=== PATIENT | male | born 1950 | race Caucasian/White ===

== ENCOUNTER 2020-10-15 10:24 | Outpatient (REF) | payer MEDICARE, SELFPAY | END 2020-10-15 10:25 | disposition home or self-care (01) | LOC: HO.LAB 10:24 | PROVIDERS: PCP Internal Medicine; Visit Provider Internal Medicine | DX: Z20.822 Contact with and (suspected) exposure to COVID-19 (principal) | CPT/HCPCS: 36415; C9803; U0003; U0005 ==

== ENCOUNTER 2020-10-20 10:54 | Outpatient (REF) | payer MEDICARE, SELFPAY | END 2020-10-20 10:55 | disposition home or self-care (01) | LOC: HO.LAB 10:54 | PROVIDERS: Visit Provider Internal Medicine | DX: Z20.822 Contact with and (suspected) exposure to COVID-19 (principal) | CPT/HCPCS: 36415; C9803; U0003; U0005 ==

== ENCOUNTER 2020-11-11 10:55 | Outpatient (REF) | payer MEDICARE, SELFPAY ==
[2020-11-11 14:06] LABS: Lymphocytes Percent Auto 16.6 % (20-40); MANUAL DIFF FLAG SCAN; SCAN SMEAR FLAG 1
[2020-11-11 14:08] LABS: Basophils Percent Auto 0.3 % (0-2); Eosinophils Absolute Auto 0.1 X10*3/uL (0.0-0.4); Eosinophils Percent Auto 1.5 % (0-4); Hemoglobin 14.7 g/dl (14.0-18.0); Imm Gran Abs Auto 0.02 X10*3/uL (0.00-0.03); Imm Gran Pct Auto 0.3 % (0.0-0.4); Lymphocytes Absolute Auto 1.1 X10*3/uL (1.2-4.9); Mean Corpuscular HGB Conc 32.7 g/dl (31.0-36.0); Mean Corpuscular Hemoglobin 31.3 pg (27.0-33.0); Mean Corpuscular Volume 95.9 fL (80-98); Monocytes Absolute Auto 0.5 X10*3/uL (0.1-1.2); Monocytes Percent Auto 7.6 % (2-11); Neutrophils Absolute Auto 5.1 X10*3/uL (2.0-8.3); Neutrophils Percent Auto 73.7 % (45-73); PLT CLUMP 1; Red Blood Count 4.69 X10*6/uL (4.60-5.80); Red Cell Distribution Width 13.2 % (11.0-16.0)
[2020-11-11 14:12] LABS: Estimated Average Glucose 131 mg/dL; Hemoglobin A1c % 6.2 %
[2020-11-11 14:15] LABS: Glucose Urine UA NEG (NEG); Leukocyte Esterase Urine NEG (NEG); Nitrite Urine NEG (NEG); Specific Gravity - Urine >= 1.030 (1.005-1.025); Urine Blood NEG (NEG); Urine Ketones NEG (NEG); Urine Protein NEG (NEG-TRACE)
[2020-11-11 14:21] LABS: Appearance Urine CLEAR; Color Urine YELLOW
[2020-11-11 14:26] LABS: PLT ABN DIST 1
[2020-11-11 14:47] LABS: Creatinine Urine 113.37 mg/dL
[2020-11-11 14:54] LABS: Platelet Count 154 X10*3/uL (160-400); White Blood Count 6.9 X10*3/uL (4.8-10.8)
[2020-11-11 14:55] LABS: Alanine Aminotransferase 17 U/L (0-40); Albumin Level 4.4 g/dL (3.5-5.0); Alkaline Phosphatase 81 U/L (39-117); Anion Gap 14 (12-20); Aspartate Amino Transferase 17 U/L (5-37); Bilirubin Total 0.6 mg/dL (0.0-1.0); Blood Urea Nitrogen 15 mg/dL (9-16); Calcium 9.2 mg/dL (8.4-10.2); Carbon Dioxide 28 mmol/L (22-29); Chloride 104 mmol/L (96-108); Cholesterol 144 mg/dL; Estimated Glomerular Filt Rate > 60; Glucose Fasting 114 mg/dL (60-99); HDL Cholesterol 31 mg/dL; LDL Cholesterol Calculated 90 mg/dl; Potassium 4.4 mmol/L (3.3-5.1); SLIDE REVIEW VERIFIED; Sodium 142 mmol/L (135-145); Total Protein 7.9 g/dL (6.5-8.0); Triglycerides 115 mg/dL
[2020-11-11 15:18] LABS: Prostate Specific Antigen Scr 0.83 ng/mL (<0.05-4.0)
== END 2020-11-11 10:56 | disposition home or self-care (01) ==
LOC: HO.10HDL 10:55
PROVIDERS: Visit Provider Internal Medicine
DX: E78.00 Pure hypercholesterolemia, unspecified (principal); M10.9 Gout, unspecified; N40.0 Benign prostatic hyperplasia without lower urinary tract symptoms; R73.03 Prediabetes; Z12.5 Encounter for screening for malignant neoplasm of prostate
CPT/HCPCS: 36415; 80053; 80061; 81003; 82043; 83036; 84153; 85025

== ENCOUNTER 2021-06-04 14:38 | Outpatient (REF) | payer MEDICARE, SELFPAY ==
[2021-06-04 15:12] LABS: Estimated Average Glucose 134 mg/dL; Hemoglobin A1c % 6.3 %
[2021-06-04 15:29] LABS: Anion Gap 9 (12-20); Blood Urea Nitrogen 15 mg/dL (9-16); Calcium 9.2 mg/dL (8.4-10.2); Carbon Dioxide 32 mmol/L (22-29); Chloride 106 mmol/L (96-108); Estimated Glomerular Filt Rate > 60; Glucose Random 112 mg/dL (60-115); Potassium 4.2 mmol/L (3.3-5.1); Sodium 143 mmol/L (135-145)
== END 2021-06-04 14:39 | disposition home or self-care (01) ==
LOC: HO.LAB 14:38
PROVIDERS: PCP Internal Medicine; Visit Provider Internal Medicine
DX: R73.03 Prediabetes (principal); N40.0 Benign prostatic hyperplasia without lower urinary tract symptoms; M10.9 Gout, unspecified
CPT/HCPCS: 36415; 80048; 83036; 84550

== ENCOUNTER 2021-07-01 15:16 | Outpatient (REF) | payer MEDICARE, SELFPAY | END 2021-07-01 15:17 | disposition home or self-care (01) | LOC: HO.LAB 15:16 | PROVIDERS: Visit Provider Internal Medicine | DX: Z20.822 Contact with and (suspected) exposure to COVID-19 (principal) | CPT/HCPCS: C9803; U0003; U0005 ==

== ENCOUNTER 2021-07-29 16:51 | Inpatient (IN) | payer MEDICARE, SELFPAY ==
--- NOTE | ~2021-07-29 | CT_ITS ---
EXAMINATION: CT ABDOMEN AND PELVIS WITH CONTRAST CLINICAL INFORMATION: Abdominal pain and distention. COMPARISON: Ultrasound of abdomen 10/04/2008 TECHNIQUE: Multidetector volumetric images were obtained from the superior aspect of the liver through the pubic symphysis following administration 85 mL of Omnipaque 350 intravenous contrast. Sagittal and coronal reformatted images were obtained on the technologist's workstation. Oral contrast: No This CT examination was performed using dose optimization techniques as appropriate, variously including the following: *Automated exposure control *Adjustment of mA and/or kV according to patient size (this includes techniques or standardized protocols for targeted exams where dose is matched to indication/reason for exam; i.e. extremities or head) *Use of iterative reconstruction technique DLP: 466 mGy-cm FINDINGS: LUNG BASES: Linear scarring/atelectasis at both lung bases. No focal consolidation. No pleural effusion. LIVER, GALLBLADDER, AND BILIARY TREE: The liver is normal in size, shape, and attenuation. No focal hepatic lesion or biliary ductal dilatation is present. : Bladder is distended. There are multiple small calcified gallstones in the gallbladder. There is edema around the gallbladder. Findings are concerning for an acute cholecystitis. The extra hepatic CBD is dilated to a diameter of 1 cm. No evidence of choledocholithiasis however. PANCREAS: Pancreas is atrophic. No pancreatic duct dilatation. No edema around the pancreas. SPLEEN: Unremarkable. ADRENAL GLANDS: Unremarkable. KIDNEYS AND URETERS: The kidneys are normal in size, shape, and attenuation. No hydronephrosis, hydroureter, or calculi seen. No perinephric stranding. BLADDER: Unremarkable. GASTROINTESTINAL TRACT: There are numerous diverticula of the sigmoid colon. There is no diverticulitis. There is no bowel wall thickening /edema. There is no bowel obstruction. There is a moderate volume of stool in the colon. The appendix is normal . The small bowel loops are unremarkable. The stomach is normal. There is no hiatal hernia. ABDOMINAL WALL: No significant hernia is appreciated. LYMPH NODES: Normal. VASCULAR: Scattered vascular calcifications throughout the abdomen and the pelvis. There is no aneurysm. PELVIC VISCERA: Prostate is prominent measuring 4 cm transverse. Impresses into the bladder base. OSSEOUS STRUCTURES: Unremarkable. CT/CT abdomen pelvis w con IMPRESSION: Cholelithiasis. Distended gallbladder. Edema around the gallbladder consistent with acute cholecystitis. There is dilatation of the extrahepatic CBD to a diameter of 1 cm. No evidence of choledocholithiasis however. Normal pancreas. Fleischner guidelines were followed.
--- NOTE | ~2021-07-29 | MR_ITS ---
EXAMINATION: MR ABDOMEN WITHOUT CONTRAST CLINICAL INFORMATION: Gallstones. Dilated CBD on CT. Rule out common bile duct stone. COMPARISON: CT 07/29/2021. TECHNIQUE: MR abdomen is performed without gadolinium contrast. Heavily T2-weighted sequence performed for MRCP acquisition. FINDINGS: LUNG BASES: The visualized lung bases are unremarkable. LIVER, GALLBLADDER, AND BILIARY TREE: The liver is normal in size, smooth in contour, and normal in signal. No focal hepatic lesion or biliary ductal dilatation is present. Sludge and stones fill the gallbladder lumen. No definite gallbladder wall thickening seen on this study. Small amount of fluid tracks along the inferior aspect of the liver. The common bile duct is dilated measuring 1.1 cm. Minimal intrahepatic biliary ductal dilatation is well. There is no ductal filling defect identified. There appears to be low insertion of the cystic duct. PANCREAS: No pancreatic ductal dilatation. Pancreatic parenchyma is unremarkable. SPLEEN: Unremarkable. ADRENAL GLANDS: Unremarkable. KIDNEYS AND URETERS: The kidneys are normal in size and shape. No hydronephrosis. No perinephric stranding. GASTROINTESTINAL TRACT: No bowel obstruction. No ascites or fluid collection. ABDOMINAL WALL: No significant hernia is appreciated. LYMPH NODES: No lymphadenopathy. VASCULAR: Unremarkable. OSSEOUS STRUCTURES: Marrow signal normal. MR/MR MRCP IMPRESSION: Dilated common bile duct with mild intrahepatic biliary ductal dilatation. No ductal filling defects seen. Cholelithiasis with gallbladder sludge. No gallbladder wall thickening seen on this study. There is small amount of fluid which tracks along the inferior aspect of the liver.
[2021-07-29 17:49] VITALS: BP 130/75; PULSE 99; RESP 18; TEMP 36.7; O2SAT 94; BMI 22.0
[2021-07-29 19:02] LABS: Alanine Aminotransferase 21 U/L (0-40); Albumin Level 4.1 g/dL (3.5-5.0); Alkaline Phosphatase 86 U/L (39-117); Anion Gap 15 (12-20); Aspartate Amino Transferase 18 U/L (5-37); Bilirubin Total 1.1 mg/dL (0.0-1.0); Blood Urea Nitrogen 17 mg/dL (9-16); Calcium 9.3 mg/dL (8.4-10.2); Carbon Dioxide 30 mmol/L (22-29); Chloride 98 mmol/L (96-108); Creatinine Clr Calc Pharmacy 60.3; Estimated Glomerular Filt Rate > 60; Glucose Random 117 mg/dL (60-115); Sodium 139 mmol/L (135-145); Total Protein 8.1 g/dL (6.5-8.0)
--- NOTE | 2021-07-29 19:48 | ED_ITS ---
HPI - Abdominal Pain General Chief Complaint: Abdominal Pain Stated Complaint: abd pain Time Seen by Provider: 07/29/21 21:19 Source: patient Mode of arrival: ambulatory Limitations: no limitations History of Present Illness HPI narrative: 71-year-old male presents with approximately 1 week of abdominal pain. Started off with pain and cramping, thought that he had food poisoning. Pain and bloating has worsened, patient has had several episodes of nausea and vomiting. Does not report any sick contacts. MD elicited complaint: abdominal pain Onset (ago): day(s) (5) Pain Consistency: constant Location: diffuse Severity: moderate Pain scale (0-10): 7 Quality: cramping, aching and fullness Exacerbating factors: vomiting and movement Relieving factors: nothing Context: possible food poisoning Associated symptoms: nausea, vomiting, chills and constipation Related Data Home Medications Medication Instructions Recorded Confirmed allopurinol 100 mg tablet 1 tab PO DAILY 07/29/21 07/29/21 atorvastatin 10 mg tablet 1 tab PO DAILY 07/29/21 07/29/21 tamsulosin 0.4 mg capsule 1 cap PO DAILY 07/29/21 07/29/21 Allergies Allergy/AdvReac Type Severity Reaction Status Date / Time No Known Allergies Allergy Verified 07/29/21 17:49 Review of Systems Review of Systems Constitutional: No Weight loss, No Fever, No Chills, No Night Sweats, No Fatigue, No Malaise ENT/Mouth: No Hearing loss, No Ear Pain, No Nasal Congestion, No Sinus Pain, No Hoarseness, No sore throat, No Rhinorrhea, No Swallowing Difficulty Eyes: No Eye Pain, No Swelling, No Redness, No Foreign Body, No Discharge, No Vision Changes Cardiovascular: No Chest Pain, No SOB, No Dyspnea on Exertion, No Orthopnea, No Edema, No Palpitations Respiratory: No Cough, No Sputum, No Wheezing, No Smoke Exposure, No Dyspnea Gastrointestinal: Positive Nausea, Positive Vomiting, no Diarrhea, positive abdominal Pain, No Hematochezia, No Melena Genitourinary: no irregular bleeding, No Dysuria, No Urinary Frequency, No Hematuria, No Urinary Incontinence, No Urgency, No Flank Pain, No Urinary Flow Changes, No Hesitancy Musculoskeletal: No joint pain, No Myalgias, No Joint Swelling Skin: No Skin Lesions, No rash Neuro: No Weakness, No Numbness, No Paresthesias, No Loss of Consciousness, No Dizziness, No Headache Psych: No Anxiety/Panic, No Depression, No SI/HI/AH/VH, No Social Issues Heme/Lymph: No Bruising, No Bleeding,No Lymphadenopathy Endocrine: No Polyuria, No Polydipsia, No Temperature Intolerance Yes all other systems are reviewed and are negative Physical Exam Vital Signs: Vital Signs: Last Vital Signs Temp 98.0 F 07/29/21 22:20 Pulse 96 07/29/21 22:20 Resp 16 07/29/21 22:20 BP 130/87 07/29/21 22:20 Pulse Ox 94 07/29/21 22:20 BMI result Body Mass Index 22.0 Appearance: Alert. Oriented X3. No acute distress. Eyes: Pupils equal, round and reactive to light. ENT: Pharynx normal. Neck: Normal inspection. Neck supple. CVS: Tachycardic heart rate and rhythm. Pulses normal. Respiratory: No respiratory distress. Breath sounds normal. Abdomen: Soft and diffusely tender and distended. No rigidity or rebound tenderness noted. Positive Paulino. Skin: Skin warm and dry. Normal skin color. Normal skin turgor. Extremities: No lower extremity edema. Moves all extremities against resistance. Neuro: No motor deficit. No sensory deficit. Cranial nerves 2-12 intact. Course Course Course Narrative: E.d. wait time 3:00 a.m. and 20 minutes. 2018 patient presents with abdominal pain. States that he has had felt this way for the past several days, on the 1st day he felt like it was food poisoning and vomited a few times. He has had poor p.o. intake over the past few days and states that he has not had any bowel movements. He is passing flatus. He states that his abdomen is so distended that it is difficult for him to put his pants on. He has had some chills and subjective fevers over the past few days. Labs drawn while patient in the waiting room. 9:21 p.m. white count 17.5, lactic 1.1, heart rate 100. Does meet SIRS criteria not sepsis. 10:[address] scan indicates cholelithiasis with cholecystitis. Discussion with Gastroenterology Dr. Welch via tiger text. 10:[address] Hussein, plans for admission to surgical service for cholecystitis. I did discuss Dr. Welch is plan for MRCP in the morning. Dr. Hussein agrees. Discussion with patient regarding plan care to admit. Patient agrees with plan. Consultations Consultation #1: Rebekah Time: 22:01 Consultation #2: Keenan Time: 22:12 MDM - Abdominal Pain Differential Diagnosis Differential diagnosis: Likely abdominal pain, acute appendicitis, bowel perforation, calculus of kidney, constipation, diverticulitis, gastroenteritis, pancreatitis, peptic ulcer disease and small bowel obstruction Differential diagnosis narrative:: Cholecystitis, cholelithiasis Medical Records Attestation: I reviewed the patient's medical records. Lab Data Attestation: I reviewed the patient's lab results. Result diagrams: 07/29/21 20:32 07/29/21 18:42 Labs: Lab Results 07/29/21 07/29/21 07/29/21 Range/Units 18:42 20:31 20:31 WBC (4.8-10.8) X10*3/uL RBC (4.60-5.80) X10*6/uL Hgb (14.0-18.0) g/dl Hct (42.0-52.0) % MCV (80.0-98.0) fL MCH (27.0-33.0) pg MCHC (31.0-36.0) g/dl RDW (11.0-16.0) % Plt Count (160-400) X10*3/uL MPV (9.4-12.4) fL Immature Gran % (Auto) (0.0-0.4) % Neut % (Auto) (45-73) % Lymph % (Auto) (20-40) % [place] % (Auto) (2-11) % Eos % (Auto) (0-4) % Baso % (Auto) (0-2) % Lymph # (Auto) (1.2-4.9) X10*3/uL [place] # (Auto) (0.1-1.2) X10*3/uL Eos # (Auto) (0.0-0.4) X10*3/uL Baso # (Auto) (0.0-0.2) X10*3/uL Abs Immat Gran (auto) (0.00-0.03) X10*3/uL Absolute Neuts (auto) (2.0-8.3) x10*3/uL Absolute Nucleated RBC (0.0-0.012) X10*3/uL Nucleated RBC % (auto) (0.0-0.2) /100WBC Smear Tech's Comments Sodium 139 (135-145) mmol/L Potassium 4.0 (3.3-5.1) mmol/L Chloride 98 (96-108) mmol/L Carbon Dioxide 30 H (22-29) mmol/L Anion Gap 15 (12-20) BUN 17 H (9-16) mg/dL Creatinine 1.03 (0.5-1.4) mg/dL Estim Creat Clear Calc 60.3 Estimated GFR > 60 Random Glucose 117 H (60-115) mg/dL Lactic Acid 1.1 (0.5-2.0) mmol/L Calcium 9.3 (8.4-10.2) mg/dL Magnesium 2.0 (1.6-2.6) mg/dL Total Bilirubin 1.1 H (0.0-1.0) mg/dL AST 18 (5-37) U/L ALT 21 (0-40) U/L Alkaline Phosphatase 86 (39-117) U/L Troponin I High Sens (<3.5-35.0) ng/L Total Protein 8.1 H (6.5-8.0) g/dL Albumin 4.1 (3.5-5.0) g/dL Lipase 7 L (8-78) U/L Urine Color Urine Appearance Urine pH (5.0-8.0) Ur Specific [place] (1.005-1.025) Urine Protein (NEG-TRACE) MG/DL Urine Glucose (UA) (NEG) MG/DL Urine Ketones (NEG) MG/DL Urine Blood (NEG) Urine Nitrite (NEG) Ur Leukocyte Esterase (NEG) Urine RBC (0) /HPF Urine WBC (0-4) /HPF Ur Squamous Epith Cells /LPF Amorphous Sediment /LPF Urine Bacteria /LPF Hyaline Casts /LPF Urine Mucus /LPF Ethyl Alcohol mg/dL COVID-19 (DESIRE) Negative (Negative) COVID-19 Clin Com See Note 07/29/21 07/29/21 07/29/21 Range/Units 20:32 20:40 20:40 WBC 17.5 H (4.8-10.8) X10*3/uL RBC 4.55 L (4.60-5.80) X10*6/uL Hgb 14.6 (14.0-18.0) g/dl Hct 44.3 (42.0-52.0) % MCV 97.4 (80.0-98.0) fL MCH 32.1 (27.0-33.0) pg MCHC 33.0 (31.0-36.0) g/dl RDW 13.2 (11.0-16.0) % Plt Count 193 (160-400) X10*3/uL MPV 11.1 (9.4-12.4) fL Immature Gran % (Auto) 0.3 (0.0-0.4) % Neut % (Auto) 81.8 H (45-73) % Lymph % (Auto) 7.8 L (20-40) % [place] % (Auto) 9.8 (2-11) % Eos % (Auto) 0.1 (0-4) % Baso % (Auto) 0.2 (0-2) % Lymph # (Auto) 1.4 (1.2-4.9) X10*3/uL [place] # (Auto) 1.7 H (0.1-1.2) X10*3/uL Eos # (Auto) 0.0 (0.0-0.4) X10*3/uL Baso # (Auto) 0.0 (0.0-0.2) X10*3/uL Abs Immat Gran (auto) 0.06 H (0.00-0.03) X10*3/uL Absolute Neuts (auto) 14.3 H (2.0-8.3) x10*3/uL Absolute Nucleated RBC 0.000 (0.0-0.012) X10*3/uL Nucleated RBC % (auto) 0.0 (0.0-0.2) /100WBC Smear Tech's Comments VERIFIED Sodium (135-145) mmol/L Potassium (3.3-5.1) mmol/L Chloride (96-108) mmol/L Carbon Dioxide (22-29) mmol/L Anion Gap (12-20) BUN (9-16) mg/dL Creatinine (0.5-1.4) mg/dL Estim Creat Clear Calc Estimated GFR Random Glucose (60-115) mg/dL Lactic Acid (0.5-2.0) mmol/L Calcium (8.4-10.2) mg/dL Magnesium (1.6-2.6) mg/dL Total Bilirubin (0.0-1.0) mg/dL AST (5-37) U/L ALT (0-40) U/L Alkaline Phosphatase (39-117) U/L Troponin I High Sens 4.4 (<3.5-35.0) ng/L Total Protein (6.5-8.0) g/dL Albumin (3.5-5.0) g/dL Lipase (8-78) U/L Urine Color Urine Appearance Urine pH (5.0-8.0) Ur Specific [place] (1.005-1.025) Urine Protein (NEG-TRACE) MG/DL Urine Glucose (UA) (NEG) MG/DL Urine Ketones (NEG) MG/DL Urine Blood (NEG) Urine Nitrite (NEG) Ur Leukocyte Esterase (NEG) Urine RBC (0) /HPF Urine WBC (0-4) /HPF Ur Squamous Epith Cells /LPF Amorphous Sediment /LPF Urine Bacteria /LPF Hyaline Casts /LPF Urine Mucus /LPF Ethyl Alcohol < 10 mg/dL COVID-19 (DESIRE) (Negative) COVID-19 Clin Com 07/29/21 Range/Units 21:11 WBC (4.8-10.8) X10*3/uL RBC (4.60-5.80) X10*6/uL Hgb (14.0-18.0) g/dl Hct (42.0-52.0) % MCV (80.0-98.0) fL MCH (27.0-33.0) pg MCHC (31.0-36.0) g/dl RDW (11.0-16.0) % Plt Count (160-400) X10*3/uL MPV (9.4-12.4) fL Immature Gran % (Auto) (0.0-0.4) % Neut % (Auto) (45-73) % Lymph % (Auto) (20-40) % [place] % (Auto) (2-11) % Eos % (Auto) (0-4) % Baso % (Auto) (0-2) % Lymph # (Auto) (1.2-4.9) X10*3/uL [place] # (Auto) (0.1-1.2) X10*3/uL Eos # (Auto) (0.0-0.4) X10*3/uL Baso # (Auto) (0.0-0.2) X10*3/uL Abs Immat Gran (auto) (0.00-0.03) X10*3/uL Absolute Neuts (auto) (2.0-8.3) x10*3/uL Absolute Nucleated RBC (0.0-0.012) X10*3/uL Nucleated RBC % (auto) (0.0-0.2) /100WBC Smear Tech's Comments Sodium (135-145) mmol/L Potassium (3.3-5.1) mmol/L Chloride (96-108) mmol/L Carbon Dioxide (22-29) mmol/L Anion Gap (12-20) BUN (9-16) mg/dL Creatinine (0.5-1.4) mg/dL Estim Creat Clear Calc Estimated GFR Random Glucose (60-115) mg/dL Lactic Acid (0.5-2.0) mmol/L Calcium (8.4-10.2) mg/dL Magnesium (1.6-2.6) mg/dL Total Bilirubin (0.0-1.0) mg/dL AST (5-37) U/L ALT (0-40) U/L Alkaline Phosphatase (39-117) U/L Troponin I High Sens (<3.5-35.0) ng/L Total Protein (6.5-8.0) g/dL Albumin (3.5-5.0) g/dL Lipase (8-78) U/L Urine Color DK YELLOW Urine Appearance CLEAR Urine pH 6.0 (5.0-8.0) Ur Specific [place] >= 1.030 H (1.005-1.025) Urine Protein 1+ H (NEG-TRACE) MG/DL Urine Glucose (UA) NEG (NEG) MG/DL Urine Ketones 15 (NEG) MG/DL Urine Blood TRACE (NEG) Urine Nitrite NEG (NEG) Ur Leukocyte Esterase NEG (NEG) Urine RBC 0-2 (0) /HPF Urine WBC 0-2 (0-4) /HPF Ur Squamous Epith Cells TRACE /LPF Amorphous Sediment TRACE /LPF Urine Bacteria TRACE /LPF Hyaline Casts 0-2 /LPF Urine Mucus 2+ /LPF Ethyl Alcohol mg/dL COVID-19 (DESIRE) (Negative) COVID-19 Clin Com Imaging Data CT abdomen pelvis: Attestation: I personally reviewed and interpreted this imaging study as follows: Radiologist's impression: FINDINGS: LUNG BASES: Linear scarring/atelectasis at both lung bases. No focal consolidation. No pleural effusion.? LIVER, GALLBLADDER, AND BILIARY TREE: The liver is normal in size, shape, and attenuation. No focal hepatic lesion or biliary ductal dilatation is present. : Bladder is distended. There are multiple small calcified gallstones in the gallbladder. There is edema around the gallbladder. Findings are concerning for an acute cholecystitis. The extra hepatic CBD is dilated to a diameter of 1 cm. No evidence of choledocholithiasis however.? PANCREAS: Pancreas is atrophic. No pancreatic duct dilatation. No edema around the pancreas.? SPLEEN: Unremarkable.? ADRENAL GLANDS: Unremarkable.? KIDNEYS AND URETERS: The kidneys are normal in size, shape, and attenuation. No hydronephrosis, hydroureter, or calculi seen. No perinephric stranding. ? BLADDER: Unremarkable.? GASTROINTESTINAL TRACT: There are numerous diverticula of the sigmoid colon. There is no diverticulitis. There is no bowel wall thickening /edema. There is no bowel obstruction. There is a moderate volume of stool in the colon. The appendix is normal . The small bowel loops are unremarkable. The stomach is normal. There is no hiatal hernia.? ABDOMINAL WALL: No significant hernia is appreciated.? LYMPH NODES: Normal. VASCULAR: Scattered vascular calcifications throughout the abdomen and the pelvis. There is no aneurysm. PELVIC VISCERA: Prostate is prominent measuring 4 cm transverse. Impresses into the bladder base.? OSSEOUS STRUCTURES: Unremarkable.? CT/CT abdomen pelvis w con IMPRESSION: Cholelithiasis. Distended gallbladder. Edema around the gallbladder consistent with acute cholecystitis. There is dilatation of the extrahepatic CBD to a diameter of 1 cm. No evidence of choledocholithiasis however. Normal pancreas.? ? Fleischner guidelines were followed. ECG Data Attestation: I personally reviewed and interpreted this ECG as follows: ECG interpretation date: 07/29/21 ECG interpretation time: 20:44 Prior ECG tracings: available for review Interpretation: Vent. rate 100 BPM UT interval 158 ms QRS duration 82 ms QT/QTc 342/441 ms P-R-T axes 29 2 9 Normal sinus rhythm Normal ECG When compared with ECG of 13-SEP-2006 10:20, No significant change was found Critical Care Time Critical Care Time Critical Care Time: Yes Total Critical Care Time: 45 Attestation: I have personally provided critical care time exclusive of time spent on separately billable procedures. Time includes review of laboratory data, radiology results, discussion with consultants, and monitoring for potential decompensation. Interventions were performed as documented. Discharge Plan Discharge Clinical Impression: Acute cholecystitis Cholelithiasis Qualifiers: Cholelithiasis location: gallbladder Cholecystitis presence: with cholecystitis Cholecystitis acuity: acute Biliary obstruction: without biliary obstruction Qualified Code(s): K80.00 - Calculus of gallbladder with acute cholecystitis without obstruction Patient Disposition: Admitted As Inpatient [facility] Past Medical History Attestation statement: The following information was validated with the patient. Source: old records reviewed Medical History Enlarged prostate Gout High cholesterol Social History Social History Alcohol intake: former Patient Tobacco Use Status: Never used Tobacco Use of substances other than those prescribed or required for medical reasons: No Advance Directives: No Advance Directives Information Provided: No
--- NOTE | 2021-07-29 20:14 | ECG_ITS ---
Test Reason : ABDOMINAL PAIN Blood Pressure : / mmHG Vent. Rate : 100 BPM Atrial Rate : 100 BPM P-R Int : 158 ms QRS Dur : 082 ms QT Int : 342 ms P-R-T Axes : 029 002 009 degrees QTc Int : 441 ms Normal sinus rhythm Normal ECG When compared with ECG of 13-SEP-2006 10:20, No significant change was found Referred By: Deloris Mota Electronically Signed By:Tawanda Allen
[2021-07-29] MEDS: ondansetron HCL 4 MG/2 ML VIAL IVPUSH (20:29)
[2021-07-29] MEDS: Morphine Sulfate 2 MG/ML CARTRIDGE IVPUSH (20:29)
[2021-07-29] MEDS: 0.9 % Sodium Chloride 1,000 ML 999 ML IVCONT (20:29)
--- NOTE | 2021-07-29 20:32 | PC.NURSE ---
IV established, all labs including BCX x 2 and Covid swab obtained. Pt medicated per OCT. senior technical architect at bedside for EKG.
[2021-07-29 20:35] LABS: Lipase 7 U/L (8-78)
[2021-07-29 20:38] LABS: Basophils Percent Auto 0.2 % (0-2); Eosinophils Percent Auto 0.1 % (0-4); Hematocrit 44.3 % (42.0-52.0); Hemoglobin 14.6 g/dl (14.0-18.0); Imm Gran Abs Auto 0.06 X10*3/uL (0.00-0.03); Imm Gran Pct Auto 0.3 % (0.0-0.4); Lymphocytes Absolute Auto 1.4 X10*3/uL (1.2-4.9); Lymphocytes Percent Auto 7.8 % (20-40); MANUAL DIFF FLAG SCAN; Mean Corpuscular Hemoglobin 32.1 pg (27.0-33.0); Mean Corpuscular Volume 97.4 fL (80.0-98.0); Mean Platelet Volume 11.1 fL (9.4-12.4); Monocytes Absolute Auto 1.7 X10*3/uL (0.1-1.2); Monocytes Percent Auto 9.8 % (2-11); Neutrophils Absolute Auto 14.3 x10*3/uL (2.0-8.3); Neutrophils Percent Auto 81.8 % (45-73); Platelet Count 193 X10*3/uL (160-400); Red Blood Count 4.55 X10*6/uL (4.60-5.80); Red Cell Distribution Width 13.2 % (11.0-16.0); SCAN SMEAR FLAG 1; White Blood Count 17.5 X10*3/uL (4.8-10.8)
[2021-07-29 20:46] LABS: Lactic Acid 1.1 mmol/L (0.5-2.0)
[2021-07-29 20:48] VITALS: BP 135/66; PULSE 100; RESP 16; TEMP 37; O2SAT 94
[2021-07-29 20:52] LABS: COVID-19 Test Negative (Negative)
[2021-07-29 21:06] LABS: SLIDE REVIEW VERIFIED
--- NOTE | 2021-07-29 21:06 | PC.NURSE ---
Omar denies abbdominal pain or nausea at this time, but states if he were to weat he would have diffuse abd. pain and likely vomiting
[2021-07-29 21:11] LABS: Troponin-I High Sensitivity 4.4 ng/L (<3.5-35.0)
[2021-07-29 21:18] LABS: Appearance Urine CLEAR; Color Urine DK YELLOW; Glucose Urine UA NEG (NEG); Leukocyte Esterase Urine NEG (NEG); Nitrite Urine NEG (NEG); Specific Gravity - Urine >= 1.030 (1.005-1.025); UACC Culture Trigger NO; Urine Blood TRACE (NEG); Urine Ketones 15 MG/DL (NEG); Urine Protein 1+ MG/DL (NEG-TRACE)
[2021-07-29 21:28] LABS: Amorphous Sediment Urine TRACE /LPF; Mucus Urine 2+ /LPF; Squamous Epithelial Cell Urine TRACE /LPF
[2021-07-29 21:29] LABS: Bacteria Urine TRACE /LPF; Hyaline Casts Urine 0-2 /LPF; RBC Urine 0-2 /HPF (0); WBC Urine 0-2 /HPF (0-4)
[2021-07-29] MEDS: iohexoL 350 MG/ML 100 ML INFUS..BTL 85 ML IV (21:32)
[2021-07-29] MEDS: Piperacillin Sodium/Tazobactam 3.375 GM in 0.9 % Sodium Chloride 50 ML IV (21:52)
[2021-07-29 21:53] VITALS: BP 141/73; PULSE 100; RESP 14; O2SAT 94
[2021-07-29 22:20] VITALS: BP 130/87; PULSE 96; RESP 16; TEMP 36.7; O2SAT 94
[2021-07-29 22:45] LABS: Ethanol < 10 mg/dL
[2021-07-29] MEDS: Lactated Ringers 1,000 ML 100 ML IVCONT (22:49)
[2021-07-29 22:55] LABS: INTERNATIONAL NORM RATIO 1.2 (0.9-1.1); Prothrombin Time 13.5 SEC (9.9-13.0)
[2021-07-29 22:57] LABS: Partial Thromboplastin Time 31.4 SEC (24.1-38.0)
[2021-07-30] VITALS (14 sets, daily range): BP systolic 118–151; BP diastolic 56–78; PULSE 62–96; RESP 14–20; TEMP 36.3–37.2; O2SAT 90–98
[2021-07-30] MEDS: 0.9 % Sodium Chloride Flush 3 ML SYRINGE IVFLUSH (00:07)
[2021-07-30 06:50] LABS: MANUAL DIFF FLAG NO
[2021-07-30] MEDS: Piperacillin Sodium/Tazobactam 3.375 GM in 0.9 % Sodium Chloride 50 ML IV (06:51)
[2021-07-30 06:55] LABS: Basophils Percent Auto 0.2 % (0-2); Eosinophils Percent Auto 0.1 % (0-4); Hematocrit 39.3 % (42.0-52.0); Imm Gran Abs Auto 0.08 X10*3/uL (0.00-0.03); Imm Gran Pct Auto 0.6 % (0.0-0.4); Lymphocytes Absolute Auto 0.9 X10*3/uL (1.2-4.9); Lymphocytes Percent Auto 6.9 % (20-40); Mean Corpuscular HGB Conc 33.1 g/dl (31.0-36.0); Mean Corpuscular Hemoglobin 31.9 pg (27.0-33.0); Mean Corpuscular Volume 96.3 fL (80.0-98.0); Monocytes Absolute Auto 1.4 X10*3/uL (0.1-1.2); Monocytes Percent Auto 10.3 % (2-11); Neutrophils Absolute Auto 10.9 x10*3/uL (2.0-8.3); Neutrophils Percent Auto 81.9 % (45-73); Platelet Count 178 X10*3/uL (160-400); Red Blood Count 4.08 X10*6/uL (4.60-5.80); Red Cell Distribution Width 13.2 % (11.0-16.0); White Blood Count 13.3 X10*3/uL (4.8-10.8)
--- NOTE | 2021-07-30 07:21 | PHA.MEDREC ---
Pharmacy Consult ? Medication Reconciliation Pharmacy has completed the medication reconciliation. Checked meds with claim history in the morning
--- NOTE | 2021-07-30 07:25 | PM.EVENT ---
Event Note Date of Service: 07/30/21 Event Note: GI-D/W CANDIE Emerson, Deloris Delgadillo, last PM-Full note to follow. Rec: MRCP this AM.Surgery consult. ERCP if MRCP shows CBD stone(s), otherwise probably proceed with CCY. Thanks
[2021-07-30 07:32] LABS: Anion Gap 13 (12-20); Blood Urea Nitrogen 14 mg/dL (9-16); Calcium 8.5 mg/dL (8.4-10.2); Carbon Dioxide 28 mmol/L (22-29); Chloride 102 mmol/L (96-108); Creatinine Clr Calc Pharmacy 69.7; Estimated Glomerular Filt Rate > 60; Glucose Random 113 mg/dL (60-115); Potassium 3.9 mmol/L (3.3-5.1); Sodium 139 mmol/L (135-145)
--- NOTE | 2021-07-30 07:33 | PC.NURSE ---
PT NPO. AWAITING MRCP. AWARE OF PLAN. ALERT AND ORIENTED.
[2021-07-30 07:40] LABS: Alanine Aminotransferase 24 U/L (0-40); Albumin Level 3.4 g/dL (3.5-5.0); Alkaline Phosphatase 92 U/L (39-117); Aspartate Amino Transferase 22 U/L (5-37); Bilirubin Direct 0.6 mg/dL (0.0-0.5); Bilirubin Total 1.2 mg/dL (0.0-1.0); Total Protein 6.6 g/dL (6.5-8.0)
--- NOTE | 2021-07-30 08:08 | P.HPGS_ITS ---
History of Present Illness History of Present Illness Date of Service: 07/31/21 Chief complaint: Gallstones Narrative: Omar Carbajal is a 71 year old male who came to the ER last night because of abdominal pain. He said that he started to experience this last Tuesday morning which was about 2 days prior to admission. He says that this started whenever he eats. He says he thought he had a little bit of food poisoning or blockage . He was very vague about details but he says that the pain had persisted so he decided to come to the ER last night. He denies any nausea or vomiting. He denies any other GI complaints. He currently says that he feels better this morning. He does not appear to be a very good historian although he does answer questions well. He has a remote history of alcohol abuse. He says that he has been sober for more than 5 years now. He denies any recent alcohol intake. Review of Systems Constitutional: Constitutional: Denies chills and Denies fever(s) Cardiovascular: Cardiovascular: Denies chest pain, Denies dyspnea and Denies dyspnea on exertion Respiratory: Respiratory: Denies cough, Denies dyspnea and Denies dyspnea on exertion Gastrointestinal: Gastrointestinal: Denies hematochezia and Denies change in bowel habits Genitourinary: Genitourinary: Denies hematuria and Denies difficulty urinating Musculoskeletal: Musculoskeletal: Denies back pain and Denies limited range of motion Neurologic: Denies focal weakness and Denies convulsions Psychiatric: Psychiatric: Denies depression and Denies mood swings PMFSH Past Medical History Medical History Enlarged prostate Gout High cholesterol Social History Social History Household Members: Significant Other Housing: House Do you presently have visiting nurse or other home services: No Alcohol intake: former Patient Tobacco Use Status: Never used Tobacco Second Hand Smoke Exposure: No service: No Current occupational status: retired Meds Allergies Allergy/AdvReac Type Severity Reaction Status Date / Time No Known Allergies Allergy Verified 07/29/21 17:49 Active Medications: Current Medications Lactated Ringer's (Lr) 1,000 mls @ 100 mls/hr IVCONT .Q10H [facility] Last Infusion: 07/30/21 06:55 Dose: Infused Documented by: Piperacillin Sod/Tazobactam (Sod 3.375 gm/ Sodium Chloride) 50 mls @ 100 mls/hr IV Q6H [facility] Last Admin: 07/30/21 06:51 Dose: 100 mls/hr Documented by: Morphine Sulfate (Morphine Sulfate 4 Mg/Ml Cartridge) 3 mg IVPUSH Q3H PRN; Protocol PRN Reason: Pain, Severe (Pain Scale 7-10) Ondansetron HCl (Ondansetron Hcl 4 Mg/2 Ml Vial) 4 mg IVPUSH Q8H PRN PRN Reason: nausea Pharmacy Consult (Consult Rx Perform Med Rec) 1 each MISCELLANE ONCE PRN PRN Reason: Consult order Sodium Chloride (0.9 % Sodium Chloride Flush 3 Ml Syringe) 3 ml IVFLUSH QSHIFT [facility] Last Admin: 07/30/21 00:07 Dose: 3 ml Documented by: Home Medications Medication Instructions Recorded Confirmed Last Taken Type allopurinol 100 mg tablet 1 tab PO DAILY 07/29/21 07/29/21 Unknown History atorvastatin 10 mg tablet 1 tab PO DAILY 07/29/21 07/29/21 Unknown History tamsulosin 0.4 mg capsule 1 cap PO DAILY 07/29/21 07/29/21 Unknown History Physical Exam Vital Signs: Vital Signs: Last Vital Signs Temp 98.0 F 07/29/21 22:20 Pulse 94 07/30/21 07:20 Resp 18 07/30/21 07:20 BP 128/69 07/30/21 07:20 Pulse Ox 92 07/30/21 07:20 BMI result Body Mass Index 22.0 Const: General: comfortable and no acute distress Orientation/consciousness: patient oriented x3 Neck: Neck: Yes no lymphadenopathy Resp: Auscultation: clear to auscultation bilaterally Cardio: Rhythm: regular rhythm GI: Other: Mild tenderness on the right upper quadrant, no Paulino sign Pal pation (GI): Soft to palpation, Tenderness to palpation present (GI) and no guarding Neuro: General: patient oriented x3 Results Results Labs: Short CBC 07/29/21 07/29/21 07/30/21 Range/Units 18:42 20:32 06:32 WBC 17.5 H 13.3 H (4.8-10.8) X10*3/uL Hgb 14.6 13.0 L (14.0-18.0) g/dl Hct 44.3 39.3 L (42.0-52.0) % Plt Count 193 178 (160-400) X10*3/uL Total Bilirubin 1.1 H (0.0-1.0) mg/dL 07/30/21 Range/Units 06:32 WBC (4.8-10.8) X10*3/uL Hgb (14.0-18.0) g/dl Hct (42.0-52.0) % Plt Count (160-400) X10*3/uL Total Bilirubin 1.2 H (0.0-1.0) mg/dL BMP 07/29/21 07/30/21 18:42 06:32 Sodium 139 139 Potassium 4.0 3.9 Chloride 98 102 Carbon Dioxide 30 H 28 BUN 17 H 14 Creatinine 1.03 0.89 Calcium 9.3 8.5 D Liver Function 07/29/21 07/30/21 Range/Units 18:42 06:32 Total Bilirubin 1.1 H 1.2 H (0.0-1.0) mg/dL Direct Bilirubin 0.6 H (0.0-0.5) mg/dL AST 18 22 (5-37) U/L ALT 21 24 (0-40) U/L Alkaline Phosphatase 86 92 (39-117) U/L Albumin 4.1 3.4 L (3.5-5.0) g/dL Urine 07/29/21 Range/Units 21:11 Urine Color DK YELLOW Urine Appearance CLEAR Urine pH 6.0 (5.0-8.0) Ur Specific [place] >= 1.030 H (1.005-1.025) Urine Protein 1+ H (NEG-TRACE) MG/DL Urine Glucose (UA) NEG (NEG) MG/DL Abdomen CT scan report/results: report reviewed and image reviewed CT scan - pelvis: report reviewed and image reviewed Assessment and Plan (1) Acute cholecystitis: Status: Acute He came in for abdominal pain for about 2-3 days duration. He had leukocytosis. His CAT scan is suggestive of acute cholecystitis with some thickening of the gallbladder wall and gallstones. His bilirubin is mildly elevated and his CT scan shows a dilatation the intrahepatic ducts. I have ordered for an MRCP to check for any CBD obstruction. His repeat CBC shows significant downward trend of his leukocytosis. His bilirubin is slightly elevated. His tenderness is minimal. I have explained to him the option of proceeding with laparoscopic cholecystectomy. I explained to the technique of this procedure. I reviewed the risks including but not limited to bleeding, infections, conversion to open, injury to the bowel, liver, bile ducts, bile leak, retained stones, inherent risks of anesthesia including perioperative NH, as well as benefits and alternatives. He says he is uncertain and will await for results of the MRCP prior to doing this. Quality Stroke Does the patient have a stroke diagnosis?: No VTE Prior VTE?: No VTE Risk Level:: Medical - moderate - high VTE Device Contraindication: N/A - Device Ordered VTE Drug Contraindication: N/A - Med Ordered Procedures Date of Service Date of Service: 07/30/21
--- NOTE | 2021-07-30 08:53 | MHC.CM.PN ---
pt lives alone in apt but he says he spends most of his time at his girlfriends apt who lives right down the [address]. she [place] provide [place]. he says he is independent in his care , in fact he helps his girlfriend c things as she is older than him. he does not use any AD c ambulation and is still driving a car. he has other family in the area but reports not having any children. pt denies the need for vna at [place]. dc plan is home no svcs. cm to cont. to follow.
[2021-07-30] MEDS: Lactated Ringers 1,000 ML 100 ML IVCONT ×3 (09:22→23:06)
--- NOTE | 2021-07-30 09:55 | PC.NURSE ---
REPORT TO JANET SCHNEIDER IN [facility]
--- NOTE | 2021-07-30 09:56 | CONS_ITS ---
DATE OF SERVICE: 07/30/2021 REFERRING PHYSICIAN: Damaris Eaton DO REASON FOR CONSULTATION: Abdominal pain, gallstones, and elevated liver function tests. HISTORY OF PRESENT ILLNESS: The patient is a 71-year-old man, who was admitted to the hospital after presenting to the emergency room with complaints of abdominal pain. He states he was well until early Tuesday morning when he awoke with abdominal pain, which was worsened with eating. He thought he had food poisoning or possible intestinal blockage and the symptoms included nausea as well as some vomiting and some diarrhea. He denies any fevers or chills. He was evaluated in the emergency department with laboratory studies, which showed elevation of his total serum bilirubin at 1.1 with otherwise normal liver function tests. Imaging studies were obtained including CT scanning, which is reviewed. This is interpreted as showing gallstones with gallbladder edema and dilation of the common bile duct to 1 cm. MRI was ordered, from which he has just returned, this is reviewed and does not show any obvious filling defects in the common bile duct. He has been seen in consultation by Dr. Hussein and cholecystectomy is planned. PAST MEDICAL HISTORY: 1. Gout. 2. Elevated cholesterol. 3. BPH. 4. Colonoscopy 04/07 showing diverticulosis, hemorrhoids, and hyperplastic polyp. CURRENT MEDICATIONS: Current medication list is reviewed in the chart. ALLERGIES: THERE ARE NONE REPORTED. FAMILY HISTORY: This is reviewed with the patient and is noncontributory. SOCIAL HISTORY: He formally drank alcohol heavily, but reports not doing this over the last 5 years. There is no substance abuse. REVIEW OF SYSTEMS: SKIN: No pruritus. HEENT: Negative. CARDIOPULMONARY: He denies shortness of breath or chest pain. GASTROINTESTINAL: As above. GENITOURINARY: Negative. NEUROPSYCHIATRIC: Negative. PHYSICAL EXAMINATION: GENERAL: Shows a pleasant male, lying comfortably in bed. VITAL SIGNS: Reviewed in the electronic medical record and are stable. SKIN: Anicteric. HEENT: Shows no scleral icterus. NECK: Without lymphadenopathy or thyromegaly. LUNGS: Clear. HEART: Shows a regular rate and rhythm. S1, S2. No murmur. ABDOMEN: Soft without focal masses or tenderness. Bowel sounds are present. No organomegaly is noted. EXTREMITIES: Without edema. LABORATORY DATA: Reviewed as is his CT and MRI. IMPRESSION: Dilated common bile duct with gallstones and elevated liver function tests. His MRI is negative for common bile duct stones. Therefore, I would not recommend ERCP at this time. He is discussing cholecystectomy with Dr. Hussein and I think this is a reasonable way to proceed is possibly could have passed a stone given his elevated bilirubin, although this may represent a mild form of Gilbert's syndrome. Thanks for asking me to see him. I will follow him in the hospital as needed. MD SARY Davenport/DIANA / [phone]
--- NOTE | 2021-07-30 10:15 | HO.ANESPROP2 ---
[facility], LATER [facility] Active Problems Active Problems: All Active Problems (Updated 07/29/21 @ 22:12 by Deloris Mota NP) Acute cholecystitis (Acute) Cholelithiasis (Acute) Past Medical History Medical History Enlarged prostate Gout High cholesterol Functional capacity: independent ambulation Family History Family history of problems with anesthesia: No Surgical History History of Problems with Anesthesia: No Social History Social History Alcohol intake: former Patient Tobacco Use Status: Never used Tobacco Second Hand Smoke Exposure: No Use of substances other than those prescribed or required for medical reasons: No Are you DNR?: No Advance Directives: No Advance Directives Information Provided: No Advance Directives on File: No service: No Current occupational status: retired [employer] Allergies Allergy/AdvReac Type Severity Reaction Status Date / Time No Known Allergies Allergy Verified 07/29/21 17:49 Active Medications: Current Medications Lactated Ringer's (Lr) 1,000 mls @ 100 mls/hr IVCONT .Q10H [facility] Last Admin: 07/30/21 09:22 Dose: 100 mls/hr Documented by: Piperacillin Sod/Tazobactam (Sod 3.375 gm/ Sodium Chloride) 50 mls @ 100 mls/hr IV Q6H [facility] Last Admin: 07/30/21 06:51 Dose: 100 mls/hr Documented by: Morphine Sulfate (Morphine Sulfate 4 Mg/Ml Cartridge) 3 mg IVPUSH Q3H PRN; Protocol PRN Reason: Pain, Severe (Pain Scale 7-10) Ondansetron HCl (Ondansetron Hcl 4 Mg/2 Ml Vial) 4 mg IVPUSH Q8H PRN PRN Reason: nausea Pharmacy Consult (Consult Rx Perform Med Rec) 1 each MISCELLANE ONCE PRN PRN Reason: Consult order Sodium Chloride (0.9 % Sodium Chloride Flush 3 Ml Syringe) 3 ml IVFLUSH QSHIFT [facility] Last Admin: 07/30/21 09:23 Dose: Not Given Documented by: Home Medications Medication Instructions Recorded Confirmed Last Taken Type allopurinol 100 mg tablet 1 tab PO DAILY 07/29/21 07/29/21 Unknown History atorvastatin 10 mg tablet 1 tab PO DAILY 07/29/21 07/29/21 Unknown History tamsulosin 0.4 mg capsule 1 cap PO DAILY 07/29/21 07/29/21 Unknown History Exam Exam Date and Time: July 30, 2021 1015 Height,Weight and Vital Signs: Height 5 ft 8 in Weight 65.771 kg Last Vital Signs Temp 98.0 F 07/29/21 22:20 Pulse 94 07/30/21 07:20 Resp 18 07/30/21 07:20 BP 128/69 07/30/21 07:20 Pulse Ox 92 07/30/21 07:20 Pertinent Lab Results Pertinent Lab Results: Laboratory Tests 07/29/21 07/29/21 07/29/21 18:42 20:31 20:31 WBC RBC Hgb Hct MCV MCH MCHC RDW Plt Count MPV Immature Gran % (Auto) Neut % (Auto) Lymph % (Auto) [place] % (Auto) Eos % (Auto) Baso % (Auto) Lymph # (Auto) [place] # (Auto) Eos # (Auto) Baso # (Auto) Abs Immat Gran (auto) Absolute Neuts (auto) Absolute Nucleated RBC Nucleated RBC % (auto) Smear Tech's Comments PT INR APTT Sodium 139 Potassium 4.0 Chloride 98 Carbon Dioxide 30 H Anion Gap 15 BUN 17 H Creatinine 1.03 Estim Creat Clear Calc 60.3 Estimated GFR > 60 Random Glucose 117 H Lactic Acid 1.1 Calcium 9.3 Magnesium 2.0 Total Bilirubin 1.1 H Direct Bilirubin AST 18 ALT 21 Alkaline Phosphatase 86 Troponin I High Sens Total Protein 8.1 H Albumin 4.1 Lipase 7 L Urine Color Urine Appearance Urine pH Ur Specific [place] Urine Protein Urine Glucose (UA) Urine Ketones Urine Blood Urine Nitrite Ur Leukocyte Esterase Urine RBC Urine WBC Ur Squamous Epith Cells Amorphous Sediment Urine Bacteria Hyaline Casts Urine Mucus Ethyl Alcohol COVID-19 (DESIRE) Negative COVID-19 Clin Com See Note 07/29/21 07/29/21 07/29/21 20:32 20:40 20:40 WBC 17.5 H RBC 4.55 L Hgb 14.6 Hct 44.3 MCV 97.4 MCH 32.1 MCHC 33.0 RDW 13.2 Plt Count 193 MPV 11.1 Immature Gran % (Auto) 0.3 Neut % (Auto) 81.8 H Lymph % (Auto) 7.8 L [place] % (Auto) 9.8 Eos % (Auto) 0.1 Baso % (Auto) 0.2 Lymph # (Auto) 1.4 [place] # (Auto) 1.7 H Eos # (Auto) 0.0 Baso # (Auto) 0.0 Abs Immat Gran (auto) 0.06 H Absolute Neuts (auto) 14.3 H Absolute Nucleated RBC 0.000 Nucleated RBC % (auto) 0.0 Smear Tech's Comments VERIFIED PT INR APTT Sodium Potassium Chloride Carbon Dioxide Anion Gap BUN Creatinine Estim Creat Clear Calc Estimated GFR Random Glucose Lactic Acid Calcium Magnesium Total Bilirubin Direct Bilirubin AST ALT Alkaline Phosphatase Troponin I High Sens 4.4 Total Protein Albumin Lipase Urine Color Urine Appearance Urine pH Ur Specific [place] Urine Protein Urine Glucose (UA) Urine Ketones Urine Blood Urine Nitrite Ur Leukocyte Esterase Urine RBC Urine WBC Ur Squamous Epith Cells Amorphous Sediment Urine Bacteria Hyaline Casts Urine Mucus Ethyl Alcohol < 10 COVID-19 ([facility]IRE) COVID-19 Clin Com 07/29/21 07/29/21 07/30/21 21:11 22:43 06:32 WBC 13.3 H RBC 4.08 L Hgb 13.0 L Hct 39.3 L MCV 96.3 MCH 31.9 MCHC 33.1 RDW 13.2 Plt Count 178 MPV 11.0 Immature Gran % (Auto) 0.6 H Neut % (Auto) 81.9 H Lymph % (Auto) 6.9 L [place] % (Auto) 10.3 Eos % (Auto) 0.1 Baso % (Auto) 0.2 Lymph # (Auto) 0.9 L [place] # (Auto) 1.4 H Eos # (Auto) 0.0 Baso # (Auto) 0.0 Abs Immat Gran (auto) 0.08 H Absolute Neuts (auto) 10.9 H Absolute Nucleated RBC 0.000 Nucleated RBC % (auto) 0.0 Smear Tech's Comments PT 13.5 H INR 1.2 H APTT 31.4 Sodium Potassium Chloride Carbon Dioxide Anion Gap BUN Creatinine Estim Creat Clear Calc Estimated GFR Random Glucose Lactic Acid Calcium Magnesium Total Bilirubin Direct Bilirubin AST ALT Alkaline Phosphatase Troponin I High Sens Total Protein Albumin Lipase Urine Color DK YELLOW Urine Appearance CLEAR Urine pH 6.0 Ur Specific [place] >= 1.030 H Urine Protein 1+ H Urine Glucose (UA) NEG Urine Ketones 15 Urine Blood TRACE Urine Nitrite NEG Ur Leukocyte Esterase NEG Urine RBC 0-2 Urine WBC 0-2 Ur Squamous Epith Cells TRACE Amorphous Sediment TRACE Urine Bacteria TRACE Hyaline Casts 0-2 Urine Mucus 2+ Ethyl Alcohol COVID-19 ([facility]IRE) COVID-19 Clin Com 07/30/21 07/30/21 06:32 06:32 WBC RBC Hgb Hct MCV MCH MCHC RDW Plt Count MPV Immature Gran % (Auto) Neut % (Auto) Lymph % (Auto) [place] % (Auto) Eos % (Auto) Baso % (Auto) Lymph # (Auto) [place] # (Auto) Eos # (Auto) Baso # (Auto) Abs Immat Gran (auto) Absolute Neuts (auto) Absolute Nucleated RBC Nucleated RBC % (auto) Smear Tech's Comments PT INR APTT Sodium 139 Potassium 3.9 Chloride 102 Carbon Dioxide 28 Anion Gap 13 BUN 14 Creatinine 0.89 Estim Creat Clear Calc 69.7 Estimated GFR > 60 Random Glucose 113 Lactic Acid Calcium 8.5 D Magnesium Total Bilirubin 1.2 H Direct Bilirubin 0.6 H AST 22 ALT 24 Alkaline Phosphatase 92 Troponin I High Sens Total Protein 6.6 Albumin 3.4 L Lipase Urine Color Urine Appearance Urine pH Ur Specific [place] Urine Protein Urine Glucose (UA) Urine Ketones Urine Blood Urine Nitrite Ur Leukocyte Esterase Urine RBC Urine WBC Ur Squamous Epith Cells Amorphous Sediment Urine Bacteria Hyaline Casts Urine Mucus Ethyl Alcohol COVID-19 ([facility]IRE) COVID-19 Clin Com Airway Mallampati Class: III TM Dist: >3cm Neck ROM: Full Loose/Missing/Broken Teeth: Yes and Upper Heart: RRR Assessment and Plan Assessment Anesthesia Assessment: Anesthesia Plan Discussed Final Anesthetic Review Family History of Problems with Anesthesia: No History of Problems with Anesthesia: No ASA Class: II and III Final Preanesthetic Review: No Changes in Pt Med Stat, Meds/Allgs Chart Reviewed, Consent Obtained/Reviewed and Anes Risks/Benef Reviewed Patient Risk: Intermediate Procedure Risk: Intermediate Anesthetic Plan Anesthetic Plan: GA Disposition: Standard PACU
--- NOTE | 2021-07-30 11:21 | PM.EVENT ---
Event Note Date of Service: 07/30/21 Event Note: I have reviewed the MRCP with the radiologist There is some dilatation of the common bile duct but there is note filling defect nor stones seen. There is no abrupt cut off of either. There is therefore no evidence of any CBD obstruction. The CAT scan also shows significant inflammatory changes surrounding the gallbladder consistent with acute cholecystitis. The patient remains tender on the right upper quadrant although not severe He however wants to proceed with cholecystectomy. He understands the technique of laparoscopic cholecystectomy and possible open cholecystectomy. He says he is aware of the risks including but not limited to bleeding, infections, injury to the surrounding organs, bile leak, retained stones, inherent risks of anesthesia, as well as the benefits and alternatives. He wants to proceed.
--- NOTE | 2021-07-30 13:32 | P.OP_ITS ---
Operative Note Operative Note Date of Service: 07/30/21 Narrative: Preop diagnosis: Acute calculus cholecystitis Postop diagnosis: Acute calculous cholecystitis, severe, with hydrops of the gallbladder procedure: Laparoscopic cholecystectomy Surgeon: Fer Hussein MD assistant accounting manager: HOLLY Ureña The patient is a 71-year-old male who was admitted the hospital last night because of no pain with note of acute cholecystitis on CT scan. He also had leukocytosis. He had very mild elevation of the bilirubin along with rotation of the common bile duct so I sent him for an MRI which did not reveal any common bile duct stones Or obstruction. I therefore told him that we can proceed with laparoscopic cholecystectomy with possible open for his acute cholecystitis since he was pen tender. I explained him the technique of this procedure. I reviewed the risks , benefits and alternatives and he had given consent. He was brought to the operating room and placed supine on the table under general anesthesia via endotracheal tube. The abdomen was prepped and draped in the usual sterile fashion. A surgical time-out was done. The patient received Cefotan 2 g IV preoperatively. I made a short incision on the supraumbilical margin using a blade 15. This was carried down through the full-thickness of the skin and subcutaneous fat to the fascia. The fascia was incised. The peritoneum was entered. Through this incision a Gil port was introduced. Pneumoperitoneum was introduced to a pressure of 15 mm hg. From here on, the procedure was done under vision with the laparoscope. Visualization using a flat 10 mm scope, proceeded to then insert a 5/12 mm port in the epigastric area below the subcostal margin. 5 mm port were introduced through small incisions below the subcostal margin along the anterior axillary line and the midclavicular line. Graspers were placed through the working ports. The patient was placed in head-up and [id number] position. Initially we could not visualize the gallbladder at all as this was wrapped in omentum. I was able to pull up some of the omentum and did a little bit of blunt dissection with a grasper as well as the [place] dissector to carefully tease this off from the gallbladder. Since I could see part of the very distended gallbladder wall, I continued to dissect this thickened and indurated omentum off of the gallbladder wall using the [place] LigaSure. I continued to divide adherent parts of the omentum off of the liver edge and the gallbladder. Eventually I was able to expose the anterior wall of the gallbladder along with the fundus. The gallbladder was markedly distended, very erythematous and indurated. I therefore aspirated this with a needle through 1 of the ports to decompress this as we could not apply a grasper because of the marked distention and induration. There was note of clear fluid initially followed by thick whitish fluid aspirated consistent with hydrops of the gallbladder. This allowed us to however decompress the gallbladder and apply the graspers in the fundus. This was used to retract the gallbladder cephalad. I was able to apply another grasper near the pouch of the gallbladder to retract this laterally. There was however note of a lot of indurated tissue on the neck of the gallbladder the hilum. We had to do a lot of dissection using the [place] dissector, as well as the tip of the suction bus trolley and taxi instructor to carefully tease off this very indurated tissue off of the neck of the gallbladder. This part of the procedure took a period of time because of the severe induration. We had to literally do a mm by mm dissection to allow as to separate the rest of the gallbladder from this indurated tissue distal to the neck. I also had to carefully separate the aspect of the gallbladder wall from the liver bed as this was also very indurated adherent liver with a thick inflammatory rind making visualization and mobilization of the gallbladder difficult. Exposure of the entire gallbladder was eventually achieved although with significant degree of difficulty. I also had to carefully separate rest of the indurated tissue from the hilum I did careful blunt dissection of the neck to allow me to identify a short cystic duct. I was able to get a 360 degree dissection of the cystic duct very near the neck with the [place] dissector. At this point we were able to achieve a critical view of the hepatocystic triangle although there was still a lot of tissue surrounding the edge of the gallbladder towards the liver bed Once I was able to confirm the confluence of the cystic duct with the neck of the gallbladder, I applied clips with 2 clips being applied distally. The cystic duct was therefore transected between clips with Endo scissors. We continued to retract the gallbladder and by doing so now, there were tears on the gallbladder wall from the retraction that allowed leakage of clear and whitish fluid along with stones consistent with hydrops. We had to do a lot of time retrieving the stones from the gallbladder fossa. I proceeded to continue to dissect the rest of the hilum in a mm by mm fashion to make sure that we were not encountering any other tubular structure. I was able to see another fine tubular structure which we had judged to be the cystic artery. This was clipped and was transected between clips with Endo scissors. With traction on the gallbladder away from liver bed using the graspers, I proceeded to then use a combination of the L hook cautery to divide the very thick rind once I was able to define this, I then proceeded to separate the gallbladder wall, along with blunt dissection with the spatula as well as with electrocautery . I carefully the rest of the gallbladder wall from the liver bed in this fashion. This was achieved over an extended period time because of the poor planes and the very thickened gallbladder wall. Eventually I was able to separate the gallbladder wall completely and this was retrieved through an endobag through the umbilical incision. I reinserted all ports and re-insufflated. I copiously irrigated the subhepatic space because of the spillage of gallbladder contents earlier. After hemostasis was ensured, I proceeded to laparoscopically examined all 4 quadrants. There was no other pathology and there was no evidence of any bowel injury. I then positioned a 7.CHARITY drain on the subhepatic space. This was inserted to the epigastric port and was brought out through the most lateral port site as the exit point. This was secured to the skin with nylon 3-0 sutures. I then desufflated the port sites. I removed all ports and the umbilical port was removed last. The fascia of the umbilical incision was closed with [id number] Dexon 0 stitch. Skin closure was achieved on all incisions using Dexon 4-0 subcuticular running sutures. Steri-Strips and dressings were applied. All incisions were infiltrated with Marcaine 0.5% for postop analgesia The procedure was then completed The patient tolerated the procedure well. There were no complications noted. Initial and final counts of sponges and instruments were correct. Estimated blood loss was about 100 cc The patient was extubated without difficulty and transferred to the recovery room with stable vital signs.
--- NOTE | 2021-07-30 13:53 | PM.OP ---
Brief Operative Note Date of Service: 07/30/21 <Zoraida Ureña PA-C - Last Filed: 07/30/21 13:54> Pre-op diagnosis: acute cholecystitis <CAIRSSA Murrieta Last Filed: 07/30/21 13:54> Post-op diagnosis: same (hydrops) <Zoraida Ureña PA-C - Last Filed: 07/30/21 13:54> Procedure: laparoscopic cholecystectomy <Zoraida Ureña PA-C - Last Filed: 07/30/21 13:54> Implants: CHARITY drain <Zoraida Ureña PA-C - Last Filed: 07/30/21 13:54> Surgeon: AURA HUSSEIN MD <Zoraida Ureña PA-C - Last Filed: 07/30/21 13:54> Anesthesia: GETA <Zoraida Ureña PA-C - Last Filed: 07/30/21 13:54> Was an Medical Donation Professional used for this Procedure?: Yes <Zoraida Ureña PA-C - Last Filed: 07/30/21 13:54> No <Aura Hussein MD - Last Filed: 07/30/21 15:15> Medical Donation Professional: Zoraida Ureña <Zoraida Ureña PA-C - Last Filed: 07/30/21 13:54> Estimated blood loss (mL): 25 <CARISSA Murrieta Last Filed: 07/30/21 13:54> Pathology: other (GALLBLADDER) <CARISSA Murrieta Last Filed: 07/30/21 13:54> Condition: stable <CARISSA Murrieta Last Filed: 07/30/21 13:54> Disposition: PACU <CARISSA Murrieta Last Filed: 07/30/21 13:54>
[2021-07-30] MEDS: oxyCODONE HCl Immed Release 5 MG TABLET PO (14:28)
--- NOTE | 2021-07-30 15:15 | PM.EVENT ---
Event Note Date of Service: 07/30/21 Event Note: seen postop underwent laparoscopic cholecystectomy for severe acute cholecystitis with hydrops good pain control currently says he feels well stable vital signs abdomen soft CHARITY drain serosanguineous pain management doing well postoperatively IV antibiotics significant other [place] updated by phone
[2021-07-31 03:54] VITALS: BP 114/68; PULSE 76; RESP 17; TEMP 37.2; O2SAT 94
[2021-07-31 06:34] LABS: Alanine Aminotransferase 41 U/L (0-40); Albumin Level 2.9 g/dL (3.5-5.0); Alkaline Phosphatase 94 U/L (39-117); Aspartate Amino Transferase 43 U/L (5-37); Bilirubin Direct 0.3 mg/dL (0.0-0.5); Bilirubin Total 0.7 mg/dL (0.0-1.0); Total Protein 5.8 g/dL (6.5-8.0)
[2021-07-31] MEDS: oxyCODONE HCl Immed Release 5 MG TABLET 10 MG PO (07:01)
[2021-07-31] MEDS: Atorvastatin Calcium 10 MG TABLET PO (07:01)
[2021-07-31] MEDS: allopurinoL 100 MG TABLET PO (07:01)
[2021-07-31 07:48] VITALS: BP 144/75; PULSE 71; RESP 17; TEMP 36.7; O2SAT 98
--- NOTE | 2021-07-31 08:30 | PM.PNGS ---
Subjective Subjective Date of Service: 07/31/21 <Zoraida Ureña PA-C - Last Filed: 07/31/21 08:35> 07/31/21 <Fer Hussein MD - Last Filed: 07/31/21 09:32> Interval history: Feels much better. Does have some incisional pain but comfortable with analgesics. Tolerating solid diet. OOB to chair this morning. C/o constipation- last BM . <Zoraida Ureña PA-C - Last Filed: 07/31/21 08:35> Physical Exam Vital Signs: Vital Signs: Last Vital Signs Temp 98.1 F 07/31/21 07:48 Pulse 71 07/31/21 07:48 Resp 17 07/31/21 07:48 BP 144/75 H 07/31/21 07:48 Pulse Ox 98 07/31/21 07:48 BMI result Body Mass Index 22.0 <Zoraida Ureña PA-C - Last Filed: 07/31/21 08:35> Const: General: comfortable, no acute distress and alert <Zoraida Ureña PA-C - Last Filed: 07/31/21 08:35> Orientation/consciousness: patient oriented x3 <CARISSA Murrieta Last Filed: 07/31/21 08:35> Resp: Effort & Inspection: normal respiratory effort <Zoraida Ureña PA-C - Last Filed: 07/31/21 08:35> GI: Other: CHARITY with serosanguineous output <Zoraida Ureña PA-C - Last Filed: 07/31/21 08:35> Inspection: Yes distended (mild) and Yes incision (dressings c/d/i) <Zoraida Ureña PA-C - Last Filed: 07/31/21 08:35> Palpation (GI): Soft to palpation, Tenderness to palpation present (GI) (mild), no guarding and not rigid <CARISSA Murrieta Last Filed: 07/31/21 08:35> Percussion: Yes normal to percussion <CARISSA Murrieta Last Filed: 07/31/21 08:35> Skin: General skin exam: no rashes or lesions noted <Zoraida Ureña PA-C - Last Filed: 07/31/21 08:35> Neuro: General: patient oriented x3 <Zoraida Ureña PA-C - Last Filed: 07/31/21 08:35> Extrem: General: Yes no clubbing, cyanosis or edema <Zoraida Ureña PA-C - Last Filed: 07/31/21 08:35> Objective Data Active Medications Acetaminophen (Acetaminophen 325 Mg Tablet) 650 mg PO Q6H PRN PRN Reason: fever, pain Allopurinol (Allopurinol 100 Mg Tablet) 100 mg PO DAILY [facility] Last Admin: 07/31/21 07:01 Dose: 100 mg Documented by: ARTEMIO Atorvastatin Calcium (Atorvastatin Calcium 10 Mg Tablet) 10 mg PO DAILY [facility] Last Admin: 07/31/21 07:01 Dose: 10 mg Documented by: ARTEMIO Lactated Ringer's (Lr) 1,000 mls @ 100 mls/hr IVCONT .Q10H [facility] Last Admin: 07/30/21 23:06 Dose: 100 mls/hr Documented by: RADHA Morphine Sulfate (Morphine Sulfate 4 Mg/Ml Cartridge) 3 mg IVPUSH Q3H PRN; Protocol PRN Reason: Pain, Severe (Pain Scale 7-10) Ondansetron HCl (Ondansetron Hcl 4 Mg/2 Ml Vial) 4 mg IVPUSH Q8H PRN PRN Reason: nausea Oxycodone HCl (Oxycodone Hcl Immed Release 5 Mg Tablet) 5 mg PO Q4H PRN PRN Reason: Pain, Moderate (Pain Scale 4-6 Oxycodone HCl (Oxycodone Hcl Immed Release 5 Mg Tablet) 10 mg PO Q4H PRN PRN Reason: Pain, Severe (Pain Scale 7-10) Last Admin: 07/31/21 07:01 Dose: 10 mg Documented by: ARTEMIO Pharmacy Consult (Consult Rx Perform Med Rec) 1 each MISCELLANE ONCE PRN PRN Reason: Consult order Sodium Chloride (0.9 % Sodium Chloride Flush 3 Ml Syringe) 3 ml IVFLUSH QSHIFT [facility] Last Admin: 07/31/21 06:58 Dose: Not Given Documented by: ARTEMIO Non-Admin Reason: IV Running Tamsulosin HCl (Tamsulosin Hcl 0.4 Mg Capsule) 0.4 mg PO DAILY@1730 MELISSA <Zoraida Ureña PA-C - Last Filed: 07/31/21 08:35> Labs CBC & Chem 7: : 07/30/21 06:32 07/30/21 06:32 <Zoraida Ureña PA-C - Last Filed: 07/31/21 08:35> Labs: Laboratory Results - last 24 hr 07/31/21 05:24 Total Bilirubin 0.7 Direct Bilirubin 0.3 AST 43 H D ALT 41 H Alkaline Phosphatase 94 Total Protein 5.8 L Albumin 2.9 L <Zoraida Ureña PA-C - Last Filed: 07/31/21 08:35> Microbiology Microbiology Results: Microbiology 07/29/21 20:31 Blood Culture - Preliminary Blood - Venous No growth after 24 hours. 07/29/21 20:31 Blood Culture - Preliminary Blood - Venous No growth after 24 hours. <Zoraida Ureña PA-C - Last Filed: 07/31/21 08:35> Procedures Date of Service Date of Service: 07/31/21 <Zoraida Ureña PA-C - Last Filed: 07/31/21 08:35> Progress Note: A&P Assessment and plan (1) Acute cholecystitis: Status: Acute <Zoraida Ureña PA-C - Last Filed: 07/31/21 08:35> (2) S/P laparoscopic cholecystectomy: Status: Acute <Zoraida Ureña PA-C - Last Filed: 07/31/21 08:35> Assessment and Plan: he says he feels well good pain control states he feels much better than yesterday CHARITY drain - deep serosanguinous output, minimal abdomen soft looks well may be ready to go home today with VNA seen and examined - agree with HOLLY Ureña <Fer Hussein MD - Last Filed: 07/31/21 09:32> Assessment and Plan: 71 year old male admitted with acute cholecystitis now POD #1 s/p lap CCY. Doing well post op, comfortable and tolerating solid diet. VSS. Abd exam benign with appropriate post op tenderness, dressings c/d/i. CHARITY with serosanguineous drainage. LFTs downtrending, bili normalized. Encouraged OOB/ambulation and IS use. Will reassess later today for likely discharge to home. Will need VNA services for drain care as this will remain in place. Patient comfortable with plan. <Zoraida Ureña PA-C - Last Filed: 07/31/21 08:35> Fall Risk Details Current Medications: Current Medications Acetaminophen (Acetaminophen 325 Mg Tablet) 650 mg PO Q6H PRN PRN Reason: fever, pain Allopurinol (Allopurinol 100 Mg Tablet) 100 mg PO DAILY [facility] Last Admin: 07/31/21 07:01 Dose: 100 mg Documented by: Atorvastatin Calcium (Atorvastatin Calcium 10 Mg Tablet) 10 mg PO DAILY [facility] Last Admin: 07/31/21 07:01 Dose: 10 mg Documented by: Lactated Ringer's (Lr) 1,000 mls @ 100 mls/hr IVCONT .Q10H [facility] Last Admin: 07/30/21 23:06 Dose: 100 mls/hr Documented by: Morphine Sulfate (Morphine Sulfate 4 Mg/Ml Cartridge) 3 mg IVPUSH Q3H PRN; Protocol PRN Reason: Pain, Severe (Pain Scale 7-10) Ondansetron HCl (Ondansetron Hcl 4 Mg/2 Ml Vial) 4 mg IVPUSH Q8H PRN PRN Reason: nausea Oxycodone HCl (Oxycodone Hcl Immed Release 5 Mg Tablet) 5 mg PO Q4H PRN PRN Reason: Pain, Moderate (Pain Scale 4-6 Oxycodone HCl (Oxycodone Hcl Immed Release 5 Mg Tablet) 10 mg PO Q4H PRN PRN Reason: Pain, Severe (Pain Scale 7-10) Last Admin: 07/31/21 07:01 Dose: 10 mg Documented by: Pharmacy Consult (Consult Rx Perform Med Rec) 1 each MISCELLANE ONCE PRN PRN Reason: Consult order Sodium Chloride (0.9 % Sodium Chloride Flush 3 Ml Syringe) 3 ml IVFLUSH QSHIFT [facility] Last Admin: 07/31/21 06:58 Dose: Not Given Documented by: Tamsulosin HCl (Tamsulosin Hcl 0.4 Mg Capsule) 0.4 mg PO DAILY@1730 [facility] <Zoraida Ureña PA-C - Last Filed: 07/31/21 08:35> Time Spent With Patient Time: Total time spent is greater than 50% in coordination of care (as documented) at patient's floor/unit and/or counseling patient: <Zoraida Ureña PA-C - Last Filed: 07/31/21 08:35> Time with patient: 15 - 24 minutes <Zoraida Ureña PA-C - Last Filed: 07/31/21 08:35> Quality Stroke Does the patient have a stroke diagnosis?: No <Zoraida Ureña PA-C - Last Filed: 07/31/21 08:35> VTE Prior VTE?: No <Zoraida Ureña PA-C - Last Filed: 07/31/21 08:35> VTE Risk Level:: Medical - moderate - high <Zoraida Ureña PA-C - Last Filed: 07/31/21 08:35> VTE Device Contraindication: N/A - Device Ordered <Zoraida Ureña PA-C - Last Filed: 07/31/21 08:35> VTE Drug Contraindication: N/A - Med Ordered <Zoraida Ureña PA-C - Last Filed: 07/31/21 08:35>
[2021-07-31 11:15] VITALS: BP 119/63; PULSE 65; RESP 16; TEMP 36.3; O2SAT 98
--- NOTE | 2021-07-31 11:44 | MHC.CM.PN ---
ANTICIPATE D/C LATER TODAY W/[facility] D/T CHARITY DRAIN S/P JAIDEN, PT WILL BE STAYING W/GF [address] [place], [place] [address], FOR TRANSPORT.
--- NOTE | 2021-07-31 14:20 | PM.EVENT ---
Event Note Date of Service: 07/31/21 Event Note: Continues to feel well Tolerating diet No fever Says he has been ambulating well Abdomen remained soft CHARITY drain scanty with serosanguineous output Nonicteric sclerae He says he feels ready to be discharged Will DC home with VNA, CHARITY drain Follow-up in the office next week
--- NOTE | 2021-07-31 14:21 | P.F2F_ITS ---
Service Date Service Date: 07/31/21 Encounter Date of encounter: 07/31/21 Reasons for Services Reason for nursing home: wound care and other (CHARITY drain care) Reason for speech therapy: other (Patient is status post laparoscopic cholecystectomy) MD Overseeing Care: Fer Hussein Homebound: Leaving the home is medically contraindicated at this time without the asist of a device and/or another person due th the listed conditions above and below. Reason homebound: unsteady gait / fall risk Certification: Based on the above findings, I certify that this patient is confined to the home and needs intermittent nursing home care, physical therapy and/or speech therapy, or continues to need occupational therapy. The patient is under my care, and I have initiated the establishment of the plan of care. The patient will be followed by a physician who will periodically review the plan of care.
--- NOTE | 2021-07-31 14:50 | PM.DS ---
DS: Providers Provider Date of Service: 07/31/21 Date of admission: 07/29/21 22:20 Primary care physician: Fer Oliveira MD Attending physician on admission: Fer Hussein Consults: 07/30/21 07:25 Consult to Gastroenterology Stat Consulting Provider: Jeremias Welch Reason for consultation: abdominal pain Has provider been notified: Yes DS: Diagnosis Discharge Diagnosis (1) Acute cholecystitis: Status: Acute DS: Summary Hospital Course Hospital Course: BRIEF HPI: Omar Carbajal is a 71 year old male who came to the ER last night because of abdominal pain.? He said that he started to experience this? last Tuesday morning which was about 2 days prior to admission.? He says that this started whenever he eats.? ? He says he thought he had a little bit of food poisoning or blockage . He was very vague about details but he says that the pain had persisted so he decided to come to the ER last night.? He denies any nausea or vomiting.? He denies any other GI complaints. He currently says that he feels better this morning.? Work up in the ED included a CT scan which was suggestive of acute cholecystitis with some thickening of the gallbladder wall and gallstones.?His bilirubin was also mildly elevated and his CT scan shows a dilatation the intrahepatic ducts. HOSPITAL COURSE: The patient was admitted tot he surgical service under Dr. Hussein for further treatment of the acute cholecystitis, elevated LFTs. MRCP was obtained to rule out CBD obstruction. He was made NPO, started on IVF and IV zosyn. GI consult was also obtained to recommended ERCP to follow MRCP if filling defect was found. The MRCP was negative for filling defect. It was therefore recommended to proceed with laparoscopic cholecystectomy possible open. He agreed and he was added onto the OR schedule for that day. On 07/30/21, a laparoscopic cholecystectomy was performed by Dr. Hussein without complication. The gallbladder was markedly distended, very erythematous and indurated and also contained thick whitish fluid consistent with hydrops of the gallbladder. A CHARITY drain was left in place. The patient tolerated the procedure well, completed routine recovery in PACU and was admitted to the medical/surgical floor for observation. The patient had an uncomplicated recovery course. On POD #1, he was doing very well. He was tolerating a solid diet without N/V. He was OOB and ambulating. He had good pain control. His abdomen was benign with appropriate post op tenderness and clean dressings. CHARITY drain output was serosanguineous. His LFTs were downtrending. He was reassessed later in the day and felt ready for discharge to home. He was discharged to home in stable condition on 07/31/21 with VNA services for drain care. Status at Discharge Functional status at discharge: independent ambulation Overall status at discharge: patient is progressing back to baseline Time Spent with Patient Time attestation: Total time spent providing and/or coordinating discharge services: Discharge coordination time: Greater than 30 minutes Quality: Stroke Does the patient have a stroke diagnosis?: No Physical Exam Vital Signs: Vital Signs: Last Vital Signs Temp 97.4 F 07/31/21 11:15 Pulse 65 07/31/21 11:15 Resp 16 07/31/21 11:15 BP 119/63 07/31/21 11:15 Pulse Ox 98 07/31/21 11:15 BMI result Body Mass Index 22.0 Const: General: comfortable, no acute distress and alert Orientation/consciousness: patient oriented x3 Resp: Effort & Inspection: normal respiratory effort GI: Other: CHARITY drain with serosanguineous drainage Inspection: No distended and Yes incision (dressings clean) Palpation (GI): Soft to palpation, Tenderness to palpation present (GI) (mild), no guarding and not rigid Skin: General skin exam: no rashes or lesions noted Neuro: General: patient oriented x3 DS: Data Data Completed and Pending Completed studies during hospitalization [Text1]: 07/30/21 13:22 Surgical [PTH] Routine Gallbladder, cholecystectomy:? Ulcerative cholecystitis; cholelithiasis. Labs on day of discharge: Laboratory Results - last 24 hr 07/31/21 05:24 Total Bilirubin 0.7 Direct Bilirubin 0.3 AST 43 H D ALT 41 H Alkaline Phosphatase 94 Total Protein 5.8 L Albumin 2.9 L Preliminary micro results at discharge 07/29/21 20:31 Blood Culture - Preliminary Blood - Venous No growth after 24 hours. 07/29/21 20:31 Blood Culture - Preliminary Blood - Venous No growth after 24 hours. Discharge Plan Discharge Patient Disposition: Home Health Service Discharge Diagnosis: ACUTE CHOLECYSTITIS, S/P LAPAROSCOPIC CHOLECYSTECTOMY Referrals: [facility] [Outside] - 1 Day (CORRECTION FOR CHARITY DRAIN) Fer Hussein MD [Physician] - 1 Week Fer Oliveira MD [Primary Care Provider] - 1 Week Discharge Medications: New oxycodone-acetaminophen [Percocet] 5-325 mg tablet 1 tab PO Q4-6H PRN (Reason: pain, severe) Qty: 30 RF: 0 ibuprofen 600 mg tablet 600 mg PO Q6H PRN (Reason: pain) Qty: 30 RF: 0 Continued atorvastatin 10 mg tablet 1 tab PO DAILY RF: 0 allopurinol 100 mg tablet 1 tab PO DAILY RF: 0 tamsulosin 0.4 mg capsule 1 cap PO DAILY RF: 0 Discharge Orders: Discharge Order (Routine); Ordered 07/31/21 Ordered By: Fer Hussein Diet: low fat, low cholesterol Activity on Discharge: No heavy lifting Stand Alone Forms: Patient Portal Discharge page Activity Restrictions/Additional Instructions: If the incision area is tender, you may apply an ice pack for short intervals (No more than 20 minutes on, followed by at least 20 minutes off). Do not apply heat. Do not use creams, lotions, or topical antibiotics unless instructed to do so by your surgeon. These can cause infection or allergic reaction. Ok to shower 24 hours after your surgery. Remove bandaids in 2 days and replace. You have steri strips (small white cloth strips) covering your incision- these will fall off ~1 week. Follow up in office with Dr. Hussein in 1 week. ([phone]) No heavy lifting (>10-20lbs)! CHARITY drain care: empty BID and PRN. Record output. Call Your Doctor If: -Your temperature exceeds 101.5? F -You experience excessive pain or swelling -You have an unexpected reaction to medication -You have excessive bleeding -You experience continued vomiting/nausea -Your incision begins to separate -Your incision shows signs of infection such as increased redness, swelling, excessive pain, drainage (light blood or clear fluid is normal) or heat Care Plan Goals: Return to baseline health and gradual return to activity following recovery period. Health Concerns: ACUTE CHOLECYSTITIS, ELEVATED LFTS Plan of Treatment: S/P LAP CATHLEEN, DISCHARGE TO HOME Assessment: Improved, doing well post op.
[2021-07-31] MEDS: oxyCODONE HCl Immed Release 5 MG TABLET PO (15:27)
[2021-07-31 15:32] VITALS: BP 148/80; PULSE 65; RESP 18; TEMP 36.8; O2SAT 96
--- NOTE | 2021-07-31 17:03 | W.MHC.F2F ---
Service Date Service Date: 07/31/21 Encounter Date of encounter: 07/31/21 Encounter: no need for speech therapy Reasons for Services Reason for nursing home: wound care and postoperative assessment and/or care MD Overseeing Care: Fer Hussein Homebound: Leaving the home is medically contraindicated at this time without the asist of a device and/or another person due th the listed conditions above and below. Certification: Based on the above findings, I certify that this patient is confined to the home and needs intermittent nursing home care, physical therapy and/or speech therapy, or continues to need occupational therapy. The patient is under my care, and I have initiated the establishment of the plan of care. The patient will be followed by a physician who will periodically review the plan of care.
--- NOTE | 2021-07-31 17:20 | PC.NURSE ---
Reviewed CHARITY drain education with pt. Demonstrated how to empty drain two times. Pt verbalized he feels comfortable with managing CHARITY drain at home. All questions answered. Pt states he will take incentive spirometer home and work on it at home also.
== END 2021-07-31 17:28 | disposition home health service (06) | DRG 418 ==
LOC: HO.ED 22:12 → HO.EDOVER 23:02 → HO.S3 07-30 12:46
PROVIDERS: Nurse Practitioner Family; Physician Assistant Surgical; Admitting Provider Surgery; Emergency Provider Internal Medicine; PCP Internal Medicine; Visit Provider Surgery
PROC: 0FT44ZZ Resection of Gallbladder, Percutaneous Endoscopic Approach (ICD-10-PCS; CPT 47562; principal; 2021-07-30 11:30)
DX: K80.00 Calculus of gallbladder with acute cholecystitis without obstruction (principal); K82.1 Hydrops of gallbladder; N40.0 Benign prostatic hyperplasia without lower urinary tract symptoms; F10.11 Alcohol abuse, in remission; Z20.822 Contact with and (suspected) exposure to COVID-19; Z79.899 Other long term (current) drug therapy
CPT/HCPCS: 47562; 36415; 74177; 74181; 80048; 80053; 80076; 81001; 82077; 83605; 83690; 83735; 84484; 85025; 85610; 85730; 87040; 87635; 88304; 93005; 99285; J0131; J1100; J2250; J2270; J2405; J2543; J3010; Q9967

== ENCOUNTER → 2021-08-10 08:38 | Outpatient (BNVA) | payer MEDICARE, SELFPAY | PROVIDERS: PCP Internal Medicine; Referring Provider Internal Medicine; Visit Provider Surgery | DX: Z48.815 Encounter for surgical aftercare following surgery on the digestive system (principal); Z90.49 Acquired absence of other specified parts of digestive tract | CPT/HCPCS: 99212 ==

== ENCOUNTER 2021-11-03 15:29 | Outpatient (REF) | payer MEDICARE, OTHER, SELFPAY ==
[2021-11-03 15:48] LABS: MANUAL DIFF FLAG NO
[2021-11-03 16:31] LABS: Basophils Percent Auto 0.4 % (0-2); Eosinophils Absolute Auto 0.1 X10*3/uL (0.0-0.4); Eosinophils Percent Auto 0.6 % (0-4); Hematocrit 42.9 % (42.0-52.0); Hemoglobin 13.4 g/dl (14.0-18.0); Imm Gran Abs Auto 0.03 X10*3/uL (0.00-0.03); Imm Gran Pct Auto 0.4 % (0.0-0.4); Lymphocytes Absolute Auto 1.2 X10*3/uL (1.2-4.9); Lymphocytes Percent Auto 15.4 % (20-40); Mean Corpuscular HGB Conc 31.2 g/dl (31.0-36.0); Mean Corpuscular Hemoglobin 29.5 pg (27.0-33.0); Mean Corpuscular Volume 94.5 fL (80.0-98.0); Mean Platelet Volume 11.7 fL (9.4-12.4); Monocytes Absolute Auto 0.8 X10*3/uL (0.1-1.2); Monocytes Percent Auto 10.2 % (2-11); Neutrophils Absolute Auto 5.6 x10*3/uL (2.0-8.3); Platelet Count 256 X10*3/uL (160-400); Red Blood Count 4.54 X10*6/uL (4.60-5.80); Red Cell Distribution Width 13.9 % (11.0-16.0); White Blood Count 7.7 X10*3/uL (4.8-10.8)
[2021-11-03 17:08] LABS: Alanine Aminotransferase 18 U/L (0-40); Albumin Level 4.1 g/dL (3.5-5.0); Alkaline Phosphatase 110 U/L (39-117); Anion Gap 14 (12-20); Aspartate Amino Transferase 18 U/L (5-37); Bilirubin Total 0.5 mg/dL (0.0-1.0); Blood Urea Nitrogen 14 mg/dL (9-16); Calcium 9.4 mg/dL (8.4-10.2); Carbon Dioxide 29 mmol/L (22-29); Chloride 100 mmol/L (96-108); Creatinine Urine 136.24 mg/dL; Estimated Glomerular Filt Rate > 60; Glucose Random 94 mg/dL (60-115); Microalbum/Creatinine Ratio Ur 8.8 ug/mg cr; Potassium 4.4 mmol/L (3.3-5.1); Sodium 139 mmol/L (135-145); Total Protein 8.7 g/dL (6.5-8.0); Uric Acid 5.7 mg/dL (3.4-7.0)
[2021-11-03 17:29] LABS: Prostate Specific Antigen Scr 1.57 ng/mL (<0.05-4.0)
[2021-11-04 03:55] LABS: Estimated Average Glucose 137 mg/dL; Hemoglobin A1c % 6.4 %
== END 2021-11-03 15:30 | disposition home or self-care (01) ==
LOC: HO.LAB 15:29
PROVIDERS: PCP Internal Medicine; Visit Provider Internal Medicine
DX: M10.9 Gout, unspecified (principal); R73.03 Prediabetes; R35.1 Nocturia; Z12.5 Encounter for screening for malignant neoplasm of prostate; Z98.890 Other specified postprocedural states
CPT/HCPCS: 36415; 80053; 82043; 83036; 84153; 84550; 85025

== ENCOUNTER 2021-12-17 14:07 | Outpatient (REF) | payer MEDICARE, OTHER, SELFPAY | END 2021-12-17 14:08 | disposition home or self-care (01) | LOC: HO.LAB 14:07 | PROVIDERS: PCP Internal Medicine; Visit Provider Otolaryngology | DX: J30.89 Other allergic rhinitis (principal) | CPT/HCPCS: 36415; 82785; 86003 ==

== ENCOUNTER 2022-06-09 15:04 | Outpatient (REF) | payer MEDICARE, OTHER, SELFPAY ==
[2022-06-09 15:23] LABS: MANUAL DIFF FLAG NO
[2022-06-09 16:50] LABS: Basophils Percent Auto 0.5 % (0-2); Eosinophils Absolute Auto 0.2 X10*3/uL (0.0-0.4); Eosinophils Percent Auto 2.5 % (0-4); Hematocrit 40.8 % (42.0-52.0); Hemoglobin 13.2 g/dl (14.0-18.0); Imm Gran Abs Auto 0.03 X10*3/uL (0.00-0.03); Imm Gran Pct Auto 0.4 % (0.0-0.4); Lymphocytes Absolute Auto 1.1 X10*3/uL (1.2-4.9); Lymphocytes Percent Auto 12.6 % (20-40); Mean Corpuscular HGB Conc 32.4 g/dl (31.0-36.0); Mean Corpuscular Hemoglobin 30.2 pg (27.0-33.0); Mean Corpuscular Volume 93.4 fL (80.0-98.0); Mean Platelet Volume 11.5 fL (9.4-12.4); Monocytes Percent Auto 12.4 % (2-11); Neutrophils Percent Auto 71.6 % (45-73); Platelet Count 224 X10*3/uL (160-400); Red Blood Count 4.37 X10*6/uL (4.60-5.80); Red Cell Distribution Width 14.6 % (11.0-16.0); White Blood Count 8.3 X10*3/uL (4.8-10.8)
[2022-06-09 17:22] LABS: Alanine Aminotransferase 12 U/L (0-40); Albumin Level 3.8 g/dL (3.5-5.0); Alkaline Phosphatase 112 U/L (39-117); Anion Gap 14 (12-20); Aspartate Amino Transferase 14 U/L (5-37); Bilirubin Total 0.5 mg/dL (0.0-1.0); Blood Urea Nitrogen 14 mg/dL (9-16); C Reactive Protein 11.25 mg/dL (< or = 0.50); Carbon Dioxide 29 mmol/L (22-29); Chloride 101 mmol/L (96-108); Estimated Glomerular Filt Rate > 60; Glucose Random 92 mg/dL (60-115); Magnesium 2.1 mg/dL (1.6-2.6); Potassium 4.4 mmol/L (3.3-5.1); Sodium 140 mmol/L (135-145); Total Protein 8.3 g/dL (6.5-8.0)
[2022-06-09 17:46] LABS: Free T4 (Free Thyroxine) 0.85 ng/dL (0.71-1.85)
== END 2022-06-09 15:05 | disposition home or self-care (01) ==
LOC: HO.LAB 15:04
PROVIDERS: PCP Internal Medicine; Visit Provider Internal Medicine
DX: R63.4 Abnormal weight loss (principal); E78.00 Pure hypercholesterolemia, unspecified; N40.0 Benign prostatic hyperplasia without lower urinary tract symptoms; R25.1 Tremor, unspecified; M19.90 Unspecified osteoarthritis, unspecified site
CPT/HCPCS: 36415; 80053; 83735; 84439; 85025; 86140

== ENCOUNTER 2022-07-01 14:23 | Outpatient (REF) | payer MEDICARE, OTHER, SELFPAY ==
--- NOTE | ~2022-07-01 | XR_ITS ---
EXAMINATION: XR CHEST CLINICAL INFORMATION: COPD weight loss COMPARISON: None TECHNIQUE: 2 views of the chest were obtained. FINDINGS: There are mildly increased interstitial markings bilaterally there is blunting of right costophrenic angle secondary to small pleural effusion. No evidence of nodules infiltrates or masses. Cardiomediastinal silhouette is normal. XR/XR chest 2V IMPRESSION: Small right pleural effusion. Mild increased interstitial markings
== END 2022-07-01 14:24 | disposition home or self-care (01) ==
LOC: HO.XRAY 14:23
PROVIDERS: PCP Internal Medicine; Visit Provider Internal Medicine
DX: J44.9 Chronic obstructive pulmonary disease, unspecified (principal); R63.4 Abnormal weight loss
CPT/HCPCS: 71046

== ENCOUNTER 2022-07-13 09:39 | Outpatient (REF) | payer MEDICARE, OTHER, SELFPAY ==
[2022-07-13 11:09] LABS: MANUAL DIFF FLAG NO
[2022-07-13 11:18] LABS: Basophils Percent Auto 0.4 % (0-2); Eosinophils Absolute Auto 0.2 X10*3/uL (0.0-0.4); Eosinophils Percent Auto 2.6 % (0-4); Hematocrit 40.9 % (42.0-52.0); Hemoglobin 12.8 g/dl (14.0-18.0); Imm Gran Abs Auto 0.03 X10*3/uL (0.00-0.03); Imm Gran Pct Auto 0.3 % (0.0-0.4); Lymphocytes Absolute Auto 1.1 X10*3/uL (1.2-4.9); Lymphocytes Percent Auto 11.9 % (20-40); Mean Corpuscular HGB Conc 31.3 g/dl (31.0-36.0); Mean Corpuscular Hemoglobin 29.8 pg (27.0-33.0); Mean Corpuscular Volume 95.3 fL (80.0-98.0); Mean Platelet Volume 11.2 fL (9.4-12.4); Monocytes Absolute Auto 0.8 X10*3/uL (0.1-1.2); Monocytes Percent Auto 8.7 % (2-11); Neutrophils Absolute Auto 7.1 x10*3/uL (2.0-8.3); Neutrophils Percent Auto 76.1 % (45-73); Platelet Count 250 X10*3/uL (160-400); Red Blood Count 4.29 X10*6/uL (4.60-5.80); Red Cell Distribution Width 14.4 % (11.0-16.0); White Blood Count 9.3 X10*3/uL (4.8-10.8)
[2022-07-13 11:25] LABS: D Dimer High Sensitivity 806 NG/ML
[2022-07-13 11:42] LABS: Alanine Aminotransferase 13 U/L (0-40); Albumin Level 3.8 g/dL (3.5-5.0); Alkaline Phosphatase 108 U/L (39-117); Anion Gap 14 (12-20); Aspartate Amino Transferase 15 U/L (5-37); Bilirubin Total 0.3 mg/dL (0.0-1.0); Blood Urea Nitrogen 14 mg/dL (9-16); C Reactive Protein 3.38 mg/dL (< or = 0.50); Calcium 8.9 mg/dL (8.4-10.2); Carbon Dioxide 28 mmol/L (22-29); Chloride 103 mmol/L (96-108); Estimated Glomerular Filt Rate > 60; Glucose Fasting 122 mg/dL (60-99); Potassium 4.7 mmol/L (3.3-5.1); Sodium 140 mmol/L (135-145); Total Protein 8.2 g/dL (6.5-8.0)
[2022-07-13 11:51] LABS: B Type Natriuretic Peptide 97 pg/mL (<100)
== END 2022-07-13 09:40 | disposition home or self-care (01) ==
LOC: HO.10HDL 09:39
PROVIDERS: Visit Provider Internal Medicine
DX: E78.00 Pure hypercholesterolemia, unspecified (principal); J90 Pleural effusion, not elsewhere classified; M10.9 Gout, unspecified
CPT/HCPCS: 36415; 80053; 83880; 85025; 85379; 86140

== ENCOUNTER 2022-07-26 13:48 | Outpatient (REF) | payer MEDICARE, OTHER, SELFPAY ==
--- NOTE | ~2022-07-26 | CT_ITS ---
EXAMINATION: CT ANGIOGRAM OF THE CHEST WITH AND WITHOUT CONTRAST (CT PULMONARY ANGIOGRAM FOR PE) CLINICAL INFORMATION: Elevated D-dimer, pleural effusion. COMPARISON: None TECHNIQUE: Prior to contrast administration, noncontrast localization images were obtained. Subsequently, multidetector volumetric imaging was performed from the thoracic inlet to below the diaphragms following the administration of 80 mL Omnipaque 350 intravenous contrast. No contrast reaction reported. Sagittal, coronal, and MIP oblique sagittal reformatted images were obtained on the CT workstation, uploaded to PACS, and reviewed. This CT examination was performed using dose optimization techniques as appropriate, variously including the following: *Automated exposure control *Adjustment of mA and/or kV according to patient size (this includes techniques or standardized protocols for targeted exams where dose is matched to indication/reason for exam; i.e. extremities or head) *Use of iterative reconstruction technique Total exam dose-length product 134 mGy-cm FINDINGS: QUALITY OF STUDY/CONTRAST BOLUS: Satisfactory. PULMONARY ARTERIES: No central or segmental pulmonary emboli. THORACIC AORTA: There is no evidence of aneurysm. LUNG: The lungs are well expanded with mild compressive atelectasis right lower lobe. PLEURA: There is a small right pleural effusion. MEDIASTINUM: Heart size and the great vessels are normal caliber. No pericardial effusion. There are mild coronary artery calcifications. No abnormal size mediastinal or hilar lymph nodes seen. No evidence of septal bowing or right heart strain. CHEST WALL/AXILLA: No axillary or internal mammary lymphadenopathy. OSSEOUS STRUCTURES: No aggressive lytic or sclerotic process seen. UPPER ABDOMEN: Posterior to the liver is a subcapsular oval collection measuring 6.3 x 4.9 x 9.22 cm and 23 Hounsfield units, likely seroma. No reflux of contrast into the hepatic veins to suggest elevated right heart pressures. CT/CT angio chest PE protocol IMPRESSION: 1. No evidence of PE. 2. No evidence of aortic aneurysm. 3. Small right pleural effusion with right lower lobe compressive atelectasis. 4. Subcapsular fluid collection posterior to liver, likely seroma. VTE: negative
[2022-07-26] MEDS: iohexoL 350 MG/ML 100 ML INFUS..BTL IV (14:29)
== END 2022-07-26 13:49 | disposition home or self-care (01) ==
LOC: HO.CT 13:48
PROVIDERS: PCP Internal Medicine; Visit Provider Internal Medicine
DX: R79.89 Other specified abnormal findings of blood chemistry (principal); J91.8 Pleural effusion in other conditions classified elsewhere
CPT/HCPCS: 71275; Q9967

== ENCOUNTER 2022-08-18 09:53 | Outpatient (REF) | payer MEDICARE, SELFPAY ==
--- NOTE | ~2022-08-18 | US_ITS ---
EXAMINATION: US ABDOMEN COMPLETE CLINICAL INFORMATION: Seroma around liver. COMPARISON: CT angiogram of the chest with and without contrast 07/26/2022. MR abdomen without contrast 07/30/2021. CT abdomen and pelvis with contrast 07/29/2021. TECHNIQUE: Real-time imaging of the abdominal viscera. FINDINGS: PANCREAS: The pancreas appears unremarkable, without masses or ductal dilatation, with the exception of the tail which is obscured by bowel gas. ABDOMINAL AORTA: The proximal, mid, and distal segments are normal in caliber. INFERIOR VENA CAVA: Visualized portions are normal. LIVER: The liver is normal in size. The liver contour is normal. There is diffuse increased liver parenchymal echogenicity, consistent with hepatic steatosis. No focal hepatic lesion. There is no intrahepatic biliary duct dilatation seen. There is a complex fluid collection measuring 9.7 x 4.8 x 5.9 cm posterior to the right lobe of the liver. This was seen on the 07/26/2022 CT scan when measurements were 6.3 x 4.9 x 9.2 cm. GALLBLADDER: Surgically absent. COMMON BILE DUCT: Normal in caliber measuring 0.9 cm in diameter. RIGHT KIDNEY: Normal. No hydronephrosis. No renal calculi or focal parenchymal lesions. The kidney measures 12.1 cm in maximum dimension. LEFT KIDNEY: Normal. No hydronephrosis. No renal calculi or focal parenchymal lesions. The kidney measures 12.0 cm in maximum dimension. SPLEEN: Normal. The spleen measures 12.0 cm in maximum dimension. FREE FLUID: None. US/US abdomen complete IMPRESSION: 1. Complex fluid collection posterior to the right lobe of the liver, without significant change when compared to the prior CT. 2. Hepatic steatosis.
== END 2022-08-18 09:54 | disposition home or self-care (01) ==
LOC: HO.US 09:53
PROVIDERS: Visit Provider Internal Medicine
DX: L76.34 Postprocedural seroma of skin and subcutaneous tissue following other procedure (principal)
CPT/HCPCS: 76700

== ENCOUNTER 2022-09-09 15:22 | Outpatient (REF) | payer MEDICARE, OTHER, SELFPAY ==
--- NOTE | ~2022-09-09 | CT_ITS ---
EXAMINATION: CT ABDOMEN AND PELVIS WITHOUT CONTRAST CLINICAL INFORMATION: Liver seroma COMPARISON: Ultrasound 08/18/2022. CT 07/26/2022. MRCP 07/30/2021 TECHNIQUE: Multidetector volumetric imaging was performed from the lung bases through the pubic symphysis. Sagittal and coronal reformatted images were obtained on the technologist workstation. This CT examination was performed using dose optimization techniques as appropriate, variously including the following: *Automated exposure control *Adjustment of mA and/or kV according to patient size (this includes techniques or standardized protocols for targeted exams where dose is matched to indication/reason for exam; i.e. extremities or head) *Use of iterative reconstruction technique FINDINGS: The lack of intravenous contrast limits evaluation of the solid visceral organs including the liver, spleen, pancreas, and kidneys. LUNG BASES: Small right pleural effusion is improved from the chest CT 07/26/2021. There is mild associated atelectasis. Normal heart size. LIVER, GALLBLADDER, AND BILIARY TREE: Again seen is a well-circumscribed fluid collection between the diaphragm and segment 7 of the liver. Centrally, this measures simple fluid density. The collection measures 5.6 x 3.3 cm transaxially by 6.8 cm craniocaudally, decreased from 7.1 x 5.4 cm transaxially and at least [address] the [address] 07/26/2022. Limited noncontrast evaluation of the remainder of the liver is unremarkable. Status post cholecystectomy. No biliary ductal dilatation. PANCREAS: Limited non-contrast evaluation is normal. No rojelio-pancreatic fluid. SPLEEN: Limited non-contrast evaluation is normal. ADRENAL GLANDS: Normal; no adrenal mass. KIDNEYS AND URETERS: Limited non-contrast evaluation is normal. No hydronephrosis, hydroureter, or calculi seen. No perinephric stranding. GASTROINTESTINAL TRACT: Small bowel and colon are non-dilated. No bowel wall thickening. Extensive diverticulosis. No pericolonic inflammatory changes to suggest colitis or diverticulitis. ABDOMINAL WALL: No hernia seen. LYMPH NODES: No pathologically enlarged lymph nodes in the abdomen or pelvis. VASCULAR: Normal caliber abdominal aorta with nearly circumferential calcified atherosclerotic changes. BLADDER: Unremarkable. PELVIC VISCERA: Mild prostatomegaly measuring 4.4 x 3.3 cm. OSSEOUS STRUCTURES: Multilevel degenerative changes of lumbar spine. No acute or suspicious osseous abnormalities. CT/CT abdomen pelvis wo IV con IMPRESSION: Improved but not resolved fluid collection posterior to the right lobe of liver.
== END 2022-09-09 15:23 | disposition home or self-care (01) ==
LOC: HO.CT 15:22
PROVIDERS: PCP Internal Medicine; Visit Provider Internal Medicine
DX: K91.872 Postprocedural seroma of a digestive system organ or structure following a digestive system procedure (principal); L53.8 Other specified erythematous conditions
CPT/HCPCS: 74176

== ENCOUNTER → 2022-09-16 14:18 | Outpatient (BNVA) | payer MEDICARE, MEDICAID, SELFPAY | PROVIDERS: PCP Internal Medicine; Referring Provider Internal Medicine; Visit Provider Surgery | DX: L02.212 Cutaneous abscess of back [any part, except buttock and flank] (principal); L53.9 Erythematous condition, unspecified | CPT/HCPCS: 10060; 10061; 99212 ==

== ENCOUNTER 2022-09-16 16:05 | Outpatient (REF) | payer MEDICARE, MEDICAID, SELFPAY | END 2022-09-16 16:06 | disposition home or self-care (01) | LOC: HO.LNP 16:05 | PROVIDERS: Visit Provider Surgery | DX: L02.212 Cutaneous abscess of back [any part, except buttock and flank] (principal) | CPT/HCPCS: 87070; 87077; 87186; 87205 ==

== ENCOUNTER 2022-09-18 11:47 | Emergency (ER) | payer MEDICARE, MEDICAID, SELFPAY ==
--- NOTE | 2022-09-18 11:58 | ED_ITS ---
HPI - Wound/Laceration General Chief Complaint: General Medical Stated Complaint: BLEEDING FROM SURG SITE FOR CYST ON BACK Time Seen by Provider: 09/18/22 11:49 Source: patient and EMS Mode of arrival: EMS Limitations: no limitations History of Present Illness HPI narrative: 72-year-old male who had a right lower back cyst incision and drainage on September 16 in the general surgery office presents after noticed some bleeding from the site today. Patient reports he scratched the area today and then noticed some bleeding. Patient reports no additional complaints. He has a follow-up in 3 weeks with the general surgeon for wound recheck Related Data Home Medications Medication Instructions Recorded Confirmed allopurinol 100 mg tablet 1 tab PO DAILY 07/29/21 09/16/22 atorvastatin 10 mg tablet 1 tab PO DAILY 07/29/21 09/16/22 tamsulosin 0.4 mg capsule 1 cap PO DAILY 07/29/21 09/16/22 Previous Rx's Medication Instructions Recorded ibuprofen 600 mg tablet 600 mg PO Q6H PRN pain #30 tabs 07/31/21 Allergies Allergy/AdvReac Type Severity Reaction Status Date / Time No Known Allergies Allergy Verified 09/16/22 14:27 Review of Systems Review of Systems: Yes all other systems are reviewed and are negative Constitutional: Constitutional: Reports no additional constitutional complaints, Denies body ache(s), Denies chills, Denies fever(s), Denies headache(s) and Denies weakness Eyes: Eyes: Reports no additional eye complaints and Denies change in vision ENT: Reports system reviewed and no additional complaints, except as documented, Denies dizziness, Denies headache(s), Denies nasal congestion, Denies nasal discharge and Denies neck pain Cardiovascular: Cardiovascular: Reports no additional cardiovascular complaints, Denies chest pain, Denies leg edema and Denies dyspnea Respiratory: Respiratory: Reports no additional respiratory complaints, Denies cough and Denies dyspnea Gastrointestinal: Gastrointestinal: Reports no additional gastrointestinal complaints, Denies abdominal pain, Denies diarrhea, Denies nausea and Denies vomiting Genitourinary: Genitourinary: Denies urinary incontinence Musculoskeletal: Musculoskeletal: Reports no additional musculoskeletal compla ints, Denies back pain, Denies arthralgias, Denies joint swelling, Denies neck pain, Denies numbness and Denies tingling Integumentary/Breasts: Skin/Breast: Reports system reviewed and no additional complaints, except as docu and Denies rash Neurologic: Reports system reviewed and no additional complaints, except as documented, Denies Abnormal speech present, Denies dizziness, Denies headache(s), Denies numbness, Denies tingling and Denies weakness PMFSH Past Medical History Attestation statement: The following information was validated with the patient. Source: old records reviewed and nursing notes reviewed Medical History Back abscess Enlarged prostate Gout High cholesterol Surgical History History of laparoscopic cholecystectomy (~2020) Family History Family History Sister Cardiac abnormality Diabetes Sister Breast cancer Brother Diabetes Social History Social History Household Members: Significant Other Housing: House Do you presently have visiting nurse or other home services: No Alcohol intake: former Patient Tobacco Use Status: Never used Tobacco Second Hand Smoke Exposure: No Advance Directives: No service: No Current occupational status: retired Physical Exam Vital Signs: Vital Signs: Last Vital Signs Temp 97.9 F 09/18/22 12:03 Pulse 79 09/18/22 12:03 Resp 18 09/18/22 12:03 BP 144/77 H 09/18/22 12:03 Pulse Ox 98 09/18/22 12:03 O2 Del Method 09/18/22 12:03 BMI result Body Mass Index 21.2 Const: General: cooperative, healthy appearing, comfortable and no acute distress Orientation/consciousness: patient oriented x3 Limitations: no limitations HEENT: Head: Yes normal to inspection Ears: hearing grossly normal bilaterally General nose exam: Normal external nose present Face and sinus: Yes normal facial exam Mouth: Normal oral and palatal mucosa present Throat: Yes posterior oropharynx normal Eyes: General: appearance normal, both eyes and all related structures Pupils: Equal, round and reactive pupils present Neck: Neck: Yes normal visual inspection Chest: Chest palpation & inspection: normal inspection of the chest Resp: Effort & Inspection: normal respiratory effort Auscultation: clear to auscultation bilaterally Cardio: Rate: regular rate Rhythm: regular rhythm Peripheral pulses: Peripheral pulses 2+ throughout GI: Inspection: Yes normal to inspection Palpation (GI): Soft to palpation and nontender Auscultation: normal bowel sounds Back/Spine/Pelvis: Thoracic/Lumbar Spine: thoracic and lumbar spine normal to inspection Back/spine/pelvis image: 1. There is a healing abscess. There is no bleeding seen. I am unable to express any drainage from the site. There is no tende rness on exam. Skin: General skin exam: no rashes or lesions noted Neuro: General: patient oriented x3, no focal motor deficits and normal sensation to monofilament Cranial nerves: Yes Equal, round and reactive pupils present Cognition (Neuro): normal cognition Speech: No Abnormal speech present Gait exam (Neuro): Normal gait present Motor exam (neuro): 5/5 motor strength present throughout Extrem: General: Yes normal to inspection Medical Decision Making Medical Decision Making MDM Narrative: 72-year-old male here with reports of bleeding from an abscess that had an incision and drainage and the general surgery office 2 days ago. No bleeding seen while here in the emergency room. The site appears to be healing normally. The area was cleansed and a new dressing was placed. Patient was unaware that he may have some drainage from the site. Did reinforce that this is normal. Recommended he continue to follow-up with General surgery as scheduled Differential Diagnosis Differential Diagnoses: The differential diagnosis associated with the presentation includes Abscess External Record Review External record reviewed: Office record Reviewed general surgery note from September 16 Discharge Plan Discharge Clinical Impression: Abscess Patient Disposition: Home, Self-Care Instructions: Abscess (ED) Additional Instructions: Expect that your abscess may drain for the next several days. Keep it covered, clean and dry Follow-up with the general surgeon as scheduled Prescriptions: No Action atorvastatin 10 mg tablet 1 tab PO DAILY allopurinol 100 mg tablet 1 tab PO DAILY tamsulosin 0.4 mg capsule 1 cap PO DAILY ibuprofen 600 mg tablet 600 mg PO Q6H PRN (Reason: pain) Qty: 30 0RF Referrals: Fer Hussein MD [Physician] - (in 3 weeks as scheduled) Interventions: ED Discharge Assessment Last Done: 09/18/22 12:13 Discharge Date/Time: 09/18/22 12:31
[2022-09-18 12:03] VITALS: BP 144/77; PULSE 79; RESP 18; TEMP 36.6; O2SAT 98; BMI 21.2
--- OUTSIDE RECORDS SUMMARY | 2022-09-18 12:08 | XMS_ITS ---
:1950 Author Organization [facility] Address [address] [place] [address] Care Team Providers Name Role Phone Sorin Pina Jr Unavailable Unavailable PROBLEMS Type Condition ICD9-CM Code TZA86-SO Code Onset Condition SNO MED Code Dates Status Problem Rhinorrhea J34.89 Active 44569211 Problem Colon cancer Z12.11 Active 0253341 04 screening Problem Common bile duct K83.8 Active 235 364617 dilation Problem Gallstones K80.20 Active 850698165 ALLERGIES No Known Allergies ENCOUNTERS Encounter Location Date [place] [facility] [place] [address] [place] [address] Mar, [place], [place] [id number] [address] Suite December, Rh inorrhea J34.89 [facility] [address] [place], [place] Colon cancer scr eening [id number] Z12.11 [facility] [place] [address] [facility] Jul, [place], [place] [id number] [facility] [place] [address] [place] [address] December, [place], [place] [id number] IMMUNIZATIONS No Known Immunizations SOCIAL HISTORY Qualifiers Date Former Smoker REASON FOR REFERRAL FUNCTIONAL STATUS PLAN OF CARE Activity Details Future/Pending Procedure COLONOSCOPY 20170106 VITAL SIGNS Weight 155 lbs 2017-01-06 Height 68 in 2017-01-06 BMI 23.57 kg/m2 2017-01-06 Heart Rate 72 /min 2017-01-06 Blood pressure systolic 98 mm Hg 2017-01-06 Blood pressure diastolic 64 mm Hg 2017-01-06 MEDICATIONS Medication Instructions Dosage Frequency Start End Duration Statu s Date Date Colyte with Orally Over the As directed 1 day(s) Active Flavor Packs 240 specified time. GM Atorvastatin TAKE 1 90 Active Calcium 10 MG TABLET BY MOUTH DAILY PROCEDURES No Known procedures RESULTS Name Result Date Reference Range MRCP 2021-07-30 GI BIOPSY 2017-04-20 G.I. BIOPSY REASON FOR VISIT screening colonoscopy, screening colonoscopy, Patient presents today for consultation Insurance Providers [facility] Member Patient Patient Patient Patient Patient Subscriber Subscriber Subscriber Group Insurance Plan Plan Plan Plan ID Relationship Address Phone Name Date of ID Name Date of No Type Insurance Insurance Insurance Coverage to Subscriber Address Phone Name Dates Medicare [address] Medicare self [place] [id number] [place] [address] [place] [facility] [address] MEDICAID [id number] MEDICAID self [place] [id number] OF [facility] [id number] [place] [address] [address] [facility] [address] [facility] [phone] HEALTH NEW self [place] [id number] [place] [address] [place] [address]
--- NOTE | 2022-09-18 12:12 | PC.NURSE ---
72 y/o M BIBA from home with drainage from recently drained cyst. pt educated that this may happen over the following weeks, dressing changed and discharged by LUISA. awaiting ride home
== END 2022-09-18 12:31 | disposition home or self-care (01) ==
PROVIDERS: Emergency Provider Emergency Medicine; PCP Internal Medicine
DX: Z48.00 Encounter for change or removal of nonsurgical wound dressing (principal); L02.212 Cutaneous abscess of back [any part, except buttock and flank]
CPT/HCPCS: 99282; 99283

== ENCOUNTER 2022-09-28 13:39 | Emergency (ER) | payer MEDICARE, MEDICAID, SELFPAY ==
[2022-09-28] VITALS (7 sets, daily range): BP systolic 90–147; BP diastolic 54–83; PULSE 66–86; RESP 16–18; TEMP 36.4–36.5; O2SAT 96–99; BMI 21.0
--- NOTE | ~2022-09-28 | CT_ITS ---
EXAMINATION: CT HEAD WITHOUT CONTRAST CLINICAL INFORMATION: Dizziness COMPARISON: 01/10/2007 TECHNIQUE: Contiguous axial imaging was performed from the skull base to vertex without intravenous contrast. This CT examination was performed using dose optimization techniques as appropriate, variously including the following: * Automated exposure control * Adjustment of mA and/or kV according to patient size (this includes techniques or standardized protocols for targeted exams where dose is matched to indication/reason for exam; i.e. extremities or head) Use of iterative reconstruction technique DLP: 709 mGy-cm. FINDINGS: There is no evidence of acute intracranial hemorrhage or territorial infarction. No abnormal mass effect or midline shift is seen. Emery to white matter differentiation is well preserved. No extra-axial fluid collections are identified. No hydrocephalus. Proportional prominence of the ventricles and sulcal spaces is consistent with mild volume loss. Patchy periventricular and deep white matter hypoattenuation is consistent with mild small vessel ischemic changes. The osseous structures and soft tissues are normal. The mastoid air cells and visualized portions of the paranasal sinuses are well aerated. CT/CT head/brain wo IV con IMPRESSION: No acute intracranial pathology. Mild volume loss with small vessel ischemic change.
--- NOTE | ~2022-09-28 | XR_ITS ---
EXAMINATION: XR CHEST CLINICAL INFORMATION: Dizziness COMPARISON: 07/01/2022 TECHNIQUE: 2 views of the chest were obtained. FINDINGS: Cardiac leads overlie the chest. The lungs are well expanded. Small right-sided pleural effusion is similar to prior. No consolidation. No pneumothorax. The cardiomediastinal silhouette is unchanged, with a calcified aorta. XR/XR chest 2V IMPRESSION: Small right pleural effusion is similar to prior.
--- NOTE | 2022-09-28 14:08 | PC.NURSE ---
pt AOx3, vss stable. athletic monitor on, NSR. Awaiting provider.
--- NOTE | 2022-09-28 14:11 | ED.GENADULT ---
HPI - General Adult General Chief complaint: Dizziness Stated complaint: DIZZINESS,RASH Time Seen by Provider: 09/28/22 14:07 Source: patient and EMS Mode of arrival: EMS Limitations: no limitations History of Present Illness HPI narrative: Omar is a 72 year old male presenting with sudden onset of dizziness starting at 1000 this am. Reports he was standing and drinking ensure during occurrence. Sts room was spinning , and he sat down with minimal relief. He denies any relief of symptoms and continues to report dizziness during encounter. He denies weakness, fatigue, speech difficulties, or other focal neurological signs. He reports he has had dizzy spells in the past, however, has not had them in a while. Pt denies pain, reports he independently noticed a rash on his trunk and abdomen that is new. Patient states that he had finished bactrim recently. Onset (ago): hour(s) (4) Location: head Severity: mild Severity scale (1-10): 1 Relieving factors: none Exacerbating factors: none Associated symptoms: denies other symptoms Treatments prior to arrival: none Related Data Home Medications Medication Instructions Recorded Confirmed allopurinol 100 mg tablet 1 tab PO DAILY 07/29/21 09/16/22 atorvastatin 10 mg tablet 1 tab PO DAILY 07/29/21 09/16/22 tamsulosin 0.4 mg capsule 1 cap PO DAILY 07/29/21 09/16/22 Previous Rx's Medication Instructions Recorded ibuprofen 600 mg tablet 600 mg PO Q6H PRN pain #30 tabs 07/31/21 sulfamethoxazole 800 1 tab PO BID #10 tabs 09/21/22 mg-trimethoprim 160 mg tablet (Bactrim DS) Allergies Allergy/AdvReac Type Severity Reaction Status Date / Time No Known Allergies Allergy Verified 09/28/22 13:57 Review of Systems Constitutional: Constitutional: Reports no additional constitutional complaints, Denies chills, Denies fever(s) and Denies night sweats Eyes: Eyes: Reports no additional eye complaints, Denies blurry vision, Denies change in vision, Denies diplopia, Denies eye discharge, Denies loss of vision and Denies eye pain ENT: Reports dizziness Cardiovascular: Cardiovascular: Reports no additional cardiovascular complaints, Denies chest pain, Denies lightheadedness, Denies Loss of Consciousness and Denies dyspnea Respiratory: Respiratory: Reports no additional respiratory complaints and Denies dyspnea Gastrointestinal: Gastrointestinal: Reports no additional gastrointestinal complaints, Denies abdominal pain, Denies melena, Denies hematochezia, Denies change in bowel habits and Denies change in stool character Genitourinary: Genitourinary: Reports no additional male genitourinary complaints, Denies hematuria, Denies oliguria, Denies difficulty urinating, Denies dysuria, Denies urinary frequency, Denies urinary hesitancy, Denies urinary incontinence and Denies urinary urgency Musculoskeletal: Musculoskeletal: Reports no additional musculoskeletal complaints, Denies numbness and Denies tingling Integumentary/Breasts: Skin/Breast: Reports rash Neurologic: Reports dizziness, Denies loss of vision, Denies numbness and Denies tingling Psychiatric: Psychiatric: Reports no additional psychiatric complaints Endocrine: Endocrine: Reports no additional endocrine complaints Hematologic/Lymphatic: Hematologic/Lymphatic: Reports no additional hematologic/lymphatic complaints Allergic/Immunologic: Allergic/Immunologic: Reports no additional allergic/immunologic complaints PMFSH Past Medical History Attestation statement: The following information was validated with the patient. Source: old records reviewed and nursing notes reviewed Medical History Back abscess Enlarged prostate Gout High cholesterol Surgical History History of laparoscopic cholecystectomy (~2020) Family History Family History Sister Cardiac abnormality Diabetes Sister Breast cancer Brother Diabetes Social History Social History Household Members: Significant Other Housing: House Do you presently have visiting nurse or other home services: No Alcohol intake: former Patient Tobacco Use Status: Never used Tobacco Smoked in Last 30 Days: No Second Hand Smoke Exposure: No Use of substances other than those prescribed or required for medical reasons: No Advance Directives: No Advance Directives Information Provided: Yes service: No Current occupational status: retired Physical Exam ED Vital Signs: Vital Signs - 24 hr 09/28/22 13:57 09/28/22 14:33 09/28/22 14:36 Temperature 97.5 F Pulse Rate 77 75 81 Respiratory Rate 16 Blood Pressure 147/74 H 122/61 90/55 L Pulse Oximetry 97 Oxygen Delivery Method Room Air 09/28/22 14:39 02/07/23 16:51 Temperature Pulse Rate 86 67 Respiratory Rate Blood Pressure 94/54 L 130/69 Pulse Oximetry 99 Oxygen Delivery Method Room Air BMI result Body Mass Index 21.0 Const General: cooperative, no acute distress, alert and awake Nutritional Appearance: well nourished Orientation/consciousness: patient oriented x3 Limitations: no limitations HENMT Head: Yes normal to inspection and Yes atraumatic Ears: hearing grossly normal bilaterally and external ears normal General nose exam: Normal external nose present, no nasal discharge noted and no epistaxis Face and sinus: Yes normal facial exam, No abrasion and No laceration Mouth: Normal oral and palatal mucosa present, no drooling and no muffled voice Eyes General: appearance normal, both eyes and all related structures Visual Martinez: normal visual martinez by confrontation Periorbital: periorbital findings normal Eyelids: Yes eyelids normal Conjunctivae: conjunctivae normal Sclerae: sclerae normal Corneas: corneas normal Pupils: Equal, round and reactive pupils present and Other pupil findings EOM: EOMs intact bilaterally Direct Ophthalmoscopy: normal light reflex Neck Neck: Yes normal visual inspection, Yes full ROM, Yes no lymphadenopathy and Yes no meningeal signs Chest Chest palpation & inspection: normal inspection of the chest Resp Effort & Inspection: normal respiratory effort and able to speak in complete sentences Auscultation: clear to auscultation bilaterally Cardio Rate: regular rate Rhythm: regular rhythm GI Inspection: Yes normal to inspection Skin Rashes: rashes noted maculopapular rash diffuse full body Neuro General: patient oriented x3, moves all extremities, Normal light touch and pain sensation, no meningeal signs and CN's II-XI intact bilaterally Cranial nerves: Yes Equal, round and reactive pupils present Cognition (Neuro): normal cognition Motor exam (neuro): 5/5 motor strength present throughout, Motor fasciculations not present and Normal motor muscle tone present throughout Sensory Exam: Normal double simultaneous stimulation for sensation Coordination: [id number]-[id number]-[id number] test normal and yyge-zj-kuck test normal Pupils: Normal pupillary reactivity/response: bilateral Extrem General: Yes normal to inspection, Yes full ROM and Yes capillary refill normal Psych Appearance: grossly normal Mental Status: mental status grossly normal Affect: normal affect Attitude: cooperative Thought process: Normal thought process present Thought content: Normal thought content present Insight: Good insight present (Psych) Medications Administered Generic Name Dose Route Start Last Admin Trade Name Bobbi PRN Reason Stop Dose Admin Sodium Chloride 1,000 mls @ 999 mls/hr 09/28/22 17:00 09/28/22 16:56 Ns IV 09/28/22 18:00 999 mls/hr .Q1H1M MELISSA Administration Discontinued Medications Generic Name Dose Route Start Last Admin Trade Name Freherson PRN Reason Stop Dose Admin Sodium Chloride 1,000 mls @ 999 mls/hr 09/28/22 14:45 09/28/22 16:15 Ns IV 09/28/22 15:45 Infused .Q1H1M MELISSA Infusion Medical Decision Making Medical Decision Making [facility] Narrative: Patient is a 72 year old assigned male at with a history of dizzy spells presenting to the emergency department today with lightheadedness. Patient's physical exam showed a diffuse rash consistent with a bactrim rash. Patient's blood work was unremarkable. Patient's urine showed no acute process. Patient's EKG was unremarkable. Patient's chest x-ray and head CT showed no acute process. I explained my physical exam findings as well as all test results to the patient. I answered all questions asked by the patient. Patient received 2 liters of IV fluid which he stated helped his symptoms significantly. I stressed the importance of the patient taking his medication as prescribed. I stressed the importance of the patient following up with his primary care provider. I stressed the importance of the patient returning to the emergency department immediately if his symptoms were to worsen or if he were to develop any dizziness, shortness of breath, difficulty breathing, chest pain, blurry vision, loss of vision, nausea, vomiting, abdominal pain, fever, chills, back pain, or any other complaints. Patient verbalized agreement and understanding with this treatment plan and discharge. Differential Diagnosis Differential Diagnoses: The differential diagnosis associated with the presentation includes lightheadedness, dizziness Lab Data [facility] Lab Attestation statement: I reviewed the patient's lab results. 09/28/22 15:02 09/28/22 15:02 Labs: Lab Results 09/28/22 09/28/22 09/28/22 Range/Units 15:02 15: 15:02 WBC 4.8 (4.8-10.8) X10*3/uL RBC 4.27 L (4.60-5.80) X10*6/uL Hgb 12.5 L (14.0-18.0) g/dl Hct 37.9 L (42.0-52.0) % MCV 88.8 (80.0-98.0) fL MCH 29.3 (27.0-33.0) pg MCHC 33.0 (31.0-36.0) g/dl RDW 15.0 (11.0-16.0) % Plt Count 155 L D (160-400) X10*3/uL MPV 10.6 (9.4-12.4) fL Immature Gran % (Auto) 0.4 (0.0-0.4) % Neut % (Auto) 71.6 (45-73) % Lymph % (Auto) 14.0 L (20-40) % Pender % (Auto) 8.6 (2-11) % Eos % (Auto) 5.2 H (0-4) % Baso % (Auto) 0.2 (0-2) % Lymph # (Auto) 0.7 L (1.2-4.9) X10*3/uL Pender # (Auto) 0.4 (0.1-1.2) X10*3/uL Eos # (Auto) 0.3 (0.0-0.4) X10*3/uL Baso # (Auto) 0.0 (0.0-0.2) X10*3/uL Abs Immat Gran (auto) 0.02 (0.00-0.03) X10*3/uL Absolute Neuts (auto) 3.4 (2.0-8.3) x10*3/uL Absolute Nucleated RBC 0.000 (0.0-0.012) X10*3/uL Nucleated RBC % (auto) 0.0 (0.0-0.2) /100WBC Smear Tech's Comments VERIFIED Sodium 136 (135-145) mmol/L Potassium 4.0 (3.3-5.1) mmol/L Chloride 100 (96-108) mmol/L Carbon Dioxide 26 (22-29) mmol/L Anion Gap 14 (12-20) BUN 17 H (9-16) mg/dL Creatinine 0.87 (0.5-1.4) mg/dL Estim Creat Clear Calc 67.2 Estimated GFR > 60 Random Glucose 199 H (60-115) mg/dL Calcium 8.5 (8.4-10.2) mg/dL Total Bilirubin 0.4 (0.0-1.0) mg/dL AST 29 (5-37) U/L ALT 20 (0-40) U/L Alkaline Phosphatase 102 (39-117) U/L Total Protein 7.3 (6.5-8.0) g/dL Albumin 3.6 (3.5-5.0) g/dL Urine Color Yellow Urine Appearance Clear Urine pH 5.5 (5.0-9.0) Ur Specific [place] <= 1.005 (1.005-1.025) Urine Protein Negative (Neg-Trace) mg/dL Urine Glucose (UA) Negative (Negative) mg/dL Urine Ketones Negative (Negative) mg/dL Urine Blood Negative (Negative) Urine Nitrite Negative (Negative) Ur Leukocyte Esterase Negative (Negative) Independent Interpretation I performed an independent interpretation of an: EKG Interpretation: Vent. Rate: 069 BPM ? ? Atrial Rate: 069 BPM P-R Int: 152 ms? QRS Dur: 074 ms QT Int: 400 ms ? ? ? P-R-T Axes: 061 018 033 degrees QTc Int: 428 ms ? Normal sinus rhythm Possible Anterior infarct , age undetermined Abnormal ECG When compared with ECG of 29-JUL-2021 20:44, No significant change was found ? DD/ 1442 Radiology Impression Radiologist Impression: My interpretation is in agreement with the radiologist's impression of these imaging studies. EXAMINATION: CT HEAD WITHOUT CONTRAST CLINICAL INFORMATION: Dizziness COMPARISON: 01/10/2007 TECHNIQUE: Contiguous axial imaging was performed from the skull base to vertex without intravenous contrast. This CT examination was performed using dose optimization techniques as appropriate, variously including the following: *? Automated exposure control *? Adjustment of mA and/or kV according to patient size (this includes techniques or standardized protocols for targeted exams where dose is matched to indication/reason for exam; i.e. extremities or head) Use of iterative reconstruction technique DLP: 709 mGy-cm. FINDINGS: There is no evidence of acute intracranial hemorrhage or territorial infarction. No abnormal mass effect or midline shift is seen. Emery to white matter differentiation is well preserved. No extra-axial fluid collections are identified. No hydrocephalus. Proportional prominence of the ventricles and sulcal spaces is consistent with mild volume loss. Patchy periventricular and deep white matter hypoattenuation is consistent with mild small vessel ischemic changes. The osseous structures and soft tissues are normal. The mastoid air cells and visualized portions of the paranasal sinuses are well aerated. ? CT/CT head/brain wo IV con IMPRESSION: No acute intracranial pathology. Mild volume loss with small vessel ischemic change. Dictated By: Twin Vigil MD Signed By: Electronically signed by Twin Vigil MD 09/28/22 1541 EXAMINATION: XR CHEST CLINICAL INFORMATION: Dizziness COMPARISON: 07/01/2022 TECHNIQUE: 2 views of the chest were obtained. FINDINGS: Cardiac leads overlie the chest. The lungs are well expanded. Small right-sided pleural effusion is similar to prior. No consolidation. No pneumothorax. The cardiomediastinal silhouette is unchanged, with a calcified aorta. XR/XR chest 2V IMPRESSION: Small right pleural effusion is similar to prior. ? Dictated By: Twin Vigil MD Signed By: Electronically signed by Twin Vigil MD 09/28/22 0526 Independent Historian Clinical information obtained from an independent historian. History obtained from or confirmed by: EMS Discharge Plan Discharge Clinical Impression: Episodic lightheadedness, Medication reaction Patient Disposition: Home, Self-Care Instructions: Lightheadedness (ED) Additional Instructions: Do NOT take Bactrim. Follow up with your primary care provider. Return to the emergency department immediately if your symptoms worsen or if you develop any dizziness, shortness of breath, difficulty breathing, chest pain, blurry vision, loss of vision, nausea, vomiting, abdominal pain, fever, chills, back pain, or any other complaints. Prescriptions: No Action sulfamethoxazole-trimethoprim [Bactrim DS] 800-160 mg tablet 1 tab PO BID Qty: 10 0RF atorvastatin 10 mg tablet 1 tab PO DAILY allopurinol 100 mg tablet 1 tab PO DAILY tamsulosin 0.4 mg capsule 1 cap PO DAILY ibuprofen 600 mg tablet 600 mg PO Q6H PRN (Reason: pain) Qty: 30 0RF Referrals: Fer Oliveira MD [Primary Care Provider] - Print Language: Indonesian
--- NOTE | 2022-09-28 14:24 | ECG_ITS ---
Test Reason : DIZZINESS Blood Pressure : / mmHG Vent. Rate : 069 BPM Atrial Rate : 069 BPM P-R Int : 152 ms QRS Dur : 074 ms QT Int : 400 ms P-R-T Axes : 061 018 033 degrees QTc Int : 428 ms Normal sinus rhythm Possible Anterior infarct , age undetermined Abnormal ECG When compared with ECG of 29-JUL-2021 20:44, No significant change was found Referred By: Nunu Zapata Electronically Signed By:SARWAT NOYOLA MD
--- OUTSIDE RECORDS SUMMARY | 2022-09-28 14:37 | XMS_ITS ---
:1950 Author Organization [facility] Address [address] [place] [address] Care Team Providers Name Role Phone Sorin Pina Jr Unavailable Unavailable PROBLEMS Type Condition ICD9-CM Code TOQ08-RK Code Onset Condition SNO MED Code Dates Status Problem Rhinorrhea J34.89 Active 55749207 Problem Colon cancer Z12.11 Active 4287468 04 screening Problem Common bile duct K83.8 Active 235 817588 dilation Problem Gallstones K80.20 Active 132043251 ALLERGIES No Known Allergies ENCOUNTERS Encounter Location Date Diagnosis [facility] [place] [address] [place] [address] Mar, [place], [place] [id number] [address] December, Rh inorrhea J34.89 [facility] [address] [place], [place] Colon cancer scr [place] [address] Z12.11 [facility] Out[facility] [address] [facility] Jul, [place], [place] [id number] [facility] [address] [place] [address] December, [place], [place] [id number] IMMUNIZATIONS No Known Immunizations SOCIAL HISTORY Qualifiers [...] Patient presents today for consultation Insurance Providers [facility] Health Member Patient Patient Patient Patient Patient Subscriber Subscriber Subscriber Group Insurance Plan Plan Plan Plan ID Relationship Address Phone Name Date of ID Name Date of No Type Insurance Insurance Insurance Coverage to Subscriber Address Phone Name Dates [facility] [phone] [facility] NEW self [place] [id number] [place] [address] [place] [address] [address]ICAID [phone] MEDICAID self [place] [id number] [place] [id number] [address] [place] [address] [facility] [address] Medicare [address] self [place] [id number] [place] [address] [place] [facility] [id number]
--- NOTE | 2022-09-28 14:46 | PC.NURSE ---
provider notified of + orthostats
[2022-09-28] MEDS: 0.9 % Sodium Chloride 1,000 ML 999 ML IV ×2 (14:59→16:56)
--- NOTE | 2022-09-28 14:59 | PC.NURSE ---
ivf started per order, monitoring manager sinus peg 60s, urine obtained, tech to obtain labs
[2022-09-28 15:12] LABS: Appearance Urine Clear; Color Urine Yellow; Glucose Urine UA Negative (Negative); Leukocyte Esterase Urine Negative (Negative); Nitrite Urine Negative (Negative); PH 5.5 (5.0-9.0); Specific Gravity - Urine <= 1.005 (1.005-1.025); Urine Blood Negative (Negative); Urine Ketones Negative (Negative); Urine Protein Negative (Neg-Trace)
[2022-09-28 15:15] LABS: Basophils Percent Auto 0.2 % (0-2); Eosinophils Absolute Auto 0.3 X10*3/uL (0.0-0.4); Eosinophils Percent Auto 5.2 % (0-4); Hematocrit 37.9 % (42.0-52.0); Hemoglobin 12.5 g/dl (14.0-18.0); Imm Gran Abs Auto 0.02 X10*3/uL (0.00-0.03); Imm Gran Pct Auto 0.4 % (0.0-0.4); Lymphocytes Absolute Auto 0.7 X10*3/uL (1.2-4.9); MANUAL DIFF FLAG SCAN; Mean Corpuscular Hemoglobin 29.3 pg (27.0-33.0); Mean Corpuscular Volume 88.8 fL (80.0-98.0); Monocytes Absolute Auto 0.4 X10*3/uL (0.1-1.2); Monocytes Percent Auto 8.6 % (2-11); Neutrophils Absolute Auto 3.4 x10*3/uL (2.0-8.3); Neutrophils Percent Auto 71.6 % (45-73); Platelet Count 155 X10*3/uL (160-400); Red Blood Count 4.27 X10*6/uL (4.60-5.80); SCAN SMEAR FLAG 1; White Blood Count 4.8 X10*3/uL (4.8-10.8)
[2022-09-28 15:18] LABS: Mean Platelet Volume 10.6 fL (9.4-12.4)
[2022-09-28 15:26] LABS: Alanine Aminotransferase 20 U/L (0-40); Albumin Level 3.6 g/dL (3.5-5.0); Alkaline Phosphatase 102 U/L (39-117); Anion Gap 14 (12-20); Aspartate Amino Transferase 29 U/L (5-37); Bilirubin Total 0.4 mg/dL (0.0-1.0); Blood Urea Nitrogen 17 mg/dL (9-16); Calcium 8.5 mg/dL (8.4-10.2); Carbon Dioxide 26 mmol/L (22-29); Chloride 100 mmol/L (96-108); Creatinine Clr Calc Pharmacy 67.2; Estimated Glomerular Filt Rate > 60; Glucose Random 199 mg/dL (60-115); Sodium 136 mmol/L (135-145); Total Protein 7.3 g/dL (6.5-8.0)
[2022-09-28 16:35] LABS: SLIDE REVIEW VERIFIED
--- NOTE | 2022-09-28 16:56 | PC.NURSE ---
patient ambulated with tech, c/o continued to have dizziness, provider notified, additional bag of ivf ordered and hung.
--- NOTE | 2022-09-28 18:33 | PC.NURSE ---
pts fluids continue to run slowly
--- NOTE | 2022-09-28 19:36 | PC.NURSE ---
pt ambulated steadily w/o assistance, reporting improvement of dizziness, vss. pt discharged per provider order.
== END 2022-09-28 19:52 | disposition home or self-care (01) ==
PROVIDERS: Physician Assistant Medical; Emergency Provider Student in an Organized Health Care Education/Training Program; PCP Internal Medicine
DX: R42 Dizziness and giddiness (principal); Z79.899 Other long term (current) drug therapy
CPT/HCPCS: 36415; 70450; 71046; 80053; 81003; 85025; 93005; 96360; 96361; 99284; 99285

== ENCOUNTER → 2022-09-29 14:09 | Outpatient (BNVA) | payer MEDICARE, MEDICAID, SELFPAY | PROVIDERS: PCP Internal Medicine; Visit Provider Surgery | DX: Z48.817 Encounter for surgical aftercare following surgery on the skin and subcutaneous tissue (principal); Z87.2 Personal history of diseases of the skin and subcutaneous tissue | CPT/HCPCS: 99212 ==

== ENCOUNTER 2022-10-22 12:36 | Outpatient (REF) | payer MEDICARE, MEDICAID, SELFPAY ==
[2022-10-22 14:48] LABS: Estimated Average Glucose 128 mg/dL; Hemoglobin A1C 149.4252 umol/L; Hemoglobin A1c % 6.1 %
[2022-10-22 15:16] LABS: Anion Gap 14 (12-20); Blood Urea Nitrogen 12 mg/dL (9-16); Calcium 8.9 mg/dL (8.4-10.2); Carbon Dioxide 28 mmol/L (22-29); Chloride 104 mmol/L (96-108); Estimated Glomerular Filt Rate > 60; Glucose Random 139 mg/dL (60-115); Sodium 142 mmol/L (135-145)
[2022-10-22 15:17] LABS: Creatinine Urine 112.29 mg/dL; Microalbum/Creatinine Ratio Ur 8.9 ug/mg cr
== END 2022-10-22 12:37 | disposition home or self-care (01) ==
LOC: HO.10HDL 12:36
PROVIDERS: Visit Provider Internal Medicine
DX: E11.9 Type 2 diabetes mellitus without complications (principal)
CPT/HCPCS: 36415; 80048; 82043; 83036

== ENCOUNTER 2022-12-30 08:40 | Outpatient (REF) | payer MEDICARE, MEDICAID, SELFPAY ==
[2022-12-30 10:36] LABS: Blood Urea Nitrogen 17 mg/dL (9-16); Estimated Glomerular Filt Rate > 60
== END 2022-12-30 08:41 | disposition home or self-care (01) ==
LOC: HO.LAB 08:40
PROVIDERS: PCP Internal Medicine; Referring Provider Internal Medicine; Visit Provider Surgery
DX: L02.212 Cutaneous abscess of back [any part, except buttock and flank] (principal)
CPT/HCPCS: 36415; 82565; 84520; 99212

== ENCOUNTER 2023-01-06 13:51 | Outpatient (REF) | payer MEDICARE, MEDICAID, SELFPAY ==
--- NOTE | ~2023-01-06 | CT_ITS ---
EXAMINATION: CT ABDOMEN AND PELVIS WITH CONTRAST CLINICAL INFORMATION: Cutaneous abscess of the back. COMPARISON: CT abdomen and pelvis 09/09/2022 TECHNIQUE: Multidetector volumetric images were obtained from the superior aspect of the liver through the pubic symphysis following administration 85 mL of Omnipaque 350 intravenous contrast. Sagittal and coronal reformatted images were obtained on the technologist's workstation. Oral contrast: No This CT examination was performed using dose optimization techniques as appropriate, variously including the following: *Automated exposure control *Adjustment of mA and/or kV according to patient size (this includes techniques or standardized protocols for targeted exams where dose is matched to indication/reason for exam; i.e. extremities or head) *Use of iterative reconstruction technique DLP: 254 mGy-cm FINDINGS: LUNG BASES: There is a right lower lobe posterior basilar pleural-based density with pleural thickening. It measures approximately 2.3 x 1.10 cm on axial image 5/84. It is more prominent than the previous study 09/09/2022. LIVER, GALLBLADDER, AND BILIARY TREE: The liver is normal in size, shape, and attenuation. Again visualized is an oval shaped well-circumscribed fluid collection between the diaphragm and right posterior hepatic lobe now measuring 4.0 x 2.2 cm on axial image 13/3. Previously it measured 5.3 x 3.4 cm. There is a low-density area likely gas. There is a tubular low-density area in the posterior segment of the right hepatic lobe extending to this collection. Also visualized are low-density areas in the segment 8 and segment 4 measuring 2.3 and 2.0 cm and 27 Hounsfield units. These lesions appear new since the last exam. Question complex cyst or lesion. No additional abnormality seen. The gallbladder is contracted and not visualized. PANCREAS: Unremarkable. SPLEEN: Unremarkable. ADRENAL GLANDS: Unremarkable. KIDNEYS AND URETERS: Both kidneys are normal size, shape and position. There is symmetrical bilateral cortical nephrograms. No cyst or enhancing solid mass. No radiopaque calculi are hydronephrosis. BLADDER: The bladder is nondistended with elevation of the base from prostate hypertrophy.. GASTROINTESTINAL TRACT: There is scattered stool, diverticula and gas seen throughout the colon without distention or diverticulitis. The small bowel loops are normal caliber. The stomach is nondistended ABDOMINAL WALL: No significant hernia is appreciated. LYMPH NODES: Normal size lymph nodes seen. VASCULAR: Atherosclerotic changes of the abdominal aorta and bilateral common iliac arteries noted without aneurysmal dilatation. PELVIC VISCERA: The prostate gland is mildly enlarged extending into the base of the bladder and projecting as a mass. No free fluid. No abnormal pelvic lymphadenopathy. OSSEOUS STRUCTURES: No aggressive lytic or sclerotic process seen. CT/CT abdomen pelvis w IV con IMPRESSION: 1. Right lower lobe posterior basilar pleural-based density with pleural thickening, worsening atelectasis. This is more prominent than the last study. 2. Fluid collection between the right diaphragm and posterior right hepatic lobe has decreased in size. There is a tubular low-density area in the posterior segment right hepatic lobe extending to this collection. There are 2 new low-density lesions in the right hepatic lobe. Question complex cyst or lesion. Recommend clinical correlation or follow-up with MRI abdomen with and without contrast as outpatient. 3. Colonic diverticulosis without diverticulitis. Mild constipation. 4. Moderate prostate hypertrophy extending into the base of bladder. Fleischner guidelines were followed.
[2023-01-06] MEDS: iohexoL 350 MG/ML 100 ML INFUS..BTL 85 ML IV (14:40)
== END 2023-01-06 13:52 | disposition home or self-care (01) ==
LOC: HO.CT 13:51
PROVIDERS: PCP Internal Medicine; Visit Provider Surgery
DX: L02.212 Cutaneous abscess of back [any part, except buttock and flank] (principal)
CPT/HCPCS: 74177; Q9967

== ENCOUNTER 2023-01-19 08:50 | Outpatient (REF) | payer MEDICARE, MEDICAID, SELFPAY | END 2023-01-19 08:51 | disposition home or self-care (01) | LOC: HO.LNP 08:50 | PROVIDERS: PCP Internal Medicine; Referring Provider Internal Medicine; Visit Provider Surgery | DX: L02.212 Cutaneous abscess of back [any part, except buttock and flank] (principal) | CPT/HCPCS: 87070; 87077; 87186; 87205; 99212 ==

== ENCOUNTER → 2023-02-07 11:09 | Outpatient (BNVA) | payer MEDICARE, MEDICAID, SELFPAY | PROVIDERS: PCP Internal Medicine; Visit Provider Surgery | DX: L02.212 Cutaneous abscess of back [any part, except buttock and flank] (principal) | CPT/HCPCS: 99212 ==

== ENCOUNTER 2023-02-09 10:10 | Outpatient (REF) | payer MEDICARE, MEDICAID, SELFPAY ==
[2023-02-09 10:23] LABS: MANUAL DIFF FLAG NO
[2023-02-09 10:47] LABS: Basophils Percent Auto 0.4 % (0-2); Eosinophils Absolute Auto 0.3 X10*3/uL (0.0-0.4); Eosinophils Percent Auto 3.9 % (0-4); Hematocrit 43.5 % (42.0-52.0); Hemoglobin 14.2 g/dl (14.0-18.0); Imm Gran Abs Auto 0.03 X10*3/uL (0.00-0.03); Imm Gran Pct Auto 0.4 % (0.0-0.4); Lymphocytes Percent Auto 13.1 % (20-40); Mean Corpuscular HGB Conc 32.6 g/dl (31.0-36.0); Mean Corpuscular Hemoglobin 31.4 pg (27.0-33.0); Mean Corpuscular Volume 96.2 fL (80.0-98.0); Mean Platelet Volume 11.3 fL (9.4-12.4); Monocytes Absolute Auto 0.6 X10*3/uL (0.1-1.2); Monocytes Percent Auto 7.4 % (2-11); Neutrophils Absolute Auto 5.6 x10*3/uL (2.0-8.3); Neutrophils Percent Auto 74.8 % (45-73); Platelet Count 210 X10*3/uL (160-400); Red Blood Count 4.52 X10*6/uL (4.60-5.80); Red Cell Distribution Width 13.7 % (11.0-16.0); White Blood Count 7.5 X10*3/uL (4.8-10.8)
[2023-02-09 11:26] LABS: Estimated Average Glucose 128 mg/dL; Hemoglobin A1c % 6.1 %
[2023-02-09 12:11] LABS: Alanine Aminotransferase 14 U/L (0-40); Alkaline Phosphatase 96 U/L (39-117); Anion Gap 13 (12-20); Aspartate Amino Transferase 17 U/L (5-37); Bilirubin Total 0.5 mg/dL (0.0-1.0); Blood Urea Nitrogen 20 mg/dL (9-16); Calcium 9.5 mg/dL (8.4-10.2); Carbon Dioxide 29 mmol/L (22-29); Chloride 103 mmol/L (96-108); Estimated Glomerular Filt Rate > 60; Glucose Random 158 mg/dL (60-115); Potassium 3.9 mmol/L (3.3-5.1); Sodium 141 mmol/L (135-145); Total Protein 8.4 g/dL (6.5-8.0)
== END 2023-02-09 10:11 | disposition home or self-care (01) ==
LOC: HO.LAB 10:10
PROVIDERS: PCP Internal Medicine; Visit Provider Internal Medicine
DX: R73.03 Prediabetes (principal); D64.9 Anemia, unspecified; M10.9 Gout, unspecified
CPT/HCPCS: 36415; 80053; 83036; 85025

== ENCOUNTER 2023-02-14 11:41 | Outpatient (REF) | payer MEDICARE, MEDICAID, SELFPAY ==
[2023-02-14 14:21] LABS: Glucose Random 131 mg/dL (60-115)
[2023-02-14 14:37] LABS: Estimated Average Glucose 126 mg/dL
== END 2023-02-14 11:42 | disposition home or self-care (01) ==
LOC: HO.10HDL 11:41
PROVIDERS: Visit Provider Internal Medicine
DX: R73.03 Prediabetes (principal); R10.9 Unspecified abdominal pain; L72.3 Sebaceous cyst
CPT/HCPCS: 36415; 82947; 83036; 87070; 87077; 87186; 87205

== ENCOUNTER → 2023-02-21 08:39 | Outpatient (BNVA) | payer MEDICARE, MEDICAID, SELFPAY | PROVIDERS: PCP Internal Medicine; Visit Provider Surgery | DX: L02.212 Cutaneous abscess of back [any part, except buttock and flank] (principal) | CPT/HCPCS: 99212 ==

== ENCOUNTER 2023-03-17 07:22 | Outpatient (REF) | payer MEDICARE, MEDICAID, SELFPAY ==
--- NOTE | ~2023-03-17 | CT_ITS ---
EXAMINATION: CT ABDOMEN AND PELVIS WITH CONTRAST CLINICAL INFORMATION: Cutaneous abscess of back. COMPARISON: None available. TECHNIQUE: Multidetector volumetric images were obtained from the superior aspect of the liver through the pubic symphysis following administration 85 mL of Omnipaque 350 intravenous contrast. Sagittal and coronal reformatted images were obtained on the technologist's workstation. Oral contrast: No This CT examination was performed using dose optimization techniques as appropriate, variously including the following: *Automated exposure control *Adjustment of mA and/or kV according to patient size (this includes techniques or standardized protocols for targeted exams where dose is matched to indication/reason for exam; i.e. extremities or head) *Use of iterative reconstruction technique DLP: 279 mGy-cm FINDINGS: LUNG BASES: There is a 1.6 cm right parietal pleural-based enhancing nodule measuring 111 Hounsfield units. There is a loculated effusion adjacent to it. Previously the nodule measured 2.3 x 1.10 cm. Rest of lungs are expanded and clear. LIVER, GALLBLADDER, AND BILIARY TREE: The liver is normal in size, shape, and attenuation. No focal hepatic lesion or biliary ductal dilatation is present. There is a right posterior capsular hypodensity/collection measuring 3.6 cm in craniocaudad, 1.3 cm AP and 3.1 cm wide, previously on 01/14/2023 it measured 4.0 x 2.2 cm on axial plane, and on CT 09/09/2022 measured 5.6 x 3.3 x 6.8 cm. It has continuously decreased in size. There is a second subcapsular lesion superior to the right hepatic lobe measuring 2.6 cm. It is about same size it measured 2.11 cm. The gallbladder is surgically absent. The CBD is slightly prominent likely due to cholecystectomy. PANCREAS: Unremarkable. SPLEEN: Unremarkable. ADRENAL GLANDS: Unremarkable. KIDNEYS AND URETERS: The kidneys are normal in size, shape, and attenuation. No hydronephrosis, hydroureter, or calculi seen. No perinephric stranding. BLADDER: The bladder is nondistended with mild bladder wall thickening measuring 1.1 cm. GASTROINTESTINAL TRACT: Scattered stool and gas is seen throughout the colon without distention. The small bowel loops are normal caliber. Appendix is not visualized with certainty. No free air or free fluid seen. ABDOMINAL WALL: No significant hernia is appreciated. LYMPH NODES: Normal. VASCULAR: Mild atherosclerosis of abdominal aorta and common iliac arteries. No aneurysmal dilatation. PELVIC VISCERA: The prostate gland is minimally enlarged. OSSEOUS STRUCTURES: No aggressive lytic or sclerotic process seen. CT/CT abdomen pelvis w IV con IMPRESSION: Continued regression of posterior right hepatic subcapsular collection. Small collection superior to the right hepatic lobe shows minimal change in size. No intrahepatic lesion seen. Two hypodense lesions in the right hepatic lobe along the diaphragm are the subphrenic collection seen. The lesion above the right hepatic lobe is stable or minimally changed. The subcapsular lesion above the left hepatic lobe is not visualized. Right lower lobe pleural-based lung nodule slightly smaller. However, now patient has developed small loculated effusion. Fleischner guidelines were followed.
[2023-03-17] MEDS: iohexoL 350 MG/ML 100 ML INFUS..BTL 85 ML IV (08:12)
== END 2023-03-17 07:23 | disposition home or self-care (01) ==
LOC: HO.CT 07:22
PROVIDERS: PCP Internal Medicine; Visit Provider Surgery
DX: L02.212 Cutaneous abscess of back [any part, except buttock and flank] (principal)
CPT/HCPCS: 74177; Q9967

== ENCOUNTER 2023-03-31 08:48 | Outpatient (AMB) | payer MEDICARE, MEDICAID, SELFPAY ==
--- NOTE | 2023-03-31 09:08 | MHC.OFFVIS ---
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 He denies any pain. He denies any new fluctuance. He says he feels well overall [facility] Medical History Back abscess Enlarged prostate Gout High cholesterol Surgical History History of laparoscopic cholecystectomy (~2020) History of laparoscopic cholecystectomy (07/30/22) Family History Sister Cardiac abnormality Diabetes Sister Breast cancer Brother Diabetes Social History Household Members: Significant Other Housing: House Do you presently have visiting nurse or other home services: No Alcohol intake: former Patient Tobacco Use Status: Never used Tobacco Second Hand Smoke Exposure: No service: No Current occupational status: retired Review of Systems Const Denies chills and Denies fever(s) Card Denies chest pain, Denies dyspnea and Denies dyspnea on exertion Resp Denies cough, Denies dyspnea and Denies dyspnea on exertion GI Denies hematochezia and Denies change in bowel habits Denies hematuria and Denies difficulty urinating Musc Denies back pain and Denies limited range of motion Neuro Denies focal weakness and Denies convulsions Psych Denies depression and Denies mood swings Physical Exam Const General: comfortable and no acute distress Resp Effort & Inspection: normal respiratory effort Cardio Palpation: normal PMI GI Palpation (GI): Soft to palpation, not firm and nontender Back/Spine/Pelvis Other: sinus on the right lateral back near the flank, dry at this time Assessment & Plan Assessment & Plan (1) Back abscess: Code(s): L02.212 - Cutaneous abscess of back [any part, except buttock] Plan: His CT scan shows this collection on the suprahepatic area of the right lobe. This seems to be tracking into the sinus on his back. I will send him for CT drainage for this. I will discuss this will the radiologist. I explained to him the plan and he says he understands. Coding Level of Care Code Est Pt Level 3 (88153) Diagnoses Back abscess L02.212
== END 2023-03-31 09:17 | disposition home or self-care (01) ==
PROVIDERS: PCP Internal Medicine; Visit Provider Surgery
DX: L02.212 Cutaneous abscess of back [any part, except buttock and flank] (principal)
CPT/HCPCS: 99213

== ENCOUNTER → 2023-03-31 08:48 | Outpatient (BNVA) | payer MEDICARE, MEDICAID, SELFPAY | PROVIDERS: PCP Internal Medicine; Visit Provider Surgery | DX: L02.212 Cutaneous abscess of back [any part, except buttock and flank] (principal) | CPT/HCPCS: 99212 ==

== ENCOUNTER 2023-04-13 11:44 | Day surgery (SDC) | payer MEDICARE, MEDICAID, SELFPAY ==
--- NOTE | ~2023-04-13 | CT_ITS ---
PROCEDURE: CT GUIDED ABSCESS DRAINAGE CLINICAL INFORMATION: Abscess. COMPARISON: 03/17/2023 and 01/06/2023 as well as studies dating back to 07/29/2021. TECHNIQUE: CT fluoroscopic-guided aspiration of fluid collection superior to the right lobe of liver and adjacent to the right hemidiaphragm. This CT examination was performed using dose optimization techniques as appropriate, variously including the following: *Automated exposure control *Adjustment of mA and/or kV according to patient size (this includes techniques or standardized protocols for targeted exams where dose is matched to indication/reason for exam; i.e. extremities or head) *Use of iterative reconstruction technique DLP: 247 mGy-cm FINDINGS: Informed consent was obtained from the patient prior to the procedure. During this process, the procedure and potential alternatives were explained, along with the intended outcome and benefits. The risks of the procedure, as well as the risk of not doing the procedure, were discussed. The patient was given the opportunity to ask questions regarding the procedure and appeared competent to make medical decisions. A signed consent form which documents this discussion was placed in the medical record. There is noted to be an approximately 3 cm maximum dimension fluid collection with rim enhancement about the superior right lobe of liver adjacent to the hemidiaphragm which is the requested collection to be drained. Using sterile technique and CT fluoroscopic-guidance from the right lateral approach a 5 [place] Yueh needle was directed into the collection with a total of 11 mL of cloudy yellow fluid being removed. The fluid was not foul-smelling but may be infectious in nature. The cavity was felt to be too small to coil a wire and catheter in. The collection was totally aspirated with no residual collection identified. Fluid sample was sent for chemical and cultures. Patient tolerated procedure without difficulty. No postprocedure pneumothorax evident. CT/CT guided drainage IMPRESSION: Successful aspiration of fluid collection about the superior right lobe of liver adjacent to the hemidiaphragm.
[2023-04-13 12:44] LABS: MANUAL DIFF FLAG NO
[2023-04-13 12:49] VITALS: BP 168/91; PULSE 59; RESP 17; TEMP 36.8; O2SAT 97; BMI 20.5
[2023-04-13 12:49] LABS: Basophils Percent Auto 0.4 % (0-2); Eosinophils Absolute Auto 0.2 X10*3/uL (0.0-0.4); Eosinophils Percent Auto 2.5 % (0-4); Hematocrit 44.2 % (42.0-52.0); Hemoglobin 14.4 g/dl (14.0-18.0); Imm Gran Abs Auto 0.02 X10*3/uL (0.00-0.03); Imm Gran Pct Auto 0.3 % (0.0-0.4); Lymphocytes Absolute Auto 1.1 X10*3/uL (1.2-4.9); Lymphocytes Percent Auto 15.7 % (20-40); Mean Corpuscular HGB Conc 32.6 g/dl (31.0-36.0); Mean Corpuscular Hemoglobin 31.3 pg (27.0-33.0); Mean Corpuscular Volume 96.1 fL (80.0-98.0); Mean Platelet Volume 11.3 fL (9.4-12.4); Monocytes Absolute Auto 0.7 X10*3/uL (0.1-1.2); Monocytes Percent Auto 10.7 % (2-11); Neutrophils Absolute Auto 4.9 x10*3/uL (2.0-8.3); Neutrophils Percent Auto 70.4 % (45-73); Platelet Count 180 X10*3/uL (160-400); Red Cell Distribution Width 13.6 % (11.0-16.0); White Blood Count 6.9 X10*3/uL (4.8-10.8)
[2023-04-13 12:51] LABS: Prothrombin Time 12.1 SEC (11.1-13.3)
[2023-04-13 13:04] LABS: Anion Gap 12 (12-20); Blood Urea Nitrogen 15 mg/dL (9-16); Carbon Dioxide 27 mmol/L (22-29); Chloride 106 mmol/L (96-108); Creatinine Clr Calc Pharmacy 69.2; Estimated Glomerular Filt Rate > 60; Potassium 4.1 mmol/L (3.3-5.1); Sodium 141 mmol/L (135-145)
[2023-04-13 14:48] VITALS: BP 133/72; PULSE 56; RESP 16; TEMP 36.9; O2SAT 99
[2023-04-13 15:13] VITALS: BP 135/62; PULSE 58; RESP 16; O2SAT 98
[2023-04-13 15:40] VITALS: BP 137/65; PULSE 54; RESP 16; TEMP 36.9; O2SAT 96
[2023-04-13 15:56] LABS: BF Shift QC OK YES; MN% 36.5 %; Man Diluent Bkgrd OK YES; PMN% 63.5 %
[2023-04-13 16:42] LABS: Lymphocyte Peritoneal Fl 19 %; Neutrophils Peritoneal Fluid 81 %
[2023-04-14 00:03] LABS: Glucose Peritoneal Fluid 3 MG/DL; Total Protein Peritoneal Fluid 5.1 GM/DL
== END 2023-04-13 15:55 | disposition home or self-care (01) ==
PROVIDERS: PCP Internal Medicine; Visit Provider Radiology Diagnostic Radiology
DX: L02.212 Cutaneous abscess of back [any part, except buttock and flank] (principal); N40.0 Benign prostatic hyperplasia without lower urinary tract symptoms; E78.00 Pure hypercholesterolemia, unspecified; Z79.899 Other long term (current) drug therapy
CPT/HCPCS: 36415; 49083; 75989; 80051; 82565; 82945; 83615; 84157; 84520; 85025; 85610; 85730; 87070; 87073; 87102; 87205; 89051; C1729; J2250; J3010

== ENCOUNTER → 2023-04-13 13:10 | Outpatient (BNV) | payer MEDICARE, MEDICAID, SELFPAY | PROVIDERS: PCP Internal Medicine; Visit Provider Radiology Diagnostic Radiology | DX: L02.212 Cutaneous abscess of back [any part, except buttock and flank] (principal) | CPT/HCPCS: 75989 ==

== ENCOUNTER 2023-05-04 14:53 | Outpatient (AMB) | payer MEDICARE, MEDICAID, SELFPAY ==
--- NOTE | 2023-05-04 15:01 | A.OFFVIS_ITS ---
Intake Vital Signs 05/04/23 15:07 Weight 140 lb BP 114/65 Blood Pressure Location Rt brachial Position Sitting Pulse 66 Intake Visit Reasons: Cutaneous abscess of back, CT drainage follow-up Intake Note: This patient presents for a follow-up assessment for CT drainage for cutaneous abscess of the back. Patient c/o; reports purulent drainage. Product Ambassador Required: No Accompanied by: girlfriend Allergies No Known Allergies Allergy (Verified 05/04/23 15:08) Medication List - Last Reconciled 05/04/23 by Fer Hussein MD allopurinol 1 tab PO DAILY atorvastatin 1 tab PO DAILY hydroxyzine HCl 25 mg PO TID tamsulosin 1 cap PO DAILY HPI Cutaneous abscess of back, CT drainage follow-up HPI Details He had undergone CT aspiration/drainage of fluid collection above the liver under the diaphragm on the right side last 04/13/2023. He tolerated procedure well He says that he did not have any drainage at all from the sinus for about 2 weeks but says that he has noticed some scanty drainage periodically since then. He denies any pain or discomfort. [facility] Medical History Back abscess High cholesterol Enlarged prostate Gout Surgical History History of laparoscopic cholecystectomy (07/30/22) History of laparoscopic cholecystectomy (~2020) Family History Sister Cardiac abnormality Diabetes Sister Breast cancer Brother Diabetes Social History Household Members: Significant Other Housing: House Do you presently have visiting nurse or other home services: No Alcohol intake: former Patient Tobacco Use Status: Tobacco use Unknown Second Hand Smoke Exposure: No service: No Current occupational status: retired Review of Systems Const Denies chills and Denies fever(s) Card Denies chest pain, Denies dyspnea and Denies dyspnea on exertion Resp Denies cough, Denies dyspnea and Denies dyspnea on exertion GI Denies hematochezia and Denies change in bowel habits Denies hematuria and Denies difficulty urinating Musc Denies back pain and Denies limited range of motion Neuro Denies focal weakness and Denies convulsions Psych Denies depression and Denies mood swings Physical Exam Vital Signs: Last Vital Signs Pulse 66 05/04/23 15:07 BP 114/65 05/04/23 15:07 Const General: comfortable and no acute distress Orientation/consciousness: patient oriented x3 Neck Neck: Yes no lymphadenopathy Resp Auscultation: clear to auscultation bilaterally Cardio Rhythm: regular rhythm GI Palpation (GI): Soft to palpation, nontender and no guarding Back/Spine/Pelvis Other: Small sinus on the right midback area, dry, no fluctuance, no redness at this time Neuro General: patient oriented x3 Assessment & Plan Assessment & Plan (1) Back abscess: Code(s): L02.212 - Cutaneous abscess of back [any part, except buttock] Plan: He had undergone drainage by CT scan of this fluid collection. This had been completely emptied according to Dr. Méndez. The patient did say that there had been no drainage for about almost 2 weeks after that but he has been noticing some scanty drainage periodically for the past few days Currently, the area is dry without any obvious drainage. I told him that this may continue to have some drainage for a while. I will continue to follow him in the office. He has been instructed to apply dressings for now. Overall he looks well. I have reviewed the findings on the CT drainage with Dr. Fonseca previously. Coding Level of Care Code Est Pt Level 3 (57245) Diagnoses Back abscess L02.212
[2023-05-04 15:07] VITALS: BP 114/65; PULSE 66
== END 2023-05-04 15:31 | disposition home or self-care (01) ==
PROVIDERS: PCP Internal Medicine; Visit Provider Surgery
DX: L02.212 Cutaneous abscess of back [any part, except buttock and flank] (principal)
CPT/HCPCS: 99213

== ENCOUNTER → 2023-05-04 14:53 | Outpatient (BNVA) | payer MEDICARE, MEDICAID, SELFPAY | PROVIDERS: PCP Internal Medicine; Visit Provider Surgery | DX: L02.212 Cutaneous abscess of back [any part, except buttock and flank] (principal) | CPT/HCPCS: 99212 ==

== ENCOUNTER 2023-06-01 12:53 | Outpatient (AMB) | payer MEDICARE, MEDICAID, SELFPAY ==
--- NOTE | 2023-06-01 12:56 | MHC.OFFVIS ---
Intake Vital Signs 06/01/23 13:01 Weight 145 lb BP 136/65 Blood Pressure Location Rt brachial Position Sitting Pulse 63 Intake Visit Reasons: Cutaneous abscess of back, 1 month follow up Intake Note: This patient presents for a one month follow-up assessment for wound check. Patient c/o; reports no changes. Indian Nanny Required: No Accompanied by: Life Partner Allergies No Known Allergies Allergy (Verified 06/01/23 13:02) Medication List - Last Reconciled 06/01/23 by Fer Hussein MD allopurinol 1 tab PO DAILY atorvastatin 1 tab PO DAILY hydroxyzine HCl 25 mg PO TID tamsulosin 1 cap PO DAILY HPI Cutaneous abscess of back, 1 month follow up HPI Details He is here for follow-up for his abscess from his back. He had undergone CT drainage for this. He continues to have some scanty drainage periodically although overall this seems to have been decreasing significantly. He denies any pain or tenderness. He denies any swelling. He denies any fever or chills. [facility] Medical History Back abscess High cholesterol Enlarged prostate Gout Surgical History History of laparoscopic cholecystectomy (07/30/22) History of laparoscopic cholecystectomy (~2020) Family History Sister Cardiac abnormality Diabetes Sister Breast cancer Brother Diabetes Social History Household Members: Significant Other Housing: House Do you presently have visiting nurse or other home services: No Alcohol intake: former Patient Tobacco Use Status: Tobacco use Unknown Second Hand Smoke Exposure: No service: No Current occupational status: retired Review of Systems Const Denies chills and Denies fever(s) Card Denies chest pain, Denies dyspnea and Denies dyspnea on exertion Resp Denies cough, Denies dyspnea and Denies dyspnea on exertion GI Denies hematochezia and Denies change in bowel habits Denies hematuria and Denies difficulty urinating Musc Denies back pain and Denies limited range of motion Neuro Denies focal weakness and Denies convulsions Psych Denies depression and Denies mood swings Physical Exam Vital Signs: Last Vital Signs Pulse 63 06/01/23 13:01 BP 136/65 06/01/23 13:01 Const Other: Looks well General: comfortable and no acute distress Chest Other: Posterior back on the right side on the lower ribcage - small sinus, no significant drainage at this time, no fluctuance, no redness, no tenderness Resp Effort & Inspection: normal respiratory effort GI Palpation (GI): Soft to palpation, not firm, nontender and no guarding Assessment & Plan Assessment & Plan (1) Back abscess: Code(s): L02.212 - Cutaneous abscess of back [any part, except buttock] Plan: He had a previous CT drainage of this area. The open sinus appears clean, with no surrounding redness or induration. There is no fluctuance on the area. He still has some occasional scanty drainage but overall, the seems to have decreased significantly compared to before I have instructed him on continuing with dry dressings on the area. I will check on him again in about a month. Coding Level of Care Code Est Pt Level 2 (85195) Diagnoses Back abscess L02.212
[2023-06-01 13:01] VITALS: BP 136/65; PULSE 63
== END 2023-06-01 13:24 | disposition home or self-care (01) ==
PROVIDERS: PCP Internal Medicine; Visit Provider Surgery
DX: L02.212 Cutaneous abscess of back [any part, except buttock and flank] (principal)
CPT/HCPCS: 99212

== ENCOUNTER → 2023-06-01 12:53 | Outpatient (BNVA) | payer MEDICARE, MEDICAID, SELFPAY | PROVIDERS: PCP Internal Medicine; Visit Provider Surgery | DX: L02.212 Cutaneous abscess of back [any part, except buttock and flank] (principal) | CPT/HCPCS: 99212 ==

== ENCOUNTER 2023-06-02 12:31 | Outpatient (REF) | payer MEDICARE, MEDICAID, SELFPAY ==
[2023-06-02 14:09] LABS: Estimated Average Glucose 126 mg/dL
[2023-06-02 14:16] LABS: Anion Gap 15 (12-20); Blood Urea Nitrogen 16 mg/dL (9-16); Calcium 9.6 mg/dL (8.4-10.2); Carbon Dioxide 27 mmol/L (22-29); Chloride 102 mmol/L (96-108); Estimated Glomerular Filt Rate > 60; Glucose Random 100 mg/dL (60-115); Potassium 4.2 mmol/L (3.3-5.1); Sodium 140 mmol/L (135-145); Uric Acid 5.5 mg/dL (3.4-7.0)
== END 2023-06-02 12:32 | disposition home or self-care (01) ==
LOC: HO.LAB 12:31
PROVIDERS: PCP Internal Medicine; Visit Provider Internal Medicine
DX: R73.03 Prediabetes (principal); N40.0 Benign prostatic hyperplasia without lower urinary tract symptoms; E78.00 Pure hypercholesterolemia, unspecified; Z87.39 Personal history of other diseases of the musculoskeletal system and connective tissue
CPT/HCPCS: 36415; 80048; 83036; 84550

== ENCOUNTER 2023-06-14 10:18 | Outpatient (REF) | payer MEDICARE, OTHER, SELFPAY ==
[2023-06-14 10:34] LABS: MANUAL DIFF FLAG NO
[2023-06-14 10:53] LABS: Basophils Percent Auto 0.3 % (0-2); Eosinophils Absolute Auto 0.1 X10*3/uL (0.0-0.4); Eosinophils Percent Auto 1.9 % (0-4); Hemoglobin 15.1 g/dl (14.0-18.0); Imm Gran Abs Auto 0.02 X10*3/uL (0.00-0.03); Imm Gran Pct Auto 0.3 % (0.0-0.4); Lymphocytes Absolute Auto 0.9 X10*3/uL (1.2-4.9); Lymphocytes Percent Auto 14.7 % (20-40); Mean Corpuscular HGB Conc 32.8 g/dl (31.0-36.0); Mean Corpuscular Hemoglobin 31.4 pg (27.0-33.0); Mean Corpuscular Volume 95.6 fL (80.0-98.0); Mean Platelet Volume 11.8 fL (9.4-12.4); Monocytes Absolute Auto 0.6 X10*3/uL (0.1-1.2); Monocytes Percent Auto 9.8 % (2-11); Neutrophils Absolute Auto 4.6 x10*3/uL (2.0-8.3); Platelet Count 163 X10*3/uL (160-400); Red Blood Count 4.81 X10*6/uL (4.60-5.80); Red Cell Distribution Width 13.2 % (11.0-16.0); White Blood Count 6.3 X10*3/uL (4.8-10.8)
[2023-06-14 11:55] LABS: Appearance Urine Clear; Color Urine Yellow; Glucose Urine UA Negative (Negative); Leukocyte Esterase Urine Negative (Negative); Nitrite Urine Negative (Negative); PH 5.5 (5.0-9.0); Specific Gravity - Urine <= 1.005 (1.005-1.025); Urine Blood Negative (Negative); Urine Ketones Negative (Negative); Urine Protein Negative (Neg-Trace)
[2023-06-14 12:22] LABS: Estimated Average Glucose 126 mg/dL
[2023-06-14 12:46] LABS: Alanine Aminotransferase 18 U/L (0-40); Albumin Level 4.1 g/dL (3.5-5.0); Alkaline Phosphatase 88 U/L (39-117); Anion Gap 13 (12-20); Aspartate Amino Transferase 18 U/L (5-37); Bilirubin Total 0.5 mg/dL (0.0-1.0); Blood Urea Nitrogen 13 mg/dL (9-16); Calcium 9.3 mg/dL (8.4-10.2); Carbon Dioxide 27 mmol/L (22-29); Chloride 106 mmol/L (96-108); Cholesterol 135 mg/dL (<200); Estimated Glomerular Filt Rate > 60; Glucose Fasting 122 mg/dL (60-99); HDL Cholesterol 33 mg/dL (>40); LDL Cholesterol Calculated 86 mg/dL (<100); Potassium 3.7 mmol/L (3.3-5.1); Sodium 142 mmol/L (135-145); Total Protein 8.2 g/dL (6.5-8.0); Triglycerides 84 mg/dL (<150)
[2023-06-14 12:48] LABS: Free T4 (Free Thyroxine) 0.79 ng/dL (0.71-1.85); Thyroid Stimulating Hormone 1.67 uIU/mL (0.32-4.0)
[2023-06-14 12:54] LABS: Vitamin B12 1125 pg/mL (200-900)
[2023-06-14 13:30] LABS: Creatinine Urine 29.71 mg/dL; Microalbumin Urine < 5.0 mg/L
== END 2023-06-14 10:19 | disposition home or self-care (01) ==
LOC: HO.LAB 10:18
PROVIDERS: PCP Internal Medicine; Visit Provider Internal Medicine
DX: E78.00 Pure hypercholesterolemia, unspecified (principal); M10.9 Gout, unspecified; N40.0 Benign prostatic hyperplasia without lower urinary tract symptoms; K76.0 Fatty (change of) liver, not elsewhere classified; R53.83 Other fatigue
CPT/HCPCS: 36415; 80053; 80061; 81003; 82043; 82570; 82607; 83036; 84439; 84443; 85025

== ENCOUNTER 2023-06-29 12:54 | Outpatient (AMB) | payer MEDICARE, MEDICAID, SELFPAY ==
[2023-06-29 13:01] VITALS: BP 129/61; PULSE 60
--- NOTE | 2023-06-29 13:01 | A.OFFVIS_ITS ---
Intake Vital Signs 06/29/23 13:01 Weight 142 lb BP 129/61 Blood Pressure Location Rt brachial Position Sitting Pulse 60 Intake Visit Reasons: Cutaneous abscess of back, 1 month follow up Intake Note: Patient here to f/u abscess on mid back. C/o constant yellowish discharge. No longer taking abx. Canvas Cutter Required: No Accompanied by: Spouse Allergies No Known Allergies Allergy (Verified 06/29/23 13:03) Medication List - Last Reconciled 06/29/23 by Fer Hussein MD allopurinol 1 tab PO DAILY atorvastatin 1 tab PO DAILY hydroxyzine HCl 25 mg PO TID tamsulosin 1 cap PO DAILY HPI Cutaneous abscess of back, 1 month follow up HPI Details He is here for follow-up for his old abscess in the area above the liver and in the diaphragm on the right side. He denies any new complaints He states that he continues to have some drainage from the sinus in the back but this has been much less in quantity. He denies any fever or abdominal complaints. [facility] Medical History Back abscess High cholesterol Enlarged prostate Gout Surgical History History of laparoscopic cholecystectomy (07/30/22) History of laparoscopic cholecystectomy (~2020) Family History Sister Cardiac abnormality Diabetes Sister Breast cancer Brother Diabetes Social History Household Members: Significant Other Housing: House Do you presently have visiting nurse or other home services: No Alcohol intake: former Patient Tobacco Use Status: Tobacco use Unknown Second Hand Smoke Exposure: No service: No Current occupational status: retired Review of Systems Const Denies chills and Denies fever(s) Card Denies chest pain, Denies dyspnea and Denies dyspnea on exertion Resp Denies cough, Denies dyspnea and Denies dyspnea on exertion GI Denies hematochezia and Denies change in bowel habits Denies hematuria and Denies difficulty urinating Musc Denies back pain and Denies limited range of motion Neuro Denies focal weakness and Denies convulsions Psych Denies depression and Denies mood swings Physical Exam Vital Signs: Last Vital Signs Pulse 60 06/29/23 13:01 BP 129/61 06/29/23 13:01 Const Other: Looks well General: comfortable and no acute distress Resp Effort & Inspection: normal respiratory effort Cardio Rate: regular rate GI Palpation (GI): Soft to palpation, not firm and nontender Back/Spine/Pelvis Other: old sinus on the right side of the back much smaller in size dry, no redness, no active drainage at this time Assessment & Plan Assessment & Plan (1) Back abscess: Code(s): L02.212 - Cutaneous abscess of back [any part, except buttock] Plan: The area of the sinus still has some drainage but this is decreasing in quantity. I reviewed with him the culture reports from CT drainage done last March,. This did not reveal any growth of bacteria or fungus. In view of the continued decrease in the volume of the drainage, I told him that we will stay the course. I told him that I am confident that the drainage will continue to decrease in eventually resolved. I will see him again in the office in about 6 weeks He clinically looks well otherwise. Coding Level of Care Code Est Pt Level 3 (14038) Diagnoses Back abscess L02.212
== END 2023-06-29 13:38 | disposition home or self-care (01) ==
PROVIDERS: PCP Internal Medicine; Visit Provider Surgery
DX: L02.212 Cutaneous abscess of back [any part, except buttock and flank] (principal)
CPT/HCPCS: 99213

== ENCOUNTER → 2023-06-29 12:54 | Outpatient (BNVA) | payer MEDICARE, MEDICAID, SELFPAY | PROVIDERS: PCP Internal Medicine; Visit Provider Surgery | DX: Z48.817 Encounter for surgical aftercare following surgery on the skin and subcutaneous tissue (principal); Z87.2 Personal history of diseases of the skin and subcutaneous tissue | CPT/HCPCS: 99212 ==

== ENCOUNTER 2023-08-08 12:49 | Outpatient (AMB) | payer MEDICARE, MEDICAID, SELFPAY ==
--- NOTE | 2023-08-08 12:51 | MHC.OFFVIS ---
Intake Vital Signs 08/08/23 12:58 Weight 143 lb BP 112/57 L Blood Pressure Location Rt brachial Position Sitting Pulse 71 Intake Visit Reasons: Back abscess, 6 week follow up Intake Note: This patient presents for a six week follow-up for back abscess. Pt c/o; reports no changes. 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 He had undergone CT drainage for this The drainage from the previous sinus on the back has decreased significantly. He says that he does not notice any drainage anymore except for some scanty staining every few days. [facility] Medical History Back abscess High cholesterol Enlarged prostate Gout Surgical History History of laparoscopic cholecystectomy (07/30/22) History of laparoscopic cholecystectomy (~2020) Family History Sister Cardiac abnormality Diabetes Sister Breast cancer Brother Diabetes Social History Household Members: Significant Other Housing: House Do you presently have visiting nurse or other home services: No Alcohol intake: former Patient Tobacco Use Status: Tobacco use Unknown Second Hand Smoke Exposure: No service: No Current occupational status: retired Review of Systems Const Denies chills and Denies fever(s) Card Denies chest pain, Denies dyspnea and Denies dyspnea on exertion Resp Denies cough, Denies dyspnea and Denies dyspnea on exertion GI Denies hematochezia and Denies change in bowel habits Denies hematuria and Denies difficulty urinating Musc Denies back pain and Denies limited range of motion Neuro Denies focal weakness and Denies convulsions Psych Denies depression and Denies mood swings Physical Exam Vital Signs: Last Vital Signs Pulse 71 08/08/23 12:58 BP 112/57 L 08/08/23 12:58 Const General: comfortable and no acute distress Resp Effort & Inspection: normal respiratory effort Cardio Rhythm: regular rhythm GI Palpation (GI): Soft to palpation, not firm and nontender Back/Spine/Pelvis Other: Old abscess site on the back on the right side is now dry, seems to have closed up, no fluctuance, no redness Assessment & Plan Assessment & Plan (1) Back abscess: Code(s): L02.212 - Cutaneous abscess of back [any part, except buttock] Plan: The area of the abscess seems to have no dried up. There is no significant drainage. The abscess site has closed up. The abscess of the liver with sympathetic involvement of the pleura in the diaphragm is likely from his previous gallbladder surgery with subsequent seeding with bacteria on the area. This seems to have resolved after CT drainage He feels well overall. I will see him again in the office in about 2 months. He is comfortable with the plan. Coding Level of Care Code Est Pt Level 3 (11059) Diagnoses Back abscess L02.212
[2023-08-08 12:58] VITALS: BP 112/57; PULSE 71
== END 2023-08-08 13:10 | disposition home or self-care (01) ==
PROVIDERS: PCP Internal Medicine; Visit Provider Surgery
DX: L02.212 Cutaneous abscess of back [any part, except buttock and flank] (principal)
CPT/HCPCS: 99213

== ENCOUNTER → 2023-08-08 12:49 | Outpatient (BNVA) | payer MEDICARE, MEDICAID, SELFPAY | PROVIDERS: PCP Internal Medicine; Visit Provider Surgery | DX: Z87.2 Personal history of diseases of the skin and subcutaneous tissue (principal) | CPT/HCPCS: 99212 ==

== ENCOUNTER 2023-10-12 14:29 | Outpatient (AMB) | payer MEDICARE, MEDICAID, SELFPAY ==
--- NOTE | 2023-10-12 14:30 | A.OFFVIS_ITS ---
Intake Vital Signs 10/12/23 14:37 Weight 144 lb BP 122/61 Blood Pressure Location Rt brachial Position Sitting Pulse 59 Intake Visit Reasons: 2 mth follow up Back abscess Intake Note: This patient presents for a two month follow-up for back abscess. Patient c/o; reports no complaints at this time. 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 He continues to have this scanty drainage although he does state that this is not as much as before. He denies any pain or tenderness. He denies any other complaints. [facility] Medical History Back abscess High cholesterol Enlarged prostate Gout Surgical History History of laparoscopic cholecystectomy (07/30/22) History of laparoscopic cholecystectomy (~2020) Family History Sister Cardiac abnormality Diabetes Sister Breast cancer Brother Diabetes Social History Household Members: Significant Other Housing: House Do you presently have visiting nurse or other home services: No Alcohol intake: former Patient Tobacco Use Status: Tobacco use Unknown Second Hand Smoke Exposure: No service: No Current occupational status: retired Review of Systems Const Denies chills and Denies fever(s) Card Denies chest pain, Denies dyspnea and Denies dyspnea on exertion Resp Denies cough, Denies dyspnea and Denies dyspnea on exertion GI Denies hematochezia and Denies change in bowel habits Denies hematuria and Denies difficulty urinating Musc Denies back pain and Denies limited range of motion Neuro Denies focal weakness and Denies convulsions Psych Denies depression and Denies mood swings Physical Exam Vital Signs: Last Vital Signs Pulse 59 10/12/23 14:37 BP 122/61 10/12/23 14:37 Const General: comfortable and no acute distress Cardio Rate: regular rate GI Palpation (GI): Soft to palpation, not firm and nontender Back/Spine/Pelvis Other: Small sinus on the right back area near the lower part of the ribcage, very scanty drainage, serosanguineous Assessment & Plan Assessment & Plan (1) Back abscess: Code(s): L02.212 - Cutaneous abscess of back [any part, except buttock] Plan: He has this chronic sinus on the back with very scanty drainage. This appears to be connected to an area above the liver and the diaphragm. This may be due to his previous laparoscopic cholecystectomy with a previous nidus of infection on the area. The drainage has been much less compared to before. At this time, I would recommend continuing to monitor this with daily dressing he is using dry gauze. This is more of staining now then actually draining. I will see him again in the office in about 2-3 months. He is doing well overall otherwise. Coding Level of Care Code Est Pt Level 2 (49226) Diagnoses Back abscess L02.212
[2023-10-12 14:37] VITALS: BP 122/61; PULSE 59
== END 2023-10-12 15:04 | disposition home or self-care (01) ==
PROVIDERS: PCP Internal Medicine; Visit Provider Surgery
DX: L02.212 Cutaneous abscess of back [any part, except buttock and flank] (principal)
CPT/HCPCS: 99212

== ENCOUNTER → 2023-10-12 14:29 | Outpatient (BNVA) | payer MEDICARE, MEDICAID, SELFPAY | PROVIDERS: PCP Internal Medicine; Visit Provider Surgery | DX: L02.212 Cutaneous abscess of back [any part, except buttock and flank] (principal) | CPT/HCPCS: 99212 ==

== ENCOUNTER 2023-12-07 13:57 | Outpatient (AMB) | payer MEDICARE, MEDICAID, SELFPAY ==
--- NOTE | 2023-12-07 13:59 | MHC.OFFVIS ---
Intake Vital Signs 12/07/23 14:04 Weight 147 lb BP 117/59 L Blood Pressure Location Rt brachial Position Sitting Pulse 63 Intake Visit Reasons: 2 mth follow up Back abscess Intake Note: This patient presents for two month follow up for Back abscess. Pt c/o; reports no complaints. 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 He says that there is still drainage from the area although this continues to decrease in size. There is some staining on his dressings daily He denies any other significant complaints with regards to this. This complain of some epigastric pain periodically with meals. [facility] Medical History Back abscess High cholesterol Enlarged prostate Gout Surgical History History of laparoscopic cholecystectomy (07/30/22) History of laparoscopic cholecystectomy (~2020) Family History Sister Cardiac abnormality Diabetes Sister Breast cancer Brother Diabetes Social History Household Members: Significant Other Housing: House Do you presently have visiting nurse or other home services: No Alcohol intake: former Patient Tobacco Use Status: Tobacco use Unknown Second Hand Smoke Exposure: No service: No Current occupational status: retired Review of Systems Const Denies chills and Denies fever(s) Card Denies chest pain, Denies dyspnea and Denies dyspnea on exertion Resp Denies cough, Denies dyspnea and Denies dyspnea on exertion GI Denies hematochezia and Denies change in bowel habits Denies hematuria and Denies difficulty urinating Musc Denies back pain and Denies limited range of motion Neuro Denies focal weakness and Denies convulsions Psych Denies depression and Denies mood swings Physical Exam Vital Signs: Last Vital Signs Pulse 63 12/07/23 14:04 BP 117/59 L 12/07/23 14:04 Const General: comfortable and no acute distress Resp Effort & Inspection: normal respiratory effort Cardio Rate: regular rate GI Palpation (GI): Soft to palpation and nontender Back/Spine/Pelvis Other: Small open wound, about 5 mm on the right back, dry, no active drainage at this time Assessment & Plan Assessment & Plan (1) Back abscess: Code(s): L02.212 - Cutaneous abscess of back [any part, except buttock] Plan: The drainage continues steadily improved. I again explained to him that his likely secondary to a nidus of infection in the diaphragm from his previous cholecystectomy. This can be due to a drop stone in the area. The discharge has continued to decrease in size. He is fairly asymptomatic otherwise I have changes dressings with a Band-Aid for now. I will see him again in the office in about 3 months. He did complain of some periodic epigastric pain with meals so I told him he can try Prilosec [id number] for now. Coding Level of Care Code Est Pt Level 2 (73712) Diagnoses Back abscess L02.212
[2023-12-07 14:04] VITALS: BP 117/59; PULSE 63
== END 2023-12-07 14:16 | disposition home or self-care (01) ==
PROVIDERS: PCP Internal Medicine; Visit Provider Surgery
DX: L02.212 Cutaneous abscess of back [any part, except buttock and flank] (principal)
CPT/HCPCS: 99212

== ENCOUNTER → 2023-12-07 13:57 | Outpatient (BNVA) | payer MEDICARE, MEDICAID, SELFPAY | PROVIDERS: PCP Internal Medicine; Visit Provider Surgery | DX: L02.212 Cutaneous abscess of back [any part, except buttock and flank] (principal); R10.13 Epigastric pain | CPT/HCPCS: 99212 ==

== ENCOUNTER 2023-12-19 10:51 | Outpatient (REF) | payer MEDICARE, OTHER, SELFPAY ==
[2023-12-19 11:16] LABS: MANUAL DIFF FLAG NO
[2023-12-19 12:24] LABS: Basophils Percent Auto 0.5 % (0-2); Eosinophils Absolute Auto 0.2 X10*3/uL (0.0-0.4); Eosinophils Percent Auto 2.7 % (0-4); Hemoglobin 14.9 g/dl (14.0-18.0); Imm Gran Abs Auto 0.02 X10*3/uL (0.00-0.03); Imm Gran Pct Auto 0.3 % (0.0-0.4); Lymphocytes Absolute Auto 0.9 X10*3/uL (1.2-4.9); Lymphocytes Percent Auto 15.2 % (20-40); Mean Corpuscular HGB Conc 33.1 g/dl (31.0-36.0); Mean Corpuscular Hemoglobin 32.3 pg (27.0-33.0); Mean Corpuscular Volume 97.4 fL (80.0-98.0); Monocytes Absolute Auto 0.6 X10*3/uL (0.1-1.2); Monocytes Percent Auto 9.5 % (2-11); Neutrophils Absolute Auto 4.2 x10*3/uL (2.0-8.3); Neutrophils Percent Auto 71.8 % (45-73); Platelet Count 181 X10*3/uL (160-400); Red Blood Count 4.62 X10*6/uL (4.60-5.80); Red Cell Distribution Width 13.4 % (11.0-16.0); White Blood Count 5.9 X10*3/uL (4.8-10.8)
[2023-12-19 12:26] LABS: Estimated Average Glucose 131 mg/dL; Hemoglobin A1c % 6.2 % (<6.0)
[2023-12-19 13:00] LABS: Alanine Aminotransferase 15 U/L (0-40); Alkaline Phosphatase 82 U/L (39-117); Anion Gap 13 (12-20); Aspartate Amino Transferase 16 U/L (5-37); Bilirubin Total 0.7 mg/dL (0.0-1.0); Blood Urea Nitrogen 13 mg/dL (9-16); Calcium 9.1 mg/dL (8.4-10.2); Carbon Dioxide 29 mmol/L (22-29); Chloride 105 mmol/L (96-108); Estimated Glomerular Filt Rate > 60; Glucose Random 114 mg/dL (60-115); Sodium 143 mmol/L (135-145); Total Protein 8.2 g/dL (6.5-8.0); Uric Acid 6.5 mg/dL (3.4-7.0)
[2023-12-19 16:26] LABS: Creatinine Urine 124.47 mg/dL; Microalbum/Creatinine Ratio Ur 8.8 ug/mg cr (<30)
== END 2023-12-19 10:52 | disposition home or self-care (01) ==
LOC: HO.LAB 10:51
PROVIDERS: PCP Internal Medicine; Visit Provider Internal Medicine
DX: E11.9 Type 2 diabetes mellitus without complications (principal); M10.9 Gout, unspecified; E78.00 Pure hypercholesterolemia, unspecified; N40.0 Benign prostatic hyperplasia without lower urinary tract symptoms
CPT/HCPCS: 36415; 80053; 82043; 82570; 83036; 84550; 85025

== ENCOUNTER 2024-02-29 12:50 | Outpatient (AMB) | payer MEDICARE, MEDICAID, SELFPAY ==
--- NOTE | 2024-02-29 13:06 | A.OFFVIS_ITS ---
Vital Signs 02/29/24 13:11 Weight 143 lb 2 oz BP 102/55 L Blood Pressure Location Rt brachial Position Sitting Pulse 64 Intake Visit Reasons: 3 mth follow up Back abscess Intake Note: This patient presents for a three month follow-up back abscess. Patient c/o; reports no complaints. 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 He says that this has been dry for several weeks now. He denies any pain or discomfort. [facility] Medical History Back abscess High cholesterol Enlarged prostate Gout Surgical History History of laparoscopic cholecystectomy (07/30/22) History of laparoscopic cholecystectomy (~2020) Family History Sister Cardiac abnormality Diabetes Sister Breast cancer Brother Diabetes Social History Household Members: Significant Other Housing: House Do you presently have visiting nurse or other home services: No Alcohol intake: former Patient Tobacco Use Status: Tobacco use Unknown Second Hand Smoke Exposure: No service: No Current occupational status: retired Review of Systems Const Denies chills and Denies fever(s) Card Denies chest pain, Denies dyspnea and Denies dyspnea on exertion Resp Denies cough, Denies dyspnea and Denies dyspnea on exertion GI Denies hematochezia and Denies change in bowel habits Denies hematuria and Denies difficulty urinating Musc Denies back pain and Denies limited range of motion Neuro Denies focal weakness and Denies convulsions Psych Denies depression and Denies mood swings Physical Exam Vital Signs: Last Vital Signs Pulse 64 02/29/24 13:11 BP 102/55 L 02/29/24 13:11 Const General: comfortable and no acute distress Resp Effort & Inspection: normal respiratory effort Cardio Rate: regular rate Back/Spine/Pelvis Other: Sinus on the right side of back has closed, area dry, no discharge, no redness Assessment & Plan Assessment & Plan (1) Back abscess: Code(s): L02.212 - Cutaneous abscess of back [any part, except buttock] Category: Medical Plan: This appears to have resolved completely. There has no residual opening on the area of the previous sinus He can therefore follow up on a p.r.n. basis. Coding Level of Care Code Est Pt Level 2 (00266) Diagnoses Back abscess L02.212
[2024-02-29 13:11] VITALS: BP 102/55; PULSE 64
== END 2024-02-29 13:23 | disposition home or self-care (01) ==
PROVIDERS: PCP Internal Medicine; Visit Provider Surgery
DX: L02.212 Cutaneous abscess of back [any part, except buttock and flank] (principal)
CPT/HCPCS: 99212

== ENCOUNTER → 2024-02-29 12:50 | Outpatient (BNVA) | payer MEDICARE, MEDICAID, SELFPAY | PROVIDERS: PCP Internal Medicine; Visit Provider Surgery | DX: L02.212 Cutaneous abscess of back [any part, except buttock and flank] (principal) | CPT/HCPCS: 99212 ==

== ENCOUNTER 2024-04-16 10:27 | Outpatient (REF) | payer MEDICARE, OTHER, SELFPAY ==
[2024-04-16 13:06] LABS: MANUAL DIFF FLAG NO
[2024-04-16 13:18] LABS: Basophils Percent Auto 0.5 % (0-2); Eosinophils Absolute Auto 0.1 X10*3/uL (0.0-0.4); Eosinophils Percent Auto 1.3 % (0-4); Hematocrit 42.5 % (42.0-52.0); Imm Gran Abs Auto 0.02 X10*3/uL (0.00-0.03); Imm Gran Pct Auto 0.3 % (0.0-0.4); Lymphocytes Absolute Auto 1.1 X10*3/uL (1.2-4.9); Lymphocytes Percent Auto 17.5 % (20-40); Mean Corpuscular HGB Conc 32.9 g/dl (31.0-36.0); Mean Corpuscular Hemoglobin 32.3 pg (27.0-33.0); Mean Corpuscular Volume 97.9 fL (80.0-98.0); Mean Platelet Volume 12.3 fL (9.4-12.4); Monocytes Absolute Auto 0.6 X10*3/uL (0.1-1.2); Monocytes Percent Auto 9.1 % (2-11); Neutrophils Absolute Auto 4.5 x10*3/uL (2.0-8.3); Neutrophils Percent Auto 71.3 % (45-73); Platelet Count 158 X10*3/uL (160-400); Red Blood Count 4.34 X10*6/uL (4.60-5.80); Red Cell Distribution Width 13.2 % (11.0-16.0); White Blood Count 6.4 X10*3/uL (4.8-10.8)
[2024-04-16 13:30] LABS: Alanine Aminotransferase 17 U/L (0-40); Albumin Level 4.1 g/dL (3.5-5.0); Alkaline Phosphatase 72 U/L (39-117); Anion Gap 10 (12-20); Aspartate Amino Transferase 16 U/L (5-37); Bilirubin Total 0.5 mg/dL (0.0-1.0); Blood Urea Nitrogen 16 mg/dL (9-16); Calcium 9.3 mg/dL (8.4-10.2); Carbon Dioxide 30 mmol/L (22-29); Chloride 104 mmol/L (96-108); Estimated Glomerular Filt Rate > 60; Glucose Random 152 mg/dL (60-115); Potassium 4.1 mmol/L (3.3-5.1); Sodium 140 mmol/L (135-145); Total Protein 7.9 g/dL (6.5-8.0)
[2024-04-16 13:32] LABS: Estimated Average Glucose 128 mg/dL; Hemoglobin A1c % 6.1 % (<6.0)
== END 2024-04-16 10:28 | disposition home or self-care (01) ==
LOC: HO.10HDL 10:27
PROVIDERS: Visit Provider Internal Medicine
DX: R73.03 Prediabetes (principal); N40.1 Benign prostatic hyperplasia with lower urinary tract symptoms; M10.9 Gout, unspecified; K76.0 Fatty (change of) liver, not elsewhere classified
CPT/HCPCS: 36415; 80053; 83036; 85025

== ENCOUNTER 2024-06-18 12:40 | Emergency (ER) | payer MEDICARE, OTHER, SELFPAY ==
--- NOTE | ~2024-06-18 | XR_ITS ---
EXAMINATION: XR CHEST CLINICAL INFORMATION: Shortness of breath. COMPARISON: Chest radiograph 09/28/2022. TECHNIQUE: 2 views of the chest were obtained. FINDINGS: Unchanged cardiomediastinal silhouette. No focal consolidation, pleural effusion or pneumothorax. Chronic mildly increased interstitial markings, similar to prior. No acute osseous findings. XR/XR chest 2V IMPRESSION: 1. No acute cardiopulmonary findings. 2. Chronic mildly increased interstitial markings, similar to prior. Electronically signed by: Smua Bryson MD 06/18/2024 02:35 PM EDT
[2024-06-18 12:50] VITALS: BP 131/79; PULSE 74; RESP 18; TEMP 36.1; O2SAT 97; BMI 23.3
--- NOTE | 2024-06-18 12:50 | ED_ITS ---
HPI - SOB/Dyspnea General Chief Complaint: Chest Pain Stated Complaint: Breathing issues Time Seen by Provider: 06/18/24 14:20 Source: patient Mode of arrival: ambulatory Limitations: no limitations History of Present Illness ED Provider: Lizbeth Graham PA-C HPI Narrative: 74-year-old male with a history of gout, HLD, history of cholecystectomy who presents to the ER for evaluation of 5 episodes of feeling like his heart was stopping yesterday. Patient reports that these symptoms have been going on intermittently for several years immediate really thought much about it. He reports for the last several years, he would infrequently get the sensation that his ?heart was stopping and feeling as if a cholesterol plaque was the cause. He reports feeling the plaque move through his heart and when it escaped he felt his heart restart and gasp for breath. He states he has episodes have lasted 2- 3 seconds in the past. Yesterday he had 5 episodes of it. He denies any associated chest pains. He denies feeling racing heart beats but he does feel strong heartbeats intermittently. Denies any associated weakness, numbness, tingling, nausea, vomiting, diarrhea, abdominal pain or difficulty breathing. He denies any fever or chills, no URI symptoms. No known sick contacts. MD elicited complaint: shortness of breath and anxiety Onset (ago): year(s) Timing: intermittent Exacerbating factors: nothing Relieving factors: nothing Associated symptoms: denies other symptoms Treatment prior to arrival: none Related Data Home oxygen amount: none Home Medications ?Medication ?Instructions ?Recorded ?Confirmed allopurinol 100 mg tablet 1 tab PO DAILY 07/29/21 02/29/24 atorvastatin 10 mg tablet 1 tab PO DAILY 07/29/21 02/29/24 tamsulosin 0.4 mg capsule 1 cap PO DAILY 07/29/21 02/29/24 hydroxyzine HCl 25 mg tablet 25 mg PO TID 12/30/22 02/29/24 Allergies Allergy/AdvReac Type Severity Reaction Status Date / Time No Known Allergies Allergy Verified 06/18/24 12:53 Review of Systems 2 Review of Systems: Yes all other systems are reviewed and are negative PMFSH Past Medical History Medical History Back abscess High cholesterol Enlarged prostate Gout Surgical History History of laparoscopic cholecystectomy (07/30/22) History of laparoscopic cholecystectomy (~2020) Family History Family History Sister Cardiac abnormality Diabetes Sister Breast cancer Brother Diabetes Social History Social History Household Members: Significant Other Housing: House Do you presently have visiting nurse or other home services: No Alcohol intake: former Patient Tobacco Use Status: Tobacco use Unknown Smoked in Last 30 Days: No Second Hand Smoke Exposure: No Use of substances other than those prescribed or required for medical reasons: No Advance Directives: Yes Advance Directives Information Provided: Yes Advance Directives on File: No Do you have a plan to hurt others: No Plan service: No Current occupational status: retired Physical Exam 2 Vital Signs: Vital Signs: Last Vital Signs Temp 97.9 F 06/18/24 14:28 Pulse 65 06/18/24 14:28 Resp 18 06/18/24 14:28 BP 157/71 H 06/18/24 14:28 Pulse Ox 97 06/18/24 14:28 O2 Del Method Room Air 06/18/24 14:28 BMI result Body Mass Index 23.3 Appearance: Alert. Oriented X3. No acute distress. Head: normocephalic, atraumatic. Eyes: Pupils equal, round and reactive to light. ENT: Pharynx normal. No tonsillar swelling or exudate. Neck: Normal inspection. Neck supple. CVS: Normal heart rate and rhythm. Pulses normal. No murmur Respiratory: No respiratory distress. Breath sounds normal. Abdomen: Soft and nontender. +BS x4 Skin: Skin warm and dry. Normal skin color. Normal skin turgor. No rashes. Extremities: No lower extremity edema. No joint swelling. Neuro/psych: Oriented X 3. No motor deficit. No sensory deficit. CN II-XII intact. Normal speech and cognition. Course Course Course Narrative: This is a Rapid Medical Exam performed in triage by Cami Handley PA-C. Full HPI, ROS and PE to be performed by primary ED provider. 74 yo M w/PMHx, cholecystectomy, gout, HLD presenting to the ED c/o my heart & breathing will stop for about 3 seconds. Admits to these episodes becoming more frequent. Admits to intermittent chest tightness & dizziness. Admits this has been going on for years but now worsening over the past 3 days. PE: talking in complete sentences, nontoxic appearing Plan: EKG, labs, viral testing, CXR Medical Decision Making Medical Decision Making [facility] Narrative: 74-year-old male with history of hypertension, cholecystectomy in the past, gout who presents to the ER for evaluation of feeling as if his heart is stopping and then restarting, causing him to gasp for breath. These episodes last 2-3 seconds and he has no residual symptoms once it resolves. No preceding symptoms. No chest pain. He is currently asymptomatic. Patient was kept on the manager monitoring for over 2 hours. There was no episodes of sinus pause, no cardiac arrhythmia or bradycardic episodes. EKG without any ischemic changes, no significant change from September of 2021. Troponin was negative. Patient's workup was reassuring. Low suspicion for ACS or PE. No witnessed cardiac arrhythmia here. He may benefit from Cardiology evaluation and a Holter monitor as an outpatient. Symptoms may be due to anxiety. At this time he is stable for discharge home with outpatient follow-up. Will provide cardiology number, he can call for an appointment to get evaluated. Return precautions were discussed. Stable for discharge home Differential Diagnosis Differential Diagnoses: The differential diagnosis associated with the presentation includes Anxiety, cardiac arrhythmia, SVT, PVCs, PACs, thyroid dysfunction Admission/Observation Consideration of admission/observation: Escalation of care including admission/observation considered Lab Data [facility] Lab Attestation statement: I reviewed the patient's lab results. No leukocytosis, no anemia, normal renal function, negative troponin 06/18/24 13:32 06/18/24 13:32 Labs: Lab Results 06/18/24 Range/Units 13:32 WBC 7.0 (4.8-10.8) X10*3/uL RBC 4.47 L (4.60-5.80) X10*6/uL Hgb 14.5 (14.0-18.0) g/dl Hct 43.8 (42.0-52.0) % MCV 98.0 (80.0-98.0) fL MCH 32.4 (27.0-33.0) pg MCHC 33.1 (31.0-36.0) g/dl RDW 12.9 (11.0-16.0) % Plt Count 172 (160-400) X10*3/uL MPV 11.5 (9.4-12.4) fL Immature Gran % (Auto) 0.3 (0.0-0.4) % Neut % (Auto) 76.0 H (45-73) % Lymph % (Auto) 13.1 L (20-40) % [place] % (Auto) 9.0 (2-11) % Eos % (Auto) 1.3 (0-4) % Baso % (Auto) 0.3 (0-2) % Lymph # (Auto) 0.9 L (1.2-4.9) X10*3/uL [place] # (Auto) 0.6 (0.1-1.2) X10*3/uL Eos # (Auto) 0.1 (0.0-0.4) X10*3/uL Baso # (Auto) 0.0 (0.0-0.2) X10*3/uL Abs Immat Gran (auto) 0.02 (0.00-0.03) X10*3/uL Absolute Neuts (auto) 5.3 (2.0-8.3) x10*3/uL Absolute Nucleated RBC 0.000 (0.0-0.012) X10*3/uL Nucleated RBC % (auto) 0.0 (0.0-0.2) /100WBC PT 12.1 (10.9-12.4) SEC INR 1.0 (0.9-1.1) Sodium 140 (135-145) mmol/L Potassium 3.8 (3.3-5.1) mmol/L Chloride 107 (96-108) mmol/L Carbon Dioxide 30 H (22-29) mmol/L Anion Gap 7 L (12-20) BUN 14 (9-16) mg/dL Creatinine 0.82 (0.5-1.4) mg/dL Estim Creat Clear Calc 72.7 Estimated GFR > 60 Random Glucose 108 (60-115) mg/dL Calcium 9.0 (8.4-10.2) mg/dL Magnesium 2.2 (1.6-2.6) mg/dL Total Bilirubin 0.6 (0.0-1.0) mg/dL Direct Bilirubin 0.2 (0.0-0.5) mg/dL AST 24 (5-37) U/L ALT 23 (0-40) U/L Alkaline Phosphatase 81 (39-117) U/L Troponin I High Sens 3.5 (<3.5-35.0) ng/L B-Natriuretic Peptide 70 (<100) pg/mL Total Protein 8.3 H (6.5-8.0) g/dL Albumin 4.4 (3.5-5.0) g/dL Influenza Type A (PCR) NEGATIVE (Negative) Influenza Type B (PCR) NEGATIVE (Negative) RSV RNA Qual (PCR) NEGATIVE (Negative) SARS-CoV-2 RNA (RT-PCR) NEGATIVE (Negative) Independent Interpretation I performed an independent interpretation of an: EKG and Plain X-Ray Interpretation: EKG with normal sinus rhythm, ventricular rate 64 beats per minute, normal NC interval, normal QTC, no ST segment elevations or depressions, no change from September 2022 Chest x-ray without any focal infiltrate, he does have increased interstitial markings that are similar to the chest x-ray from September of 2022 Radiology Impression Discussion of test interpretation with radiology: I have reviewed the radiologist's reading. Radiologist Impression: XR/XR chest 2V IMPRESSION: 1. No acute cardiopulmonary findings. 2. Chronic mildly increased interstitial markings, similar to prior. External Record Review External record reviewed: Outpatient record, Prior outpatient labs and Prior outpatient radiology Tests considered The following testing was considered but not selected: CT scan of the chest was considered however low suspicion for PE Prescription Management I considered prescription management with: Other (Anxiolytic) Chronic Conditions Patient?s care impacted by: Hypertension Critical Care Time Critical Care Time Critical Care Time: No Discharge Plan Discharge Clinical Impression: Heart palpitations Patient Disposition: Home, Self-Care Instructions: Heart Palpitations (DC) Additional Instructions: Your workup today was reassuring. Recommend following up with Cardiology in your primary care doctor. Call for an appointment. If you develop new or worsening symptoms call 911 or come back to the ER for further evaluation. Prescriptions: No Action atorvastatin 10 mg tablet 1 tab PO DAILY allopurinol 100 mg tablet 1 tab PO DAILY tamsulosin 0.4 mg capsule 1 cap PO DAILY hydroxyzine HCl 25 mg tablet 25 mg PO TID Referrals: [facility] [Provider Group] Fer Oliveira MD [Primary Care Provider] - Print Language: Lao
--- NOTE | 2024-06-18 12:51 | ECG_ITS ---
Test Reason : chest pain Blood Pressure : / mmHG Vent. Rate : 064 BPM Atrial Rate : 064 BPM P-R Int : 148 ms QRS Dur : 088 ms QT Int : 406 ms P-R-T Axes : -24 -06 017 degrees QTc Int : 418 ms Normal sinus rhythm Anterior infarct (cited on or before 28-SEP-2022) Abnormal ECG When compared with ECG of 28-SEP-2022 14:42, No significant change was found Referred By: Cami Handley Electronically Signed By:SIMONE KELLEY
[2024-06-18 13:37] LABS: MANUAL DIFF FLAG NO
[2024-06-18 13:42] LABS: Basophils Percent Auto 0.3 % (0-2); Eosinophils Absolute Auto 0.1 X10*3/uL (0.0-0.4); Eosinophils Percent Auto 1.3 % (0-4); Hematocrit 43.8 % (42.0-52.0); Hemoglobin 14.5 g/dl (14.0-18.0); Imm Gran Abs Auto 0.02 X10*3/uL (0.00-0.03); Imm Gran Pct Auto 0.3 % (0.0-0.4); Lymphocytes Absolute Auto 0.9 X10*3/uL (1.2-4.9); Lymphocytes Percent Auto 13.1 % (20-40); Mean Corpuscular HGB Conc 33.1 g/dl (31.0-36.0); Mean Corpuscular Hemoglobin 32.4 pg (27.0-33.0); Mean Platelet Volume 11.5 fL (9.4-12.4); Monocytes Absolute Auto 0.6 X10*3/uL (0.1-1.2); Neutrophils Absolute Auto 5.3 x10*3/uL (2.0-8.3); Platelet Count 172 X10*3/uL (160-400); Red Blood Count 4.47 X10*6/uL (4.60-5.80); Red Cell Distribution Width 12.9 % (11.0-16.0)
[2024-06-18 13:44] LABS: Prothrombin Time 12.1 SEC (10.9-12.4)
[2024-06-18 13:54] LABS: Alanine Aminotransferase 23 U/L (0-40); Albumin Level 4.4 g/dL (3.5-5.0); Alkaline Phosphatase 81 U/L (39-117); Anion Gap 7 (12-20); Aspartate Amino Transferase 24 U/L (5-37); Bilirubin Direct 0.2 mg/dL (0.0-0.5); Bilirubin Total 0.6 mg/dL (0.0-1.0); Blood Urea Nitrogen 14 mg/dL (9-16); Carbon Dioxide 30 mmol/L (22-29); Chloride 107 mmol/L (96-108); Creatinine Clr Calc Pharmacy 72.7; Estimated Glomerular Filt Rate > 60; Glucose Random 108 mg/dL (60-115); Magnesium 2.2 mg/dL (1.6-2.6); Potassium 3.8 mmol/L (3.3-5.1); Sodium 140 mmol/L (135-145); Total Protein 8.3 g/dL (6.5-8.0)
[2024-06-18 13:59] LABS: B Type Natriuretic Peptide 70 pg/mL (<100)
[2024-06-18 14:01] LABS: Troponin-I High Sensitivity 3.5 ng/L (<3.5-35.0)
--- NOTE | 2024-06-18 14:15 | PC.NURSE ---
Pt comes from home for episodes of breathing and heart stopping . Per pt recently has been having episodes where my heart will stop along with my breathing until the piece of cholesterol breaks off and passes through my heart . Pt states he's had this for many years and has been having more frequent episodes 5-6 times a day. Denies recent life stressors/anxiety. A/ox3, respirations even and unlabored, no increased wob/sob, s1 and s2 heard, normal sinus on quality assurance monitor HR- 70s, abdomen soft, non-tender on palpation. Pt denies seeing a pcp about this. Pt states it happens randomly, nothing triggers these episodes. Ekg and labs obtained, call obando within reach, plan of care ongoing.
--- OUTSIDE RECORDS SUMMARY | 2024-06-18 14:19 | XMS_ITS | Patient Health Record ---
Author Organization [facility] Address [address] [place] [address] Care Team Providers Care Cooking Instructor Name Role Phone Fre Oliveira MD Primary Care Provider Delio Estevez Unavailable [phone] ALLERGIES No Known Allergies RESULTS Component Value Reference Range Notes HEMOGLOBIN A1C (GLYCOHEMOGLO BIN) Reviewed date:04/06/2024 12:42:14 PM Interpretation: Performing Lab: Notes/Report: TOTAL HEMOGLOBIN (HGBA1C) HEMOGLOBIN A1C (HH) HEMOGLOBIN A1C % (HH) 6.2 ESTIMATED AVG GLUCOSE REASON FOR REFERRAL No Information MEDICATIONS Medication SIG (Take, Route, Frequency, Duration) Notes Start Date End Date Status Atorvastatin Calcium 10 MG 1 tablet Oral ly Once a day for 30 day(s) Active Allopurinol 100 MG 1 tablet Orally Once a day for 30 day(s) Active Ciclopirox Olamine 0.77 % 1 application to affected area Externally to feet Twice a day for 30 days Active Tamsulosin HCl 0.4 MG 1 capsule Orally O nce a day for 30 day(s) Active Iron Active Multivitamin Active IMMUNIZATIONS Vaccine Route Administration Date Status Comme nts COVID-19 Pfizer BioNTech Vaccine Unknown 07/21/2021 Administered 1st 11/17/20 2nd 12/10/20 Influenza Unknown 05/23/2023 Administered SOCIAL HISTORY Tobacco Use: Social History Observation Description Date Details (start date - stop date) Former Smoker NA - NA Sex Assigned At : Social History Observation Description Sex Assigned At Unknown Tobacco Use/Smoking Question Answer Notes Are you a: former smoker Additional Findings: Tobacco Non-User Current no n-smoker Alcohol Screen Question Answer Notes Did you have a drink containing alcohol in the p ast year? No Points 0 Interpretation Negative Tobacco use other than smoking: Question Answer Notes Are you an other tobacco user? No PROBLEMS Problem Type ICD Code Onset Dates Problem Status W/U Status Risk SNOMED Code Notes Problem Tinea unguium (B35.1) Active confirmed Tinea unguium (305686797) Problem Plantar wart (B07.0) Active confirmed Plantar wart (86309619) VITAL SIGNS Blood pressure diastolic 70 mm Hg 04/06/2024 Height 5ft 7in in 04/06/2024 Blood pressure systolic 125 mm Hg 04/06/2024 Weight 140 lbs 04/06/2024 BMI 21.92 kg/m2 04/06/2024 PROCEDURES Procedure Date Ordered Date Performed Result Body Sit e 18038-UMOYSBJ NAIL, 6 OR MORE 08/12/2023 N/A 43625-Khqr Destruction, 1-14 08/12/2023 N/A 07778-SXNNOFU NAIL, 6 OR MORE 10/25/2023 N/A 48794-Hrxx Destruction, 1-14 10/25/2023 N/A 83995-GWFAFXZ NAIL, 6 OR MORE 04/06/2024 N/A 38550-Vsgy Destruction, 1-14 04/06/2024 N/A Encounters Encounter Location Date Provider Diagnosis [address] [address] 08/12/2023 Delio Myla Tinea unguium B35.1 ; Pain in right toe(s) M79.674 ; Pain in left toe(s) M79.675 ; Right foot pain M79.671 and Plantar wart B07.[address] [address] 10/25/2023 Delio Myla Tinea unguium B35.1 ; Pain in right toe(s) M79.674 ; Pain in left toe(s) M79.675 ; Right foot pain M79.671 and Plantar wart B07.[address] [address] 12/27/2023 Delio Myla [facility] [place] [address] 01/20/2024 Delio Lanza [facility] [address] 04/06/2024 Delio Lanza Tinea unguium B35.1 ; Pain in right toe(s) M79.674 ; Pain in left toe(s) M79.675 ; Right foot pain M79.671 and Plantar wart B07.[address] [facility] [address] 05/23/2024 Delio Lanza ASSESSMENTS Encounter Date Diagnosis Assessment Notes Treatment Notes Treatment Clinical Notes 08/12/2023 Tinea unguium (ICD-10 - B35.1) 08/12/2023 Pain in right toe(s) (ICD-10 - M79.674) 10/25/2023 Tinea unguium (ICD-10 - B35.1) 10/25/2023 Pain in right toe(s) (ICD-10 - M79.674) 04/06/2024 Tinea unguium (ICD-10 - B35.1) 04/06/2024 Pain in right toe(s) (ICD-10 - M79.674) 04/06/2024 Pain in left toe(s) (ICD-10 - M79.675) 10/25/2023 Pain in left toe(s) (ICD-10 - M79.675) 08/12/2023 Pain in left toe(s) (ICD-10 - M79.675) 08/12/2023 Right foot pain (ICD-10 - M79.671) 10/25/2023 Right foot pain (ICD-10 - M79.671) 04/06/2024 Right foot pain (ICD-10 - M79.671) 04/06/2024 Plantar wart (ICD-10 - B07.0) 10/25/2023 Plantar wart (ICD-10 - B07.0) 08/12/2023 Plantar wart (ICD-10 - B07.0) 08/12/2023 Other 10/25/2023 Other 04/06/2024 Other PLAN OF TREATMENT Pending Test Test Name Order Date 94493-LMDFVJT NAIL, 6 OR MORE 03/09/2022 39708-FVGEKYK NAIL, 6 OR MORE 06/25/2022 52816-ONOGCHU NAIL, 6 OR MORE 10/01/2022 78286-AELBWUL NAIL, 6 OR MORE 01/04/2023 72082-UUCKNPT NAIL, 6 OR MORE 03/11/2023 45918-JVLCKHC NAIL, 6 OR MORE 05/27/2023 70501-RGDPEOX NAIL, 6 OR MORE 08/12/2023 75156-OIXSDYX NAIL, 6 OR MORE 10/25/2023 75337-YOJZBPV NAIL, 6 OR MORE 04/06/2024 27640-LQPQQHU NAIL, 6 OR MORE 12/08/2021 07885-Dipo Destruction, 1-14 12/08/2021 49364-Sjlf Destruction, 1-14 04/06/2024 82504-Civa Destruction, 1-14 10/01/2022 47713-Dabl Destruction, 1-14 10/25/2023 27013-Izzp Destruction, 1-14 08/12/2023 70935-Xhdp Destruction, 1-14 05/27/2023 55526-Kjbl Destruction, 1-14 03/11/2023 62854-Ctws Destruction, 1-14 01/04/2023 84094-Rihr Destruction, 1-14 06/25/2022 88916-Ytem Destruction, 1-14 03/09/2022 19148-Ikdicqqo Plate 01/04/2023 35806-Hicpkduc Plate 10/01/2022 08643-Cnlbzsgh Plate 03/11/2023 99054 I&D ABSCESS- SIMPLE,SINGLE 023 Next Appt Details Provider Name:Delio Lanza , 07/06/2024 02:00:00 PM, [address] [facility] [address] [facility], [place], [address], Insurance Providers Payer Name Payer Address Payer Phone Subscriber Number Group Number Insured Name Patient Relationship to Insured Coverage Start Date Coverage End Date [employer] [address] [place] [address] [id number] Omar Carbajal Self - patient is the insured MEDICAL (GENERAL) HISTORY Medical History History ICD Code Arthritis Back,Hip,and Knee pain Cataracts covid-19 Depression Gall bladder problems Gout Liver disease Reflux ( GERD) Sciatica Measles CAD Surgical History Surgery Date(Month/Year) gall bladder removal 07/2021 cyst removal 08/2022 Hospitalization History Reason Date(Month/Year) C- digestive issues/Gall bladder 2020 cyst infection antibiotics given 08/2022
--- OUTSIDE RECORDS SUMMARY | 2024-06-18 14:19 | XMS_ITS ---
Author Organization [facility] Address [address] [facility] [place] [address] Care Team Providers Care Manager Motor Name Role Phone Fer Oliveira MD Primary Care Provider Unavaila Delio Levine Unavailable [phone] ALLERGIES No Known Allergies REASON FOR VISIT Painful nail(s) aggrevated by shoes causing difficulty standing/walking, Wart(s) MEDICATIONS Medication SIG (Take, Route, Frequency, Duration) [...] 30 day(s) Active Iron Active Multivitamin Active SOCIAL HISTORY Tobacco Use: Social History Observation [...] Are you an other tobacco user? No VITAL SIGNS Height 5ft 7in in 04/06/2024 Weight 140 lbs 04/06/2024 BMI 21.92 kg/m2 04/06/2024 Blood pressure systolic 125 mm Hg 04/06/20 24 Blood pressure diastolic 70 mm Hg 024 PROCEDURES Procedure Date Ordered Date Performed Result Body Sit e 47814-WTZBPMR NAIL, 6 OR MORE 04/06/2024 N/A 92444-Wqpp Destruction, 1-14 04/06/2024 N/A Encounters Encounter Location Date Provider Diagnosis [facility] [address] [place] [address] 04/06/2024 Delio Lanza Tinea unguium B35.1 ; Pain in right toe(s) M79.674 ; Pain in left toe(s) M79.675 ; Right foot pain M79.671 and Plantar wart B07.0 ASSESSMENTS Encounter Date Diagnosis Assessment Notes Treatment Notes Treatment Clinical Notes 04/06/2024 Tinea unguium (ICD-10 - B35.1) 04/06/2024 Pain in right toe(s) (ICD-10 - M79.674) 04/06/2024 Pain in left toe(s) (ICD-10 - M79.675) 04/06/2024 Right foot pain (ICD-10 - M79.671) 04/06/2024 Plantar wart (ICD-10 - B07.0) 04/06/2024 Other PLAN OF TREATMENT Pending Test Test Name Order Date 06708-ABIWVQK NAIL, 6 OR MORE 04/06/2024 01147-Pgic Destruction, 1-14 04/06/2024 Next Appt Details Follow Up: prn, Reason: Provider Name:Delio Lanza , 07/06/2024 02:00:00 PM, [address] [place], [address], Procedure Notes * Category Sub-Category Detail Notes Wart Treatment Procedure Verrucae were de brided to pin-point bleeding margins with sterile 15 surgical blade, silver nitrate chemocautery applied, recomm. immune-boosting meds such as zinc, recomm. follow up with topical chemosurgical agents, Pt defers any other forms of tx (76801) Debride Nail 6-10 Nail debridement Performance o f this nail treatment by a nonprofessional would put this patients foot and overall health at risk. Therefore, nail debridement was performed extensively to reduce/remove overall nail length, girth, thickness, subungual debris, and necrotic tissue, by manual and/or electrical means through the use of a nail nipper and/or dremel-type precision thread grinder operator, to a more viable healthy nail plate or bed tissue 6-10. Silver nitrate used for any petechial bleeding as necessary. Definitive antifungal treatment options have been reviewed and discussed with the patient. The patient chooses, no pharmaceutical tx (62046) Progress Notes * Examination Category Sub-Category Detail Notes Dermatologic VERRUCA: Reveals a Single , multi-loculated , mosaically patterned, round, raised, flat-topped, petechial bleeding papule(s), with cauliflower appearance and interruption of skin lines, pain to lateral compression, and size estimated at NOW, 2mm diameter, plantar Forefoot, RIGHT Nails NAILS are: Elongated, overg rown, dystrophic, lytic, greater than 3mm thick, discolored and friable with crumbly malodorous subungual debris, with pain on palpation, 1-5 B/L History and Physical Notes * HPI (History of Present Illness) Category Sub-Category Detail Notes Painful Nails Pt States Last PCP Visit: Date:: 024
--- OUTSIDE RECORDS SUMMARY | 2024-06-18 14:19 | XMS_ITS ---
Author Organization [facility] Address [address] [place] [address] Care Team Providers Care Heating Systems Installer Name Role Phone Fer Oliveira MD Primary Care Provider Unavaila Delio Levine Unavailable [phone] REASON FOR VISIT needs refill per pharmacy Encounters Encounter Location Date Provider Diagnosis [facility] [address] [place] [address] 05/23/2024 Delio Lanza PLAN OF TREATMENT Next Appt Details Provider Name:Delio Lanza , 07/06/2024 02:00:00 PM, [address] [place], [address],
--- OUTSIDE RECORDS SUMMARY | 2024-06-18 14:19 | XMS_ITS ---
Author Organization [facility] Address [address] [place] [address] Care Team Providers Care Instructor Hairspring Name Role Phone Fer Oliveira MD Primary Care Provider Unavaila Delio Levine Unavailable [phone] Encounters Encounter Location Date Provider Diagnosis [facility] [address] [place] [address] 01/20/2024 Delio Lanza PLAN OF TREATMENT Next Appt Details Provider Name:Delio Lanza , 07/06/2024 02:00:00 PM, [address] [place], [address],
--- OUTSIDE RECORDS SUMMARY | 2024-06-18 14:19 | XMS_ITS | Patient Health Record ---
Author Organization [facility] Address [address] [place] [address] Care Team Providers Care Box Printer Name Role Phone Fer Oliveira MD Primary Care Provider UnavailSorin Whiteside Jr Unavailable [phone] REASON FOR REFERRAL No Information MEDICATIONS Medication SIG (Take, Route, Frequency, Duration) Notes Start Date End Date Status Colyte with Flavor Packs 240 GM As directed Orally Over the specified time. for 1 day(s) Active Atorvastatin Calcium 10 MG TAKE 1 TABLET BY MOUTH DAILY Oral for 90 Active SOCIAL HISTORY Tobacco Use: Social History Observation Description Date Details (start date - stop date) Former Smoker NA - NA Sex Assigned At : Social History Observation Description Sex Assigned At Unknown Tobacco Use/Smoking Question Answer Notes Patient is a former smoker How long has it been since you last smoked? > 10 years Alcohol Screen Question Answer Notes Did you have a drink containing alcohol in the p ast year? No Points 0 Interpretation Negative PROBLEMS Problem Type ICD Code Onset Dates Problem Status W/U Status Risk SNOMED Code Notes Problem Colon cancer screening (Z12.11) Active confirmed 901472979 Problem Rhinorrhea (J34.89) Active confirmed 63730811 Problem Gallstones (K80.20) Active confirmed Gallstones (170519504) Problem Common bile duct dilation (K83.8) Active confirmed Dilatation of bile duct (319857308) PLAN OF TREATMENT Future Test Test Name Order Date COLONOSCOPY 01/06/2017 Insurance Providers Payer Name Payer Address Payer Phone Subscriber Number Group Number Insured Name Patient Relationship to Insured Coverage Start Date Coverage End Date [facility] [place] [address] [place] [phone] [id number] CONSUELO HINES Self - patient is the insured Medicare of [place] [address] [place] [address] [id number] CONSUELO HINES Self - patient is the insured MEDICAL (GENERAL) HISTORY Medical History History ICD Code colonoscopy 08-02-2007 rosacea degenerative disc disease elevated cholesterol
[2024-06-18 14:28] VITALS: BP 157/71; PULSE 65; RESP 18; TEMP 36.6; O2SAT 97
[2024-06-18 14:32] LABS: Influenza A PCR NEGATIVE (Negative); Influenza B PCR NEGATIVE (Negative); Resp Syncy Virus RNA Qual PCR NEGATIVE (Negative); SARS COV2 PCR INHOUSE NEGATIVE (Negative)
[2024-06-18 16:03] VITALS: BP 112/53; PULSE 56; RESP 16; O2SAT 97
[2024-06-18 16:11] VITALS: BP 112/53; PULSE 58; RESP 18; TEMP 36.6; O2SAT 97
== END 2024-06-18 16:12 | disposition home or self-care (01) ==
PROVIDERS: Physician Assistant; Emergency Provider Emergency Medicine; PCP Internal Medicine
DX: R00.2 Palpitations (principal); R06.02 Shortness of breath; F41.9 Anxiety disorder, unspecified; Z03.818 Encounter for observation for suspected exposure to other biological agents ruled out; E78.5 Hyperlipidemia, unspecified; Z90.49 Acquired absence of other specified parts of digestive tract; Z79.899 Other long term (current) drug therapy; Z79.02 Long term (current) use of antithrombotics/antiplatelets
CPT/HCPCS: 0241U; 71046; 80048; 80076; 83735; 83880; 84484; 85025; 85610; 93005; 99284; 99285

== ENCOUNTER → 2024-06-18 12:51 | Outpatient (BNV) | payer MEDICARE, MEDICAID, SELFPAY | PROVIDERS: Emergency Provider Emergency Medicine; PCP Internal Medicine; Visit Provider Internal Medicine | DX: R07.9 Chest pain, unspecified (principal); R94.31 Abnormal electrocardiogram [ECG] [EKG] | CPT/HCPCS: 93010 ==

== ENCOUNTER → 2024-07-05 12:49 | Outpatient (REF) | payer MEDICARE, MEDICAID, SELFPAY ==
--- NOTE | 2024-07-05 12:54 | HM_ITS ---
Conclusion: 1. Patient was monitored for total period of 3 days 2. Baseline was normal sinus rhythm with average heart of 59 beats per minute 3. No significant pauses noted but frequent sinus bradycardia noted with 58% of time heart rate below 60 beats per minute 4. Occasional PACs and PVCs noted 5. One 3 beat salvos of nonsustained VT at 181 beats per minute 6. Patient marked the counter 24 times with reported symptoms of shortness of breath or chest tightness correlating with sinus rhythm MTDD
== END ==
LOC: HO.CARD 12:49
PROVIDERS: PCP Internal Medicine; Visit Provider Internal Medicine
DX: R00.2 Palpitations (principal); G47.33 Obstructive sleep apnea (adult) (pediatric)
CPT/HCPCS: 93242

== ENCOUNTER → 2024-07-05 12:54 | Outpatient (BNV) | payer MEDICARE, MEDICAID, SELFPAY | PROVIDERS: PCP Internal Medicine; Visit Provider Internal Medicine Cardiovascular Disease | DX: R00.1 Bradycardia, unspecified (principal) | CPT/HCPCS: 93244 ==

== ENCOUNTER 2024-08-23 11:18 | Emergency (ER) | payer MEDICARE, MEDICAID, SELFPAY ==
[2024-08-23] VITALS (10 sets, daily range): BP systolic 97–148; BP diastolic 61–75; PULSE 61–92; RESP 18–20; TEMP 36.7–36.8; O2SAT 96–97; BMI 24.5
--- NOTE | ~2024-08-23 | CT_ITS ---
EXAMINATION: CT brain and CT cervical spine without contrast. CLINICAL INDICATION: Fall, dizziness. COMPARISON: CT brain 09/28/2022. TECHNIQUE: 5 mm thin axial and reformatted 2 mm thin sagittal and coronal images of brain were obtained. Subsequently axial 3 mm thin and reformatted 2 mm thin sagittal and coronal images of cervical spine were obtained. - Automated exposure control - Adjustment of mA and/or kV according to patient size (this includes techniques or standardized protocols for targeted exams where dose is matched to indication/reason for exam; i.e. extremities or head) - Use of iterative reconstruction technique. DLP 1055. FINDINGS: BRAIN: There is no acute intra-axial, extra-axial bleed, masses or midline shift. There is no acute infarction evolution. There is no edema. The anderson to white matter differentiation is maintained normal. The lateral ventricles are symmetrical in size and configuration without enlargement. Bone windows reveal no calvarial abnormality. There is no scalp soft tissue abnormality. Bilateral paranasal sinuses and mastoid air cells are well-aerated. No scalp soft tissue abnormality seen. CERVICAL SPINE: There is mild straightening of cervical lordosis. The vertebral heights and alignment is normal. There is loss of C5-6 and C6-7 disc heights with ventral and posterior spondylosis. Rest of the disc heights are normal. The craniovertebral junction and the C1-C2 alignment is normal. No visible acute fracture, dislocation or subluxation seen. There is mild narrowing of right C5-6 and bilateral C6-7 neural foramina from uncovertebral hypertrophic changes. Minimal right apical scarring is seen. The prevertebral soft tissues are normal. The airway is widely patent. No large neck mass or abnormal lymphadenopathy seen. CT/CT cervical spine wo IV con IMPRESSION: No acute intracranial process seen. There is no visible acute fracture, dislocation or subluxation. Mild degenerative disc changes with posterior spondylosis C5-6 and C6-7 disc levels. Electronically signed by: Jax Bynum MD 08/23/2024 12:28 PM EST
--- NOTE | 2024-08-23 11:45 | ECG_ITS ---
Test Reason : FALL Blood Pressure : / mmHG Vent. Rate : 067 BPM Atrial Rate : 067 BPM P-R Int : 160 ms QRS Dur : 084 ms QT Int : 404 ms P-R-T Axes : 037 -02 025 degrees QTc Int : 426 ms Normal sinus rhythm Septal infarct (cited on or before 28-SEP-2022) Abnormal ECG When compared with ECG of 18-JUN-2024 13:18, Questionable change in initial forces of Septal leads Referred By: Tika Eaton Electronically Signed By:SARWAT NOYOLA MD
[2024-08-23 12:40] LABS: MANUAL DIFF FLAG NO
[2024-08-23 12:42] LABS: Basophils Percent Auto 0.2 % (0-2); Eosinophils Absolute Auto 0.1 X10*3/uL (0.0-0.4); Eosinophils Percent Auto 0.6 % (0-4); Hemoglobin 14.8 g/dl (14.0-18.0); Imm Gran Abs Auto 0.05 X10*3/uL (0.00-0.03); Imm Gran Pct Auto 0.6 % (0.0-0.4); Lymphocytes Absolute Auto 0.7 X10*3/uL (1.2-4.9); Lymphocytes Percent Auto 8.1 % (20-40); Mean Corpuscular HGB Conc 34.4 g/dl (31.0-36.0); Mean Corpuscular Hemoglobin 33.1 pg (27.0-33.0); Mean Corpuscular Volume 96.2 fL (80.0-98.0); Mean Platelet Volume 11.1 fL (9.4-12.4); Monocytes Absolute Auto 0.8 X10*3/uL (0.1-1.2); Monocytes Percent Auto 9.2 % (2-11); Neutrophils Absolute Auto 6.8 x10*3/uL (2.0-8.3); Neutrophils Percent Auto 81.3 % (45-73); Platelet Count 173 X10*3/uL (160-400); Red Blood Count 4.47 X10*6/uL (4.60-5.80); Red Cell Distribution Width 13.2 % (11.0-16.0); White Blood Count 8.4 X10*3/uL (4.8-10.8)
[2024-08-23 12:49] LABS: Appearance Urine Clear; Color Urine Yellow; Glucose Urine UA Negative (Negative); Leukocyte Esterase Urine Negative (Negative); Nitrite Urine Negative (Negative); Specific Gravity - Urine <= 1.005 (1.005-1.025); Urine Blood Negative (Negative); Urine Ketones Negative (Negative); Urine Protein Negative (Neg-Trace)
[2024-08-23 12:55] LABS: Alanine Aminotransferase 25 U/L (0-40); Albumin Level 4.2 g/dL (3.5-5.0); Alkaline Phosphatase 80 U/L (39-117); Anion Gap 12 (12-20); Aspartate Amino Transferase 29 U/L (5-37); Bilirubin Direct 0.2 mg/dL (0.0-0.5); Bilirubin Total 0.6 mg/dL (0.0-1.0); Blood Urea Nitrogen 13 mg/dL (9-16); Calcium 9.1 mg/dL (8.4-10.2); Carbon Dioxide 27 mmol/L (22-29); Chloride 106 mmol/L (96-108); Creatinine Clr Calc Pharmacy 62.1; Estimated Glomerular Filt Rate > 60; Glucose Random 141 mg/dL (60-115); Magnesium 2.1 mg/dL (1.6-2.6); Sodium 141 mmol/L (135-145); Total Protein 8.3 g/dL (6.5-8.0)
[2024-08-23 13:02] LABS: Troponin-I High Sensitivity < 2.7 ng/L (<3.5-35.0)
--- NOTE | 2024-08-23 13:09 | ED.FALL ---
HPI - Fall General Chief Complaint: Fall Stated Complaint: FALL LAST NIGHT,HIGH BP PER EMS Time Seen by Provider: 08/23/24 13:08 Source: patient and RN notes reviewed Mode of arrival: ambulatory Limitations: no limitations History of Present Illness ED Provider: Marilia Amaya PA-C [facility] Narrative: This is a 74-year-old male, with a history of hypertension, who presents emergency department with complaints of positional dizziness since yesterday. Reports that he was cutting a piece of cardboard, when he felt as though he was getting dizzy, and ultimately fell to the ground. Denies hitting his head or LOC. He is not on anticoagulation. He states that he continues to have dizziness which he notes when he is changing positions. He denies any headache, blurred vision, chest pain, shortness of breath, abdominal pain, nausea, vomiting or diarrhea. He does report that several days ago he had diarrhea after eating a ?bad yogurt?. He has been drinking fluids. Denies history of similar symptoms in the past. No other complaints or concerns this time MD complaint: fall Onset (ago): day(s) Fall from: chair Fall witnessed: yes, by family Place fall occurred: home Loss of consciousness: none Prolonged down time: no Symptoms prior to fall: dizziness Quality: aching Associated symptoms (after fall): denies Related Data Home Medications ?Medication ?Instructions ?Recorded ?Confirmed allopurinol 100 mg tablet 1 tab PO DAILY 07/29/21 02/29/24 atorvastatin 10 mg tablet 1 tab PO DAILY 07/29/21 02/29/24 tamsulosin 0.4 mg capsule 1 cap PO DAILY 07/29/21 02/29/24 hydroxyzine HCl 25 mg tablet 25 mg PO TID 12/30/22 02/29/24 Allergies Allergy/AdvReac Type Severity Reaction Status Date / Time No Known Allergies Allergy Verified 08/23/24 11:33 Review of Systems Review of Systems: Yes all other systems are reviewed and are negative Constitutional: Constitutional: Reports as per [facility] Past Medical History Attestation statement: The following information was validated with the patient. Medical History Back abscess High cholesterol Enlarged prostate Gout Surgical History History of laparoscopic cholecystectomy (07/30/22) History of laparoscopic cholecystectomy (~2020) Family History Family History Sister Cardiac abnormality Diabetes Sister Breast cancer Brother Diabetes Social History Social History Household Members: Significant Other Housing: House Do you presently have visiting nurse or other home services: No Alcohol intake: former Patient Tobacco Use Status: Tobacco use Unknown Smoked in Last 30 Days: No Second Hand Smoke Exposure: No Use of substances other than those prescribed or required for medical reasons: No Advance Directives: No Advance Directives Information Provided: Yes service: No Current occupational status: retired Physical Exam Vital Signs: Vital Signs: Last Vital Signs Temp 98.2 F 08/23/24 16:56 Pulse 72 08/23/24 16:56 Resp 20 08/23/24 16:56 BP 148/75 H 08/23/24 16:56 Pulse Ox 97 08/23/24 16:56 O2 Del Method Room Air 08/23/24 16:56 BMI result Body Mass Index 24.5 Const: General: cooperative, comfortable and no acute distress Orientation/consciousness: patient oriented x3 Limitations: no limitations HEENT: Head: Yes normal to inspection, Yes normocephalic and Yes atraumatic Ears: hearing grossly normal bilaterally General nose exam: Normal external nose present Face and sinus: Yes normal facial exam Mouth: Normal oral and palatal mucosa present, oropharynx normal and moist mucous membranes Throat: Yes posterior oropharynx normal Eyes: General: appearance normal, both eyes and all related structures Eyelids: Yes eyelids normal Conjunctivae: conjunctivae normal Sclerae: sclerae normal Pupils: Equal, round and reactive pupils present EOM: EOMs intact bilaterally Neck: Other: No midline C-spine tenderness on examination. Neck: Yes normal visual inspection, Yes full ROM, Yes no lymphadenopathy and Yes no meningeal signs Lymphatic: no lymphadenopathy noted Chest: Chest palpation & inspection: normal inspection of the chest Resp: Effort & Inspection: normal respiratory effort and able to speak in complete sentences Auscultation: clear to auscultation bilaterally, no crackles, no rales, no rhonchi and no wheezes Cardio: Rate: regular rate Rhythm: regular rhythm Heart sounds: S1 normal heart sound present and S2 normal heart sound present GI: Other: Abdomen is soft and nontender. Inspection: Yes normal to inspection Skin: General skin exam: no rashes or lesions noted Trauma: no lacerations or abrasions Wounds: no wounds Neuro: General: patient oriented x3, moves all extremities, no meningeal signs and no focal motor deficits Cranial nerves: Yes CN's II-XII intact bilaterally, Yes Equal, round and reactive pupils present, Yes Bilaterally intact EOM present, Yes Midline tongue present, Yes Ability to bilaterally rotate head present and Yes Ability to bilaterally elevate shoulders present Cognition (Neuro): normal cognition Gait exam (Neuro): Normal gait present Motor exam (neuro): 5/5 motor strength present throughout and Pronator motor function not present Coordination: [id number] test normal and [id number]-ro-[id number] test normal Romberg Test: Negative Extrem: General: Yes normal to inspection Right upper extremity: normal to inspection Left upper extremity: normal to inspection Right lower extremity: normal to inspection Left lower extremity: normal to inspection NIH Stroke Scale Level of Consciousness: Alert Level of Consciousness Questions: Answers both questions correctly Level of Consciousness Commands: Performs both tasks correctly Best Gaze: Normal Visual: No visual loss Facial Palsy: Normal Motor Arm (Right): No drift Motor Arm (Left): No drift Motor Leg (Right): No drift Motor Leg (Left): No drift Limb Ataxia: Absent Sensory: Normal Best Language: No aphasia Dysarthia: Normal Extinction and Inattention: No abnormality Score: 0 Course Reevaluation(s) Reevaluation #1: Pt re-evaluated after receiving 1L IV fluids. Repeat orthostatics revealing that he is no longer orthostatic. He is also reporting that he is feeling much better and that the dizziness has since resolved. I walked patient to the bathroom and he is walking without assistance, with normal gait, no return of his symptoms. Symptoms likely due to orthostatic hypotension likely secondary to diarrhea he had several days ago, which resolved after IV hydration. He is neurologically intact and is feeling well. Given return precautions. He understands and agrees with plan. Stable for d.c Medications Administered Discontinued Medications Generic Name Dose Route Start Last Admin Trade Name Freq PRN Reason Stop Dose Admin Sodium Chloride 1,000 mls @ 999 mls/hr 08/23/24 13:36 08/23/24 14:56 Ns IV 08/23/24 14:36 Infused .Q1H1M ONE Infusion Medical Decision Making Medical Decision Making [facility] Narrative: This is a 74-year-old male who presents emergency department with complaints of dizziness since yesterday. He states that he had a fall after having dizziness. On arrival, vital signs within normal limits. He is speaking full sentences under no acute distress. No focal deficits on examination. Labs were performed prior to my assessment, he has no leukocytosis, stable H&H, chemistry with no electrolyte derangement. Urine with no acute findings. Orthostatics were performed, orthostatics are positive therefore patient will be given 1 L of IV fluids. We will continue to closely monitor, and reassess after IV hydration. Orthostatic hypotension, electrolyte derangement, arrhythmia, ACS-unlikely, ICH, C-spine fracture. CT head and neck were also obtained, he has no acute findings. Differential Diagnosis Differential Diagnoses: The differential diagnosis associated with the presentation includes See above Admission/Observation Consideration of admission/observation: Escalation of care including admission/observation considered Lab Data [facility] Lab Attestation statement: I reviewed the patient's lab results. See [facility] 08/23/24 12:34 08/23/24 12:34 Labs: Lab Results 08/23/24 08/23/24 Range/Units 12:21 12:34 WBC 8.4 (4.8-10.8) X10*3/uL RBC 4.47 L (4.60-5.80) X10*6/uL Hgb 14.8 (14.0-18.0) g/dl Hct 43.0 (42.0-52.0) % MCV 96.2 (80.0-98.0) fL MCH 33.1 H (27.0-33.0) pg MCHC 34.4 (31.0-36.0) g/dl RDW 13.2 (11.0-16.0) % Plt Count 173 (160-400) X10*3/uL MPV 11.1 (9.4-12.4) fL Immature Gran % (Auto) 0.6 H (0.0-0.4) % Neut % (Auto) 81.3 H (45-73) % Lymph % (Auto) 8.1 L (20-40) % [place] % (Auto) 9.2 (2-11) % Eos % (Auto) 0.6 (0-4) % Baso % (Auto) 0.2 (0-2) % Lymph # (Auto) 0.7 L (1.2-4.9) X10*3/uL [place] # (Auto) 0.8 (0.1-1.2) X10*3/uL Eos # (Auto) 0.1 (0.0-0.4) X10*3/uL Baso # (Auto) 0.0 (0.0-0.2) X10*3/uL Abs Immat Gran (auto) 0.05 H (0.00-0.03) X10*3/uL Absolute Neuts (auto) 6.8 (2.0-8.3) x10*3/uL Absolute Nucleated RBC 0.000 (0.0-0.012) X10*3/uL Nucleated RBC % (auto) 0.0 (0.0-0.2) /100WBC Sodium 141 (135-145) mmol/L Potassium 4.0 (3.3-5.1) mmol/L Chloride 106 (96-108) mmol/L Carbon Dioxide 27 (22-29) mmol/L Anion Gap 12 (12-20) BUN 13 (9-16) mg/dL Creatinine 0.96 (0.5-1.4) mg/dL Estim Creat Clear Calc 62.1 Estimated GFR > 60 Random Glucose 141 H (60-115) mg/dL Calcium 9.1 (8.4-10.2) mg/dL Magnesium 2.1 (1.6-2.6) mg/dL Total Bilirubin 0.6 (0.0-1.0) mg/dL Direct Bilirubin 0.2 (0.0-0.5) mg/dL AST 29 (5-37) U/L ALT 25 (0-40) U/L Alkaline Phosphatase 80 (39-117) U/L Troponin I High Sens < 2.7 (<3.5-35.0) ng/L Total Protein 8.3 H (6.5-8.0) g/dL Albumin 4.2 (3.5-5.0) g/dL Urine Color Yellow Urine Appearance Clear Urine pH 6.0 (5.0-9.0) Ur Specific Tower <= 1.005 (1.005-1.025) Urine Protein Negative (Neg-Trace) mg/dL Urine Glucose (UA) Negative (Negative) mg/dL Urine Ketones Negative (Negative) mg/dL Urine Blood Negative (Negative) Urine Nitrite Negative (Negative) Ur Leukocyte Esterase Negative (Negative) Influenza Type A (PCR) NEGATIVE (Negative) Influenza Type B (PCR) NEGATIVE (Negative) RSV RNA Qual (PCR) NEGATIVE (Negative) SARS-CoV-2 RNA (RT-PCR) NEGATIVE (Negative) Independent Interpretation I performed an independent interpretation of an: EKG Interpretation: st Reason : FALL Blood Pressure : / mmHG Vent. Rate : 067 BPM Atrial Rate : 067 BPM P-R Int : 160 ms QRS Dur : 084 ms QT Int : 404 ms P-R-T Axes : 037 -02 025 degrees QTc Int : 426 ms EKG NSR at a ventricular rate of 67bpm, pr interval 160, qt/qtc 404/426. No acute ischemic changes. Radiology Impression Discussion of test interpretation with radiology: I have reviewed the radiologist's reading. Radiologist Impression: FINDINGS: BRAIN: There is no acute intra-axial, extra-axial bleed, masses or midline shift. There is no acute infarction evolution. There is no edema. The anderson to white matter differentiation is maintained normal. The lateral ventricles are symmetrical in size and configuration without enlargement. Bone windows reveal no calvarial abnormality. There is no scalp soft tissue abnormality. Bilateral paranasal sinuses and mastoid air cells are well-aerated. No scalp soft tissue abnormality seen. CERVICAL SPINE: There is mild straightening of cervical lordosis. The vertebral heights and alignment is normal. There is loss of C5-6 and C6-7 disc heights with ventral and posterior spondylosis. Rest of the disc heights are normal. The craniovertebral junction and the C1-C2 alignment is normal. No visible acute fracture, dislocation or subluxation seen. There is mild narrowing of right C5-6 and bilateral C6-7 neural foramina from uncovertebral hypertrophic changes. Minimal right apical scarring is seen. The prevertebral soft tissues are normal. The airway is widely patent. No large neck mass or abnormal lymphadenopathy seen. CT/CT head/brain wo IV con IMPRESSION: No acute intracranial process seen. There is no visible acute fracture, dislocation or subluxation. Mild degenerative disc changes with posterior spondylosis C5-6 and C6-7 disc levels. Electronically signed by: Jax Bynum MD 08/23/2024 12:28 PM [facility] [place] [place] Dictated By: Jax Bynum MD External Record Review External record reviewed: Inpatient record, Office record, Outpatient record, Prior outpatient labs, Prior outpatient radiology, Primary care record and Outside ED record Discharge Plan Discharge Clinical Impression: Orthostatic hypotension Patient Disposition: Still a Patient Instructions: Hypotension (ED), Dizziness (ED) Additional Instructions: You were seen in the emergency department today. Your CT scan of your head and neck do not show any abnormalities. We replenished you with IV fluids in your symptoms resolved. Your symptoms are likely attributed to dehydration. Your workup today was reassuring. Please follow-up with your primary care physician. If any new or worsening symptoms occur including but not limited to chest pain, dizziness, severe headache, please seek emergent care. Prescriptions: No Action atorvastatin 10 mg tablet 1 tab PO DAILY allopurinol 100 mg tablet 1 tab PO DAILY tamsulosin 0.4 mg capsule 1 cap PO DAILY hydroxyzine HCl 25 mg tablet 25 mg PO TID Interventions: ED Discharge Assessment Last Done: 08/23/24 16:56 Discharge Date/Time: 08/23/24 17:05 Print Language: Moroccan
[2024-08-23 13:19] LABS: Influenza A PCR NEGATIVE (Negative); Influenza B PCR NEGATIVE (Negative); Resp Syncy Virus RNA Qual PCR NEGATIVE (Negative); SARS COV2 PCR INHOUSE NEGATIVE (Negative)
[2024-08-23] MEDS: 0.9 % Sodium Chloride 1,000 ML 999 ML IV (13:37)
== END 2024-08-23 17:05 | disposition still patient (30) ==
PROVIDERS: Emergency Medicine; Emergency Provider Emergency Medicine; PCP Internal Medicine
DX: I95.1 Orthostatic hypotension (principal); M54.2 Cervicalgia; R51.9 Headache, unspecified; R42 Dizziness and giddiness; R11.0 Nausea; R94.31 Abnormal electrocardiogram [ECG] [EKG]; Z03.818 Encounter for observation for suspected exposure to other biological agents ruled out; Z79.899 Other long term (current) drug therapy
CPT/HCPCS: 0241U; 70450; 72125; 80048; 80076; 81003; 83735; 84484; 85025; 93005; 96360; 99284; 99285

== ENCOUNTER → 2024-08-23 11:45 | Outpatient (BNV) | payer MEDICARE, MEDICAID, SELFPAY | PROVIDERS: Visit Provider Radiology Diagnostic Radiology | DX: R42 Dizziness and giddiness (principal); W19.XXXA Unspecified fall, initial encounter | CPT/HCPCS: 70450; 72125 ==

== ENCOUNTER → 2024-08-23 11:45 | Outpatient (BNV) | payer MEDICARE, MEDICAID, SELFPAY | PROVIDERS: Emergency Provider Emergency Medicine; PCP Internal Medicine; Visit Provider Internal Medicine Cardiovascular Disease | DX: R94.31 Abnormal electrocardiogram [ECG] [EKG] (principal) | CPT/HCPCS: 93010 ==

== ENCOUNTER 2024-10-17 12:50 | Outpatient (AMB) | payer MEDICARE, MEDICAID, SELFPAY ==
--- NOTE | 2024-10-17 12:55 | MHC.OFFVIS ---
Vital Signs 10/17/24 12:56 Height 5 ft 7 in Weight 147 lb 11.355 oz BMI 23.1 BP 130/68 Blood Pressure Location Lt brachial Position Sitting Pulse 57 Pulse Source Monitor Intake Visit Reasons: [employer]/Dr. Sanchezke/Palpitations, elev. cholesterol Allergies shellfish derived Allergy (Severe, Verified 10/17/24 13:05) Stomach Upset Medication List - Last Reconciled 10/17/24 by Caleb Espinal MD allopurinol 100 mg PO DAILY atorvastatin 10 mg PO DAILY ciclopirox 0.77% appl topical tamsulosin 0.4 mg PO DAILY HPI Comments Details: The patient is a 74-year-old male presenting with episodes in which he perceives his heart stops momentarily, accompanied by brief dyspnea. This has been ongoing for an extended period, with episodes occurring three to four times per day, lasting three to four seconds each. Observations during these episodes include a sensation in the chest and a brief halt in breathing, followed by a gasp for air. Notably, the patient has identified a dietary link, observing that consumption of high cholesterol and high fat meals intensifies the episodes, while restricting these foods ameliorates the symptoms. He denies any historical or current heart diseases and reports no abnormalities during physical exertion. [facility] Medical History Back abscess High cholesterol Enlarged prostate Gout Surgical History History of laparoscopic cholecystectomy (07/30/22) History of laparoscopic cholecystectomy (~2020) Family History Sister Cardiac abnormality Diabetes Sister Breast cancer Brother Diabetes Social History Household Members: Significant Other Housing: House Do you presently have visiting nurse or other home services: No Alcohol intake: former Patient Tobacco Use Status: Tobacco use Unknown Second Hand Smoke Exposure: No service: No Current occupational status: retired Review of Systems Const All systems reviewed & are unremarkable except as noted in HPI and below Reports as per HPI and Reports no additional complaints Eyes Reports as per HPI and Denies no additional complaints ENT Denies no additional complaints and Reports as per HPI Card Reports chest pain, Reports palpitations and Reports dyspnea Resp Reports dyspnea GI Reports as per HPI and Denies no additional complaints Reports no additional complaints and Reports as per HPI Musc Reports no additional complaints and Reports as per HPI Skin/Breast Reports system reviewed and no additional complaints, except as documented Neuro Reports no additional complaints and Reports as per HPI Psych Reports no additional complaints and Reports as per HPI Endo Reports palpitations Delvis/Lymph Reports no additional complaints and Reports as per HPI Aller/Immun Reports no additional complaints and Reports as per HPI Physical Exam Vital Signs: Last Vital Signs Pulse 57 10/17/24 12:56 BP 130/68 10/17/24 12:56 BMI result Body Mass Index 23.1 Const General: comfortable and no acute distress Orientation/consciousness: patient oriented x3 HEENT Other: Unremarkable Head: Yes normal to inspection Neck Neck: Yes normal visual inspection Chest Chest palpation & inspection: normal inspection of the chest Resp Auscultation: clear to auscultation bilaterally Cardio Palpation: normal PMI Heart sounds: S1 normal heart sound present, S2 normal heart sound present, no gallops, no murmurs and no rubs GI Palpation (GI): Soft to palpation Back/Spine/Pelvis Other: unremarkable Skin General skin exam: no rashes or lesions noted Neuro General: patient oriented x3 Extrem General: Yes normal to inspection Psych Mental Status: mental status grossly normal Office Procedures EKG Details: EKG with sinus bradycardia 57/Min; septal infarct; [place] [address]-Ewzktnyxyvnqvytco, Complete Assessment & Plan Assessment & Plan (1) SOB (shortness of breath): Code(s): R06.02 - Shortness of breath Category: Medical Plan I plan to further investigate the cause of the patient's symptoms through a cardiac ultrasound and a treadmill stress test. These tests are intended to provide insights into the potential causes and severity of the symptoms in relation to any underlying cardiovascular conditions. Understanding the test results will guide subsequent clinical management. The patient has given informed consent to proceed with these diagnostic evaluations after being apprised of the associated risks and benefits. Patient was informed and verbally consented to the use of an ambient scribe for clinic note documentation during this visit. Orders: Orders CA echo transthoracic complete Today I25.10 - Atherosclerotic heart disease of [place] coronary artery without angina pectoris, R06.02 - Shortness of breath CA echo stress exercise Today R06.02 - Shortness of breath Patient Instructions: - Prepare for scheduled cardiac ultrasound and treadmill stress test - Monitor for any worsening symptoms or new developments - Maintain current dietary precautions to manage symptoms - Seek immediate medical attention if experiencing severe symptoms - Follow up as scheduled for test results and further evaluation Coding Level of Care Code New Pt Level 4 (72573) Complex EM visit Add On G2211 Diagnoses SOB (shortness of breath) R06.02 CPT Codes EKG - CPT: 71764-Luomixzqmlnkzplal, Complete ([id number])
[2024-10-17 12:56] VITALS: BP 130/68; PULSE 57; BMI 23.1
--- OUTSIDE RECORDS SUMMARY | 2024-10-17 15:43 | XMS_ITS | Patient Health Record ---
Author Organization [facility] Address [address] [place] [address] Care Team Providers Care Oven Roaster Name Role Phone Fer Oliveira MD Primary Care Provider UnavailSorin Whiteside Jr Unavailable REASON FOR REFERRAL No Information MEDICATIONS Medication [...] Problem Colon cancer screening (Z12.11) Active confirmed [id number] Problem Gallstones (K80.20) Active confirmed Gallstones (530408781) Problem Common bile duct dilation (K83.8) Active confirmed Dilatation of bile duct (646840587) Problem Rhinorrhea (J34.89) Active confirmed [id number] PLAN OF TREATMENT Future Test Test Name Order Date COLONOSCOPY 01/06/2017 Insurance Providers Payer Name Payer Address Payer Phone Subscriber Number Group Number Insured Name Patient Relationship to Insured Coverage Start Date Coverage End Date [facility] [address] [facility] [place] [phone] [id number] CONSUELO HINES Self - patient is the insured Medicare of [place] [employer] [address] [place] [phone] [id number] CONSUELO HINES Self - patient is the insured MEDICAL (GENERAL) HISTORY Medical History History ICD Code colonoscopy 08-02-2007 rosacea degenerative disc disease elevated cholesterol
--- OUTSIDE RECORDS SUMMARY | 2024-10-17 15:44 | XMS_ITS ---
Author Organization [facility] Address [address] [facility] [place] [address] Care Team Providers Care Cooking Chef Name Role Phone Fer Oliveira MD Primary Care Provider Unavaila Delio Levine Unavailable [phone] Allergies No Known Allergies REASON FOR VISIT Painful nail(s) aggravated by shoes causing difficulty standing/walking, Skin Problem Medications Medication SIG (Take, Route, Frequency, Duration) Notes Start Date End Date Status Tamsulosin HCl 0.4 MG 1 capsule Orally O nce a day for 30 day(s) Active Allopurinol 100 MG 1 tablet Orally Once a day for 30 day(s) Active Atorvastatin Calcium 10 MG 1 tablet Oral ly Once a day for 30 day(s) Active Iron Active Multivitamin Active Ciclopirox Olamine 0.77 % 1 application Externally Twice a day to skin of feet including between the toes for 30 days Active Social History Tobacco Use: Social History Observation Description Date Details (start date - stop date) Former Smoker NA - NA Tobacco Use/Smoking Question Answer Notes Are you a: former smoker Additional Findings: Tobacco Non-User Current no n-smoker Alcohol Screen Question Answer Notes Did you have a drink containing alcohol in the p ast year? No Points 0 Interpretation Negative Tobacco use other than smoking: Question Answer Notes Are you an other tobacco user? No Problems Problem Type SNOMED Code ICD Code Onset Dates Problem Status W/U Status Risk Notes Problem Onychomycosis (432874187) Onychomycosis (B35.1) Active confirmed Vital Signs Height 5ft 7in in 07/06/2024 Weight 140 lbs 07/06/2024 BMI 21.92 kg/m2 07/06/2024 Procedures Procedure Date Ordered Date Performed Result Body Sit e 00691-VQKDSKL NAIL, 6 OR MORE 07/06/2024 N/A Encounters Encounter Location Date Provider Diagnosis [facility] [address] [address] 07/06/2024 Delio Lanza Onychomycosis B35.1 ; Pain in right toe(s) M79.674 ; Pain in left toe(s) M79.675 and Tinea pedis of both feet B35.3 Assessments Encounter Date Diagnosis (ICD Code) Assessment Notes Treatment Notes Treatment Clinical Notes Section Notes 07/06/2024 Onychomycosis (ICD-10 - B35.1) 07/06/2024 Pain in right toe(s) (ICD-10 - M79.674) 07/06/2024 Pain in left toe(s) (ICD-10 - M79.675) 07/06/2024 Tinea pedis of both feet (ICD-10 - B35.3) Plan Of Treatment Medication Medication Name Sig Start Date Stop Date Notes Ciclopirox Olamine 0.77 % 1 application Externally Twice a day to skin of feet including between the toes for 30 days Pending Test Test Name Order Date [id number] NAIL, 6 OR MORE 07/06/2024 Next Appt Details Follow Up: prn, Reason: Provider Name:Delio Lanza , 01/11/2025 01:45:00 PM, [address] [place] [address], [id number], Procedure Notes * Category Sub-Category Detail Notes Debride Nail 6-10 Nail debridement Performance o f this nail treatment by a nonprofessional would put this patients foot and overall health at risk. Therefore, debridement to affected nail(s), as described in exam, was performed extensively to reduce/remove overall nail length, girth, thickness, subungual debris, and necrotic tissue, by manual and/or electrical means through the use of a nail nipper and/or dremel-type almond grinder, to a more viable healthy nail plate or bed tissue 6-10. Silver nitrate used for any petechial bleeding as necessary. Definitive antifungal treatment options have been reviewed and discussed with the patient. The patient chooses, no pharmaceutical tx - 07015 Progress Notes * Omar HINESDOB:1950 ( 74 yo M)Acc No.[id number]:07/06/2024 Progress Note Patient:Omar AKHTAR Provider:?Delio Lanza DPM :1950???Age:74 Y???Sex:Male Dmitriy e:07/06/2024 Address:[address] [place], [place] [id number] Pcp:Fer Oliveira MD Subjective: * Chief Complaints: * ???Painful nail(s) aggravate d by shoes causing difficulty standing/walkingSkin Problem * HPI: ???Painful Nails:?Pt States Last PCP Visit:?Date:?06/22/2024 ???Skin problems:?Nature:?scaling , redness.?Location:?B/L .?Duration:?several days.?Course:?worse.? * ROS:?General/Constitutional:?Nausea?denies.?Vomiting?denies.?Hunger Thirst?denies.?Loss appetite?denies.?Chills?denies.?Fatigue?denies.?Fever?denies.?Night Sweats?denies.?Unexplained weight loss?denies.?Unexplained weight gain?denies.?HEENTM:?Dentures?denies.?Dizziness?denies.?Glasses/contacts?denies.?Retinopathy?de nies.?Blurred/double vision?denies.?TMJ?denies.?Discharge/drainage?denies.?Implants?denies.?Sore throat?denies.?Dental implants?denies.?Hard of hearing ?denies.?Difficulty chewing/swallowing/speaking?denies.?Nose bleeds?denies.?Sore mouth?denies.?Respiratory:?On Oxygen?denies.?Pneumonia/pleurisy?denies.?Bronchitis?denies.?Emphysema?denies.?C oughing?denies.?Cough blood?denies.?Shortness of breath?denies.?Wheezing?denies.?Cardiovascular:?Pacemaker?denies.?MVP?denies.?WPW?denies.?CHF?denies.?Heart attack?denies.?Septal defect?denies.?Rapid beat?denies.?Chest pain ?denies.?Atrial Fib.?denies.?Murmur/Palpitations?denies.?Gastrointestinal:?Hemorrhoids?denies.?Stomach/Abdominal pain?denies.?Dark blood stool?denies.?Irritable bowel ?denies.?Constipation?denies.?Diarrhea?denies.?Hematology:?Swelling?denies.?Clots?denies.?Varicose Veins?denies.?Bruising?denies.?Bleeding problem?denies.?Genitourinary:?Blood urine?denies.?Frequent/Painfu/urination/bladder control?denies.?Kidney stones?denies.?Infection (UTI)?denies.?Nephropathy?denies.?sex trans dis (STD)?denies.?Prostate?denies.?Musculoskeletal:?Hammertoes?denies.?Bunions?admits.?Back Pain?denies.?Muscle Cramps/ Resting?denies.?Muscle cramps / walking?denies.?Generalized aches and pains?denies.?Weakness?denies.?Integ.:?Land?denies.?Scars?denies.?Corns/calluses?admits.?Ingrown nails?admits.?Painful nails?admits.?Open Sores?denies.?Rashes?denies.?Neurologic:?Difficulty sleeping?denies.?Brain disorder?denies.?Numbness?denies.?Balance trouble?denies.?Confusion?denies.?Fainting/blackouts?denies.?Tingling?denies.?Tr emors?denies.? * Medical History:? * Surgical History:?gall bladd er removal 1cyst removal 08/2022 * Hospitalization/Major Diagno stic Procedure:?[facility]- digestive issues/Gall bladder yst infection antibiotics given 08/2022 * Family History:?Mother: dece ased, diagnosed with Unspecified essential hypertension.?Father: .?Siblings: cancer, foot problems, diagnosed with Diabetic - NIDDM.? * Social History:?Tobacco Use:?Tobacco Use/Smoking?Are you a:?former smoker ?Additional Findings: Tobacco Non-User?Current non-smoker ?Tobacco use other than smoking?Are you an other tobacco user??No ???Drugs/Alcohol:?Drugs?Have you used drugs other than those for medical reasons in the past 12 months??No ?Alcohol Screen?Did you have a drink containing alcohol in the past year??No ?Points?0 ?Interpretation?Negative ???Miscellaneous:?Caffeine: yes, frequency:, 2 cups per day. ?Children: no, none. ?Exercise: no. ?Marital status: single. ?Occupation: Retired-[employer]. * Medications:?TakingMultivita min Iron Allopurinol 100 MG Tablet 1 tablet Orally Once a day Atorvastatin Calcium 10 MG Tablet 1 tablet Orally Once a day Tamsulosin HCl 0.4 MG Capsule 1 capsule Orally Once a day Medication List reviewed and reconciled with the patientTaking Multivitamin Taking Iron Taking Allopurinol 100 MG Tablet 1 tablet Orally Once a day Taking Atorvastatin Calcium 10 MG Tablet 1 tablet Orally Once a day Taking Tamsulosin HCl 0.4 MG Capsule 1 capsule Orally Once a day Medication List reviewed and reconciled with the patient * Allergies:?N.K.D.A.yes[Aller gies Verified] Objective: * Vitals:?Ht:5ft 7in, Wt:140, BMI:21.92, Shoe size:7W, BS:not taken, Ht-cm: 170.18 cm, Wt-k.5 kg. * ???Past Orders: ???Lab:HEMOGLOBIN A1C (GLYCO HEMOGLOBIN) (Order Date - 12/21/2023) (Collection Date & Time - 12/21/2023) ? Value Reference Range ?HEMOGLOBIN A1C % (HH) 6.2 * Examination: ???Nails: ?NAILS are:?Elongated, overgrown, dystrophic, lytic, greater than 3mm thick, discolored and friable with crumbly malodorous subungual debris, with pain on palpation, 1-5 B/L.?Dermatologic: ?SKIN FINDINGS:?Skin shows sign(s) of, erythema, scaling, in a moccasin fashion, no fissure(s) present, B/L.?VERRUCA:?NOW, NO FURTHER SIGN of mosaic papule(s) with skin lines now evident and visible, plantar Forefoot, RIGHT.? Assessment: * Assessment: 1.?Pain in right toe(s) - M7 9.674???2.?Onychomycosis - B35.1 (Primary)???3.?Pain in left toe(s) - M79.675???4.?Tinea pedis of both feet - B35.3???Specify :Acute problem, Uncomplicated (3),Rx drug management (4)??? Plan: * Treatment: 2.?Tinea pedis of both feet? Start Ciclopirox Olamine Cream, 0.77 %, 1 application, Externally, Twice a day to skin of feet including between the toes, 30 days, 60, Refills 2.?? * Procedures:?Debride Nail 6-10:?Nail debridement?Performance of this nail treatment by a nonprofessional would put this patients foot and overall health at risk. Therefore, debridement to affected nail(s), as described in exam, was performed extensively to reduce/remove overall nail length, girth, thickness, subungual debris, and necrotic tissue, by manual and/or electrical means through the use of a nail nipper and/or dremel-type almond grinder, to a more viable healthy nail plate or bed tissue 6-10. Silver nitrate used for any petechial bleeding as necessary. Definitive antifungal treatment options have been reviewed and discussed with the patient. The patient chooses, no pharmaceutical tx - 68397.? * Procedure Codes:?45734 DEBRI DE NAIL, 6 OR MORE * Preventive Medicine:? ??Counseling:?Discussion:?-13: Office or other outpatient visit for the evaluation and management of an established patient, which required a medically appropriate history and/or examination and LOW level of DECISION MAKING for: 1 STABLE ACUTE UNCOMPLICATED PROBLEM, 2 OR MORE MINOR PROBLEMS, OR 1 STABLE CHRONIC PROBLEM, THAT POSE(S) A LOW RISK FOR MORBIDITY/MORTALITY. The visit on the day of the encounter encompassed interpreting the data and educating the patient as to the nature of their condition, treatment options available according to their individual PMH, meds, allergies, and overall health/living conditions, as well as any potential risks or complications that may occur from a failure to adhere to, and participate in, the recommended course of therapy. The discussion included a complete verbal, and/or written explanation of the examination results, any x-rays taken, the proposed diagnosis, and outline of the treatment plan. A schedule for future care needs was also explained. The patient verbalized an understanding of the instructions at this time and agreed to be an active participant in their treatment. If the patient should think of any questions or concerns after the visit, I have encouraged the patient to call the office.?Tinea Pedis:?The patient was counseled on the diagnosis, potential etiologies, and treatment options for their skin condition. We discussed the risks and benefits of each option from performing no treatment, to utilizing OTC topical skin creams, prescription topical creams, customized compounded topical medications, and, if necessary, to utilize oral antifungal therapy. We discussed the advantages and disadvantages of each possible treatment and importance for adherence to all the recommended therapies for optimum success and avoid potential complications such as open sore/infection/possible hospitalization. We discussed the potential effectiveness of each topical preparation as well as each ones possible side effects and/or patient medication interactions if oral therapy is selected. Patient questions re: the advantages and disadvantages of each treatment choice, medication use/dosage, successful outcomes, and application consistency were reviewed and the patient verbalized that all answers were clearly understood. The patient was told they can help alleviate symptoms by utilizing moisture absorbant innersoles with activated charcoal and baking soda, applying antifungal sprays daily, aerating toe web spaces at night by putting cotton or lambs wool between the toes, alternating shoe gear daily if possible so they can dry out, changing socks at least once during the day, wearing well-ventilated shoes or sandals. The patient has decided to apply antifungal skin creams to their feet as directed. Rx was sent to their pharmacy at the time of visit.? ??Screening/Special Tests:?Fall Risk?Screening:?No falls in the past year ?FALLS: Screening for Future Fall Risk?Have you had any falls with injury in the past year??No * Follow Up:?prn * Images: * Sign off status: Completed true * Provider:?Delio Lanza DPM Date:?2023 Generated for Thuan edward/Juliette/Mendoza on:?10/17/2024 03:43 PM EST History and Physical Notes * HPI (History of Present Illness) Category Sub-Category Detail Notes Category Not es Painful Nails Pt States Last PCP Visit: Date:: 06/22/2024 Skin problems Nature: scaling , redness Location: B/L Duration: several days Course: worse Examination Category Sub-Category Detail Notes Category Not es Dermatologic SKIN FINDINGS: Skin shows sign( s) of, erythema, scaling, in a moccasin fashion, no fissure(s) present, B/L VERRUCA: NOW, NO FURTHER SIGN of mosaic papule(s) with skin lines now evident and visible, plantar Forefoot, RIGHT Nails NAILS are: Elongated, overg rown, dystrophic, lytic, greater than 3mm thick, discolored and friable with crumbly malodorous subungual debris, with pain on palpation, 1-5 B/L
--- OUTSIDE RECORDS SUMMARY | 2024-10-17 15:44 | XMS_ITS | Data Portability ---
Author Organization [facility] [address] Address [address] [place] [address] Assessment No assessment recorded. Plan of Treatment Reminders Order Date Submit Date Provider Last Modified By Organization Details Last Modified Time Details Appointments None recorded. Lab None recorded. Referral None recorded. Procedures None recorded. Surgeries None recorded. Imaging None recorded. Medication Orders prednisone [address] [facility] ([place], [place]Pharmacy #[id number], [address] [place], [address], 18:16:54 hydroxyzine HCl 25 mg tablet [address] [facility] ([place], [place]Pharmacy #[id number], [address] [place], [address], 18:16:53 Patient TargetsNo targets recorded. Patient Instructions Encounter Date Encounter Id Patient Instructions Last Modified By Organization Details Last Modified Time 12/24/2022 [id number] hives: care instructions [email or web address] Not available 12/24/2022 18:16:51 COOL COMPRESSES, COOL SHOWERS, MAY BE SOOTHING SINCE HEAT OF ANY SOURCE SEEMS TO MAKE RASH MORE IRRITATING AVOID SCRATCHING WHICH MAY SET UP A SECONDARY INFECTION REQUIRING ADDITIONAL TREATMENT ANTIHISTAMINES MAY HELP SOME OF THE REDNESS AND ITCH (ZYRTEC, KENNEDY, CLARITIN) BENADRYL IS 4 HOUR ANTIHISTAMINE AND CAN TAKE AT OPPOSITE END OF DAY THE OTHER OPTIONS BUT THIS CAN MAKE YOU TIRED AVOID USING ADDITIONAL CORTISONE CREAMS ON SKIN IF YOU ARE ALREADY TAKING PREDNISONE BY MOUTH Go to the Emergency Department immediately if your symptoms worsen or if you develop new symptoms that concern you. We recommend that you follow up with your primary care physician within 1 week. Failure to follow up as recommended may result in significant adverse health consequences. NO NSAIDS LIKE IBUPROFEN WHILE ON STEROIDS/PREDNISON E. TAKE WITH FOOD, PREFERRABLY BREAKFAST MAY TALK TYLENOL ONLY donnell Not available 12/24/2022 18:16:49 Reason for Referral None Reported. Problems Name Problem SNOMED Code Status Onset Date Resolution Date Notes Provider Name and Address Organization Details Recorded Time Hypercholester olemia 63771047 Active 2022 Elise johnson PA - [facility] 3 17:49:42 Prediabetes 556750727 Active 2022 Elise johnson PA - [facility] 3 17:49:59 Anemia 070054966 Active 2022 Elise johnson PA - [facility] 3 17:50:05 Non-alcoholic fatty liver 100863371 Active 2022 Elise johnson PA - [facility] 3 17:51:01 Problem Notes None recorded. Medical Equipment None Reported. Allergies No known drug allergies Medications Name Sig Start Date Stop Date Status Note LastModified by Organization Details LastModified Time atorvastati n 10 mg tablet TAKE 1 TABLET BY MOUTH DAILY active Not Available Not Available No t Available prednisone 20 mg tablet TAKE 3 TABLETS EVERY DAY BY ORAL ROUTE IN THE MORNING FOR 2 DAYS. active Not Available Not Available No t Available allopurinol 100 mg tablet TAKE 1 TABLET BY MOUTH EVERY DAY active Not Available Not Available No t Available sulfamethox azole 800 mg-trimetho prim 160 mg tablet TAKE 1 TABLET BY MOUTH TWICE A DAY 12/24 completed Not Available Not Available Not Available tamsulosin 0.4 mg capsule TAKE 1 CAPSULE BY MOUTH EVERYDAY AT BEDTIME active Not Available Not Available No t Available hydroxyzine HCl 25 mg tablet TAKE 1 TABLET BY MOUTH THREE TIMES A DAY NEEDED FOR 7 DAYS active Not Available Not Available No t Available ciclopirox 0.77 % topical cream APPLY TO AFFECTED AREA ON FEET TWICE A DAY active Not Available Not Available No t Available iron active Not Available Not Availa ble Not Available multivitami n active Not Available Not Available Not Available fluocinolon e acetonide oil 0.01 % ear drops INSTILL 4-5 DROP IN BOTH EARS DAILY active Not Available Not Available No t Available Vitals Date Recorded Body height Body mass index (BMI) Body weight Pain severity - 0-10 verbal numeric rating [Score] - Reported Respiratory rate Oxygen saturation Oxygen saturation in Arterial blood by Pulse oximetry Heart rate Body temperature Systolic blood pressure Diastolic blood pressure Provider Name and Address Organization Details Last Updated DateTime 3 172.72 cm 19.8 kg/m2 84085.0 1 g 0 18 /min 98 % 98 % 69 /min 97.1 [degF] 158 mm[Hg] 70 mm[Hg] [email or web address] 3 17:52:59 Social History Question Answer Notes LastModified by Organizat ion Details LastModified Time Tobacco Smoking Status Former Smoker [facility] 12/24/2022 17:51:33 What Is Your Level Of Alcohol Consumption? None Information not available 12/24/2022 When Did You Quit Smoking? 16+yearssin daniela boyle Information not available 12/24/2022 Do You Use Any Illicit Or Recreational Drugs? No Information not available 12/24/2022 Have You Recently Traveled Abroad? No Information not available 12/24/2022 Do You Or Have You Ever Used Any Other Forms Of Tobacco Or Nicotine? No Information not available 12/24/2022 Sex: Unknown Functional Status None recorded. Mental Status None recorded. Family History Relationship Description Onset Age of this Age Resolved Age Notes LastModified by Organization Details LastModified Time Sister Diabetes mellitus [email or web address] Not available 2022 17:50:45 Brother Diabetes mellitus [email or web address] Not available 2022 17:50:45 Medical History No medical history recorded. Immunizations Vaccine Type Date Status Note Provider Nam e and Address Organization Details Recorded Time COVID-19, mRNA, LNP-S, PF, 30 mcg/0.3 mL dose 1 completed [facility] 12/24/2022 17:47:39 COVID-19, mRNA, LNP-S, PF, 30 mcg/0.3 mL dose 1 completed Elise Monfette null, PA - [facility] 12/24/2022 17:47:39 COVID-19, mRNA, LNP-S, PF, 30 mcg/0.3 mL dose 1 completed Elise Monfette null, PA - [facility] 12/24/2022 17:47:39 COVID-19, mRNA, LNP-S, bivalent, PF, 30 mcg/0.3 mL dose 2 completed Elise Monfette null, PA - [facility] 12/24/2022 17:47:39 Influenza, split virus, trivalent, preservative 0 completed Elise Monfette null, PA - [facility] 12/24/2022 17:47:39 Influenza, split virus, trivalent, preservative 1 completed Elise Monfette null, PA - [facility] 12/24/2022 17:47:39 Influenza, MDCK, trivalent, PF 3 completed Elise Monfette null, PA - [facility] 12/24/2022 17:47:39 Past Encounters Encounter ID Performer Location Encounter Start Date Encounter Closed Date Diagnosis/Indication Diagnosis SNOMED-CT Code Diagnosis ICD10 Code Diagnosis Note [id number] [facility] [address] [place] [address] 05/27/2018 11:20:03 05/27/2018 12:58:35 [id number] Baron Velasquez NP [facility] [address] [place] [address] 12/24/2022 16:41:16 12/24/2022 18:22:13 Allergic contact dermatitis 922310852 L23.9 Health Concerns Section Related Observation LastModified by Organization Detai ls LastModified Time None Recorded Concern Status LastModified by Organization Details LastModified Time None Recorded Advance Directives Directive None Recorded Payers Encounter Date Sequence Insurance Name Policy Number Policy Russ Covered Member ID Russ Member ID Guarantor Name 12/24/[address] [facility] - PLAN 1 (MEDICARE SUPPLEMENT) [id number] 2 Omar Carbajal [id number] Omar Carbajal 12/24/2022 2 MEDICAID-MD: [facility] Omar Carbajal [id number] Omar Carbajal Notes Date Note Type Note Provider Name and Address Organization Details Recorded Time 3 text/html UC Rash/Skin LesionReported bypatient.source of patient informationInformation obtained from patient; Patient arrived at Urgent Care ambulatory Location:neck; chest; arms; abdomen; groin; buttocks; thighs; axilla Quality:itchy;red;spreading Severity:moderate Duration:3 days Context:other exposure; no new detergent or skin product; no recent change in medication; no exposure to hair dye; no expsoure to new clothes/jewelry; no recent travel; no recent illness; no pets/animals in home; not affiliated with chemicals/pesticides Alleviating Factors:nothing gives relief Associated Symptoms:no fever; no fatigue Treatment History:no history of treatment Baron Velasquez NP [address] [place], [address], [place] - [facility] 12/24/2022 18:17:14
--- OUTSIDE RECORDS SUMMARY | 2024-10-17 15:44 | XMS_ITS ---
Author Organization [facility] Address [address] [place] [address] Care Team Providers Care Tablet Tester Name Role Phone Fer Oliveira MD Primary Care Provider Unavaila Delio Levine [phone] REASON FOR VISIT needs refill per pharmacy Encounters Encounter Location Date Provider Diagnosis [address] [address] 05/23/2024 Delio Lanza Plan Of Treatment Next Appt Details Provider Name:Delio Lanaz , 01/11/2025 01:45:00 PM, [address] [place], [address], Progress Notes * FLORAOmarDOB:1950 ( 74 yo M)Acc No.[id number]:05/23/2024 Patient:?Omar Carbajal :1950???Age:74 Y???Sex:Male Address:[address] [place] [address], [address] * true * Date:? Generated for Adilsoni cheyanne/Juliette/eTransmitting on:?10/17/2024 03:44 PM EST
--- OUTSIDE RECORDS SUMMARY | 2024-10-17 15:44 | XMS_ITS | Patient Health Record ---
Author Organization [facility] Address [address] [place] [address] Care Team Providers Care Search Coordinator Name Role Phone Fer Oliveira MD Primary Care Provider Delio Estevez Unavailable [phone] Allergies No Known Allergies Results Component Value Reference Range Notes HEMOGLOBIN A1C (GLYCOHEMOGLO BIN) Reviewed date:04/06/2024 12:42:14 PM Interpretation: Performing Lab: Notes/Report: HEMOGLOBIN A1C % (HH) 6.2 Reason For Referral No Information Medications Medication SIG (Take, Route, Frequency, Duration) Notes Start Date End Date Status Iron Active Allopurinol 100 MG 1 tablet Orally Once a day for 30 day(s) Active Atorvastatin Calcium 10 MG 1 tablet Oral ly Once a day for 30 day(s) Active Tamsulosin HCl 0.4 MG 1 capsule Orally O nce a day for 30 day(s) Active Multivitamin Active Ciclopirox Olamine 0.77 % 1 application Externally Twice a day to skin of feet including between the toes for 30 days Active Immunizations Vaccine Route Administration Date Status Comme nts COVID-19 Pfizer BioNTech Vaccine Unknown 07/21/2021 Administered 1st 11/17/20 2nd 12/10/20 Influenza Unknown 05/23/2023 Administered Social History Tobacco Use: Social History Observation Description Date Details (start date - stop date) Never Smoker NA - NA Tobacco use other than smoking: Question Answer Notes Are you an other tobacco user? No Tobacco Control (Standard) Question Answer Notes Tobacco use: Nonsmoker Additional Findings: Tobacco non-user Current no nsmoker AUDIT-C (Standard) Question Answer Notes Did you have a drink containing alcohol in the p ast year? No Points 0 Interpretation Negative Problems Problem Type SNOMED Code ICD Code Onset Dates Problem Status W/U Status Risk Notes Problem Onychomycosis (463292200) Onychomycosis (B35.1) Active confirmed Vital Signs Blood pressure diastolic 70 mm Hg 10/02/2024 Height 5ft 7in in 10/02/2024 Blood pressure systolic 120 mm Hg 10/02/2024 Weight 140 lbs 10/02/2024 BMI 21.92 kg/m2 10/02/2024 Procedures Procedure Date Ordered Date Performed Result Body Sit e 60819-NHZNXSO NAIL, 6 OR MORE 10/25/2023 N/A 59639-Bcjj Destruction, 1-10/25/2023 N/A 74005-NOAKGCR NAIL, 6 OR MORE 04/06/2024 N/A 09988-Vzep Destruction, 1-04/06/2024 N/A 78853-VXXECDJ NAIL, 6 OR MORE 07/06/2024 N/A 05359-XQIHFUJ NAIL, 6 OR MORE 10/02/2024 N/A Encounters Encounter Location Date Provider Diagnosis [address] [address] 10/25/2023 Delio Myla Tinea unguium B35.1 ; Pain in right toe(s) M79.674 ; Pain in left toe(s) M79.675 ; Right foot pain M79.671 and Plantar wart B07.[address] [address] 04/06/2024 Delio Myla Tinea unguium B35.1 ; Pain in right toe(s) M79.674 ; Pain in left toe(s) M79.675 ; Right foot pain M79.671 and Plantar wart B07.[address] [address] 07/06/2024 Delio Myla Onychomycosis B35.1 ; Pain in right toe(s) M79.674 ; Pain in left toe(s) M79.675 and Tinea pedis of both feet B35.[address] [place] [address] 10/02/2024 Delio Lanza Onychomycosis B35.1 ; Pain in right toe(s) M79.674 ; Pain in left toe(s) M79.675 and Tinea pedis of both feet B35.3 [facility] [address] [address] 05/23/2024 Delio Lanza Assessments Encounter Date Diagnosis (ICD Code) Assessment Notes Treatment Notes Treatment Clinical Notes Section Notes 10/25/2023 Tinea unguium (ICD-10 - B35.1) 10/25/2023 Pain in right toe(s) (ICD-10 - M79.674) 04/06/2024 Tinea unguium (ICD-10 - B35.1) 04/06/2024 Pain in right toe(s) (ICD-10 - M79.674) 07/06/2024 Pain in right toe(s) (ICD-10 - M79.674) 07/06/2024 Onychomycosis (ICD-10 - B35.1) 10/02/2024 Pain in right toe(s) (ICD-10 - M79.674) 10/02/2024 Onychomycosis (ICD-10 - B35.1) 10/02/2024 Pain in left toe(s) (ICD-10 - M79.675) 07/06/2024 Pain in left toe(s) (ICD-10 - M79.675) 04/06/2024 Pain in left toe(s) (ICD-10 - M79.675) 10/25/2023 Pain in left toe(s) (ICD-10 - M79.675) 10/25/2023 Right foot pain (ICD-10 - M79.671) 04/06/2024 Right foot pain (ICD-10 - M79.671) 07/06/2024 Tinea pedis of both feet (ICD-10 - B35.3) 10/02/2024 Tinea pedis of both feet (ICD-10 - B35.3) 04/06/2024 Plantar wart (ICD-10 - B07.0) 10/25/2023 Plantar wart (ICD-10 - B07.0) 10/25/2023 Other 04/06/2024 Other Plan Of Treatment Pending Test Test Name Order Date 53160-GRWLEMH NAIL, 6 OR MORE 12/08/2021 97975-QSYMZNJ NAIL, 6 OR MORE 03/09/2022 53424-UEYVVQR NAIL, 6 OR MORE 06/25/2022 46699-WYOTFXA NAIL, 6 OR MORE 10/01/2022 17354-JRLBCGM NAIL, 6 OR MORE 01/04/2023 72447-DBWKNPD NAIL, 6 OR MORE 03/11/2023 30442-DLDOELP NAIL, 6 OR MORE 05/27/2023 22263-WMDVPAD NAIL, 6 OR MORE 08/12/2023 58958-DBFNXWQ NAIL, 6 OR MORE 10/25/2023 85658-OIPSRQV NAIL, 6 OR MORE 04/06/2024 14002-FCPCDAA NAIL, 6 OR MORE 07/06/2024 12595-SEDLXHZ NAIL, 6 OR MORE 10/02/2024 31715-Aygv Destruction, 1-14 10/01/2022 49509-Ywia Destruction, 1-14 04/06/2024 42655-Tofi Destruction, 1-14 10/25/2023 10236-Uzjd Destruction, 1-14 08/12/2023 87943-Nsmc Destruction, 1-14 05/27/2023 06845-Fana Destruction, 1-14 03/11/2023 03705-Oubo Destruction, 1-14 01/04/2023 73789-Lufn Destruction, 1-14 06/25/2022 42723-Qcav Destruction, 1-14 03/09/2022 21815-Wwom Destruction, 1-14 12/08/2021 06750-Aflxdqlp Plate 10/01/2022 32714-Gopqzycd Plate 01/04/2023 37158-Pfqwrsze Plate 03/11/2023 38428 I&D ABSCESS- SIMPLE,SINGLE 023 Next Appt Details Provider Name:Delio Lanza , 01/11/2025 01:45:00 PM, [address] [place] [address], [place], [address], Insurance Providers Payer Name Payer Address Payer Phone Subscriber Number Group Number Insured Name Patient Relationship to Insured Coverage Start Date Coverage End Date [employer] [place] [employer]age [facility] [address] [place] [address] [id number] Omar Carbajal Self - patient is the insured Medical (General) History Medical History History ICD Code Arthritis Back,Hip,and Knee pain Cataracts covid-19 Depression Gall bladder problems Gout Liver disease Reflux ( GERD) Sciatica Measles CAD Diabetes mellitus - Borderline Surgical History Surgery Date(Month/Year) gall bladder removal 07/2021 cyst removal 08/2022 Hospitalization History Reason Date(Month/Year) cyst infection antibiotics given 08/2022 C- digestive issues/Gall bladder 2020
--- OUTSIDE RECORDS SUMMARY | 2024-10-17 15:44 | XMS_ITS | Clinical Summary ---
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 Name Role Phone Unavailable Primary Care Provider Unavailabl e Allergies No known active allergies Medications No known medications Active Problems Problem Noted Date Diagnosed Date Missing teeth, acquired 06/28/2024 Social History Tobacco Use Types Packs/Day Years Used Date Smoking Tobacco: Never Passive Smoke Exposure: Never Smokeless Tobacco: Never Tobacco Cessation:Counseling Given: No Alcohol Use Standard Drinks/Week Comments Never 0 (1 standard drink = 0.6 oz pur e alcohol) Sex and Gender Information Value Date Recorded Sex Assigned at Male 06/06/2024 2:03 PM EDT Legal Sex Male 2:02 PM EDT Gender Identity Male 06/06/2024 2:03 PM EDT Sexual Orientation Straight 06/06/2024 2: 03 PM EDT Last Filed Vital Signs Vital Sign Reading Time Taken Comments Blood Pressure 110/68 06/28/2024 2:34 PM EST Pulse - - Temperature - - Respiratory Rate - - Oxygen Saturation - - Inhaled Oxygen Concentration - - Weight - - Height - - Body Mass Index - - Plan of Treatment Health Maintenance Due Date Last Done Comments CT Colonography 1950 Colonoscopy 1950 Colorectal Cancer Screening 1950 Dental Prophylaxis 1950 Dental X-Ray: Bitewings 1950 Depression Screening 1950 FIT DNA/Cologuard 1950 FIT 1950 FOBT 1950 Lipid Panel 1950 SDOH Screening 1950 Sigmoidoscopy 1950 Alcohol/Substance Use Screening 1961 Hepatitis C Screening 1967 Hepatitis A Vaccines (1 of 2 - Risk 2-dose series) 1968 Hepatitis B Vaccines (1 of 3 - Risk 3-dose series) 2009 RSV Patients and Patients Aged 60 years or older (1 - 1-dose 75+ series) 2024 COVID-19 Vaccine ( - season) 2024 08/19/2023, 08/18/2022, 07/21/2021, Additional history exists Influenza Vaccine (#1) 2024 3, 07/23/2011, 06/30/2010 Dental Oral Exam 12/27/2024 06/28/2024 Tobacco Screening 06/28/2025 06/28/2024 Dental X-Ray: Full Mouth 06/29/2027 06/28/2024 DTaP/Tdap/Td Vaccines (2 - Td or Tdap) 12/01/2033 12/02/2023 Pneumococcal Vaccine: 50+ Years Completed 10/24/2023 Zoster Vaccines Completed 02/09/2024, 12/02/2023 HIB Vaccines Aged Out No longer eligi ble based on patient's age to complete this topic HPV Vaccines Aged Out No longer eligi ble based on patient's age to complete this topic IPV Vaccines Aged Out No longer eligi ble based on patient's age to complete this topic Meningococcal Vaccine Aged Out No maninder jimmie eligible based on patient's age to complete this topic RSV under 20 months Aged Out No longe r eligible based on patient's age to complete this topic Rotavirus Vaccines Aged Out No longer eligible based on patient's age to complete this topic Procedures Procedure Name Priority Date/Time Associated Diagnosis Comments PANORAMIC RADIOGRAPHIC IMAGE Routine 06/28/2024 2:30 PM EST COMPREHENSIVE ORAL EVALUATION - NEW OR ESTABLISHED PATIENT Routine 06/28/2024 2:30 PM EST from Last 3 Months or Most Recently Relevant to Health Maintenance Insurance DENTAL - HSN FULL (MEDICAID)
--- OUTSIDE RECORDS SUMMARY | 2024-10-17 15:44 | XMS_ITS ---
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 No Points 0 Interpretation Negative Vital Signs Height 5ft 7in in 10/02/2024 Weight 140 lbs 10/02/2024 BMI 21.92 kg/m2 10/02/2024 Blood pressure systolic 120 mm Hg 10/02/19 25 Blood pressure diastolic 70 mm Hg 025 Procedures Procedure Date Ordered Date Performed Result Body Sit e 65707-GJLQQNG NAIL, 6 OR MORE 10/02/2024 N/A Encounters Encounter Location Date Provider Diagnosis [facility] [address] [address] 10/02/2024 Delio Lanza Onychomycosis B35.1 ; Pain in right toe(s) M79.674 ; Pain in left toe(s) M79.675 and Tinea pedis of both feet B35.3 Assessments Encounter Date Diagnosis (ICD Code) Assessment Notes Treatment Notes Treatment Clinical Notes Section Notes 10/02/2024 Onychomycosis (ICD-10 - B35.1) 10/02/2024 Pain in right toe(s) (ICD-10 - M79.674) 10/02/2024 Pain in left toe(s) (ICD-10 - M79.675) 10/02/2024 Tinea pedis of both feet (ICD-10 - B35.3) Plan Of Treatment Pending Test Test Name Order Date 54891-ZRVTGAT NAIL, 6 OR MORE 10/02/2024 Next Appt Details Follow Up: prn, Reason: Provider Name:Delio Lanza , 01/11/2025 01:45:00 PM, [address] [place] [address], [id number], Procedure Notes * Category Sub-Category Detail Notes Debride Nail 6-10 Nail debridement Due to the cl inical pathology outlined in the exam findings, performance of this nail treatment is medically necessary as its management by an unskilled/untrained nonprofessional would put this patients foot and overall health at risk. Therefore, debridement to affected nail(s), as described in exam ( TA, T1, T2, T3, T4, T5, T6, T7, T8, T9 ), was performed exclusively by the physician of record to reduce/remove overall nail length, girth, thickness, subungual debris, and necrotic tissue, by manual and/or electrical means through the use of a nail nipper and/or dremel-type knife grinder, to a more viable healthy nail plate or bed tissue 6-10 nails in total. Silver nitrate was used for any petechial bleeding as necessary. Definitive antifungal treatment options, both pharmaceutical and surgical, have been reviewed and discussed with the patient. The patient solely prefers the use of intermittent/as needed professional debridement services for their nail condition and understands the need for additional periodic treatments to maintain effectiveness in symptomatic relief - 33269 Progress Notes * Omar HINESDOB:1950 ( 74 yo M)Acc No.[id number]:10/02/2024 Progress Note Patient:Omar AKHTAR Provider:?Delio Lanza DPM :1950???Age:74 Y???Sex:Male Dmitriy e:10/02/2024 Address:[address] [place], [place] [id number] Pcp:Fer Oliveira MD Subjective: * Chief Complaints: * ???Painful nail(s) aggravate d by shoes causing difficulty standing/walkingSkin Problem * HPI: ???Painful Nails:?Pt States Last PCP Visit:?Date:?06/22/2024 ???Skin problems:?Treatments:?Medication (Ciclopirox Olamine 0.77 Cream), states adherence to recommended treatment application.? * ROS:?General/Constitutional:?Nausea?denies.?Vomiting?denies.?Hunger Thirst?denies.?Loss appetite?denies.?Chills?denies.?Fatigue?denies.?Fever?denies.?Night Sweats?denies.?Unexplained weight loss?denies.?Unexplained weight gain?denies.?HEENTM:?Dentures?denies.?Dizziness?denies.?Glasses/contacts?denies.?Retinopathy?den ies.?Blurred/double vision?denies.?TMJ?denies.?Discharge/drainage?denies.?Implants?denies.?Sore throat?denies.?Dental implants?denies.?Hard of hearing ?denies.?Difficulty chewing/swallowing/speaking?denies.?Nose bleeds?denies.?Sore mouth?denies.?Respiratory:?On O xygen?denies.?Pneumonia/pleurisy?denies.?Bronchitis?denies.?Emphysema?denies.?Co ughing?denies.?Cough blood?denies.?Shortness of breath?denies.?Wheezing?denies.?Cardiovascular:?Pacemaker?denies.?MVP?denies.?WPW?denies.?CHF?denies.?Heart attack?denies.?Septal defect?denies.?Rapid beat?denies.?Chest pain ?denies.?Atrial Fib.?denies.?Murmur/Palpitations?denies.?Gastrointestinal:?Hemorrhoids?denies.?Stomach/Abdominal pain?denies.?Dark blood stool?denies.?Irritable bowel ?denies.?Constipation?denies.?Diarrhea?denies.?Hematology:?Swelling?denies.?Clots?denies.?Varicose Veins?denies.?Bruising?denies.?Bleeding problem?denies.?Genitourinary:?Blood urine?denies.?Frequent/Painfu/urination/bladder control?denies.?Kidney stones?denies.?Infection (UTI)?denies.?Nephropathy?denies.?sex trans dis (STD)?denies.?Prostate?denies.?Musculoskeletal:?Hammertoes?denies.?Bunions?admits.?Back Pain?denies.?Muscle Cramps/ Resting?denies.?Muscle cramps / walking?denies.?Generalized aches and pains?denies.?Weakness?denies.?Integ.:?Land?denies.?Scars?denies.?Corns/calluses?admits.?Ingrown nails?admits.?Painful nails?admits.?Open Sores?denies.?Rashes?denies.?Neurologic:?Difficulty sleeping?denies.?Brain disorder?denies.?Numbness?denies.?Balance t rouble?denies.?Confusion?denies.?Fainting/blackouts?denies.?Tingling?denies.?Oswaldo mors?denies.? * Medical History:? * Surgical History:?gall bladd er removal 1cyst removal 08/2022 * Hospitalization/Major Diagno stic Procedure:?[facility]- digestive issues/Gall bladder yst infection antibiotics given 08/2022 * Family History:?Mother: dece ased, diagnosed with Unspecified essential hypertension.?Father: .?Siblings: cancer, foot problems, diagnosed with Diabetic - NIDDM.? * Social History:?Tobacco Use:?Tobacco use other than smoking?Are you an other tobacco user??No ?Tobacco Control (Standard)?Tobacco use:?Nonsmoker ?Additional Findings: Tobacco non-user?Current nonsmoker ???Drugs/Alcohol:?Drugs?Have you used drugs other than those for medical reasons in the past 12 months??No ???Miscellaneous:?Caffeine: yes, frequency:, 2 cups per day. ?Children: no, none. ?Exercise: no. ?Marital status: single. ?Occupation: Retired-[employer]. ???Drug/Alcohol:?AUDIT-C (Standard)?Did you have a drink containing alcohol in the past year??No ?Points?0 ?Interpretation?Negative * Medications:?TakingMultivita min Iron Allopurinol 100 MG Tablet 1 tablet Orally Once a day Atorvastatin Calcium 10 MG Tablet 1 tablet Orally Once a day Tamsulosin HCl 0.4 MG Capsule 1 capsule Orally Once a day Ciclopirox Olamine 0.77 % Cream 1 application Externally Twice a day to skin of feet including between the toes Medication List reviewed and reconciled with the patientTaking Multivitamin Taking Iron Taking Allopurinol 100 MG Tablet 1 tablet Orally Once a day Taking Atorvastatin Calcium 10 MG Tablet 1 tablet Orally Once a day Taking Tamsulosin HCl 0.4 MG Capsule 1 capsule Orally Once a day Taking Ciclopirox Olamine 0.77 % Cream 1 application Externally Twice a day to skin of feet including between the toes Medication List reviewed and reconciled with the patient * Allergies:?N.K.D.A.yes[Aller gies Verified] Objective: * Vitals:?Ht:5ft 7in, Wt:140, BMI:21.92, Shoe size:7W, BP:120/70mm Hg, BS:not taken, Ht-cm: 170.18 cm, Wt-k.5 kg. * ???Past Orders: ???Lab:HEMOGLOBIN A1C (GLYCO HEMOGLOBIN) (Order Date - 12/21/2023) (Collection Date & Time - 12/21/2023) ? Value Reference Range ?HEMOGLOBIN A1C % (HH) 6.2 * Examination: ???Ophthalmology Referral: ?DIABETES EYE EXAM?Procedure Performed:?Yes ?Date of Exam Performed?07/23/2024 ?Diabetic Retinopathy Screening:?Yes ?Retinal Screening Performed:?Yes ?Findings of Diabetic Eye Exam:?no retinopathy?Nails: ?NAILS are:?Elongated, overgrown, dystrophic, lytic, greater than 3mm thick, discolored and friable with crumbly malodorous subungual debris, with pain on palpation , TA, T1, T2, T3, T4, T5, T6, T7, T8, T9.?Dermatologic: ?SKIN FINDINGS:?Skin shows approximately 70-80 percent LESS, sign(s) of, erythema, scaling, in a moccasin fashion, no fissure(s) present, B/L.? Assessment: * Assessment: 1.?Pain in right toe(s) - M7 9.674???2.?Onychomycosis - B35.1 (Primary)???3.?Pain in left toe(s) - M79.675???4.?Tinea pedis of both feet - B35.3???Specify :Acute problem, Stable Response to treatment - Improvement??? Plan: * Treatment: * Procedures:?Debride Nail 6-10:?Nail debridement?Due to the clinical pathology outlined in the exam findings, performance of this nail treatment is medically necessary as its management by an unskilled/untrained nonprofessional would put this patients foot and overall health at risk. Therefore, debridement to affected nail(s), as described in exam (?TA, T1, T2, T3, T4, T5, T6, T7, T8, T9?), was performed exclusively by the physician of record to reduce/remove overall nail length, girth, thickness, subungual debris, and necrotic tissue, by manual and/or electrical means through the use of a nail nipper and/or dremel-type knife grinder, to a more viable healthy nail plate or bed tissue 6- 10 nails in total. Silver nitrate was used for any petechial bleeding as necessary. Definitive antifungal treatment options, both pharmaceutical and surgical, have been reviewed and discussed with the patient. The patient solely prefers the use of intermittent/as needed professional debridement services for their nail condition and understands the need for additional periodic treatments to maintain effectiveness in symptomatic relief - 03899.? * Procedure Codes:?15059 JERMAINEI DE NAIL, 6 OR MORE * Preventive Medicine:? ??Counseling:?Discussion:?-12: Office or other outpatient visit for the evaluation and management of an established patient, which required a medically appropriate history and/or examination and STRAIGHTFORWARD level of MEDICAL DECISION MAKING, 1 SELF-LIMITED OR MINOR PROBLEM, MINIMAL- NO AMOUNT/COMPLEXITY OF DATA TO BE REVIEWED/ANALYZED, AND MINIMAL RISK OF COMPLICATION/MORBIDITY. The visit on the day of the [...] encouraged the patient to call the office.?Tinea Pedis:?Given recent successful results to treatment, The patient is to cont the rx cream as directed.? ??Screening/Special Tests:?Fall Risk?Screening:?No falls in the past year ?FALLS: Screening for Future Fall Risk?Have you had any falls with injury in the past year??No * Follow Up:?prn * Images: * Sign off status: Completed true * Provider:?Delio Lanza DPM Date:?2024 Generated for Thuan edward/Juliette/Mendoza on:?10/17/2024 03:43 PM EST History and Physical Notes * HPI (History of Present Illness) Category Sub-Category Detail Notes Category Not es Painful Nails Pt States Last PCP Visit: Date:: 06/22/2024 Skin problems Treatments: Medication (Cicl opirox Olamine 0.77 Cream), states adherence to recommended treatment application Examination Category Sub-Category Detail Notes Category Not es Dermatologic SKIN FINDINGS: Skin shows appro ximately 70-80 percent LESS, sign(s) of, erythema, scaling, in a moccasin fashion, no fissure(s) present, B/L Ophthalmology Referral DIABETES EYE EXAM Procedu re Performed:: Yes ?Date of Exam Performed: 07/23/2024 Diabetic Retinopathy Screening:: Yes Retinal Screening Performed:: Yes Findings of Diabetic Eye Exam:: no retin opathy Nails NAILS are: Elongated, overg rown, dystrophic, lytic, greater than 3mm thick, discolored and friable with crumbly malodorous subungual debris, with pain on palpation , TA, T1, T2, T3, T4, T5, T6, T7, T8, T9
== END 2024-10-17 13:20 | disposition home or self-care (01) ==
PROVIDERS: PCP Internal Medicine; Visit Provider Internal Medicine
DX: R06.02 Shortness of breath (principal)
CPT/HCPCS: 93010; 99214; G2211

== ENCOUNTER → 2024-10-17 12:50 | Outpatient (BNVA) | payer MEDICARE, MEDICAID, SELFPAY | PROVIDERS: PCP Internal Medicine; Visit Provider Internal Medicine | DX: R06.02 Shortness of breath (principal) | CPT/HCPCS: 93005; 99212 ==

== ENCOUNTER → 2024-11-02 10:45 | Outpatient (REF) | payer MEDICARE, SELFPAY ==
--- NOTE | 2024-11-02 10:48 | CA_ITS ---
Transthoracic Echocardiogram Patient (Last, First, Middle): Omar Carbajal J Gender: Male Date of : 1950 Age: 74 Procedure Date: 11/02/2024 Procedure Type: Transthoracic Echocardiogram Location: OP Height: 170.18 cm Weight: 65.77 kg BSA: 1.76 m2 Heart Rate: bpm BP: 140 / 60 mmHg County Manager: TO Referring MD: Caleb Espinal MD Symptoms: I25.10 - Atherosclerotic heart disease of [place] coronary artery without... Study Quality: Adequate w contrast ECG Rhythm: Sinus Conclusions: - The left ventricular systolic function is normal. The calculated ejection fraction is 57% by biplane method. - No obvious valvular pathology seen on this study. Findings Procedure Information Contrast agent, definity, is being given per protocol without apparent complications. Left Ventricle Normal left ventricular cavity size. There is normal left ventricular wall thickness. The left ventricular systolic function is normal. The calculated ejection fraction is 57% by biplane method. There is no evidence of regional wall motion abnormalities. Diastolic function is normal for age. Right Ventricle Normal right ventricular cavity size and systolic function. Atria Both atria are normal in size. Aortic Valve There is a normal trileaflet aortic valve. There is no aortic valve stenosis. There is no aortic valve regurgitation. Mitral Valve The mitral valve appears normal. There is trace mitral valve regurgitation. There is no mitral valve stenosis. Pulmonic Valve There is mild pulmonic valve regurgitation. Tricuspid Valve There is trace tricuspid valve regurgitation. There is no evidence of pulmonary hypertension. Great Vessels The asc aorta is normal in size. Venous The inferior vena cava is normal in size and collapses greater than 50% with inspiration. Pericardium/Pleural There is no evidence of pericardial effusion. Prior Study Comparison No prior study available for comparison. Recommendations, Care & Conclusions No obvious valvular pathology seen on this study. Measurements 2D Linear Measurements IVSd: 0.80 0.6-0.9/0.6-1.0 cm LVIDd: 3.91 3.9-5.3/4.2-5.9 cm LVIDd Index: 2.22 2.4-3.2/2.2-3.1 cm/m2 LVIDs: 2.53 2.0-3.6 cm LVPWd: 0.65 0.7-1.1 cm LA Diam: 3.00 2.7-3.8/3.0-4.0 cm LAIDs Index: 1.70 1.5-2.3 cm/m2 LV Mass: 97.71 67-162/88-224 g LV Mass Index: 55.52 43-95/49-115 g/m2 LVOT Diam: 2.00 3.0+(-)1.3 cm 2D Systolic Function EF 4C: 59.60 >55% EF 2C: 53.50 >55% EF BiP: 56.90 >55% Mitral Valve MV Pk E: 0.59 MV PK A: 0.70 MV Decel Time: 274.00 E/A: 0.90 E'Lateral: 7.51 E'Medial: 4.57 E/E' Med: 12.90 E/E' Lat: 7.90 PHT: 80.00 MVA PHT: 2.[address] [place]: 2.15 Aortic Valve AoV Pk Henri: 1.34 AoV Mn Henri: 0.97 AoV VTI: 0.29 AoV Pk Grad: 7.00 Aov Mn Grad: 4.00 GIANCARLO Cont.VTI: 2.43 LVOT LVOT Pk Henri: 0.95 LVOT Mn Henri: 0.68 LVOT VTI: 0.23 LVOT Pk Grad: 4.00 LVOT Mn Grad: 2.00 LVOT Diam: 2.00 LVOT Area: 3.14 Diastolic Function MV Pk E: 0.59 MV Pk A: 0.70 E/A: 0.90 E'Medial: 4.57 E/E' Med: 12.90 E' Laterial: 7.51 E/E' Lat: 7.90 Right Ventricle TAPSE (mm): 22.70 TVS' Henri: 10.40 Tricuspid Valve TR Pk Henri: 1.51 TR Pk Grad: 9.00 RA Press: 3.00 RVSP: 12.00 Great Vessels Aorta Sinus of Valsalva: 3.21 2.0-3.5 cm Ao Asc: 3.00 2.1-3.4 cm Updated in Other Vendor System with Status of Final Caleb Espinal MD electronically signed on 11/03/2024 1:04:35 PM with status of Final
--- OUTSIDE RECORDS SUMMARY | 2024-11-02 12:21 | XMS_ITS | Clinical Summary ---
Author Organization [employer] Address [address] [place] [address] Care Team Providers Care Terminologist Name Role Phone Unavailable Primary Care Provider [...] Use Screening 1961 Hepatitis C Screening 1967 RSV Patients and Patients Aged 60 years or older (1 - 1-dose 75+ series) 2024 COVID-19 Vaccine ( season) 2024 08/19/2023, 08/18/2022, 07/21/2021, Additional history [...] on patient's age to complete this topic Hepatitis A Vaccines Aged Out No long er eligible based on patient's age to complete this topic Hepatitis B Vaccines Aged Out No long er eligible based on patient's age to complete [...]
--- OUTSIDE RECORDS SUMMARY | 2024-11-02 12:21 | XMS_ITS | Patient Health Record ---
Author Organization [facility] Address [address] [place] [address] Care Team Providers Care Mechanical Systems Design Engineer Name Role Phone Fer Oliveira MD Primary Care Provider UnavailSorin Whiteside Jr Unavailable [phone] Reason For Referral No Information Medications Medication SIG (Take, Route, Frequency, Duration) Notes Start Date End Date Status Colyte with Flavor Packs 240 GM As directed Orally Over the specified time. for 1 day(s) Active Atorvastatin Calcium 10 MG TAKE 1 TABLET BY MOUTH DAILY Oral for 90 Active Social History Tobacco Use: Social History Observation Description Date Details (start date - stop date) Former Smoker NA - NA Tobacco Use/Smoking Question Answer Notes Patient is a former smoker How long has it been since you last smoked? > 10 years Alcohol Screen Question Answer Notes Did you have a drink containing alcohol in the p ast year? No Points 0 Interpretation Negative Problems Problem Type SNOMED Code ICD Code Onset Dates Problem Status W/U Status Risk Notes Problem 934492704 Colon cancer screening (Z12.11) Active confirmed Problem Gallstones (276955785) Gallstones (K80.20) Active confirmed Problem Dilatation of bile duct (435341891) Common bile duct dilation (K83.8) Active confirmed Problem 79780013 Rhinorrhea (J34.89) Active confirmed Plan Of Treatment Future Test Test Name Order Date COLONOSCOPY 01/06/2017 Insurance Providers Payer Name Payer Address Payer Phone Subscriber Number Group Number Insured Name Patient Relationship to Insured Coverage Start Date Coverage End Date [facility] [address] [place] [address] [id number] FLORACONSUELO Self - patient is the insured Medicare of [place] [address] [place] [address] [id number] CONSUELO HINES Self - patient is the insured Medical (General) History Medical History History ICD Code colonoscopy 08-02-2007 rosacea degenerative disc disease elevated cholesterol
--- OUTSIDE RECORDS SUMMARY | 2024-11-02 12:21 | XMS_ITS ---
Author Organization [facility] Address [address] [facility] [place] [address] Care Team Providers Care Emissions Inspector Name Role Phone Fer Oliveira MD Primary Care Provider Unavaila Delio Levine Unavailable [phone] Allergies No Known Allergies REASON FOR VISIT [...] Ordered Date Performed Result Body Sit e 58590-JWFGMNS NAIL, 6 OR MORE 10/02/2024 N/A Encounters Encounter Location Date Provider Diagnosis [facility] [address] [address] 10/02/2024 Delio Lanza Onychomycosis B35.1 ; Pain [...] Treatment Pending Test Test Name Order Date 29392-QODCJJD NAIL, 6 OR MORE 10/02/2024 Next Appt Details Follow Up: prn, Reason: Provider Name:Delio Lanza , 01/11/2025 01:45:00 PM, [address] [place] [address], [address], Procedure Notes * Category Sub-Category Detail Notes [...] use of a nail nipper and/or dremel-type wood grinder operator, to a more viable healthy [...] to maintain effectiveness in symptomatic relief - 60262 Progress Notes * Omar HINESDOB:1950 ( 74 yo M)Acc No.[id number]:10/02/2024 Progress Note Patient:Omar AKHTAR Provider:?Delio Lanza DPM :1950???Age:74 Y???Sex:Male Dmitriy e:10/02/2024 Address:[address] [place], [place] [address] Pcp:Fer Oliveira MD Subjective: * Chief Complaints: [...] use of a nail nipper and/or dremel-type wood grinder operator, to a more viable healthy [...] to maintain effectiveness in symptomatic relief - 16977.? * Procedure Codes:?63504 JERMAINEI DE NAIL, 6 OR MORE * [...] Lanza DPM Date:?2024 Generated for Thuan edward/Juliette/Mendoza on:?11/02/2024 12:21 PM EDT History and Physical Notes * HPI (History [...]
--- OUTSIDE RECORDS SUMMARY | 2024-11-02 12:21 | XMS_ITS | Patient Health Record ---
Author Organization [facility] Address [address] [facility] [place] [address] Care Team Providers Care Power Lineman Name Role Phone Fer Oliveira MD Primary Care Provider Delio Estevez Unavailable [phone] Allergies No Known Allergies Results Component Value [...] Status W/U Status Risk Notes Problem Onychomycosis (924266954) Onychomycosis (B35.1) Active confirmed Vital Signs Blood pressure diastolic 70 mm Hg 10/02/2024 Height 5ft 7in in 10/02/2024 Blood pressure systolic 120 mm Hg 10/02/2024 Weight 140 lbs 10/02/2024 BMI 21.92 kg/m2 10/02/2024 Procedures Procedure Date Ordered Date Performed Result Body Sit e 89025-LTWYPJH NAIL, 6 OR MORE 04/06/2024 N/A 45360-Osbl Destruction, 1-14 04/06/2024 N/A 63424-ZCYGNOF NAIL, 6 OR MORE 07/06/2024 N/A 10759-PVAYIJI NAIL, 6 OR MORE 10/02/2024 N/A Encounters Encounter Location Date Provider Diagnosis [address] [address] 04/06/2024 Delio Lanza Tinea unguium B35.1 ; Pain in right toe(s) M79.674 ; Pain in left toe(s) M79.675 ; Right foot pain M79.671 and Plantar wart B07.[address] [address] 07/06/2024 Delio Lanza Onychomycosis B35.1 ; Pain in right toe(s) M79.674 ; Pain in left toe(s) M79.675 and Tinea pedis of both feet B35.[address] [address] 10/02/2024 Deliolaverne Lanza Onychomycosis B35.1 ; Pain in right toe(s) M79.674 ; Pain in left toe(s) M79.675 and Tinea pedis of both feet B35.[address] [address] 05/23/2024 Delio Lanza Assessments Encounter Date Diagnosis (ICD Code) Assessment Notes Treatment Notes Treatment Clinical Notes Section Notes 04/06/2024 Tinea unguium (ICD-10 - B35.1) [...] B35.3) 04/06/2024 Plantar wart (ICD-10 - B07.0) 04/06/2024 Other Plan Of Treatment Pending Test Test Name Order Date 10705-MIVPFSN NAIL, 6 OR MORE 12/08/2021 34237-TQCRDWD NAIL, 6 OR MORE 03/09/2022 39524-IFMUPDS NAIL, 6 OR MORE 06/25/2022 24043-UGASWQR NAIL, 6 OR MORE 10/01/2022 29847-AEATIOZ NAIL, 6 OR MORE 01/04/2023 08346-XTYKRTU NAIL, 6 OR MORE 03/11/2023 71492-NQJKMZY NAIL, 6 OR MORE 05/27/2023 25220-VBYASBX NAIL, 6 OR MORE 08/12/2023 54499-ALRAXPU NAIL, 6 OR MORE 10/25/2023 19164-CCZWJJA NAIL, 6 OR MORE 04/06/2024 76068-DCTBKYJ NAIL, 6 OR MORE 07/06/2024 61786-IZLRLKY NAIL, 6 OR MORE 10/02/2024 40529-Ctum Destruction, 1-14 10/01/2022 67572-Frhp Destruction, 09-0404/06/2024 93018-Hntd Destruction, 09-0410/25/2023 05511-Yrnf Destruction, 09-0408/12/2023 00039-Pzmb Destruction, 09-0405/27/2023 81222-Btcz Destruction, 09-0403/11/2023 98252-Kphi Destruction, 09-0401/04/2023 38596-Ftsu Destruction, 09-0406/25/2022 01622-Twyh Destruction, 09-0403/09/2022 06564-Ntyy Destruction, 09-0412/08/2021 96977-Qfcugjsl Plate 10/01/2022 43471-Dalrrotl Plate 01/04/2023 45357-Myofffwl Plate 03/11/2023 95832 I&D ABSCESS- SIMPLE,SINGLE 023 Next Appt Details Provider Name:Delio Lanza , 01/11/2025 01:45:00 PM, [address] [place], [address], Insurance Providers Payer Name Payer Address Payer Phone Subscriber Number Group Number Insured Name Patient Relationship to Insured Coverage Start Date Coverage End Date [employer] [address] [place] [address] [phone] [id number] Omar Carbajal Self - patient is the insured Medical (General) History Medical History History ICD Code Arthritis Back,Hip,and Knee pain Cataracts covid-19 Depression Gall bladder problems Gout Liver disease Reflux ( GERD) Sciatica Measles CAD Diabetes mellitus - Borderline Surgical History Surgery Date(Month/Year) gall bladder removal 07/2021 cyst removal 08/2022 Hospitalization History Reason Date(Month/Year) cyst infection antibiotics given 08/2022 [facility]- digestive issues/Gall bladder 2020
--- OUTSIDE RECORDS SUMMARY | 2024-11-02 12:21 | XMS_ITS ---
Author Organization [facility] Address [address] [place] [address] Care Team Providers Care Public Affairs Officer Name Role Phone Fer Oliveira MD Primary Care Provider Unavaila Delio Levine Unavailable [phone] Allergies No Known Allergies REASON FOR VISIT [...] Status W/U Status Risk Notes Problem Onychomycosis (914125163) Onychomycosis (B35.1) Active confirmed Vital Signs Height 5ft 7in in 07/06/2024 Weight 140 lbs 07/06/2024 BMI 21.92 kg/m2 07/06/2024 Procedures Procedure Date Ordered Date Performed Result Body Sit e 19380-GXDOOQV NAIL, 6 OR MORE 07/06/2024 N/A Encounters Encounter Location Date Provider Diagnosis [facility] [address] [address] 07/06/2024 Delio Lanza Onychomycosis B35.1 ; Pain [...] days Pending Test Test Name Order Date 67327-SCIUPOR NAIL, 6 OR MORE 07/06/2024 Next Appt Details Follow Up: prn, Reason: Provider Name:Delio Lanza , 01/11/2025 01:45:00 PM, [address] [place] [address], [address], Procedure Notes * Category Sub-Category Detail Notes [...] use of a nail nipper and/or dremel-type carbon plant grinder, to a more viable healthy nail plate or bed tissue 6-10. Silver nitrate used for any petechial bleeding as necessary. Definitive antifungal treatment options have been reviewed and discussed with the patient. The patient chooses, no pharmaceutical tx - 85308 Progress Notes * Omar HINESDOB:1950 ( 74 yo M)Acc No.[id number]:07/06/2024 Progress Note Patient:Omar AKHTAR Provider:?Delio Lanza DPM :1950???Age:74 Y???Sex:Male Dmitriy e:07/06/2024 Address:[address] [place], [place] [address] Pcp:Fer Oliveira MD Subjective: * Chief Complaints: [...] use of a nail nipper and/or dremel-type carbon plant grinder, to a more viable healthy nail plate or bed tissue 6-10. Silver nitrate used for any petechial bleeding as necessary. Definitive antifungal treatment options have been reviewed and discussed with the patient. The patient chooses, no pharmaceutical tx - 03675.? * Procedure Codes:?81730 DEBRI DE NAIL, 6 OR MORE * [...] Lanza DPM Date:?2023 Generated for Thuan edward/Juliette/Mendoza on:?11/02/2024 12:20 PM EDT History and Physical Notes * [...]
--- OUTSIDE RECORDS SUMMARY | 2024-11-02 12:21 | XMS_ITS | Data Portability ---
Author Organization [facility] [address] Address [address] [place] [address] Assessment No assessment recorded. Plan of Treatment Reminders Order Date Submit Date Provider Last Modified By Organization Details Last Modified Time Details Appointments None recorded. Lab None recorded. Referral None recorded. Procedures None recorded. Surgeries None recorded. Imaging None recorded. Medication Orders prednisone 20 mg tablet 2022 023 [facility]acy #[id number], [address] [place], [address], 18:16:54 hydroxyzine HCl 25 mg tablet 2022 023 [facility]armacy #[id number], [address] [place], [address], 18:16:53 Patient TargetsNo targets recorded. Patient Instructions Encounter Date Encounter Id Patient Instructions Last Modified By Organization Details Last Modified Time 12/24/2022 [id number] hives: care instructions [email or web address] Not available 12/24/2022 [...] Address Organization Details Recorded Time Hypercholester olemia 33622671 Active 2022 Elise johnson [place] - [facility] 3 17:49:42 Prediabetes 671090791 Active 2022 Elise johnson PA - [facility] 3 17:49:59 Anemia 568490672 Active 2022 Elise johnson PA - [facility] 3 17:50:05 Non-alcoholic fatty liver 029739004 Active 2022 [facility] - [facility] [...] Updated DateTime 3 172.72 cm 19.8 kg/m2 22847.0 1 g 0 18 /min 98 % 98 % 69 /min 97.1 [degF] 158 mm[Hg] 70 mm[Hg] Elise Cook [employer] [facility] 3 17:52:59 Social History Question Answer [...] SNOMED-CT Code Diagnosis ICD10 Code Diagnosis Note [id number] [address] [facility] [address] [place] [address] 05/27/2018 11:20:03 05/27/2018 12:58:35 [id number] Baron Velasquez NP [address] [facility] [address] [place] [address] 12/24/2022 16:41:16 12/24/2022 18:22:13 Allergic contact dermatitis 994010988 L23.9 Health Concerns Section Related Observation LastModified by Organization Detai ls LastModified Time None Recorded Concern Status LastModified by Organization Details LastModified Time None Recorded Advance Directives Directive None Recorded Payers Encounter Date Sequence Insurance Name Policy Number Policy Russ Covered Member ID Russ Member ID Guarantor Name 12/24/2022 1 [facility] - PLAN 1 (MEDICARE SUPPLEMENT) [id number] Omar Carbajal [id number] Omar Carbajal 12/24/2022 2 [place]: [facility] Omar Carbajal [id number] Omar Carbajal Notes Date Note Type Note [...] Baron Velasquez NP [address] [place], [address], [place] - [facility] 12/24/2022 18:17:14
--- OUTSIDE RECORDS SUMMARY | 2024-11-02 12:22 | XMS_ITS ---
Author Organization [facility] Address [address] [place] [address] Care Team Providers Care Organic Extractions Technician Name Role Phone Fer Oliveira MD Primary Care Provider Unavaila Delio Levine [phone] REASON FOR VISIT needs refill per pharmacy Encounters Encounter Location Date Provider Diagnosis [address] [address] 05/23/2024 Delio Lanza Plan Of Treatment Next Appt Details Provider Name:Delio Lanza , 01/11/2025 01:45:00 PM, [address] [place], [address], Progress Notes * FLORAOmarDOB:1950 ( 74 yo M)Acc No.[id number]:05/23/2024 Patient:?Omar Carbajal :1950???Age:74 Y???Sex:Male Address:[address] [place] [address], [address] * true * Date:? Generated for Adilsoni cheyanne/Juliette/eTransmitting on:?11/02/2024 12:21 PM EDT
== END ==
LOC: HO.CARD 10:45
PROVIDERS: PCP Internal Medicine; Visit Provider Internal Medicine
DX: I25.10 Atherosclerotic heart disease of native coronary artery without angina pectoris (principal); R06.02 Shortness of breath
CPT/HCPCS: 93306; Q9957

== ENCOUNTER → 2024-11-02 10:48 | Outpatient (BNV) | payer MEDICARE, SELFPAY | PROVIDERS: PCP Internal Medicine; Visit Provider Internal Medicine | DX: I37.1 Nonrheumatic pulmonary valve insufficiency (principal); I25.10 Atherosclerotic heart disease of native coronary artery without angina pectoris | CPT/HCPCS: 93306 ==

== ENCOUNTER → 2024-11-26 11:08 | Outpatient (REF) | payer MEDICARE, SELFPAY ==
--- NOTE | 2024-11-26 11:10 | CA_ITS ---
Acquisition Time: 2024-11-26 11:24:41 Total Exercise Time: 00:05:00 Test Indications: Dyspnea,,Palpitations Medications: ALLOPURINOL ATORVASTATIN TAMSULOSIN Protocol: CARITO Max HR: 136 BPM 100% of Pred: 136 BPM Max BP: 142/60 mmHG Max Work Load: 7.0 METS Exercise Stress Test with exercise 5 mins of Carito Protocol, achieving 94% MPHR, with reports of SOB and leg discomfort, no chest pain, with isolated PVCs, with normotensive response to exercise. Without EKG changes meeting criteria for ischemia. In recovery, breathing returned to baseline but developed some dizziness with BP lowest to 90/50, improving slowly with oral hydration back to 108/60. Echo images obtained by tech at rest and post peak exercise. Definity contrast utilized. Test reviewed with Dr. Allen. Referred By: Caleb Espinal Electronically Signed By: Kingston Avery
--- OUTSIDE RECORDS SUMMARY | 2024-11-26 13:19 | XMS_ITS | Clinical Summary ---
Author Organization [employer] Address [address] [facility] 7t [place] [address] Care Team Providers Care Epidemiology Internship Name Role Phone Unavailable Primary Care Provider [...]
--- OUTSIDE RECORDS SUMMARY | 2024-11-26 13:19 | XMS_ITS | Patient Health Record ---
Author Organization [facility] Address [address] [place] [address] Care Team Providers Care Flask Fitter Name Role Phone Fer Oliveira MD Primary Care Provider UnavailSorin Whiteside Jr Unavailable [phone] Reason For Referral No Information Medications Medication [...] Problem Status W/U Status Risk Notes Problem 305786027 Colon cancer screening (Z12.11) Active confirmed Problem Gallstones (288850277) Gallstones (K80.20) Active confirmed Problem Dilatation of bile duct (664381327) Common bile duct dilation (K83.8) Active confirmed Problem 55264871 Rhinorrhea (J34.89) Active confirmed Plan Of Treatment Future Test Test Name Order Date COLONOSCOPY 01/06/2017 Insurance Providers Payer Name Payer Address Payer Phone Subscriber Number Group Number Insured Name Patient Relationship to Insured Coverage Start Date Coverage End Date [facility] [address] [place] [address] [phone] [id number] FLORACONSUELO Self - patient is the insured Medicare of [place] [address] [place] [address] [id number] CONSUELO HINES Self - patient is the insured Medical (General) History Medical History History ICD Code colonoscopy 08-02-2007 rosacea degenerative disc disease elevated cholesterol
--- OUTSIDE RECORDS SUMMARY | 2024-11-26 13:19 | XMS_ITS ---
Author Organization [facility] Address [address] [place] [address] Care Team Providers Care Director Fixed Income Name Role Phone Fer Oliveira MD Primary Care Provider Unavaila Delio Levine Unavailable [phone] Allergies No Known Allergies REASON FOR VISIT [...] Status W/U Status Risk Notes Problem Onychomycosis (602358753) Onychomycosis (B35.1) Active confirmed Vital Signs Height 5ft 7in in 07/06/2024 Weight 140 lbs 07/06/2024 BMI 21.92 kg/m2 07/06/2024 Procedures Procedure Date Ordered Date Performed Result Body Sit e 39420-EFSIKNE NAIL, 6 OR MORE 07/06/2024 N/A Encounters Encounter Location Date Provider Diagnosis [facility] [address] [address] 07/06/2024 Delio Lanza Onychomycosis B35.1 ; Pain [...] days Pending Test Test Name Order Date 09734-DQQSLCZ NAIL, 6 OR MORE 07/06/2024 Next Appt Details Follow Up: prn, Reason: Provider Name:Delio Lanza , 01/11/2025 01:45:00 PM, [address] [place] [address], [address], Procedure Notes * Category Sub-Category Detail Notes [...] use of a nail nipper and/or dremel-type thread grinder tool, to a more viable healthy nail plate or bed tissue 6-10. Silver nitrate used for any petechial bleeding as necessary. Definitive antifungal treatment options have been reviewed and discussed with the patient. The patient chooses, no pharmaceutical tx - 38840 Progress Notes * Omar HINESDOB:1950 ( 74 yo M)Acc No.[id number]:07/06/2024 Progress Note Patient:Omar AKHTAR Provider:?Delio Lanza DPM :1950???Age:74 Y???Sex:Male Dmitriy e:07/06/2024 Address:[address] [place], [place] [address] Pcp:Fer Oliveira MD Subjective: * Chief Complaints: [...] use of a nail nipper and/or dremel-type thread grinder tool, to a more viable healthy nail plate or bed tissue 6-10. Silver nitrate used for any petechial bleeding as necessary. Definitive antifungal treatment options have been reviewed and discussed with the patient. The patient chooses, no pharmaceutical tx - 22422.? * Procedure Codes:?40902 DEBRI DE NAIL, 6 OR MORE * [...] Lanza DPM Date:?2023 Generated for Thuan edward/Juliette/Mendoza on:?11/26/2024 01:19 PM EDT History and Physical Notes * [...]
--- OUTSIDE RECORDS SUMMARY | 2024-11-26 13:20 | XMS_ITS | Data Portability ---
Author Organization [facility] [address] Address [address] [place] [address] Assessment No assessment recorded. Plan of Treatment Reminders Order Date Submit Date Provider Last Modified By Organization Details Last Modified Time Details Appointments None recorded. Lab None recorded. Referral None recorded. Procedures None recorded. Surgeries None recorded. Imaging None recorded. Medication Orders prednisone 20 mg tablet 20[address] [facility][id number], [address] [place], [address], 18:16:54 hydroxyzine HCl 25 mg tablet [address] [id number], [address] [place], [address], 18:16:53 Patient TargetsNo targets recorded. Patient Instructions Encounter Date Encounter Id Patient Instructions Last Modified By Organization Details Last Modified Time 12/24/2022 [id number] hives: care instructions [email or web address] Not available 12/24/2022 [...] Address Organization Details Recorded Time Hypercholester olemia 39235816 Active 2022 Elise johnson PA - [facility] 3 17:49:42 Prediabetes 188179679 Active 2022 Elise johnson PA - [facility] 3 17:49:59 Anemia 326705423 Active 2022 Elise johnson PA - [facility] 3 17:50:05 Non-alcoholic fatty liver 943850004 Active 2022 [facility] - [facility] [...] Updated DateTime 3 172.72 cm 19.8 kg/m2 53233.0 1 g 0 18 /min 98 % 98 % 69 /min 97.1 [degF] 158 mm[Hg] 70 mm[Hg] Elise Cook [employer] [facility] 3 17:52:59 Social History Question Answer [...] SNOMED-CT Code Diagnosis ICD10 Code Diagnosis Note [id number] [address] [facility] [address] [place] [address] 05/27/2018 11:20:03 05/27/2018 12:58:35 [id number] Baron Velasquez NP [address] [facility] [address] [place] [address] 12/24/2022 16:41:16 12/24/2022 18:22:13 Allergic contact dermatitis 038849313 L23.9 Health Concerns Section Related Observation LastModified by Organization Detai ls LastModified Time None Recorded Concern Status LastModified by Organization Details LastModified Time None Recorded Advance Directives Directive None Recorded Payers Encounter Date Sequence Insurance Name Policy Number Policy Russ Covered Member ID Russ Member ID Guarantor Name 12/24/2022 1 [facility] - PLAN 1 (MEDICARE SUPPLEMENT) [id number] 2 Omar Carbajal [id number] Omar Carbajal 12/24/2022 2 [place]: [facility] Omar Carbajal [id number] Omar Carbajal Notes Date Note Type Note [...] Baron Velasquez NP [address] [place], [address], [place] - [facility] 12/24/2022 18:17:14
--- OUTSIDE RECORDS SUMMARY | 2024-11-26 13:20 | XMS_ITS ---
Author Organization [facility] Address [address] [place] [address] Care Team Providers Care Drill Runner Helper Name Role Phone Fer Oliveira MD Primary Care Provider Unavaila Delio Levine [phone] REASON FOR VISIT needs refill per pharmacy Encounters Encounter Location Date Provider Diagnosis [address] [address] 05/23/2024 Delio Lanza Plan Of Treatment Next Appt Details Provider Name:Delio Lanza , 01/11/2025 01:45:00 PM, [address] [place], [address], Progress Notes * FLORAOmarDOB:1950 ( 74 yo M)Acc No.[id number]:05/23/2024 Patient:?Omar Carbajal :1950???Age:74 Y???Sex:Male Address:[address] [place] [address], [address] * true * Date:? Generated for Adilsoni cheyanne/Juliette/eTransmitting on:?11/26/2024 01:20 PM EDT
--- OUTSIDE RECORDS SUMMARY | 2024-11-26 13:20 | XMS_ITS ---
Author Organization [facility] Address [address] [facility] [place] [address] Care Team Providers Care Turner Off Name Role Phone Fer Oliveira MD Primary Care Provider Unavaila Delio Levine Unavailable [phone] Allergies No Known Allergies REASON FOR VISIT [...] Ordered Date Performed Result Body Sit e 25560-XVGCEVI NAIL, 6 OR MORE 10/02/2024 N/A Encounters Encounter Location Date Provider Diagnosis [facility] [address] [address] 10/02/2024 Delio Lanza Onychomycosis B35.1 ; Pain [...] Treatment Pending Test Test Name Order Date 49819-CSCMSUY NAIL, 6 OR MORE 10/02/2024 Next Appt Details Follow Up: prn, Reason: Provider Name:Delio Lanza , 01/11/2025 01:45:00 PM, [address] [place] [address], [address], Procedure Notes * Category Sub-Category Detail Notes [...] use of a nail nipper and/or dremel-type cork grinder, to a more viable healthy nail [...] to maintain effectiveness in symptomatic relief - 81450 Progress Notes * Omar HINESDOB:1950 ( 74 yo M)Acc No.[id number]:10/02/2024 Progress Note Patient:Omar AKHTAR Provider:?Delio Lanza DPM :1950???Age:74 Y???Sex:Male Dmitriy e:10/02/2024 Address:[address] [place], [place] [address] Pcp:Fer Oliveira MD Subjective: * Chief Complaints: [...] use of a nail nipper and/or dremel-type cork grinder, to a more viable healthy nail [...] to maintain effectiveness in symptomatic relief - 30984.? * Procedure Codes:?51110 JERMAINEI DE NAIL, 6 OR MORE * [...] Lanza DPM Date:?2024 Generated for Thuan edward/Juliette/Mendoza on:?11/26/2024 01:20 PM EDT History and Physical Notes * [...]
--- OUTSIDE RECORDS SUMMARY | 2024-11-26 13:20 | XMS_ITS | Patient Health Record ---
Author Organization [facility] Address [address] [place] [address] Care Team Providers Care Development Intern Name Role Phone Fer Oliveira MD Primary Care Provider Delio Estevez Unavailable [phone] Allergies No Known Allergies Results Component Value [...] Status W/U Status Risk Notes Problem Onychomycosis (278062800) Onychomycosis (B35.1) Active confirmed Vital Signs Blood pressure diastolic 70 mm Hg 10/02/2024 Height 5ft 7in in 10/02/2024 Blood pressure systolic 120 mm Hg 10/02/2024 Weight 140 lbs 10/02/2024 BMI 21.92 kg/m2 10/02/2024 Procedures Procedure Date Ordered Date Performed Result Body Sit e 43242-MJFHJRF NAIL, 6 OR MORE 04/06/2024 N/A 81389-Przy Destruction, 1-14 04/06/2024 N/A 54809-YZHXTTC NAIL, 6 OR MORE 07/06/2024 N/A 81737-EGGJOYO NAIL, 6 OR MORE 10/02/2024 N/A Encounters Encounter Location Date Provider Diagnosis [address] [address] 04/06/2024 Delio Lanza Tinea unguium B35.1 ; Pain in right toe(s) M79.674 ; Pain in left toe(s) M79.675 ; Right foot pain M79.671 and Plantar wart B07.[address] [address] 07/06/2024 Delio Lanza Onychomycosis B35.1 ; Pain in right toe(s) M79.674 ; Pain in left toe(s) M79.675 and Tinea pedis of both feet B35.[address] [address] 10/02/2024 Deliolaverne Lanza Onychomycosis B35.1 ; Pain in right toe(s) M79.674 ; Pain in left toe(s) M79.675 and Tinea pedis of both feet B35.[address] [address] 05/23/2024 Delio Lanza Assessments Encounter Date Diagnosis [...] Treatment Pending Test Test Name Order Date 32166-SWMELCJ NAIL, 6 OR MORE 12/08/2021 96708-MQLDRUY NAIL, 6 OR MORE 03/09/2022 03067-QBDVURI NAIL, 6 OR MORE 06/25/2022 01983-QIMQCOP NAIL, 6 OR MORE 10/01/2022 96027-ZAZLFOQ NAIL, 6 OR MORE 01/04/2023 12196-JKYJEBS NAIL, 6 OR MORE 03/11/2023 15635-GPPMJVN NAIL, 6 OR MORE 05/27/2023 23094-MFNAQAC NAIL, 6 OR MORE 08/12/2023 44149-EYJQNLR NAIL, 6 OR MORE 10/25/2023 73195-NBDVPUA NAIL, 6 OR MORE 04/06/2024 87839-ZXCRCMW NAIL, 6 OR MORE 07/06/2024 88296-ABPMFMS NAIL, 6 OR MORE 10/02/2024 74024-Czwv Destruction, 1-14 10/01/2022 38381-Hpwf Destruction, 09-0404/06/2024 25649-Xoer Destruction, 09-0410/25/2023 97955-Cwnv Destruction, 09-0408/12/2023 53944-Cocn Destruction, 09-0405/27/2023 96662-Ohtm Destruction, 09-0403/11/2023 18665-Xdbd Destruction, 09-0401/04/2023 30324-Fmna Destruction, 09-0406/25/2022 46510-Faii Destruction, 09-0403/09/2022 63376-Jyaq Destruction, 09-0412/08/2021 19153-Rbmxacdm Plate 10/01/2022 01976-Kmqidteu Plate 01/04/2023 03649-Hyefmszs Plate 03/11/2023 05085 I&D ABSCESS- SIMPLE,SINGLE 023 Next Appt Details Provider Name:Delio Lanza , 01/11/2025 01:45:00 PM, [address] [place], [address], Insurance Providers Payer Name Payer Address Payer Phone Subscriber Number Group Number Insured Name Patient Relationship to Insured Coverage Start Date Coverage End Date [employer] [place] [employer] [address] [place] [address] [phone] [id number] Omar Carbajal Self - patient is the [...]
== END ==
LOC: HO.CARD 11:08
PROVIDERS: Visit Provider Internal Medicine
DX: R06.02 Shortness of breath (principal)
CPT/HCPCS: 93350; Q9957

== ENCOUNTER → 2024-11-26 11:10 | Outpatient (BNV) | payer MEDICARE, SELFPAY | DX: R94.31 Abnormal electrocardiogram [ECG] [EKG] (principal) | CPT/HCPCS: 93016; 93018; 93350; 93352 ==

== ENCOUNTER 2024-12-10 10:07 | Outpatient (AMB) | payer MEDICARE, SELFPAY ==
--- OUTSIDE RECORDS SUMMARY | 2024-12-10 10:09 | XMS_ITS | Clinical Summary ---
Author Organization [employer] Address [address] [facility] [address] [place] [address] Care Team Providers Care Head Of Geography Name Role Phone Unavailable Primary Care Provider [...]
--- OUTSIDE RECORDS SUMMARY | 2024-12-10 10:09 | XMS_ITS | Patient Health Record ---
Author Organization [facility] Address [address] [place] [address] Care Team Providers Care Booking Clerk Name Role Phone Fer Oliveira MD Primary Care Provider Delio Estevez Unavailable [phone] Allergies No Known Allergies Results Component Value [...] Status W/U Status Risk Notes Problem Onychomycosis (314547705) Onychomycosis (B35.1) Active confirmed Vital Signs Blood pressure diastolic 70 mm Hg 10/02/2024 Height 5ft 7in in 10/02/2024 Blood pressure systolic 120 mm Hg 10/02/2024 Weight 140 lbs 10/02/2024 BMI 21.92 kg/m2 10/02/2024 Procedures Procedure Date Ordered Date Performed Result Body Sit e 43789-MYRAKOB NAIL, 6 OR MORE 04/06/2024 N/A 13415-Gmci Destruction, 1-14 04/06/2024 N/A 04438-VCMCASA NAIL, 6 OR MORE 07/06/2024 N/A 07303-YDLPMQC NAIL, 6 OR MORE 10/02/2024 N/A Encounters Encounter Location Date Provider Diagnosis [address] [address] 04/06/2024 Delio Lanza Tinea unguium B35.1 ; Pain in right toe(s) M79.674 ; Pain in left toe(s) M79.675 ; Right foot pain M79.671 and Plantar wart B07.[address] [address] 07/06/2024 Delio Lanza Onychomycosis B35.1 ; Pain in right toe(s) M79.674 ; Pain in left toe(s) M79.675 and Tinea pedis of both feet B35.[address] [address] 10/02/2024 Deliolaverne Lanza Onychomycosis B35.1 ; Pain in right toe(s) M79.674 ; Pain in left toe(s) M79.675 and Tinea pedis of both feet B35.[address] [address] 05/23/2024 Delio Lanza Assessments Encounter Date Diagnosis [...] Treatment Pending Test Test Name Order Date 55991-BSOTQKG NAIL, 6 OR MORE 12/08/2021 52372-NHKBYCS NAIL, 6 OR MORE 03/09/2022 98546-PNFUHPY NAIL, 6 OR MORE 06/25/2022 28444-RTVRFZL NAIL, 6 OR MORE 10/01/2022 34194-EXVYDCV NAIL, 6 OR MORE 01/04/2023 34063-JFYRIGP NAIL, 6 OR MORE 03/11/2023 28144-XBZUVLO NAIL, 6 OR MORE 05/27/2023 83389-NCAOKMF NAIL, 6 OR MORE 08/12/2023 20924-LIFXROH NAIL, 6 OR MORE 10/25/2023 77420-HEFBBKA NAIL, 6 OR MORE 04/06/2024 89477-HIBJFWK NAIL, 6 OR MORE 07/06/2024 12721-KDBSGMG NAIL, 6 OR MORE 10/02/2024 78413-Dxcr Destruction, 1-14 10/01/2022 66447-Kwto Destruction, 09-0404/06/2024 03248-Jqki Destruction, 09-0410/25/2023 08361-Mozg Destruction, 09-0408/12/2023 67987-Wagp Destruction, 09-0405/27/2023 17051-Wtcu Destruction, 09-0403/11/2023 79645-Juwt Destruction, 09-0401/04/2023 33659-Jhyx Destruction, 09-0406/25/2022 14671-Uhho Destruction, 09-0403/09/2022 03076-Sfeo Destruction, 09-0412/08/2021 00989-Avetupnv Plate 10/01/2022 33263-Caebahvw Plate 01/04/2023 22088-Dmqglrdb Plate 03/11/2023 76086 I&D ABSCESS- SIMPLE,SINGLE 023 Next Appt Details Provider Name:Delio Lanza , 01/11/2025 01:45:00 PM, [address] [place], [address], Insurance Providers Payer Name Payer Address Payer Phone Subscriber Number Group Number Insured Name Patient Relationship to Insured Coverage Start Date Coverage End Date [employer] [place] [employer] [address] [place] [address] [id number] Omar Carbajal Self - patient is the [...]
--- OUTSIDE RECORDS SUMMARY | 2024-12-10 10:10 | XMS_ITS ---
Author Organization [facility] Address [address] [place] [address] Care Team Providers Care Mechatronics Technologist Name Role Phone Fer Oliveira MD Primary Care Provider Unavaila Delio Levine [phone] REASON FOR VISIT needs refill per pharmacy Encounters Encounter Location Date Provider Diagnosis [facility] [address] [place] [address] 05/23/2024 Delio Lanza Plan Of Treatment Next Appt Details Provider Name:Delio Lanza , 01/11/2025 01:45:00 PM, [address] [place], [address], Progress Notes * FLORAOmarDOB:1950 ( 74 yo M)Acc No.[id number]:05/23/2024 Patient:?Omar Carbajal :1950???Age:74 Y???Sex:Male Address:[address] [place] [address], [address] * true * Date:? Generated for Adilsoni cheyanne/Juliette/eTransmitting on:?12/10/2024 10:10 AM EDT
--- OUTSIDE RECORDS SUMMARY | 2024-12-10 10:10 | XMS_ITS | Data Portability ---
Author Organization [facility] [address] Address [address] [place] [address] Assessment No assessment recorded. Plan of Treatment Reminders Order Date Submit Date Provider Last Modified By Organization Details Last Modified Time Details Appointments None recorded. Lab None recorded. Referral None recorded. Procedures None recorded. Surgeries None recorded. Imaging None recorded. Medication Orders prednisone 20 mg tablet 2022 023 [id number], [address] [place], [address], 18:16:54 hydroxyzine HCl 25 mg tablet 2022 023 [id number], [address] [place], [address], 18:16:53 Patient TargetsNo targets recorded. Patient Instructions Encounter Date Encounter Id Patient Instructions Last Modified By Organization Details Last Modified Time 12/24/2022 [id number] hives: care instructions [email or web address] Not available 12/24/2022 [...] Address Organization Details Recorded Time Hypercholester olemia 14987849 Active 2022 Elise johnson [place] - [facility] 3 17:49:42 Prediabetes 342363290 Active 2022 Elise johnson PA - [facility] 3 17:49:59 Anemia 545949927 Active 2022 Elise johnson PA - [facility] 3 17:50:05 Non-alcoholic fatty liver 609976128 Active 2022 [facility] - [facility] [...] Updated DateTime 3 172.72 cm 19.8 kg/m2 50682.0 1 g 0 18 /min 98 % 98 % 69 /min 97.1 [degF] 158 mm[Hg] 70 mm[Hg] Elise Cook [facility] 3 17:52:59 Social History Question Answer [...] SNOMED-CT Code Diagnosis ICD10 Code Diagnosis Note [id number] [address] [facility] [address] [place] [address] 05/27/2018 11:20:03 05/27/2018 12:58:35 [id number] Baron Velasquez NP [address] [facility] [address] [place] [address] 12/24/2022 16:41:16 12/24/2022 18:22:13 Allergic contact dermatitis 076626047 L23.9 Health Concerns Section Related Observation LastModified by Organization Detai ls LastModified Time None Recorded Concern Status LastModified by Organization Details LastModified Time None Recorded Advance Directives Directive None Recorded Payers Encounter Date Sequence Insurance Name Policy Number Policy Russ Covered Member ID Russ Member ID Guarantor Name 12/24/2022 1 [facility] - PLAN 1 (MEDICARE SUPPLEMENT) [id number] Omar Carbajal [id number] Omar Carbajal 12/24/2022 2 [place] [facility] Omar Carbajal [id number] Omar Carbajal Notes Date Note Type Note [...] Baron Velasquez NP [address] [place], [address], [place] - [facility] 12/24/2022 18:17:14
[2024-12-10 10:17] VITALS: BP 122/70; PULSE 60; TEMP 36.3; O2SAT 98; BMI 23.3
--- NOTE | 2024-12-10 10:17 | A.OFFPC_ITS ---
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 Required: No Accompanied by: Spouse Allergies shellfish derived Allergy (Severe, Verified 12/10/24 10:18) Stomach Upset Tobacco use date assessed: 12/10/24 Fall risk assessment: 1 Fall in past year Last assessed Fall Risk: 12/10/24 Dental Screening Dental Screen Date: 12/10/24 Did you have a dental visit in the last 12 months?: No Did you have a dental problem in the last 6 months where you did not have access to dental care?: No [facility] Medical History (Updated 12/10/24 @ 11:02 by Stephen Nash MD) GERD (gastroesophageal reflux disease) Back abscess High cholesterol Enlarged prostate Gout Surgical History History of colonoscopy (~04/20/17) History of laparoscopic cholecystectomy (07/30/22) History of laparoscopic cholecystectomy (~2020) Family History Sister Cardiac abnormality Diabetes Sister Breast cancer Brother Diabetes Social History Household Members: Significant Other Housing: Apartment Do you presently have visiting nurse or other home services: No Alcohol intake: former Patient Tobacco Use Status: Former Tobacco user e-Cigarette/Vaping Use: Former Use Second Hand Smoke Exposure: No service: No Current occupational status: retired Cognitive needs: No Hearing needs: Yes (bilateral aids) Vision needs: No Questionnaire PHQ-9 Over the last 2 weeks, how often have you been bothered by any of the following problems? 1. Little interest or pleasure in doing things: not at all 2. Feeling down, depressed, or hopeless: several days 3. Trouble falling or staying asleep, or sleeping too much: not at all 4. Feeling tired or having little energy: not at all 5. Poor appetite or overeating: not at all 6. Feeling bad about yourself - or that you are a failure or have let yourself or your family down: not at all 7. Trouble concentrating on things, such as reading the newspaper or watching television: not at all 8. Moving or speaking so slowly that other people could have noticed. Or the opposite - being so fidgety or restless that you have been moving around a lot more than usual: not at all 9. Thoughts that you would be better off or of hurting yourself in some way: not at all Total score: 1 Source: Developed by Drs. Jeremias Hall, Jaclyn Cunningham, Enoch Ngo and colleagues, with an educational charissa from [employer]. Thrive Questionnaire Date Thrive assessed: 12/10/24 I am a: Patient Within the past 12 months, did the food you bought not last and you didn't have the money to get more?: Never true Within the past 12 months, did you worry whether your food would run out before you got money to buy more?: Never true Do you have trouble paying for medicines?: No Do you have trouble getting transportation to medical appointments?: No Do you have trouble paying your heating and electricity bill?: No Do you have trouble taking care of your child, family member or friend?: No Do you have trouble with day-to-day activities such as bathing, preparing meals, shopping, managing finances, etc.?: No Are you currently unemployed and looking for a job?: No Are you interested in more education?: No THRIVE Score: 0 AUDIT C Alcohol Use Questionnaire (AUDIT-C) 1. How often do you have a drink containing alcohol?: Never 3. How often do you have six or more drinks on one occasion?: Never Total Score: 0 JOSE GUADALUPE-7 AMB Questionnaire JOSE GUADALUPE-7 Date JOSE GUADALUPE - 7 assessed: 12/10/24 Feeling nervous, anxious, or on edge: 1 = Several days Not being able to stop or control worryin = Not at all Worrying too much about different things: 0 = Not at all Trouble relaxin = Not at all Being so restless that it is hard to sit still: 0 = Not at all Becoming easily annoyed or irritable: 0 = Not at all Feeling afraid as if something awful might happen: 0 = Not at all Total JOSE GUADALUPE-7 score (0-4 normal; 5-9 mild; 10-14 moderate; 15-21 severe): 1 Source: Developed by DrsDavidson Hall, Jaclyn Cunningham, Enoch Ngo and colleagues, with an educational charissa from [employer]. Physical exam (Primary Care) Vital Signs: Last Vital Signs Temp 97.4 F 12/10/24 10:17 Pulse 60 12/10/24 10:17 BP 122/70 12/10/24 10:17 Pulse Ox 98 12/10/24 10:17 Oxygen Delivery Method Room Air 12/10/24 10:17 BMI result Body Mass Index 23.3 Tobacco/Smoking Status: Tobacco use Status Tobacco use date assessed 12/10/24 12/10/24 10:19 Patient Tobacco Use Status Former Tobacco user 12/10/24 10:31 e-Cigarette/Vaping Use Former Use 12/10/24 10:31 PHQ-9: PHQ-9 Score PHQ-9: Total score 1 12/10/24 10:31 Thrive Assessment: Date of Thrive Assessment Date Thrive assessed 12/10/24 12/10/24 10:19 Coding Level of Care Code New Pt Level 4 (86297) Complex EM visit Add On G2211 Diagnoses High cholesterol E78.00 GERD (gastroesophageal reflux disease) K21.9 Assessment & Plan Assessment & Plan (1) High cholesterol: Code(s): E78.00 - Pure hypercholesterolemia, unspecified Category: Medical Plan: BW has been ordered. Will call with results (2) GERD (gastroesophageal reflux disease): Code(s): K21.9 - Gastro-esophageal reflux disease without esophagitis Category: Medical Plan: PPI added to the regimen. Plan History of Present Illness The patient is a 74-year-old male presenting for a wellness visit and chronic d isease management. He has a history of prediabetes, with blood sugar levels that fluctuate. Recent blood work was performed in August and deemed satisfactory. He is managing his condition primarily by dietary adjustments, including decreasing carbohydrates and increasing fruits and vegetables in his diet. Additionally, the patient reports dyspepsia that occurs postprandially, which resolves after some time but recurs with subsequent meals. There is no associated weight change or significant alteration in appetite. He quit smoking and alcohol consumption several years ago. He plans on undergoing colorectal cancer screening with a Cologuard test. He is not currently using medications for dyspepsia. 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 - Substance Use: Quit smoking and alcohol consumption several years ago. - Nutrition: Managing diet with a focus on reducing carbohydrates and increasing fruits and vegetables. - Family Status: Accompanied by girlfriend, indicating some social support. Review of Systems - Gastrointestinal: Reports postprandial discomfort (dyspepsia). - Endocrine: Reports history of prediabetes with fluctuating blood glucose levels. - Respiratory: Denies current smoking. - General: Denies unintended weight loss. Physical Exam General: Cooperative and healthy appearing Nutritional Appearance: Well nourished Orientation/consciousness: Patient oriented x3 Limitations: No limitations Head: Normal to inspection General: Appearance normal, both eyes and all related structures Neck: Normal visual inspection Chest: Normal palpation of entire chest wall Respiratory: Wheezing noted, patient reports feeling unwell when wheezing occurs, but no weight loss observed. ormal respiratory effort Neurology: Patient oriented x3 Results - Labs: Blood work and uric acid level checked in August, results satisfactory. Recent orders for fasting blood work. - Tests: CT scan of spine conducted during ER visit, results satisfactory. Plan For the management of prediabetes, I emphasized dietary modifications with a reduction in carbohydrates alongside regular blood glucose monitoring. Dyspepsia will be addressed with daily medication to alleviate discomfort. I also offered a Cologuard test for colorectal cancer screening, with plans for continued evaluation through fasting blood work. Instructions were given regarding the i mportance of adherence to prescribed medications and lifestyle changes. Patient was informed and verbally consented to the use of an ambient scribe for clinic note documentation during this visit. Discussion Notes During the consultation, I discussed the patient's prediabetes status, emphasizing dietary management and the importance of regular glucose monitoring. The patient was informed about the benefits of maintaining a carbohydrate- reduced diet and increasing fruit and vegetable intake. For his dyspepsia, I suggested a daily medication to alleviate symptoms. The patient agreed to proce ed with the recommended Cologuard test for colorectal cancer screening. We reviewed the process for obtaining prescription refills from the pharmacy and the necessity of fasting prior to receiving upcoming blood work. I scheduled a follow-up appointment in six months for ongoing monitoring. Patient Instructions - Follow a reduced-carbohydrate diet. - Increase intake of fruits and vegetables. - Follow-up for fasting blood work. - Take prescribed medication once daily for stomach discomfort. - Complete the Cologuard test for cancer screening. - Return in six months for a follow-up visit. Orders: Orders Thyroid Stimulating Hormone Today E78.00 - Pure hypercholesterolemia, unspecifi ed Complete Blood Count no Diff Today E78.00 - Pure hypercholesterolemia, unspecified Hemoglobin A1c Today E78.00 - Pure hypercholesterolemia, unspecified Lipid Panel Today E78.00 - Pure hypercholesterolemia, unspecified Liver Panel Today E78.00 - Pure hypercholesterolemia, unspecified UA and rflx microscopic Today E78.00 - Pure hypercholesterolemia, unspecified Basic Metabolic Panel Today E78.00 - Pure hypercholesterolemia, unspecified
== END 2024-12-10 10:58 | disposition home or self-care (01) ==
LOC: HO.HMCHD 10:07
PROVIDERS: PCP Internal Medicine; Visit Provider Internal Medicine
DX: E78.00 Pure hypercholesterolemia, unspecified (principal); K21.9 Gastro-esophageal reflux disease without esophagitis

== ENCOUNTER 2024-12-10 10:07 | Outpatient (REF) | payer MEDICARE, SELFPAY ==
--- OUTSIDE RECORDS SUMMARY | 2024-12-10 11:09 | XMS_ITS | Clinical Summary ---
Author Organization [employer] Address [address] [facility] [address] [place] [address] Care Team Providers Care Cattery Operator Name Role Phone Unavailable Primary Care Provider [...]
[2024-12-10 11:48] LABS: Appearance Urine Clear; Color Urine Yellow; Glucose Urine UA Negative (Negative); Leukocyte Esterase Urine Negative (Negative); Nitrite Urine Negative (Negative); Specific Gravity - Urine 1.015 (1.005-1.025); Urine Blood Negative (Negative); Urine Ketones Negative (Negative); Urine Protein Negative (Neg-Trace)
[2024-12-10 11:53] LABS: Hematocrit 46.2 % (42.0-52.0); Hemoglobin 15.2 g/dl (14.0-18.0); Mean Corpuscular HGB Conc 32.9 g/dl (31.0-36.0); Mean Corpuscular Hemoglobin 32.3 pg (27.0-33.0); Mean Corpuscular Volume 98.1 fL (80.0-98.0); Mean Platelet Volume 12.5 fL (9.4-12.4); Platelet Count 177 X10*3/uL (160-400); Red Blood Count 4.71 X10*6/uL (4.60-5.80); Red Cell Distribution Width 12.9 % (11.0-16.0); White Blood Count 5.8 X10*3/uL (4.8-10.8)
[2024-12-10 12:08] LABS: Estimated Average Glucose 131 mg/dL; Hemoglobin A1C 183.7443 umol/L; Hemoglobin A1c % 6.2 % (<6.0); Total Hemoglobin (HGBA1C) 4109.2093 umol/L
[2024-12-10 12:47] LABS: Alanine Aminotransferase 27 U/L (0-40); Albumin Level 4.5 g/dL (3.5-5.0); Alkaline Phosphatase 79 U/L (39-117); Anion Gap 14 (12-20); Aspartate Amino Transferase 28 U/L (5-37); Bilirubin Direct 0.2 mg/dL (0.0-0.5); Bilirubin Total 0.6 mg/dL (0.0-1.0); Blood Urea Nitrogen 15 mg/dL (9-16); Calcium 9.5 mg/dL (8.4-10.2); Carbon Dioxide 28 mmol/L (22-29); Chloride 106 mmol/L (96-108); Cholesterol 144 mg/dL (<200); Estimated Glomerular Filt Rate > 60; Glucose Random 119 mg/dL (60-115); HDL Cholesterol 38 mg/dL (>40); LDL Cholesterol Calculated 83 mg/dL (<100); Potassium 4.2 mmol/L (3.3-5.1); Sodium 144 mmol/L (135-145); Thyroid Stimulating Hormone 1.89 uIU/mL (0.32-4.0); Total Protein 8.7 g/dL (6.5-8.0); Triglycerides 116 mg/dL (<150)
== END 2024-12-10 10:08 | disposition home or self-care (01) ==
LOC: HO.LAB 10:07
PROVIDERS: PCP Internal Medicine; Visit Provider Internal Medicine
DX: E78.00 Pure hypercholesterolemia, unspecified (principal); Z13.1 Encounter for screening for diabetes mellitus; K21.9 Gastro-esophageal reflux disease without esophagitis
CPT/HCPCS: 36415; 80048; 80061; 80076; 81003; 83036; 84443; 85027; 99202

== ENCOUNTER 2024-12-25 12:53 | Outpatient (AMB) | payer MEDICARE, MEDICAID, SELFPAY ==
--- NOTE | 2024-12-25 12:59 | MHC.OFFVIS ---
Vital Signs 12/25/24 13:01 Height 5 ft 7 in Weight 153 lb 0.013 oz BMI 24.0 BP 110/64 Blood Pressure Location Lt brachial Position Sitting Pulse 59 Pulse Source Pulse Oximeter Intake Visit Reasons: follow up echo/stress echo Intake Note: f/up-testing Chinese Teacher Required: No Accompanied by: Spouse Allergies shellfish derived Allergy (Severe, Verified 12/10/24 10:18) Stomach Upset Medication List - Last Reconciled 12/25/24 by [place] Avery NP allopurinol 100 mg PO DAILY atorvastatin 10 mg PO DAILY ciclopirox 0.77% appl topical multivitamin with iron 1 tab PO DAILY tamsulosin 0.4 mg PO DAILY HPI Comments Details: This is a 74-year-old male patient coming in for a follow-up visit. Patient with a history of dyslipidemia, well-controlled with the atorvastatin. At previous visit, patient reported intermittent episodes of shortness of breath accompanied with sensation in his chest described as stopping of heart, lasting approximately few sec. During these episodes he experiences a need to gasp for air. Since then, the patient underwent a stress echocardiogram in the echocardiogram. Today, he reports feeling well overall and denies any current cardiac symptoms including exertional chest pain, shortness of breath, palpitations, dizziness, orthopnea, PND, leg edema, presyncope, or syncope. Patient states that his prior symptoms have resolved and have not recurred. The patient attributes this improvement to his recent dietary changes and efforts to remain physically active. [facility] Medical History GERD (gastroesophageal reflux disease) Back abscess High cholesterol Enlarged prostate Gout Surgical History History of colonoscopy (~04/20/17) History of laparoscopic cholecystectomy (07/30/22) History of laparoscopic cholecystectomy (~2020) Family History Sister Cardiac abnormality Diabetes Sister Breast cancer Brother Diabetes Social History Household Members: Significant Other Housing: Apartment Do you presently have visiting nurse or other home services: No Alcohol intake: former Patient Tobacco Use Status: Former Tobacco user e-Cigarette/Vaping Use: Former Use Second Hand Smoke Exposure: No service: No Current occupational status: retired Cognitive needs: No Hearing needs: Yes (bilateral aids) Vision needs: No Review of Systems Const Denies chills, Denies fatigue, Denies fever(s), Denies frequent falls, Denies weakness, Denies weight gain and Denies weight loss ENT Denies dizziness Card Denies chest pain, Denies leg edema, Denies lightheadedness, Denies palpitations, Denies dyspnea and Denies dyspnea on exertion Resp Denies cough, Denies dyspnea and Denies dyspnea on exertion GI Denies hematochezia Musc Denies abnormal gait, Denies muscle weakness, Denies numbness, Denies radiating pain into limb and Denies tingling Neuro Denies abnormal gait, Denies dizziness, Denies frequent falls, Denies numbness, Denies tingling and Denies weakness Endo Denies fatigue and Denies palpitations Physical Exam Vital Signs: Last Vital Signs Pulse 59 12/25/24 13:01 BP 110/64 12/25/24 13:01 BMI result Body Mass Index 24.0 Const General: cooperative, healthy appearing, comfortable and no acute distress Orientation/consciousness: patient oriented x3 HEENT Head: Yes normal to inspection Neck Neck: Yes normal visual inspection, Yes trachea midline and Yes supple Chest Chest palpation & inspection: normal inspection of the chest Resp Effort & Inspection: normal respiratory effort Auscultation: clear to auscultation bilaterally, no crackles, no rales, no rhonchi and no wheezes Cardio Jugular venous distension: no JVD Palpation: normal PMI Rate: regular rate Rhythm: regular rhythm Heart sounds: S1 normal heart sound present, S2 normal heart sound present, no click, no gallops, no murmurs and no rubs Peripheral pulses: Peripheral pulses 2+ throughout GI Inspection: Yes normal to inspection Palpation (GI): Soft to palpation Auscultation: normal bowel sounds Skin General skin exam: no rashes or lesions noted Neuro General: patient oriented x3 Extrem General: Yes normal to inspection, No no pedal edema and No calf tenderness Psych Appearance: grossly normal Mental Status: mental status grossly normal Speech and movement: Normal speech and movement present Assessment & Plan Assessment & Plan (1) SOB (shortness of breath): Code(s): R06.02 - Shortness of breath Category: Medical (2) High cholesterol: Code(s): E78.00 - Pure hypercholesterolemia, unspecified Category: Medical Plan 07/05/2024-patient had undergone a Holter study with PCP that showed normal sinus rhythm with average heart rate of 59 beats per minute, bradycardia noted with 58% of the time with no significant pauses, occasional PACs and PVCs, and one 3 beat NSVT at 181 beats per minute. 11/02/2024-patient underwent a echo study that showed a normal LV systolic function with an ejection fraction at 57%. No regional wall motion abnormalities or valvular pathology noted. 11/26/2024-patient underwent a stress echocardiogram which was overall normal. During the stress portion of the test, patient developed shortness of breath that resolved during recovery phase. Given the resolution of symptoms and reassuring cardiac workup, no further diagnostic testing is indicated at this time. Most recent LDL was 83. Continue statin therapy aiming for a target LDL in the 70s. Advised to maintain a heart healthy diet, engage in regular exercise, adhere to prescribed medications, and continue management of vascular risk factors. Patient will follow up with the office on an as-needed basis. In the interim, patient has been instructed to contact the office for any new or worsening symptoms and to seek emergency care if he experiences exertional chest pain unrelieved by rest. This note was generated using voice recognition software. While every effort has been made to ensure accuracy and proper java lead engineer, there may be occasional errors that could affect the content or meaning of the described symptoms. Coding Level of Care Code Est Pt Level 3 (86906) Complex EM visit Add On G2211 Diagnoses SOB (shortness of breath) R06.02 High cholesterol E78.00 Time Spent (min) 29 Comment Time spent in reviewing the chart, test results, assessment, counseling and documentation.
[2024-12-25 13:01] VITALS: BP 110/64; PULSE 59; BMI 24.0
--- OUTSIDE RECORDS SUMMARY | 2024-12-25 14:03 | XMS_ITS | Clinical Summary ---
Author Organization [employer] Address [address] [facility] [address] [place] [address] Care Team Providers Care Geography Head Name Role Phone Unavailable Primary Care Provider [...]
--- OUTSIDE RECORDS SUMMARY | 2024-12-25 14:03 | XMS_ITS | Data Portability ---
Author Organization [facility] [address] Address [address] [place] [address] Assessment No assessment recorded. Plan of Treatment Reminders Order Date Submit Date Provider Last Modified By Organization Details Last Modified Time Details Appointments None recorded. Lab None recorded. Referral None recorded. Procedures None recorded. Surgeries None recorded. Imaging None recorded. Medication Orders prednisone 20 mg tablet 2022 023 [facility] #[id number], [address] [place], [address], 18:16:54 hydroxyzine HCl 25 mg tablet 2022 023 [facility] #[id number], [address] [place], [address], 18:16:53 Patient TargetsNo targets recorded. Patient Instructions Encounter Date Encounter Id Patient Instructions Last Modified By Organization Details Last Modified Time 12/24/2022 [id number] hives: care instructions [email or web address] Not available 12/24/2022 [...] Address Organization Details Recorded Time Hypercholester olemia 68397219 Active 2022 Elise johnson PA - [facility] 3 17:49:42 Prediabetes 656080681 Active 2022 Elise johnson PA - [facility] 3 17:49:59 Anemia 492717814 Active 2022 Elise johnson PA - [facility] 3 17:50:05 Non-alcoholic fatty liver 398951904 Active 2022 El[facility] johnson [facility] - [facility] [...] Updated DateTime 3 172.72 cm 19.8 kg/m2 85765.0 1 g 0 18 /min 98 % 98 % 69 /min 97.1 [degF] 158 mm[Hg] 70 mm[Hg] Elise Cook [facility] 3 17:52:59 Social History Question Answer [...] SNOMED-CT Code Diagnosis ICD10 Code Diagnosis Note [id number] [address] [place] [address] 05/27/2018 11:20:03 05/27/2018 12:58:35 [id number] Mina Ramsey MD [address] [place] [address] 12/24/2022 16:41:16 12/24/2022 18:22:13 Allergic contact dermatitis 725065929 L23.9 Health Concerns Section Related Observation LastModified by Organization Detai ls LastModified Time None Recorded Concern Status LastModified by Organization Details LastModified Time None Recorded Advance Directives Directive None Recorded Payers Encounter Date Sequence Insurance Name Policy Number Policy Russ Covered Member ID Russ Member ID Guarantor Name 12/24/2022 1 [facility] - PLAN 1 (MEDICARE SUPPLEMENT) [id number] 2 Omar Carbajal [id number] Omar Carbajal 12/24/2022 2 [place]: [facility] Omar Ware Raven [id number] Omar Carbajal Notes Date Note Type Note [...] Baron Velasquez NP [address] [place], [address], [place] - [facility] 12/24/2022 18:17:14
--- OUTSIDE RECORDS SUMMARY | 2024-12-25 14:03 | XMS_ITS | Patient Health Record ---
Author Organization [facility] Address [address] [place] [address] Care Team Providers Care Guard Sergeant Name Role Phone Fer Oliveira MD Primary Care Provider UnavailSorin Whiteside Jr Unavailable Reason For Referral No Information Medications Medication [...] Problem Status W/U Status Risk Notes Problem 270908248 Colon cancer screening (Z12.11) Active confirmed Problem Gallstones (351759673) Gallstones (K80.20) Active confirmed Problem Dilatation of bile duct (192243585) Common bile duct dilation (K83.8) Active confirmed Problem 84618196 Rhinorrhea (J34.89) Active confirmed Plan Of Treatment Future Test Test Name Order Date COLONOSCOPY 01/06/2017 Insurance Providers Payer Name Payer Address Payer Phone Subscriber Number Group Number Insured Name Patient Relationship to Insured Coverage Start Date Coverage End Date [facility] [address] [place] [address] [phone] [id number] FLORACONSUELO Self - patient is the insured Medicare of [place] [employer] [address] [place] [address] [id number] CONSUELO HINES Self - patient is the insured Medical (General) History Medical History History ICD Code colonoscopy 08-02-2007 rosacea degenerative disc disease elevated cholesterol
--- OUTSIDE RECORDS SUMMARY | 2024-12-25 14:03 | XMS_ITS ---
Author Organization [facility] Address [address] [place] [address] Care Team Providers Care Boat Dispatcher Name Role Phone Fer Oliveira MD Primary Care Provider Unavaila Delio Levine Unavailable [phone] Allergies No Known Allergies REASON FOR VISIT [...] Ordered Date Performed Result Body Sit e 13329-XHPSZDS NAIL, 6 OR MORE 10/02/2024 N/A Encounters Encounter Location Date Provider Diagnosis [facility] [address] [address] 10/02/2024 Delio Lanza Onychomycosis B35.1 ; Pain [...] Treatment Pending Test Test Name Order Date 45101-TILZBFY NAIL, 6 OR MORE 10/02/2024 Next Appt Details Follow Up: prn, Reason: Provider Name:Delio Lanza , 01/11/2025 01:45:00 PM, [address] [place] [address], [address], Procedure Notes * Category Sub-Category Detail Notes [...] use of a nail nipper and/or dremel-type pocket grinder operator, to a more viable healthy [...] to maintain effectiveness in symptomatic relief - 13568 Progress Notes * Omar HINESDOB:1950 ( 74 yo M)Acc No.[id number]:10/02/2024 Progress Note Patient:Omar AKHTAR Provider:?Delio Lanza DPM :1950???Age:74 Y???Sex:Male Dmitriy e:10/02/2024 Address:[address] [place], [place] [phone] Pcp:Fer Oliveira MD Subjective: * Chief Complaints: [...] use of a nail nipper and/or dremel-type pocket grinder operator, to a more viable healthy [...] to maintain effectiveness in symptomatic relief - 05760.? * Procedure Codes:?26775 JERMAINEI DE NAIL, 6 OR MORE * [...] Lanza DPM Date:?2024 Generated for Thuan edward/Juliette/Mendoza on:?12/25/2024 02:03 PM EDT History and Physical Notes * [...]
--- OUTSIDE RECORDS SUMMARY | 2024-12-25 14:03 | XMS_ITS ---
Author Organization [facility] Address [address] [facility] [place] [address] Care Team Providers Care Manufacturing Lab Technician Name Role Phone Fer Oliveira MD Primary Care Provider Unavaila Delio Levine Unavailable [phone] Allergies No Known Allergies REASON FOR VISIT [...] Status W/U Status Risk Notes Problem Onychomycosis (966045366) Onychomycosis (B35.1) Active confirmed Vital Signs Height 5ft 7in in 07/06/2024 Weight 140 lbs 07/06/2024 BMI 21.92 kg/m2 07/06/2024 Procedures Procedure Date Ordered Date Performed Result Body Sit e 10045-GMFHQFQ NAIL, 6 OR MORE 07/06/2024 N/A Encounters Encounter Location Date Provider Diagnosis [facility] [address] [address] 07/06/2024 Delio Lanza Onychomycosis B35.1 ; Pain [...] days Pending Test Test Name Order Date 00614-MHSASMB NAIL, 6 OR MORE 07/06/2024 Next Appt Details Follow Up: prn, Reason: Provider Name:Delio Lanza , 01/11/2025 01:45:00 PM, [address] [place] [address], [address], Procedure Notes * Category Sub-Category Detail Notes [...] use of a nail nipper and/or dremel-type floor grinder, to a more viable healthy nail plate or bed tissue 6-10. Silver nitrate used for any petechial bleeding as necessary. Definitive antifungal treatment options have been reviewed and discussed with the patient. The patient chooses, no pharmaceutical tx - 43545 Progress Notes * Omar HINESDOB:1950 ( 74 yo M)Acc No.[id number]:07/06/2024 Progress Note Patient:Omar AKHTAR Provider:?Delio Lanza DPM :1950???Age:74 Y???Sex:Male Dmitriy e:07/06/2024 Address:[address] [place], [place] [id number] Pcp:Fer Oliveira MD Subjective: * Chief Complaints: [...] use of a nail nipper and/or dremel-type floor grinder, to a more viable healthy nail plate or bed tissue 6-10. Silver nitrate used for any petechial bleeding as necessary. Definitive antifungal treatment options have been reviewed and discussed with the patient. The patient chooses, no pharmaceutical tx - 47982.? * Procedure Codes:?66994 DEBRI DE NAIL, 6 OR MORE * [...] * Sign off status: Completed true * Provider:?eDlio Lanza DPM Date:?2023 Generated for Thuan edward/Juliette/Mendoza on:?12/25/2024 02:03 PM [...]
--- OUTSIDE RECORDS SUMMARY | 2024-12-25 14:03 | XMS_ITS | Patient Health Record ---
Author Organization [facility] Address [address] [facility] [place] [address] Care Team Providers Care Hospice Plan Administrator Name Role Phone Fer Oliveira MD Primary Care Provider Delio Estevez Unavailable [phone] Allergies No Known Allergies Reason For Referral No Information Medications Medication [...] Status W/U Status Risk Notes Problem Onychomycosis (480509063) Onychomycosis (B35.1) Active confirmed Vital Signs Blood pressure diastolic 70 mm Hg 10/02/2024 Height 5ft 7in in 10/02/2024 Blood pressure systolic 120 mm Hg 10/02/2024 Weight 140 lbs 10/02/2024 BMI 21.92 kg/m2 10/02/2024 Procedures Procedure Date Ordered Date Performed Result Body Sit e 93580-ZOMKKYV NAIL, 6 OR MORE 04/06/2024 N/A 55088-Ojaq Destruction, 1-14 04/06/2024 N/A 98290-IGHOYKS NAIL, 6 OR MORE 07/06/2024 N/A 09100-XJLPGMA NAIL, 6 OR MORE 10/02/2024 N/A Encounters Encounter Location Date Provider Diagnosis [address] [address] 04/06/2024 Delio Lanza Tinea unguium B35.1 ; Pain in right toe(s) M79.674 ; Pain in left toe(s) M79.675 ; Right foot pain M79.671 and Plantar wart B07.[address] [address] 07/06/2024 Delio Lanza Onychomycosis B35.1 ; Pain in right toe(s) M79.674 ; Pain in left toe(s) M79.675 and Tinea pedis of both feet B35.[address] [address] 10/02/2024 Delio Lanza Onychomycosis B35.1 ; Pain in right toe(s) M79.674 ; Pain in left toe(s) M79.675 and Tinea pedis of both feet B35.[address] [address] 05/23/2024 Delio Lanza Assessments Encounter Date Diagnosis [...] Treatment Pending Test Test Name Order Date 25497-QEHLMYR NAIL, 6 OR MORE 12/08/2021 12594-DRBKGUF NAIL, 6 OR MORE 03/09/2022 84388-AVMAVQQ NAIL, 6 OR MORE 06/25/2022 75513-DQUYBGM NAIL, 6 OR MORE 10/01/2022 29023-DWGKMVN NAIL, 6 OR MORE 01/04/2023 30844-XMPJGNX NAIL, 6 OR MORE 03/11/2023 90699-QULOGJK NAIL, 6 OR MORE 05/27/2023 29833-LOADLKT NAIL, 6 OR MORE 08/12/2023 48203-KZTVMZI NAIL, 6 OR MORE 10/25/2023 72851-YKODWJN NAIL, 6 OR MORE 04/06/2024 10415-ZVLSCHA NAIL, 6 OR MORE 07/06/2024 12366-OWAWHSC NAIL, 6 OR MORE 10/02/2024 69443-Ezfx Destruction, 1-14 10/01/2022 28939-Ugbl Destruction, 1-14 04/06/2024 50531-Kzvs Destruction, 1-14 10/25/2023 33417-Eajx Destruction, 1-14 08/12/2023 18177-Qmbe Destruction, 09-0405/27/2023 97231-Mvcd Destruction, 09-0403/11/2023 86505-Ccfz Destruction, 09-0401/04/2023 01012-Mzsb Destruction, 09-0406/25/2022 49451-Bkvz Destruction, 09-0403/09/2022 70186-Papz Destruction, 09-0412/08/2021 01578-Uvajchmb Plate 10/01/2022 24811-Cnltsfdr Plate 01/04/2023 87590-Usshnyvk Plate 03/11/2023 24855 I&D ABSCESS- SIMPLE,SINGLE 023 Next Appt Details Provider Name:Delio Padilla Lanza , 01/11/2025 01:45:00 PM, [address] [place], [address], Insurance Providers Payer Name Payer Address Payer Phone Subscriber Number Group Number Insured Name Patient Relationship to Insured Coverage Start Date Coverage End Date [employer] [place] [employer] [facility] [address] [place] [id number] Omar Carbajal Self - patient is the insured 4 Medical (General) History Medical History History ICD Code Arthritis Back,Hip,and Knee pain Cataracts covid-19 Depression Gall bladder problems Gout Liver disease Reflux ( GERD) Sciatica Measles CAD Diabetes mellitus - Borderline Surgical History Surgery Date(Month/Year) gall bladder removal 07/2021 cyst removal 08/2022 Hospitalization History Reason Date(Month/Year) cyst infection antibiotics given 08/2022 [facility]- digestive issues/Gall bladder 2020
--- OUTSIDE RECORDS SUMMARY | 2024-12-25 14:04 | XMS_ITS ---
Author Organization [facility] Address [address] [place] [address] Care Team Providers Care Financial Investment Adviser Name Role Phone Fer Oliveira MD Primary Care Provider Unavaila Delio Levine [phone] REASON FOR VISIT needs refill per pharmacy Encounters Encounter Location Date Provider Diagnosis [address] [address] 05/23/2024 Delio Lanza Plan Of Treatment Next Appt Details Provider Name:Delio Lanza , 01/11/2025 01:45:00 PM, [address] [place], [address], Progress Notes * FLORAOmarDOB:1950 ( 74 yo M)Acc No.[id number]:05/23/2024 Patient:?Omar Carbajal :1950???Age:74 Y???Sex:Male Address:[address] [place] [address], [address] * true * Date:? Generated for Adilsoni cheyanne/Juliette/eTransmitting on:?12/25/2024 02:03 PM EDT
== END 2024-12-25 13:14 | disposition home or self-care (01) ==
LOC: HO.HCS 12:54
PROVIDERS: PCP Internal Medicine
DX: R06.02 Shortness of breath (principal); E78.00 Pure hypercholesterolemia, unspecified
CPT/HCPCS: 99213; G2211

== ENCOUNTER → 2024-12-25 12:53 | Outpatient (BNVA) | payer MEDICARE, MEDICAID, SELFPAY | PROVIDERS: PCP Internal Medicine | DX: R06.02 Shortness of breath (principal); E78.00 Pure hypercholesterolemia, unspecified | CPT/HCPCS: 99212 ==

== ENCOUNTER 2025-06-10 10:06 | Outpatient (AMB) | payer MEDICARE, MEDICAID, SELFPAY ==
--- OUTSIDE RECORDS SUMMARY | 2023-12-27 10:30 | XMS_ITS ---
Author Organization [facility] Address [address] [place] [address] Care Team Providers Care Freight Broker Name Role Phone Stephen Nash Primary Care Provider Delio Lanza [phone] Morales Encounters Encounter Location Date Provider Diagnosis [address] [address] 12/27/2023 Delio Lanza Plan Of Treatment Next Appt Details Provider Name:Delio Lanza , 07/23/2025 03:45:00 PM, [address] [place] [address], [id number], Progress Notes * FLORAOmarDOB:1950 ( 75 yo M)Acc No.[id number]:12/27/2023 Progress Note Patient: Omar DICKEY Provider: Elizabeth Lanza DPM :1950 A ge:73 Y S ex:Male Date:12/27/2023 Address:[address] [place] [address] Pcp:Stephen Nash Subjective: * Chief Complaints: * [address] Morales. * Medical History: Objective: * Vitals: Assessment: Plan: * Treatment: * Images: * The named appointment provid er may or may not be the originator of this progress note, and it is not deemed complete until electronically signed by the appointment provider. Sign off status: Pending * Provider: Elizabeth Lanza DPM Date: 0 12/27/2023 Generated for Thuan edward/Juliette/Mendoza on: 1 11:42 AM EDT
--- OUTSIDE RECORDS SUMMARY | 2024-01-20 09:15 | XMS_ITS ---
Author Organization [facility] Address [address] [place] [address] Care Team Providers Care Boatwright Name Role Phone Stephen Nash Primary Care Provider Delio Lanza [phone] Encounters Encounter Location Date Provider Diagnosis [address] [address] 01/20/2024 Delio Lanza Plan Of Treatment Next Appt Details Provider Name:Delio Lanza , 07/23/2025 03:45:00 PM, [address] [place], [address], Progress Notes * Omar HINESDOB:1950 ( 75 yo M)Acc No.[id number]:01/20/2024 Progress Note Patient: Omar DICKEY Provider: Elizabeth Lanza DPM :1950 A ge:73 Y S ex:Male Date:01/20/2024 Address:[address] [place], [place] [id number] Pcp:Stephen Nash Subjective: * Chief Complaints: * * Medical History: Objective: * Vitals: Assessment: Plan: * Treatment: * Images: * The named appointment provid er may or may not be the originator of this progress note, and it is not deemed complete until electronically signed by the appointment provider. Sign off status: Pending * Provider: Elizabeth Lanza DPM Date: 0 01/20/2024 Generated for Thuan edward/Primitivo on: 1 11:41 AM EDT
--- OUTSIDE RECORDS SUMMARY | 2025-01-11 09:45 | XMS_ITS ---
Author Organization [facility] Address [address] [place] [address] Care Team Providers Care Vb Developer Name Role Phone Stephen Nash Primary Care Provider Delio Lanza [phone] Encounters Encounter Location Date Provider Diagnosis [address] [address] 01/11/2025 Delio Lanza Plan Of Treatment Next Appt Details Provider Name:Delio Lanza , 07/23/2025 03:45:00 PM, [address] [place], [address], Progress Notes * Omar HINESDOB:1950 ( 75 yo M)Acc No.[id number]:01/11/2025 Progress Note Patient: Omar DICKEY Provider: Elizabeth Lanza DPM :1950 A ge:74 Y S ex:Male Date:01/11/2025 Address:[address] [place], [place] [phone] Pcp:Stephen Nash Subjective: * Chief Complaints: * * Medical History: Objective: * Vitals: Assessment: Plan: * Treatment: * Images: * The named appointment provid er may or may not be the originator of this progress note, and it is not deemed complete until electronically signed by the appointment provider. Sign off status: Pending * Provider: Elizabeth Lanza DPM Date: 0 01/11/2025 Generated for Thuan edward/Primitivo on: 1 11:41 AM EDT
--- NOTE | 2025-06-10 10:03 | A.OFFPC_ITS ---
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 Required: No Accompanied by: Self / Same As Patient Allergies shellfish derived Allergy (Severe, Verified 06/10/25 10:03) Stomach Upset Medication List - Last Reconciled 06/10/25 by Reyes Carson MD allopurinol 100 mg PO DAILY 30 days atorvastatin 10 mg PO DAILY ciclopirox 0.77% appl topical multivitamin with iron 1 tab PO DAILY tamsulosin 0.4 mg PO DAILY Tobacco use date assessed: 12/10/24 Dental Screening Dental Screen Date: 12/10/24 HPI HPI Comments History of Present Illness Details The patient is a 75-year-old male presenting with issues related to blood sugar management and urinary function. He notes a problem with controlling his blood sugar levels, occasionally reporting readings over 200 mg/dl, but mostly around 160-170 mg/dl at home. His last Hemoglobin A1c was recorded at 6.2% in November, placing him in the prediabetes range. The patient has attempted self-management of his blood sugars but expresses concern over future complications if no medication is initiated should his A1c rise above 6.4%. Additionally, the patient reports urinary difficulties characterized by hesitation and a feeling of incomplete bladder emptying after urination. He describes frequent trips to the bathroom and the need to return to urinate shortly after having done so. These symptoms have prompted conversations about medication adjustments for his benign prostatic hyperplasia. There is a noted history of former smoking, with cessation occurring in 1974. 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 [facility] Medical History (Updated 06/10/25 @ 10:30 by Reyes Carson MD) Hyperlipidemia BPH (benign prostatic hyperplasia) Prediabetes GERD (gastroesophageal reflux disease) Back abscess High cholesterol Enlarged prostate Gout Surgical History History of colonoscopy (~04/20/17) History of laparoscopic cholecystectomy (07/30/22) History of laparoscopic cholecystectomy (~2020) Family History Sister Cardiac abnormality Diabetes Sister Breast cancer Brother Diabetes Social History Household Members: Significant Other Housing: Apartment Do you presently have visiting nurse or other home services: No Alcohol intake: former Patient Tobacco Use Status: Former Tobacco user e-Cigarette/Vaping Use: Former Use Second Hand Smoke Exposure: No service: No Current occupational status: retired Cognitive needs: No Hearing needs: Yes (bilateral aids) Vision needs: No Questionnaire Thrive Questionnaire Date Thrive assessed: 12/10/24 JOSE GUADALUPE-7 AMB Questionnaire JOSE GUADALUPE-7 Date JOSE GUADALUPE - 7 assessed: 12/10/24 Source: Developed by Drs. Jeremias Hall, Jaclyn Cunningham, Enoch Ngo and colleagues, with an educational charissa from [employer]. Review of Systems Const Details: - Endocrine: Reports issues with blood sugar management. - Genitourinary: Reports urinary difficulty, incomplete bladder emptying. - Respiratory: Denies chest pain and shortness of breath; notes occasional hard breathing. All systems reviewed & are unremarkable except as reviewed in HPI and above Physical exam (Primary Care) Vital Signs: Last Vital Signs Temp 97.5 F 06/10/25 10:07 Pulse 77 06/10/25 10:07 Resp 16 06/10/25 10:07 BP 118/70 06/10/25 10:07 Pulse Ox 96 06/10/25 10:07 Oxygen Delivery Method Room Air 06/10/25 10:07 BMI result Body Mass Index 23.1 Tobacco/Smoking Status: Tobacco use Status Tobacco use date assessed 12/10/24 06/10/25 10:06 Patient Tobacco Use Status Former Tobacco user 06/10/25 10:06 e-Cigarette/Vaping Use Former Use 06/10/25 10:06 Thrive Assessment: Date of Thrive Assessment Date Thrive assessed 12/10/24 06/10/25 10:06 Const Other: General: Alert and oriented, Well nourished, No acute distress. Eye: Pupils are equal, round and reactive to light, Intact accommodation, Extraocular movements are intact, Normal conjunctiva, Vision unchanged. HENT: Normocephalic, Atraumatic, Tympanic membranes are clear, Normal hearing, Oral mucosa is moist, No pharyngeal erythema, Ear canals patent. Respiratory: Lungs CTA bilaterally, No wheeze, Respirations are non-labored, occasional hard breathing noted. Cardiovascular: Regular rate, Regular rhythm, S1 auscultated, S2 auscultated, No murmur, Good pulses equal in all extremities, Normal peripheral perfusion, No edema. Gastrointestinal: Soft, Non-tender, Non-distended, Normal bowel sounds, No o rganomegaly. Musculoskeletal: Normal range of motion, Normal strength, No tenderness, No swelling, No deformity, Normal gait. Integumentary: Warm, Dry, [place], Intact. Neurologic: Alert, Oriented, Normal sensory, Normal motor function, No focal defects, Cranial Nerves II-XII are grossly intact, Normal deep tendon reflexes. Psychiatric: Cooperative, Appropriate mood & affect, Normal judgment. Coding Level of Care Code Est Pt Level 4 (62240) Complex EM visit Add On G2211 Diagnoses Prediabetes R73.03 Benign prostatic hyperplasia with incomplete bladder emptying N40.1; R39.14 Lower urinary tract symptom presence: symptoms present Lower urinary tract symptom detail: incomplete bladder emptying Other hyperlipidemia E78.49 Hyperlipidemia type: other hyperlipidemia Chronic gout without tophus, unspecified cause, unspecified site [id number].[id number] Gout site: unspecified site Gout etiology: unspecified cause Chronicity: chronic Presence of tophus: without tophus Assessment & Plan Assessment & Plan (1) Prediabetes: Comment: - Await results of blood work; A1c monitoring. - Home readings between 160 and 200 - Plan to start Metformin if A1c exceeds 6.4%, aiming to keep levels below 7.5%. Code(s): R73.03 - Prediabetes Category: Medical (2) BPH (benign prostatic hyperplasia): Comment: - Continue Tamsulosin at 0.4mg and initiate Finasteride 5mg Daily for continued frequency - Monitor urinary symptoms for improvement with medication adjustment. Code(s): N40.0 - Benign prostatic hyperplasia without lower urinary tract symptoms Category: Medical Qualifiers: Lower urinary tract symptom presence: symptoms present Lower urinary tract symptom detail: incomplete bladder emptying Qualified Code(s): N40.1 - Benign prostatic hyperplasia with lower urinary tract symptoms; R39.14 - Feeling of incomplete bladder emptying (3) Hyperlipidemia: Comment: - Maintain Atorvastatin 10mg. Code(s): E78.5 - Hyperlipidemia, unspecified Category: Medical Qualifiers: Hyperlipidemia type: other hyperlipidemia Qualified Code(s): E78.49 - Other hyperlipidemia (4) Gout: Comment: - Continue Allopurinol. Code(s): M10.9 - Gout, unspecified Category: Medical Qualifiers: Gout site: unspecified site Gout etiology: unspecified cause Chronicity: chronic Presence of tophus: without tophus Qualified Code(s): M1A.9XX0 - Chronic gout, unspecified, without tophus (tophi) Plan: Health Maintenance: - Blood glucose monitoring and management discussion - Routine follow-up in six months. Patient was informed and verbally consented to the use of an ambient scribe for clinic note documentation during this visit. Plan I discussed with the patient the current state of his prediabetes diagnosis and emphasized the importance of monitoring his blood sugar levels, especially the A1c. We will initiate Metformin if his A1c reaches or exceeds 6.4%. For his urin arsh issues, we discussed increasing Tamsulosin or starting Finasteride, evaluating the benefits of reducing urinary symptoms and the importance of monitoring. We also reviewed his medication regimen for gout and hyperlipidemia, and I emphasized the continuation of his current medications. Finally, I made sure he was comfortable accessing his results online, and provided instructions on what to do following his lab work. Orders: Orders Hemoglobin A1c Today R73.03 - Prediabetes Medications: New finasteride 5 mg PO DAILY 90 tabs 0RF 90 days N40.0 - Benign prostatic hyperplasia without lower urinary tract symptoms Patient Instructions: - Perform blood sugar checks at home as discussed. - Await call for potential medication changes based on blood work. - Observe urinary symptoms; expect some time before noticing improvements. - Continue current medications as prescribed. - Follow up in six months or sooner if worsening symptoms occur. - Use patient portal to view lab results and be proactive about health changes.
[2025-06-10 10:07] VITALS: BP 118/70; PULSE 77; RESP 16; TEMP 36.4; O2SAT 96; BMI 23.1
--- OUTSIDE RECORDS SUMMARY | 2025-06-10 11:42 | XMS_ITS | Clinical Summary ---
Author Organization [employer] Address [address] [place] [address] Care Team Providers Care Case Investigator Name Role Phone Unavailable Primary Care Provider [...] Health Maintenance Due Date Last Done Comments Dental Prophylaxis 1949 Dental X-Ray: Bitewings 1949 Depression Screening 1949 Lipid Panel 1949 SDOH Screening 1949 Alcohol/Substance Use Screening 1961 Hepatitis C Screening 1967 Hepatitis A Vaccines (1 of 2 - Risk 2-dose series) 1968 Hepatitis B Vaccines (1 of 3 - Risk 3-dose series) 2009 Dental Oral Exam 12/27/2024 06/28/2024 COVID-19 Vaccine ( season) 2025 08/19/2023, 08/18/2022, 07/21/2021, Additional history exists Influenza Vaccine (#1) 2025 3, 07/23/2011, 06/30/2010 Tobacco Screening 06/28/2025 06/28/2024 Dental X-Ray: Full Mouth 06/29/2027 06/28/2024 DTaP/Tdap/Td Vaccines (2 - Td or Tdap) 12/01/2033 12/02/2023 Pneumococcal Vaccine: 50+ Years Completed 10/24/2023 Zoster Vaccines Completed 02/09/2024, 12/02/2023 RSV Patients and Patients Aged 60 years or older Completed 04/16/2024 HIB Vaccines Aged Out No longer eligi ble based on patient's age to complete this topic HPV Vaccines Aged Out No longer eligi ble based on patient's age to complete this topic IPV Vaccines Aged Out No longer eligi ble based on patient's age to complete this topic Meningococcal B Vaccine Aged Out No l onger eligible based on patient's age to complete [...] Maintenance Insurance DENTAL - HSN FULL (MEDICAID) [place] [id number]
--- OUTSIDE RECORDS SUMMARY | 2025-06-10 11:42 | XMS_ITS | Patient Health Record ---
Author Organization [facility] Address [address] [place] [address] Care Team Providers Care Advanced Quality Engineer Name Role Phone Roxanne (RETIRED) Fer WYMAN Primary Care Provide r Sorin Miller Jr Unavailable Reason For Referral No Information Medications Medication SIG (Take, Route, Frequency, Duration) Notes Start Date End Date Status Colyte with Flavor Packs 240 GM As directed Orally Over the specified time.; Duration: 1 day(s) Active Atorvastatin Calcium 10 MG TAKE 1 TABLET BY MOUTH DAILY Oral; Duration: 90 Active Social History Tobacco Use: Social [...] Problem Status W/U Status Risk Notes Problem Colon cancer screening (859002351) Colon cancer screening (Z12.11) Active confirmed Problem Gallstones (596497896) Gallstones (K80.20) Active confirmed Problem Dilatation of bile duct (419541286) Common bile duct dilation (K83.8) Active confirmed Problem Rhinorrhea (14124896) Rhinorrhea (J34.89) Active confirmed Plan Of Treatment Future Test Test Name Order Date COLONOSCOPY 01/06/2017 Insurance Providers Payer Name Payer Address Payer Phone Subscriber Number Group Number Insured Name Patient Relationship to Insured Coverage Start Date Coverage End Date [facility] [address] [facility] [phone] [id number] CONSUELO HINES Self - patient is the insured Medicare of [place] [employer] [address] [place] [address] [id number] CONSUELO HINES Self - patient is the insured Medical (General) History Medical History History ICD Code colonoscopy 08-02-2007 rosacea degenerative disc disease elevated cholesterol
--- OUTSIDE RECORDS SUMMARY | 2025-06-10 11:43 | XMS_ITS | Patient Health Record ---
Author Organization [facility] Address [address] [place] [address] Care Team Providers Care Pump Operator Byproducts Name Role Phone Charity Stephen Primary Care Provider Delio Lanza Unavailable [phone] Allergies No Known Allergies Results Component Value Reference Range Notes HEMOGLOBIN A1C (GLYCOHEMOGLO BIN) Reviewed date:01/08/2025 09:17:32 AM Interpretation: Performing Lab: Notes/Report: HEMOGLOBIN A1C % (HH) 6.2 Reason For Referral No Information Medications Medication SIG (Take, Route, Frequency, Duration) Notes Start Date End Date Status Atorvastatin Calcium 10 MG 1 tablet Oral ly Once a day; Duration: 30 day(s) Active Tamsulosin HCl 0.4 MG 1 capsule Orally O nce a day; Duration: 30 day(s) Active Ciclopirox Olamine 0.77 % 1 application to affected area Externally Twice a day to effected areas on feet; Duration: 30 days 04/09/2025 Active Multivitamin Active Iron Active Allopurinol 100 MG 1 tablet Orally Once a day; Duration: 30 day(s) Active Immunizations Vaccine Route Administration Date Status Comme nts Influenza Unknown 05/23/2023 Administered Influenza Unknown 04/22/2024 Administered COVID-19 Pfizer BioNTech Vaccine Unknown 07/21/2021 Administered 1st 11/17/20 2nd 12/10/20 Social History Tobacco Use: Social History Observation [...] Status W/U Status Risk Notes Problem Onychomycosis (044743392) Onychomycosis (B35.1) Active confirmed Vital Signs Blood pressure diastolic 70 mm Hg 04/09/2025 Height 5ft7in in 04/09/2025 Blood pressure systolic 122 mm Hg 04/09/2025 Weight 145 lbs 04/09/2025 BMI 22.71 kg/m2 04/09/2025 Procedures Procedure Date Ordered Date Performed Result Body Sit e 39925-JCONSLH NAIL, 6 OR MORE 07/06/2024 N/A 87740-CXDSFXI NAIL, OR MORE 10/02/2024 N/A 45240-TGHIXIO NAIL, OR MORE 01/08/2025 N/A 91467-VLOOLXW NAIL, 6 OR MORE 04/09/2025 N/A Encounters Encounter Location Date Provider Diagnosis [address] [address] 07/06/2024 Delio Myla Onychomycosis B35.1 ; Pain in right toe(s) M79.674 ; Pain in left toe(s) M79.675 and Tinea pedis of both feet B35.[address] [address] 10/02/2024 Delio Myla Onychomycosis B35.1 ; Pain in right toe(s) M79.674 ; Pain in left toe(s) M79.675 and Tinea pedis of both feet B35.[address] [address] 01/08/2025 Delio Myla Onychomycosis B35.1 ; Pain in right toe(s) M79.674 and Pain in left toe(s) M79.[address] [address] 04/09/2025 Delio Myla Onychomycosis B35.1 ; Pain in right toe(s) M79.674 ; Pain in left toe(s) M79.675 and Tinea pedis of both feet B35.3 [facility] [address] [address] 12/31/2024 Delio Lanza Assessments Encounter Date Diagnosis (ICD Code) Assessment Notes Treatment Notes Treatment Clinical Notes Section Notes 07/06/2024 Pain in right toe(s) (ICD-10 - M79.674) 07/06/2024 Onychomycosis (ICD-10 - B35.1) 10/02/2024 Pain in right toe(s) (ICD-10 - M79.674) 10/02/2024 Onychomycosis (ICD-10 - B35.1) 01/08/2025 Pain in right toe(s) (ICD-10 - M79.674) 01/08/2025 Onychomycosis (ICD-10 - B35.1) 04/09/2025 Pain in right toe(s) (ICD-10 - M79.674) 04/09/2025 Onychomycosis (ICD-10 - B35.1) 04/09/2025 Pain in left toe(s) (ICD-10 - M79.675) 10/02/2024 Pain in left toe(s) (ICD-10 - M79.675) 01/08/2025 Pain in left toe(s) (ICD-10 - M79.675) 07/06/2024 Pain in left toe(s) (ICD-10 - M79.675) 07/06/2024 Tinea pedis of both feet (ICD-10 - B35.3) 10/02/2024 Tinea pedis of both feet (ICD-10 - B35.3) 04/09/2025 Tinea pedis of both feet (ICD-10 - B35.3) Patient Educated with: ATHELETE .pdf (ATHELETE .pdf) Plan Of Treatment Pending Test Test Name Order Date 32007-IOYNIOF NAIL, 6 OR MORE 12/08/2021 80689-YGGIHUF NAIL, 6 OR MORE 03/09/2022 51542-JRHMORI NAIL, 6 OR MORE 06/25/2022 41303-UURZYJS NAIL, 6 OR MORE 10/01/2022 71367-DIAEOFI NAIL, 6 OR MORE 01/04/2023 90915-PXBUKOY NAIL, 6 OR MORE 03/11/2023 34943-KBMPRXM NAIL, 6 OR MORE 05/27/2023 85487-KWDVBSQ NAIL, 6 OR MORE 08/12/2023 57265-AHOVSPX NAIL, 6 OR MORE 10/25/2023 46779-EHLHFJQ NAIL, 6 OR MORE 04/06/2024 81159-HOESCLP NAIL, 6 OR MORE 07/06/2024 28800-SNFVBAF NAIL, 6 OR MORE 10/02/2024 15299-DSYADEU NAIL, 6 OR MORE 01/08/2025 42116-TFUSRMH NAIL, 6 OR MORE 04/09/2025 66732-Dwux Destruction, 1-14 04/06/2024 07437-Xnxy Destruction, 1-14 10/25/2023 36268-Etpx Destruction, 1-14 10/01/2022 86304-Yavf Destruction, 1-14 08/12/2023 46221-Rdwq Destruction, 1-14 05/27/2023 20590-Orgf Destruction, 1-14 03/11/2023 15365-Fryu Destruction, 1-14 01/04/2023 99492-Dmuk Destruction, 1-14 06/25/2022 23706-Efzf Destruction, 1-14 03/09/2022 74996-Lubu Destruction, 1-14 12/08/2021 49521-Pwrbesdx Plate 10/01/2022 98689-Dstbzzqq Plate 01/04/2023 07922-Yzhgaawf Plate 03/11/2023 23746 I&D ABSCESS- SIMPLE,SINGLE 023 Next Appt Details Provider Name:Delio Lanza , 07/23/2025 03:45:00 PM, [address], [place], [address], Insurance Providers Payer Name Payer Address Payer Phone Subscriber Number Group Number Insured Name Patient Relationship to Insured Coverage Start Date Coverage End Date [employer] [place] [employer] [address] [place] [address] [id number] Omar Carbajal Self - patient is the [...]
== END 2025-06-10 10:30 | disposition home or self-care (01) ==
LOC: HO.HMCHD 10:07
PROVIDERS: PCP Internal Medicine; Visit Provider Student in an Organized Health Care Education/Training Program
DX: R73.03 Prediabetes (principal); N40.1 Benign prostatic hyperplasia with lower urinary tract symptoms; R39.14 Feeling of incomplete bladder emptying; E78.49 Other hyperlipidemia; M1A.9XX0 Chronic gout, unspecified, without tophus (tophi)

== ENCOUNTER → 2025-06-10 10:06 | Outpatient (BNVA) | payer MEDICARE, MEDICAID, SELFPAY | PROVIDERS: PCP Internal Medicine; Visit Provider Student in an Organized Health Care Education/Training Program | DX: R73.03 Prediabetes (principal); N40.1 Benign prostatic hyperplasia with lower urinary tract symptoms; R39.14 Feeling of incomplete bladder emptying; E78.49 Other hyperlipidemia; M1A.9XX0 Chronic gout, unspecified, without tophus (tophi); Z79.899 Other long term (current) drug therapy | CPT/HCPCS: 99212 ==

== ENCOUNTER 2025-06-10 10:53 | Outpatient (REF) | payer MEDICARE, MEDICAID, SELFPAY ==
[2025-06-10 14:29] LABS: Hemoglobin A1C 165.9699 umol/L; Total Hemoglobin (HGBA1C) 3547.8881 umol/L
== END 2025-06-10 10:54 | disposition home or self-care (01) ==
LOC: HO.10HDL 10:53
PROVIDERS: Visit Provider Student in an Organized Health Care Education/Training Program
DX: R73.03 Prediabetes (principal)
CPT/HCPCS: 36415; 83036